=== PATIENT | female | born 1950 | race Caucasian/White ===

== ENCOUNTER → 2017-06-12 14:53 | Outpatient (CLI) | payer MEDICARE, MEDICAID, SELFPAY ==
--- NOTE | 2017-06-12 15:02 | XR_ITS ---
EXAM: XR lumbar spine min 4V HISTORY: ITS.REASON: Low back pain s/p fall a few months ago ORDERING PHYSICIAN: MOSES John PATIENT AGE: 66 years COMPARISON: 07/25/2016 FINDINGS: No acute fracture or dislocation. There is mild degenerative disc disease at the thoracolumbar junction. There are 6 lumbar segments. No lytic or blastic change. An IVC filter is present at the L3-L4 level. Dense vascular calcification involves the aorta with mild dilatation of the distal abdominal aorta as before at 3 cm. IMPRESSION: 1. No acute finding. 2. Mild degenerative changes. 3. Abdominal aortic aneurysm which does not appear significantly changed
== END ==
PROVIDERS: PCP Physician Assistant; Visit Provider Physician Assistant
DX: M54.5 Low back pain (principal)
CPT/HCPCS: 72110

== ENCOUNTER → 2017-12-12 12:23 | Outpatient (CLI) | payer MEDICARE, MEDICAID, SELFPAY ==
--- NOTE | 2017-12-12 12:27 | XR_ITS ---
XR lumbar spine 2-3V Ordering Physician: Frederick Hernandez Patient Age: 67 years: Female HISTORY: ITS.REASON: back pain Back pain fall 2 months ago TECHNIQUE: 3 views AP and lateral view and lateral L5/S1 spot view lumbar spine COMPARISON : 06/12/2017 lumbar spine series. FINDINGS No significant change. No fracture. No subluxation. The vertebral body are intact with no significant change. There are 6 lumbar type vertebra with transitional vertebra lumbosacral junction, likely lumbarized S1. This unchanged. . Disc spaces are actually fairly well maintained with only There is only borderline disc space narrowing the posterior aspect of L3/4, L2/3 L1/2. Narrowing at L6/sacrum reflects the transitional character of this the vertebral discs. . IVC filter is in place stable anterior to the L3/4 level. Extensive, diffuse atherosclerotic calcification abdominal aorta with with again mild aneurysmal dilatation distal aorta just above the bifurcation-this area measuring up to 3 cm diameter on plain film, this measurement likely includes 20-25% magnification A likely benign hemangioma inferior aspect L1. Stable. A would note that there is a small 3 mm x 1.5 mm calcification project over the mid right kidney again noted and likely reflects a small renal calculus. Numerous phleboliths at the pelvic basin. Calcifications along the lower left psoas margin are likely phleboliths and appear unchanged since prior study as well. IMPRESSION no acute findings in the spine. No compression fractures or significant appearing lesions No significant change. May 2017 lumbar series Only Minor degenerative changes lumbar spine Small 3 mm x 1.5 mm probable calculus mid right kidney again noted. The mild aneurysmal dilatation lower most abdominal aorta appears stable
--- NOTE | 2017-12-12 12:27 | XR_ITS ---
XR sacrum coccyx min 2V Ordering Physician: Frederick Hernandez Patient Age: 67 years: Female HISTORY: ITS.REASON: lower back Low back pain fall 2 months ago. Still having pain. TECHNIQUE: AP lateral and angled AP view of coccyx, and sacrum. COMPARISON :May 2017 and June 2016 lumbar series FINDINGS No fracture evident and sacrum or coccyx Sacrum, SI joints appear stable, satisfactory. Stable since 06/12/2017 . The majority of coccyx was included on May study & appear stable as well. . What is seen at the osseous pelvis otherwise appears intact IMPRESSION: The sacrum and coccyx intact. No fracture. Stable Satisfactory anatomy since May AP pelvis unremarkable
== END ==
PROVIDERS: PCP Nurse Practitioner Family; Visit Provider Nurse Practitioner Family
DX: M54.5 Low back pain (principal)
CPT/HCPCS: 72100; 72220

== ENCOUNTER → 2018-01-07 10:19 | Outpatient (CLI) | payer MEDICARE, MEDICAID, SELFPAY ==
--- NOTE | 2018-01-07 10:30 | CT_ITS ---
CT angio abdomen pelvis CLINICAL INDICATION: Follow-up abdominal aortic aneurysm ITS.REASON: mild dilitation of abd aorta ORDERING PHYSICIAN: Frederick Hernandez PATIENT AGE: 67 years COMPARISON: 03/06/2009 TECHNIQUE: Axial images obtained with sagittal and coronal reformats. All CT scans at the facility use one or more dose reduction, viz: automated exposure control, ma/kV adjustment per patient size (including targeted exams where dose is matched to indication, i.e. head), or iterative reconstruction technique. PROCEDURE: Oral Contrast: None IV Contrast: 100 mL of Isovue-370. FINDINGS: Extensive calcification involves the abdominal aorta. There is mild fusiform dilatation of the infrarenal aspect of the abdominal aorta measuring 2.5 cm transverse and 2.4 cm AP. This begins 5.7 cm below the level the left renal artery which is the lowest renal artery. No evidence of acute rib. No hemorrhage or dissection. No evidence of renal artery stenosis. Plaque is present at the origin of the SMA and celiac without significant stenosis. MARIA ESTHER is patent. No significant stenosis of the common or external iliac artery. There is an inferior vena cava filter is present. The superior aspect is below the level veins. Nonvascular findings: Prior cholecystectomy. The common hepatic and common bile duct are prominent with: Bile duct measuring up to 17 mm in diameter. This had a similar appearance on 03/06/2009. Diverticulum is suspected at the region of the distal CBD. Spleen, adrenal glands, are unremarkable. No hydronephrosis. No renal or ureteral calculi. There is a small right renal cyst at 2.3 cm. Urinary bladder slightly distended. There is diverticulosis of the descending and sigmoid colon. Prior hysterectomy. IMPRESSION: 1. 2.5 cm infrarenal abdominal aortic aneurysm. No evidence of rupture or retroperitoneal hemorrhage. 2. No acute abdominal or pelvic findings.
[2018-01-07 10:43] LABS: Anion Gap 14.1 mEq/L (5-15); Blood Urea Nitrogen 13 mg/dL (7-18); Calcium 8.5 mg/dL (8.5-10.1); Carbon Dioxide 26 mmol/L (21.0-32.0); Chloride 103 mmol/L (98-107); Creatinine,Serum 0.85 mg/dL (0.55-1.02); Estimated Glomerular Filt Rate 66 ml/min (>60); GFR (African American) 80 ML/MIN (>60); Glucose 97 mg/dL (74-106); Potassium 4.1 mmoL/L (3.5-5.1); Sodium 139 mmol/L (136-145)
== END ==
PROVIDERS: Visit Provider Nurse Practitioner Family
DX: Z01.812 Encounter for preprocedural laboratory examination (principal); I71.4 Abdominal aortic aneurysm, without rupture
CPT/HCPCS: 36415; 74174; 80048; Q9967

== ENCOUNTER 2019-06-10 12:19 | Emergency (ER) | payer MEDICARE, MEDICAID, SELFPAY ==
[2019-06-10 12:15] VITALS: BP 204/91; PULSE 78; RESP 20; TEMP 36.9; O2SAT 96; BMI 30.9
--- NOTE | 2019-06-10 12:19 | HMH.EDGENADL ---
ED Disposition Clinical Impression: Essential hypertension Cervical strain Qualifiers: Encounter type: initial encounter Qualified Code(s): S16.1XXA - Strain of muscle, fascia and tendon at neck level, initial encounter Lumbar strain Qualifiers: Encounter type: initial encounter Qualified Code(s): S39.012A - Strain of muscle, fascia and tendon of lower back, initial encounter Contusion of left leg Qualifiers: Encounter type: initial encounter Qualified Code(s): S80.12XA - Contusion of left lower leg, initial encounter Abdominal contusion Qualifiers: Encounter type: initial encounter Qualified Code(s): S30.1XXA - Contusion of abdominal wall, initial encounter Fall down steps Qualifiers: Encounter type: initial encounter Qualified Code(s): W10.8XXA - Fall (on) (from) other stairs and steps, initial encounter Disposition: Home, Self-Care Condition on Discharge: Good Instructions: How to Prevent Falls, DI for High Blood Pressure Additional Instructions: Tylenol for pain. Follow-up with your primary care provider for your blood pressure. Additional instructions for TRAUMA: See your physician as soon as possible for further evaluation. Return to the emergency department immediately if severe headache, altered mental status or confusion, severe chest pain, shortness of breath, abdominal pain, vomiting, severe neck pain, numbness or weakness of arms or legs. Referrals: Provider,Referral, MD [Primary Care Provider] - - Critical Care Critical Care Time: No Attestation: On , the high probability of a clinically significant, sudden or life threatening deterioration of the following system(s) required my full and direct attention, intervention and personal management. The time I documented below is in addition to time spent performing reported procedures but includes the following listed in this critical care notation. Medical Decision Making - Christian Inquiry Pt receiving controlled substance: No Vital Signs: 06/10/19 12:15 06/10/19 14:14 06/10/19 15:14 Temperature 98.4 F Temperature Source Oral Pulse Rate [Right Radial] 78 73 74 Respiratory Rate 20 20 20 Blood Pressure [Right Arm] 204/91 H 194/90 H 221/100 H Blood Pressure Mean [Right Arm] 128 124 140 Blood Pressure Source [Right Arm] Automatic Cuff Automatic Cuff Blood Pressure Position [Right Arm] Supine Supine 02 Sat by Pulse Oximetry 96 94 L 96 Oxygen Delivery Method Room Air Room Air 04/14/20 16:29 Temperature Temperature Source Pulse Rate [Right Radial] 68 Respiratory Rate 20 Blood Pressure [Right Arm] 217/83 H Blood Pressure Mean [Right Arm] 127 Blood Pressure Source [Right Arm] Automatic Cuff Blood Pressure Position [Right Arm] Sitting 02 Sat by Pulse Oximetry 94 L Oxygen Delivery Method Room Air - Lab Data Lab Results 06/10/19 12:50: WBC 8.0, RBC 4.91, Hgb 14.6, Hct 44.8, MCV 91.3, MCH 29.7, MCHC 32.5, RDW 14.4, Plt Count 170, MPV 8.4, Neut % (Auto) 53.5, Lymph % (Auto) 35.0, [place] % (Auto) 7.4, Eos % (Auto) 2.8, Baso % (Auto) 1.2, Neut # (Auto) 4.3, Lymph # (Auto) 2.8, [place] # (Auto) 0.6, Eos # (Auto) 0.2, Baso # (Auto) 0.1 06/10/19 12:50: PT 35.7 H, INR 3.65 H 06/10/19 12:50: Sodium 139, Potassium 4.5, Chloride 104, Carbon Dioxide 25, Anion Gap 14.5, BUN 11, Creatinine 0.70, Estimated Creat Clear 67, Estimated GFR 83, Est GFR ( Amer) 100, Glucose 112 H, Calcium 9.3, Total Bilirubin 0.5, AST 52 H, ALT 41, Alkaline Phosphatase 63, Total Protein 8.2, Albumin 4.1, Globulin 4.1 H, Albumin/Globulin Ratio 1.0 L Result diagrams: 06/10/19 12:50 06/10/19 12:50 Orders (Tests/Meds): ED MEDICATIONS Discontinued Medications Generic Name Dose Route Start Last Admin Trade Name Freq PRN Reason Stop Dose Admin Acetaminophen 650 mg 06/10/19 15:21 06/10/19 15:58 Acetaminophen 325mg Tab PO 06/10/19 15:22 650 mg ONCE ONE Administration Ioversol 75 ml 06/10/19 13:31 06/10/19 13:33 Rad-Optiray 350 100ml
--- NOTE | 2019-06-10 12:23 | CT_ITS ---
PROCEDURE: CT HEAD/BRAIN WO CON CLINICAL INDICATION: FALL Posttraumatic pain, fall with head injury and pain, head injury, blunt trauma with injury and pain COMPARISON: No exams were available for comparison TECHNIQUE: Axial images obtained. All CT scans at the facility use one or more dose reduction, viz: automated exposure control, ma/kV adjustment per patient size (including targeted exams where dose is matched to indication, i.e. head), or iterative reconstruction technique. FINDINGS: No midline shift, mass effect, intracranial hemorrhage, hydrocephalus, or extra-axial fluid collection is evident. There is generalized atrophy with hypoattenuation of the periventricular white matter consistent with microangiopathic changes. There is dense calcification in the suprasellar region and along the interhemispheric fissure. This is of unknown etiology and may even be vascular with dilated anterior cerebral artery. The lateral ventricles have a somewhat nodular configuration on both sides which is of questionable etiology. The calvarium has an unremarkable appearance. No mastoid effusion. There is an air-fluid level in the left maxillary sinus. IMPRESSION: 1. No acute intracranial findings. 2. 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 Dense calcification in the suprasellar region extending into the posterior and inferior falx area which may be vascular and could be due to enlarged anterior cerebral artery. Nonemergent CT angiogram may confirm Dictated by: Karan Draper MD 06/10/2019 14:17 Electronically signed by Karan Draper MD in [place] 06/10/2019 14:17
--- NOTE | 2019-06-10 12:23 | CT_ITS ---
PROCEDURE: CT LUMBAR SPINE WO CON CLINICAL HISTORY: FALL Posttraumatic pain, fall with injury and pain COMPARISON: No exams were available for comparison TECHNIQUE: Axial images obtained with sagittal and coronal reformats. All CT scans at the facility use one or more dose reduction, viz: automated exposure control, ma/kV adjustment per patient size (including targeted exams where dose is matched to indication, i.e. head), or iterative reconstruction technique. FINDINGS: Generalized osteopenia. No fracture or dislocation. There is a small area of sclerosis involving the T12 vertebral body inferiorly on the right and may be due to Schmorl's node. Bulging disc is present at L2-L3 and L3-L4. Facet arthritic changes are noted. There is bulging disc at L4-5. See above for detail. Incidental note is made of colonic diverticulosis. There is an IVC filter present. The proximal tip is below the level of the renal veins. There is mild dilatation of the infrarenal abdominal aorta measuring up to 2.3. There is a 5 mm hypodensity of the right hepatic lobe posteriorly. Nonobstructing 4 mm stone is present in the right kidney. A cyst in the upper pole of the right kidney at 1.8 cm. There is a small duodenal diverticulum. IMPRESSION: 1. No acute fracture. 2. Degenerative changes with bulging discs 3. Other nonacute findings as described above including diverticulosis, 2.3 cm abdominal aortic aneurysm, right nephrolithiasis Dictated by: Karan Draper MD 06/10/2019 14:55 Electronically signed by Karan Draper MD in [place] 06/10/2019 14:55
--- NOTE | 2019-06-10 12:23 | XR_ITS ---
PROCEDURE: XR ANKLE LT 2V CLINICAL INDICATION: FALL Posttraumatic pain COMPARISON: XR TIBIA FIBULA LT 2V from 06/10/2019 FINDINGS: No obvious fracture or dislocation. Vascular calcifications are noted. IMPRESSION: No acute findings. Dictated by: Karan Draper MD 06/10/2019 15:25 Electronically signed by Karan Draper MD in [place] 06/10/2019 15:25
--- NOTE | 2019-06-10 12:23 | CT_ITS ---
PROCEDURE: CT CERVICAL SPINE WO CON CLINICAL INDICATION: FALL Posttraumatic pain, fall with injury and pain COMPARISON: No exams were available for comparison TECHNIQUE: Axial images obtained with sagittal and coronal reformats. All CT scans at the facility use one or more dose reduction, viz: automated exposure control, ma/kV adjustment per patient size (including targeted exams where dose is matched to indication, i.e. head), or iterative reconstruction technique. Axial spiral CT scanning performed of the cervical spine beginning at the base of the skull and continuing to the upper T-spine. 3-D multiplanar reconstruction with 3-D manipulation of volumetric data set in image rendering was completed by the radiologist and/or technologist with the supervision of the radiologist on independent workstation. FINDINGS: There is normal alignment. No acute fracture or dislocation is evident. The C2-C3: Unremarkable. C3-C4: There is a suggestion of a medium-sized central disc herniation. Outpatient MRI may confirm C4-C5: Degenerate disc disease with endplate hypertrophic change. C5-C6: Degenerate disc disease with endplate hypertrophic change with canal stenosis and right lateral recess and foraminal narrowing. C6-C7: Degenerate disc disease with right paracentral disc osteophyte complex with right lateral recess and foraminal narrowing. C7-T1: Degenerative disc disease Lung apices are clear. There is diffuse vascular calcification. IMPRESSION: 1. No acute fracture. 2. Suspected central disc herniation C3-C4 3. Cervical spondylosis as detailed above Dictated by: Karan Draper MD 06/10/2019 14:22 Electronically signed by Karan Draper MD in [place] 06/10/2019 14:22
--- NOTE | 2019-06-10 12:31 | CT_ITS ---
PROCEDURE: CT ABDOMEN PELVIS W CON CLINICAL INDICATION: fall down steps Posttraumatic pain COMPARISON: No exams were available for comparison TECHNIQUE: IV Contrast: 75ML OPTIRAY 350 Oral Contrast 20ml Gastroview Axial images obtained with sagittal and coronal reformats. All CT scans at the facility use one or more dose reduction, viz: automated exposure control, ma/kV adjustment per patient size (including targeted exams where dose is matched to indication, i.e. head), or iterative reconstruction technique. FINDINGS: LOWER THORAX: No acute finding ABDOMEN & PELVIS: There are scattered small hypodense lesions of the liver nonspecific 5 mm or less 1 in the right hepatic lobe, 2 in the left hepatic lobe, 2 in the hepatic dome. There has been a prior cholecystectomy. The spleen, adrenal glands, have an unremarkable appearance. There has been a prior cholecystectomy with enlarged common bile duct at 16 mm. There is a small duodenal diverticulum at the ampulla. There is a 2 cm right renal cyst and a 4 mm stone in the lower pole of the right kidney. There is a 2.6 cm infrarenal abdominal aortic aneurysm. An IVC filter is present with the tip proximal to the renal veins. Sigmoid diverticulosis noted. No evidence of diverticulitis or appendicitis. No intestinal obstruction or free air. There are post hysterectomy changes. No acute bony findings. IMPRESSION: 1. No acute finding. 2. Infrarenal abdominal aortic aneurysm. 3. Right nephrolithiasis. 4. Colonic diverticulosis. 5. Nonspecific hypodensities of the liver Dictated by: Karan Draper MD 06/10/2019 14:59 Electronically signed by Karan Draper MD in [place] 06/10/2019 14:59
--- NOTE | 2019-06-10 12:32 | XR_ITS ---
PROCEDURE: XR CHEST AP CLINICAL HISTORY: fall down steps Posttraumatic pain, fall with injury and pain, trauma protocol COMPARISON: No exams were available for comparison FINDINGS: Cardiomegaly without failure. Fibrotic changes or atelectatic changes are present in the left midlung. There is an old left 4th rib fracture. No acute bony abnormalities. IMPRESSION: Cardiomegaly with chronic changes, no acute finding Dictated by: Karan Draper MD 06/10/2019 15:20 Electronically signed by Karan Draper MD in [place] 06/10/2019 15:20
--- NOTE | 2019-06-10 12:32 | XR_ITS ---
PROCEDURE: XR PELVIS 1-2V CLINICAL INDICATION: fall down steps Posttraumatic pain COMPARISON: CT ABDOMEN PELVIS W CON from 06/10/2019 TECHNIQUE: XR Pelvis AP View FINDINGS: No fracture or dislocation is evident. Mild osteoarthritic change of the hips and SI joints No lytic or blastic change. IMPRESSION: No acute findings. Dictated by: Karan Draper MD 06/10/2019 15:24 Electronically signed by Karan Draper MD in [place] 06/10/2019 15:24
--- NOTE | 2019-06-10 12:37 | CT_ITS ---
PROCEDURE: CT THORACIC SPINE WO CON CLINICAL HISTORY: fall down steps, Posttraumatic pain COMPARISON: No exams were available for comparison TECHNIQUE: Axial images obtained with sagittal and coronal reformats. All CT scans at the facility use one or more dose reduction, viz: automated exposure control, ma/kV adjustment per patient size (including targeted exams where dose is matched to indication, i.e. head), or iterative reconstruction technique. FINDINGS: There is normal alignment. Multilevel degenerative disc disease is present with endplate hypertrophic changes. No obvious fracture. There are scattered pulmonary fibrotic changes. IMPRESSION: No acute finding, degenerative changes Dictated by: Karan Draper MD 06/10/2019 14:42 Electronically signed by Karan Draper MD in [place] 06/10/2019 14:42
--- NOTE | 2019-06-10 12:59 | PC.NURSE ---
PT USED BEDPAN, RESULTING IN A LARGE BM AND APPROX 200ML UOP.
[2019-06-10 13:01] LABS: Basophils # 0.1 K/mm3 (0-0.2); Basophils % 1.2 % (0.1-2.0); Eosinophils # 0.2 K/mm3 (0.0-0.4); Eosinophils % 2.8 % (0.1-12.0); Hematocrit 44.8 % (37.0-47.0); Hemoglobin 14.6 g/dL (12.2-16.2); Lymphocytes # 2.8 K/mm3 (0.7-4.5); Mean Corpuscular HGB Conc 32.5 g/dL (31.8-35.4); Mean Corpuscular Hemoglobin 29.7 pg (27.0-31.2); Mean Corpuscular Volume 91.3 fl (81-99); Mean Platelet Volume 8.4 fl (7.4-10.4); Monocytes # 0.6 K/mm3 (0.1-1.0); Monocytes % 7.4 % (1.7-9.3); Neutrophils # 4.3 K/mm3 (1.8-7.8); Neutrophils % 53.5 % (37.0-80.0); Platelet Count 170 K/mm3 (142-424); Red Blood Count 4.91 M/mm3 (4.20-5.40); Red Cell Distribution Width 14.4 % (11.5-17.5)
[2019-06-10 13:03] LABS: Chloride 104 mmol/L (98-107); Potassium 4.5 mmoL/L (3.5-5.1); Sodium 139 mmol/L (136-145)
[2019-06-10 13:06] LABS: Alanine Aminotransferase 41 U/L (12-78); Albumin Level 4.1 g/dl (3.5-5.0); Alkaline Phosphatase 63 U/L (38-126); Anion Gap 14.5 mEq/L (5-15); Aspartate Amino Transferase 52 U/L (14-36); Bilirubin,Total 0.5 mg/dl (0.2-1.3); Blood Urea Nitrogen 11 mg/dl (7-17); Calcium 9.3 mg/dl (8.4-10.2); Carbon Dioxide 25 mmol/L (22.0-30.0); Creatinine Clearance Estimated 67 mL/min (50-200); Estimated Glomerular Filt Rate 83 ml/min (>60); GFR (African American) 100 ML/MIN (>60); Globulin 4.1 g/dL (1.3-3.2); Glucose 112 mg/dl (74-100); INR 3.65 (0.9-1.1); Prothrombin Time 35.7 seconds (9.4-11.8); Total Protein,Serum 8.2 g/dl (6.3-8.2)
[2019-06-10 14:14] VITALS: BP 194/90; PULSE 73; RESP 20; O2SAT 94
[2019-06-10 15:14] VITALS: BP 221/100; PULSE 74; RESP 20; O2SAT 96
[2019-06-10 16:29] VITALS: BP 217/83; PULSE 68; RESP 20; O2SAT 94
[2019-06-10 17:25] VITALS: BP 160/81
[2019-06-10 18:35] VITALS: BP 187/82; PULSE 79; RESP 18; TEMP 37.1; O2SAT 98
== END 2019-06-10 18:35 | disposition home or self-care (01) ==
PROVIDERS: Emergency Provider Emergency Medicine
DX: S16.1XXA Strain of muscle, fascia and tendon at neck level, initial encounter (principal); S39.012A Strain of muscle, fascia and tendon of lower back, initial encounter; S80.12XA Contusion of left lower leg, initial encounter; S30.1XXA Contusion of abdominal wall, initial encounter; W10.8XXA Fall (on) (from) other stairs and steps, initial encounter; I48.20 Chronic atrial fibrillation, unspecified; F41.8 Other specified anxiety disorders; I10 Essential (primary) hypertension; E78.5 Hyperlipidemia, unspecified; Z79.899 Other long term (current) drug therapy; Z79.01 Long term (current) use of anticoagulants; Z88.0 Allergy status to penicillin; Z88.2 Allergy status to sulfonamides
CPT/HCPCS: 70450; 71045; 72125; 72128; 72131; 72170; 73590; 73600; 74177; 80053; 85025; 85610; 99284; Q9967

== ENCOUNTER 2019-07-23 03:07 | Emergency (ER) | payer MEDICARE, MEDICAID, SELFPAY ==
[2019-07-23] VITALS (9 sets, daily range): BP systolic 164–216; BP diastolic 75–100; PULSE 70–80; RESP 16–18; TEMP 36.6–36.7; O2SAT 96–100; BMI 31.7
--- NOTE | 2019-07-23 03:29 | XR_ITS ---
PROCEDURE: XR CHEST PORTABLE CLINICAL HISTORY: dizziness, hypertension COMPARISON: No exams were available for comparison FINDINGS: The cardiomediastinal silhouette and pulmonary vascularity are within normal limits. The lungs are clear without infiltrates, suspicious nodules, or pleural effusions. No acute bony abnormalities. IMPRESSION: No acute findings. Dictated by: Karan Draper MD 07/23/2019 08:15 Electronically signed by Karan Draper MD in [place] 07/23/2019 08:15
--- NOTE | 2019-07-23 03:32 | CT_ITS ---
PROCEDURE: CT HEAD/BRAIN WO CON CLINICAL INDICATION: dizziness,hypertension Dizziness, hypertension COMPARISON: CT HEAD/BRAIN WO CON from 06/10/2019 TECHNIQUE: Axial images obtained. All CT scans at the facility use one or more dose reduction, viz: automated exposure control, ma/kV adjustment per patient size (including targeted exams where dose is matched to indication, i.e. head), or iterative reconstruction technique. FINDINGS: No midline shift, mass effect, intracranial hemorrhage, hydrocephalus, or extra-axial fluid collection is evident. . There has been overall no significant change in the dense calcification in the region of the anterior cerebral artery along the interhemispheric fissure. Also no significant change in the nodularity the sub ependymal area in the periventricular region on both sides. The calvarium has an unremarkable appearance. No mastoid effusion. No sinus air-fluid level. IMPRESSION: 1. No acute intracranial finding with no significant change. 2. Nodularity along the lateral aspect of the lateral ventricles on both sides suggesting sub ependymal heterotopia 3. No change dense calcification of the region of the anterior cerebral artery in the interhemispheric region Dictated by: Karan Draper MD 07/23/2019 08:33 Electronically signed by Karan Draper MD in [place] 07/23/2019 08:33
--- NOTE | 2019-07-23 03:34 | HMH.EDDIZZ ---
ED Disposition Clinical Impression: Hypertensive emergency without congestive heart failure, Dizziness, Prolonged INR Disposition: Home, Self-Care Condition on Discharge: Good Instructions: Dizziness, Nonvertigo Additional Instructions: call pcp this am and use meds as directed Prescriptions: lisinopriL [Zestril 5mg Tablet] 5 mg PO DAILY #30 tab Transmission Status: Pending to [id number] Referrals: Louisa Khan PA [Primary Care Provider] - - Critical Care Critical Care Time: No Attestation: On 07/23/19, the high probability of a clinically significant, sudden or life threatening deterioration of the following system(s) required my full and direct attention, intervention and personal management. The time I documented below is in addition to time spent performing reported procedures but includes the following listed in this critical care notation. Medical Decision Making - Medical Records Medical records reviewed: Yes: I reviewed the patient's medical records. - Christian Inquiry Pt receiving controlled substance: No Vital Signs: 07/23/19 03:17 07/23/19 03:20 07/23/19 03:38 Temperature 97.8 F 98.0 F Temperature Source Oral Oral Pulse Rate [Right Brachial] 70 70 72 Respiratory Rate 16 16 16 Blood Pressure [Right Arm] 164/90 H 190/92 H 216/94 H Blood Pressure Mean [Right Arm] 114 124 134 Blood Pressure Source [Right Arm] Automatic Cuff Automatic Cuff Blood Pressure Position [Right Arm] Sitting Supine Sitting 02 Sat by Pulse Oximetry 100 97 98 Oxygen Delivery Method Room Air Room Air Room Air 07/23/19 04:17 07/23/19 04:30 07/23/19 06:35 Temperature Temperature Source Pulse Rate [Right Brachial] 71 70 70 Respiratory Rate 18 18 18 Blood Pressure [Right Arm] 186/85 H 185/92 H 169/75 H Blood Pressure Mean [Right Arm] 118 123 106 Blood Pressure Source [Right Arm] Blood Pressure Position [Right Arm] Sitting 02 Sat by Pulse Oximetry 97 98 96 Oxygen Delivery Method Room Air Room Air Room Air - Lab Data Lab results reviewed: Yes: I reviewed the patient's lab results. Lab Results 07/23/19 03:15: WBC 7.4, RBC 4.47, Hgb 13.8, Hct 40.5, MCV 90.6, MCH 30.9, MCHC 34.1, RDW 14.8, Plt Count 142, MPV 8.5, Neut % (Auto) 42.6, Lymph % (Auto) 45.4, [place] % (Auto) 7.2, Eos % (Auto) 3.6, Baso % (Auto) 1.2, Neut # (Auto) 3.2, Lymph # (Auto) 3.4, [place] # (Auto) 0.5, Eos # (Auto) 0.3, Baso # (Auto) 0.1 07/23/19 03:15: PT 41.1 H, INR 4.32 H 07/23/19 03:15: Sodium 136, Potassium 4.1, Chloride 108 H, Carbon Dioxide 24, Anion Gap 8.1, BUN 14, Creatinine 0.80, Estimated Creat Clear 68, Estimated GFR 71, Est GFR ( Amer) 86, Glucose 118 H, Calcium 9.0, Troponin I < 0.01 07/23/19 05:29: Urine Color Yellow, Urine Appearance Clear, Urine pH 6.0, Ur Specific [place] 1.015, Urine Protein Negative, Urine Glucose (UA) Negative, Urine Ketones Negative, Urine Blood Negative, Urine Nitrate Negative, Urine Bilirubin Negative, Urine Urobilinogen 0.2, Ur Leukocyte Esterase Negative Result diagrams: 07/23/19 03:15 07/23/19 03:15 Orders (Tests/Meds): ED MEDICATIONS Generic Name Dose Route Start Last Admin Trade Name Freq PRN Reason Stop Dose Admin Sodium Chloride 500 mls @ 999 mls/hr 07/23/19 04:45 07/23/19 04:35 Sod Chlor 0.9% 1000ml Bag IV 07/23/19 05:15 150 mls/hr .Q31M DIGNA Administration Discontinued Medications Generic Name Dose Route Start Last Admin Trade Name Freq PRN Reason Stop Dose Admin Lisinopril 5 mg 07/23/19 04:33 07/23/19 04:34 Zestril 5mg Tablet PO 07/23/19 04:34 5 mg ONCE ONE Administration ORDERS Category Date Time Status CT head/brain wo con Stat Cat Scan 07/23/19 03:32 Taken XR chest portable Stat Exams 07/23/19 03:29 Taken Troponin I Q3H Lab 07/23/19 06:45 Ordered Troponin I Q3H Lab 07/23/19 09:45 Ordered UA [Urinalysis and Microscopic] Stat Lab 07/23/19 05:29 Results - ECG Data Tracing #1 Normal Sinus Rhythm: Yes
[2019-07-23 03:40] LABS: Basophils # 0.1 K/mm3 (0-0.2); Basophils % 1.2 % (0.1-2.0); Eosinophils # 0.3 K/mm3 (0.0-0.4); Eosinophils % 3.6 % (0.1-12.0); Hematocrit 40.5 % (37.0-47.0); Hemoglobin 13.8 g/dL (12.2-16.2); Lymphocytes # 3.4 K/mm3 (0.7-4.5); Lymphocytes % 45.4 % (10-50); Mean Corpuscular HGB Conc 34.1 g/dL (31.8-35.4); Mean Corpuscular Hemoglobin 30.9 pg (27.0-31.2); Mean Corpuscular Volume 90.6 fl (81-99); Mean Platelet Volume 8.5 fl (7.4-10.4); Monocytes # 0.5 K/mm3 (0.1-1.0); Monocytes % 7.2 % (1.7-9.3); Neutrophils # 3.2 K/mm3 (1.8-7.8); Neutrophils % 42.6 % (37.0-80.0); Platelet Count 142 K/mm3 (142-424); Red Blood Count 4.47 M/mm3 (4.20-5.40); Red Cell Distribution Width 14.8 % (11.5-17.5); White Blood Count 7.4 K/mm3 (4.8-10.8)
--- NOTE | 2019-07-23 03:40 | PC.NURSE ---
rad at bedside; taking to ct
[2019-07-23 03:41] LABS: Chloride 108 mmol/L (98-107); Sodium 136 mmol/L (136-145)
[2019-07-23 03:42] LABS: Potassium 4.1 mmoL/L (3.5-5.1)
[2019-07-23 03:44] LABS: Blood Urea Nitrogen 14 mg/dl (7-17); Creatinine Clearance Estimated 68 mL/min (50-200); Estimated Glomerular Filt Rate 71 ml/min (>60); GFR (African American) 86 ML/MIN (>60)
[2019-07-23 03:45] LABS: Anion Gap 8.1 mEq/L (5-15); Carbon Dioxide 24 mmol/L (22.0-30.0); Glucose 118 mg/dl (74-100); Prothrombin Time 41.1 seconds (9.4-11.8)
[2019-07-23 03:46] LABS: INR 4.32 (0.9-1.1)
[2019-07-23 03:58] LABS: Troponin I < 0.01 ng/ml (0.00-0.034)
--- NOTE | 2019-07-23 05:45 | PC.NURSE ---
pt up to bathroom. expresses that she has no ride for home. will advise dayshift to contact care management for assist.
[2019-07-23 06:06] LABS: Microscopic, Urine URINE MICROSCOPIC (MICROSCOPIC)
[2019-07-23 06:16] LABS: Appearance,Urine CLEAR (Clear); Bilirubin,Urine Negative (Negative); Blood, Urine Negative (Negative); Color,Urine YELLOW (Yellow); Glucose,Urine (UA) Negative (Negative); Ketones,Urine Negative (Negative); Leukocyte Esterase,Urine Negative (Negative); Nitrate,Urine Negative (Negative); Protein,Urine Negative (Negative); Specific Gravity, Urine 1.015 (1.005-1.030); Urobilinogen,Urine 0.2 EU/dl (0.2)
[2019-07-23 06:42] LABS: RBC,Urine Occasional #/hpf (0-3); WBC,Urine Occasional #/hpf (0-3)
--- NOTE | 2019-07-23 07:35 | SW/DCPLANNER ---
RECEIVED A CALL FROM THE ED THAT THIS PATIENT NEEDS TRANSPORTATION TO HOME, I CALLED [facility] AND THEY WILL PROVIDE HER TRANSPORT HOME... PATIENT IS REQUIRED TO WEAR A MASK AND HAVE HER HOUSE KEYS IN HAND...I CALLED ED AND SHARED THIS IN ORDER FOR HER TO BE TRANSPORTED.
== END 2019-07-23 07:47 | disposition home or self-care (01) ==
PROVIDERS: Emergency Provider Emergency Medicine; PCP Physician Assistant
DX: I16.1 Hypertensive emergency (principal); R79.1 Abnormal coagulation profile; F41.8 Other specified anxiety disorders; E78.5 Hyperlipidemia, unspecified; I10 Essential (primary) hypertension; Z88.0 Allergy status to penicillin; Z88.2 Allergy status to sulfonamides; Z79.899 Other long term (current) drug therapy
CPT/HCPCS: 70450; 71045; 80048; 81001; 84484; 85025; 85610; 93005; 96365; 99284

== ENCOUNTER 2019-10-17 14:17 | Emergency (ER) | payer MEDICARE, MEDICAID, SELFPAY ==
[2019-10-17 14:20] VITALS: BP 169/68; PULSE 70; RESP 18; TEMP 36.7; O2SAT 94; BMI 29.0
--- NOTE | 2019-10-17 14:29 | ECG_ITS ---
APPROVED REPORT Exam: Resting ECG HR:73 bpm ECG Measurements Heart Rate 73 AXES UT 162 P 39 QRSd 84 QRS -19 QT 388 T 38 QTc 427 <Conclusion> Normal sinus rhythm Minimal voltage criteria for LVH, may be normal variant Septal infarct, age undetermined Abnormal ECG Electronically signed by : Marco A Mendenhall, 10/18/2019 05:53:18
--- NOTE | 2019-10-17 14:39 | HMH.EDGENADL ---
ED Disposition Clinical Impression: Elevated INR Hematuria Qualifiers: Hematuria type: gross Qualified Code(s): R31.0 - Gross hematuria Disposition: Home, Self-Care Condition on Discharge: Good Instructions: DI for Hematuria Additional Instructions: Do not take your Coumadin today. Resume taking Coumadin at her usual dose tomorrow. Macrobid as prescribed. Follow-up with Dr. Osuna in the office on Sunday. Prescriptions: Nitrofurantoin Monohyd/M-Cryst [Macrobid 100 mg Capsule] 100 mg PO BID #10 cap Transmission Status: Received by [id number] Referrals: Valdez Osuna MD [Primary Care Provider] - - Critical Care Critical Care Time: No Attestation: On 10/17/19, the high probability of a clinically significant, sudden or life threatening deterioration of the following system(s) required my full and direct attention, intervention and personal management. The time I documented below is in addition to time spent performing reported procedures but includes the following listed in this critical care notation. Medical Decision Making - Medical Records Medical records reviewed: Yes: I reviewed the patient's medical records. MR Comment: Office UA result reviewed as well. - Christian Inquiry Pt receiving controlled substance: No Vital Signs: 10/17/19 14:20 10/17/19 14:48 10/17/19 16:20 Temperature 98.1 F 98.1 F Temperature Source Oral Pulse Rate 85 Pulse Rate [Right] 70 66 Respiratory Rate 18 17 Blood Pressure 165/87 H Blood Pressure [Right Arm] 169/68 H 169/68 H Blood Pressure Mean [Right Arm] 101 101 Blood Pressure Source [Right Arm] Automatic Cuff Blood Pressure Position [Right Arm] Sitting 02 Sat by Pulse Oximetry 94 L 92 L Oxygen Delivery Method Room Air - Lab Data Lab results reviewed: Yes: I reviewed the patient's lab results. Lab Results 10/17/19 14:41: WBC 8.7, RBC 4.61, Hgb 14.2, Hct 42.1, MCV 91.3, MCH 30.9, MCHC 33.8, RDW 14.6, Plt Count 181, MPV 8.0, Neut % (Auto) 53.1, Lymph % (Auto) 36.6, [place] % (Auto) 6.8, Eos % (Auto) 2.8, Baso % (Auto) 0.8, Neut # (Auto) 4.6, Lymph # (Auto) 3.2, [place] # (Auto) 0.6, Eos # (Auto) 0.2, Baso # (Auto) 0.1 10/17/19 14:41: PT 45.2 H, INR 4.87 H, APTT 48.8 H 10/17/19 14:41: Sodium 138, Potassium 4.4, Chloride 103, Carbon Dioxide 26, Anion Gap 13.4, BUN 14, Creatinine 0.80, Estimated Creat Clear 67, Estimated GFR 71, Est GFR ( Amer) 86, Glucose 106 H, Calcium 9.7, Total Bilirubin 0.6, AST 61 H, ALT 36, Alkaline Phosphatase 74, Troponin I < 0.01, Total Protein 8.4 H, Albumin 4.2, Globulin 4.2 H, Albumin/Globulin Ratio 1.0 L Result diagrams: 10/17/19 14:41 10/17/19 14:41 Orders (Tests/Meds): ORDERS Category Date Time Status ECG Request by /Ciara Stat Y 10/17/19 14:44 Ordered - Radiology Data #1 Image(s): Chest Image Reviewed: Yes I have reviewed radiologist's interpretation PROCEDURE: XR CHEST 2V CLINICAL HISTORY: soa Shortness of air COMPARISON: CT AGABDPEL CT angio abdomen pelvis from 01/07/2018 CR XR CHEST AP from 06/10/2019 CR XR CHEST PORTABLE from 07/23/2019 FINDINGS: The cardiomediastinal silhouette and pulmonary vascularity are within normal limits. COPD. Mild right apical thickening. Fibrotic change left suprahilar region. No lobar consolidation or collapse. No acute bony abnormalities. IMPRESSION: COPD with chronic changes, no acute finding Dictated by: Karan Draper MD 10/17/2019 15:33 Karan Draper MD in [place] 10/17/2019 15:33 - ECG Data Tracing #1 EKG interpreted by Ortega Bustillos MD: Rhythm: sinus Rate: 73 [place]: Left Ectopy: none Conduction: normal ST Segment Changes: none T Wave Changes: none Q Waves: none No evidence of acute ischemia or injury - Physician Consults Physician Consulted: Neus Time: 15:47 Reason -: Pt condition Comment/Response: Hold Coumadin for 1 day then restart at previous dose. Rx Macrobid. Follow-up in their office on
--- NOTE | 2019-10-17 14:44 | XR_ITS ---
PROCEDURE: XR CHEST 2V CLINICAL HISTORY: soa Shortness of air COMPARISON: CT AGABDPEL CT angio abdomen pelvis from 01/07/2018 CR XR CHEST AP from 06/10/2019 CR XR CHEST PORTABLE from 07/23/2019 FINDINGS: The cardiomediastinal silhouette and pulmonary vascularity are within normal limits. COPD. Mild right apical thickening. Fibrotic change left suprahilar region. No lobar consolidation or collapse. No acute bony abnormalities. IMPRESSION: COPD with chronic changes, no acute finding Dictated by: Karan Draper MD 10/17/2019 15:33 Karan Draper MD in [place] 10/17/2019 15:33
[2019-10-17 14:48] VITALS: BP 169/68; PULSE 66; O2SAT 92
[2019-10-17 14:53] LABS: Basophils # 0.1 K/mm3 (0-0.2); Basophils % 0.8 % (0.1-2.0); Eosinophils # 0.2 K/mm3 (0.0-0.4); Eosinophils % 2.8 % (0.1-12.0); Hematocrit 42.1 % (37.0-47.0); Hemoglobin 14.2 g/dL (12.2-16.2); Lymphocytes # 3.2 K/mm3 (0.7-4.5); Lymphocytes % 36.6 % (10-50); Mean Corpuscular HGB Conc 33.8 g/dL (31.8-35.4); Mean Corpuscular Hemoglobin 30.9 pg (27.0-31.2); Mean Corpuscular Volume 91.3 fl (81-99); Monocytes # 0.6 K/mm3 (0.1-1.0); Monocytes % 6.8 % (1.7-9.3); Neutrophils # 4.6 K/mm3 (1.8-7.8); Neutrophils % 53.1 % (37.0-80.0); Platelet Count 181 K/mm3 (142-424); Red Blood Count 4.61 M/mm3 (4.20-5.40); Red Cell Distribution Width 14.6 % (11.5-17.5); White Blood Count 8.7 K/mm3 (4.8-10.8)
[2019-10-17 14:58] LABS: Alanine Aminotransferase 36 U/L (12-78); Albumin Level 4.2 g/dl (3.5-5.0); Alkaline Phosphatase 74 U/L (38-126); Anion Gap 13.4 mEq/L (5-15); Aspartate Amino Transferase 61 U/L (14-36); Bilirubin,Total 0.6 mg/dl (0.2-1.3); Blood Urea Nitrogen 14 mg/dl (7-17); Calcium 9.7 mg/dl (8.4-10.2); Carbon Dioxide 26 mmol/L (22.0-30.0); Chloride 103 mmol/L (98-107); Creatinine Clearance Estimated 67 mL/min (50-200); Estimated Glomerular Filt Rate 71 ml/min (>60); GFR (African American) 86 ML/MIN (>60); Globulin 4.2 g/dL (1.3-3.2); Glucose 106 mg/dl (74-100); Potassium 4.4 mmoL/L (3.5-5.1); Sodium 138 mmol/L (136-145); Total Protein,Serum 8.4 g/dl (6.3-8.2)
[2019-10-17 15:02] LABS: Prothrombin Time 45.2 seconds (9.4-11.8)
[2019-10-17 15:03] LABS: Activated Partial Thrombo Time 48.8 seconds (23.6-34.0); INR 4.87 (0.9-1.1)
--- NOTE | 2019-10-17 15:09 | PC.NURSE ---
pt taken to xray
[2019-10-17 15:10] LABS: Troponin I < 0.01 ng/ml (0.00-0.034)
[2019-10-17 16:20] VITALS: BP 165/87; PULSE 85; RESP 17; TEMP 36.7; O2SAT 100
== END 2019-10-17 16:22 | disposition home or self-care (01) ==
PROVIDERS: Emergency Provider Emergency Medicine; PCP Family Medicine
DX: R31.0 Gross hematuria (principal); D68.9 Coagulation defect, unspecified; I48.20 Chronic atrial fibrillation, unspecified; F41.8 Other specified anxiety disorders; I10 Essential (primary) hypertension; E78.5 Hyperlipidemia, unspecified; Z79.899 Other long term (current) drug therapy; Z88.0 Allergy status to penicillin; Z88.2 Allergy status to sulfonamides
CPT/HCPCS: 71046; 80053; 84484; 85025; 85610; 85730; 87086; 87088; 87186; 93005; 99283

== ENCOUNTER → 2019-10-17 17:43 | Outpatient (CLI) | payer MEDICARE, MEDICAID, SELFPAY | PROVIDERS: Visit Provider Family Medicine | DX: M54.9 Dorsalgia, unspecified (principal); N39.0 Urinary tract infection, site not specified | CPT/HCPCS: 87086; 87088; 87186 ==

== ENCOUNTER 2020-04-26 11:17 | Observation (INO) | payer MEDICARE, MEDICAID, SELFPAY ==
[2020-04-26] VITALS (7 sets, daily range): BP systolic 144–168; BP diastolic 61–77; PULSE 71–90; RESP 16–19; TEMP 36.4–36.9; O2SAT 96–99; BMI 29.6; BMI 30.2
--- NOTE | 2020-04-26 11:24 | HMH.EDGENADL ---
ED Disposition Clinical Impression: Lower GI bleed Disposition: Admitted as Observation Condition on Discharge: Good Referrals: Rodolfo Woo MD [Primary Care Provider] - Time of Disposition: 15:14 - Critical Care Critical Care Time: No Attestation: On , the high probability of a clinically significant, sudden or life threatening deterioration of the following system(s) required my full and direct attention, intervention and personal management. The time I documented below is in addition to time spent performing reported procedures but includes the following listed in this critical care notation. Medical Decision Making - Medical Records Medical records reviewed: Yes: I reviewed the patient's medical records. - Christian Inquiry Pt receiving controlled substance: No Vital Signs: 04/26/20 11:18 04/26/20 13:30 04/26/20 15:09 Temperature 97.6 F 98.4 F Temperature Source Oral Oral Pulse Rate [Right Radial] 87 74 90 Respiratory Rate 18 19 Blood Pressure [Right Arm] 155/71 H 151/67 H 148/77 H Blood Pressure Mean [Right Arm] 99 95 100 Blood Pressure Source [Right Arm] Automatic Cuff Automatic Cuff Automatic Cuff Blood Pressure Position [Right Arm] Sitting Sitting 02 Sat by Pulse Oximetry 96 96 99 Oxygen Delivery Method Room Air Room Air - Lab Data Lab results reviewed: Yes: I reviewed the patient's lab results. Lab Results 04/26/20 11:30: WBC 9.0, RBC 4.04 L, Hgb 11.1 L, Hct 35.5 L, MCV 87.9, MCH 27.6, MCHC 31.4 L, RDW 14.7, Plt Count 284, MPV 8.8, Neut % (Auto) 56.0, Lymph % (Auto) 33.5, [place] % (Auto) 6.9, Eos % (Auto) 2.7, Baso % (Auto) 0.9, Neut # (Auto) 5.1, Lymph # (Auto) 3.0, [place] # (Auto) 0.6, Eos # (Auto) 0.2, Baso # (Auto) 0.1 04/26/20 11:30: PT 31.9 H, INR 2.93 H 04/26/20 : Stool Occult Blood Positive A Result diagrams: 04/26/20 11:30 Medical Decision Narrative: 69yo F with past medical history of recurrent DVT presents to the emergency department secondary to bright red blood per rectum. Hemoccult positive. H&H are mildly decreased from last time the patient had blood work done. Patient denies any signs or symptoms of significant anemia at this time and therefore does not require blood transfusion. She would benefit from admission. Case discussed with Dr. Woo. We will hold warfarin. General Adult HPI - General Stated complaint: blood in stool Time Seen by Provider: 04/26/20 11:24 Mode of Arrival: Ambulatory Source of Information: Patient Limitations: No Limitations - History of Present Illness HPI narrative: 69yo F with past medical history of DVT presents the emergency department with concern for bright red blood per rectum. Patient reports has been going on for some time but she has delayed seeking care hoping it would stop. Patient reports taking her Coumadin as directed and having been on it for several years. She denies lightheadedness, shortness of breath, abdominal pain. Patient reports having colonoscopy in the past and states they may have removed a polyp. - Related Data Previous Rx's Medication Instructions Recorded lisinopril 10 mg tablet 10 mg PO DAILY #90 tab 08/14/19 promethazine 12.5 mg tablet 12.5 mg PO TID PRN #20 tab 08/14/19 acetaminophen 300 mg-codeine 30 mg 1 tab PO BID PRN #60 tab 08/29/19 tablet albuterol sulfate 90 mcg/actuation 1 inh INHALATION QID PRN #18 g 10/28/19 aerosol inhaler prednisone 20 mg tablet 20 mg PO BID 5 Days #10 tab 01/13/20 cyclobenzaprine 10 mg tablet 10 mg PO TID PRN #30 tab 02/10/20 warfarin 5 mg tablet See Rx Instructions .ROUTE 03/04/20 .COMPLEX #32 tab fluoxetine 20 mg capsule See Rx Instructions .ROUTE 03/09/20 .COMPLEX #90 cap metoprolol tartrate 50 mg tablet See Rx Instructions .ROUTE 04/26/20 .COMPLEX #180 tab Allergies Allergy/AdvReac Type Severity Reaction Status Date / Time Penicillins [PENICILLINS] Allergy Unknown Verified 01/13/20 13:07 Sulfa (Sulfonamide Allergy Unknown Verified 01/13/20
[2020-04-26 11:41] LABS: Basophils # 0.1 K/mm3 (0-0.2); Basophils % 0.9 % (0.1-2.0); Eosinophils # 0.2 K/mm3 (0.0-0.4); Eosinophils % 2.7 % (0.1-12.0); Hematocrit 35.5 % (37.0-47.0); Hemoglobin 11.1 g/dL (12.2-16.2); Lymphocytes % 33.5 % (10-50); Mean Corpuscular HGB Conc 31.4 g/dL (31.8-35.4); Mean Corpuscular Hemoglobin 27.6 pg (27.0-31.2); Mean Corpuscular Volume 87.9 fl (81-99); Mean Platelet Volume 8.8 fl (7.4-10.4); Monocytes # 0.6 K/mm3 (0.1-1.0); Monocytes % 6.9 % (1.7-9.3); Neutrophils # 5.1 K/mm3 (1.8-7.8); Platelet Count 284 K/mm3 (142-424); Red Blood Count 4.04 M/mm3 (4.20-5.40); Red Cell Distribution Width 14.7 % (11.5-17.5)
[2020-04-26 12:03] LABS: INR 2.93 (0.9-1.1); Prothrombin Time 31.9 seconds (9.4-11.8)
[2020-04-26 14:38] LABS: Occult Blood,Stool Positive (Negative)
[2020-04-26 15:25] LABS: Adenovirus,PCR Not Detected (NotDetected); Bordetella Pertussis Not Detected (NotDetected); Chlamydophila Pneumoniae, PCR Not Detected (NotDetected); Coronavirus 19, PCR Not Detected (NotDetected); Coronavirus 229E Not Detected (NotDetected); Coronavirus NL63 Not Detected (NotDetected); Coronavirus OC43 Not Detected (NotDetected); Coronovirus HKU1,PCR Not Detected (NotDetected); Human Metapneumovirus Not Detected (NotDetected); Influenza A, PCR Not Detected (NotDetected); Influenza AH1, 2009 Not Detected (NotDetected); Influenza AH1, PCR Not Detected (NotDetected); Influenza AH3,PCR Not Detected (NotDetected); Influenza B, PCR Not Detected (NotDetected); Mycoplasma Pneumoniae, PCR Not Detected (NotDetected); Parainfluenza 1, PCR Not Detected (NotDetected); Parainfluenza 2, PCR Not Detected (NotDetected); Parainfluenza 3, PCR Not Detected (NotDetected); Parainfluenza 4, PCR Not Detected (NotDetected); Respiratory Syncytial Virus Not Detected (NotDetected); Rhinovirus/Enterovirus Not Detected (NotDetected)
[2020-04-26 16:16] LABS: Chloride 107 mmol/L (98-107)
[2020-04-26 16:17] LABS: Potassium 4.3 mmoL/L (3.5-5.1); Sodium 141 mmol/L (136-145)
[2020-04-26 16:19] LABS: Blood Urea Nitrogen 11 mg/dl (7-17); Creatinine Clearance Estimated 66 mL/min (50-200); Estimated Glomerular Filt Rate 62 ml/min (>60); GFR (African American) 75 ML/MIN (>60)
[2020-04-26 16:20] LABS: Anion Gap 13.3 mEq/L (5-15); Calcium 9.7 mg/dl (8.4-10.2); Carbon Dioxide 25 mmol/L (22.0-30.0); Glucose 121 mg/dl (74-100)
--- NOTE | 2020-04-26 17:37 | PC.NURSE ---
notified second floor pt is ready for admission, spoke with marshall kilgore states she will come down for report.
--- NOTE | 2020-04-26 19:04 | PC.NURSE ---
pt arrived on unit with myself at approx 1750
--- NOTE | 2020-04-26 19:58 | PC.NURSE ---
During admission patient was asked about home medications. The only meds she can think of the name are metoprolol and warfarin. Pt was asked to have her son bring in her medications for completion of list as well as pt being medicare obs. medicare obs was explained to pt at this time
[2020-04-26 21:06] LABS: Basophils % 0.5 % (0.1-2.0); Eosinophils # 0.2 K/mm3 (0.0-0.4); Eosinophils % 2.9 % (0.1-12.0); Hematocrit 32.2 % (37.0-47.0); Lymphocytes # 3.1 K/mm3 (0.7-4.5); Lymphocytes % 40.1 % (10-50); Mean Corpuscular HGB Conc 30.7 g/dL (31.8-35.4); Mean Corpuscular Hemoglobin 27.5 pg (27.0-31.2); Mean Corpuscular Volume 89.7 fl (81-99); Mean Platelet Volume 8.4 fl (7.4-10.4); Monocytes # 0.6 K/mm3 (0.1-1.0); Monocytes % 7.6 % (1.7-9.3); Neutrophils # 3.7 K/mm3 (1.8-7.8); Neutrophils % 48.9 % (37.0-80.0); Platelet Count 206 K/mm3 (142-424); Red Cell Distribution Width 14.9 % (11.5-17.5); White Blood Count 7.6 K/mm3 (4.8-10.8)
--- NOTE | 2020-04-26 21:16 | HMH.HP ---
*Admission Date: 04/26/20 *Chief complaint: lower gi bleeding *History of present illness: this patient presented to the ed with crampy abd pain and rectal bleeding on coumadin for dvt -yo F with past medical history of DVT presents the emergency department with concern for bright red blood per rectum. Patient reports has been going on for some time but she has delayed seeking care hoping it would stop. Patient reports taking her Coumadin as directed and having been on it for several years. She denies lightheadedness, shortness of breath, abdominal pain. Patient reports having colonoscopy in the past and states they may have removed a polyp. pt admitted for eval and treatment [facility] History I have reviewed the patient's past medical history: Yes Medical History: Reports:: Anxiety, Atrial Fibrillation, Depression, Hyperlipidemia, Hypertension Denies:: Diabetes Mellitus Type 1, Diabetes Mellitus Type 2 *Have you ever received a pneumonia vaccine?: No *Have you received a flu vaccine this season?: Yes Other Medical History: Reports: Other Other Surgeries: Yes: Cardiac Surgery, , Other Amputation: No Fractures: No - *Social History Last grade of school completed: 11th or 12th Smoking Status: Never smoker Alcohol Intake: former Substance Use Type: denies use *Occupational Status:: retired Housing: apartment Household Members: none *Travel in the last 8 weeks: None - Psychiatric History Pschychiatric History:: Reports:: Anxiety, Depression Family Hx:: Heart Attack, Cancer Review of Systems - Review of Systems Review of systems:: pertinent systems reviewed and negative unless documented below - Constitutional Denies fever(s) - Eyes Denies change in vision - ENT Denies sore throat - *Cardiovascular Denies chest pain at rest - *Respiratory Denies cough - *Gastrointestinal Reports abdominal pain, Reports bright, red blood in stools - *Genitourinary Denies blood in urine - *Musculoskeletal Denies joint pain - Integumentary/Breasts Denies rash - *Neurologic Denies headache(s), Denies seizure-like activity - Psychiatric Denies anxiety Meds Home Medications Medication Instructions Recorded Confirmed Type lisinopril 10 mg tablet 10 mg PO DAILY #90 tab 08/14/19 01/13/20 Rx promethazine 12.5 mg tablet 12.5 mg PO TID PRN #20 tab 08/14/19 01/13/20 Rx acetaminophen 300 mg-codeine 30 mg 1 tab PO BID PRN #60 tab 08/29/19 01/13/20 Rx tablet albuterol sulfate 90 mcg/actuation 1 inh INHALATION QID PRN #18 g 10/28/19 01/13/20 Rx aerosol inhaler prednisone 20 mg tablet 20 mg PO BID 5 Days #10 tab 01/13/20 01/13/20 Rx cyclobenzaprine 10 mg tablet 10 mg PO TID PRN #30 tab 02/10/20 Rx fluoxetine 20 mg capsule See Rx Instructions .ROUTE 03/09/20 Rx .COMPLEX #90 cap Metoprolol Tartrate 50 mg PO BID 04/26/20 04/26/20 History Warfarin Sodium 5 mg PO DAILY 04/26/20 04/26/20 History Warfarin Sodium 7.5 mg PO WEEKLY 04/26/20 04/26/20 History Allergies Allergy/AdvReac Type Severity Reaction Status Date / Time Penicillins [PENICILLINS] Allergy Unknown Verified 01/13/20 13:07 Sulfa (Sulfonamide Allergy Unknown Verified 01/13/20 13:07 Antibiotics) [SULFA (SULFONAMIDE ANTIBIOTICS)] MULTIPLE FOODS Allergy Unknown BLOATING,GI Uncoded 01/13/20 13:07 DISTRESS-NO RESP INVOLVMENT Exam Vital signs and Labs for Last 24 Hours: Temp Pulse Resp BP Pulse Ox 98.5 F 74 16 149/62 H 97 04/26/20 20:00 04/26/20 20:00 04/26/20 20:00 04/26/20 20:00 04/26/20 20:00 Laboratory Results - last 24 hr 04/26/20 11:30: WBC 9.0, RBC 4.04 L, Hgb 11.1 L, Hct 35.5 L, MCV 87.9, MCH 27.6, MCHC 31.4 L, RDW 14.7, Plt Count 284, MPV 8.8, Neut % (Auto) 56.0, Lymph % (Auto) 33.5, [place] % (Auto) 6.9, Eos % (Auto) 2.7, Baso % (Auto) 0.9, Neut # (Auto) 5.1, Lymph # (Auto) 3.0, [place] # (Auto) 0.6, Eos # (Auto) 0.2, Baso # (Auto) 0.1 04/26/20 11:30: PT 31.9 H, INR 2.93 H 04/26/20 11
[2020-04-27] VITALS: BP 136/65; PULSE 75; RESP 16; TEMP 37.1; O2SAT 96
[2020-04-27 04:00] VITALS: BP 145/65; PULSE 85; RESP 16; TEMP 36.6; O2SAT 96
--- NOTE | 2020-04-27 05:11 | PC.NURSE ---
PT HAS SLEPT OFF AND ON THROUGHTOUT THE NIGHT,THIS MORNING PT HAD A BOWEL MOVEMENT AND IT WAS ALL BRIGHT RED BLOOD,NO CLOTS.NAUSEATED THIS MORNING AND WAS GIVEN ZOFRAN IV.PT REPORTS SHE COULD NOT TAKE THE PILL ZOFRAN AND I TOLD HER THAT ANYTHING YOU TAKE PILL FORM WITH NAUSEA MAY MAKE YOU SICK ANYWAY PT V/U.NO OTHER CHANGES IN ASSESSMENT ,WILL CONTINUE TO MONITOR
[2020-04-27 07:07] LABS: Basophils # 0.1 K/mm3 (0-0.2); Eosinophils # 0.3 K/mm3 (0.0-0.4); Eosinophils % 3.6 % (0.1-12.0); Hematocrit 31.8 % (37.0-47.0); Hemoglobin 10.1 g/dL (12.2-16.2); Lymphocytes # 3.1 K/mm3 (0.7-4.5); Lymphocytes % 44.1 % (10-50); Mean Corpuscular HGB Conc 31.6 g/dL (31.8-35.4); Mean Corpuscular Hemoglobin 28.1 pg (27.0-31.2); Mean Corpuscular Volume 88.9 fl (81-99); Mean Platelet Volume 7.8 fl (7.4-10.4); Monocytes # 0.5 K/mm3 (0.1-1.0); Monocytes % 7.1 % (1.7-9.3); Neutrophils # 3.1 K/mm3 (1.8-7.8); Neutrophils % 44.3 % (37.0-80.0); Platelet Count 216 K/mm3 (142-424); Red Blood Count 3.58 M/mm3 (4.20-5.40); Red Cell Distribution Width 15.1 % (11.5-17.5)
[2020-04-27 07:16] LABS: Anion Gap 9.8 mEq/L (5-15); Blood Urea Nitrogen 12 mg/dl (7-17); Calcium 9.5 mg/dl (8.4-10.2); Carbon Dioxide 26 mmol/L (22.0-30.0); Chloride 108 mmol/L (98-107); Creatinine Clearance Estimated 65 mL/min (50-200); Estimated Glomerular Filt Rate 71 ml/min (>60); GFR (African American) 86 ML/MIN (>60); Glucose 123 mg/dl (74-100); Potassium 4.8 mmoL/L (3.5-5.1); Sodium 139 mmol/L (136-145)
[2020-04-27 07:21] LABS: INR 2.51 (0.9-1.1); Prothrombin Time 27.7 seconds (9.4-11.8)
--- NOTE | 2020-04-27 07:36 | P.CONPHA_ITS ---
[facility] VTE Monitoring - Patient Demographics Admission date: 04/26/20 Report Date: 04/27/20 Time: 07:36 Allergies/Adverse Reactions: Patient Allergies Penicillins [PENICILLINS] Allergy (Unknown, Verified 01/13/20 13:07) Sulfa (Sulfonamide Antibiotics) [SULFA (SULFONAMIDE ANTIBIOTICS)] Allergy (Unknown, Verified 01/13/20 13:07) MULTIPLE FOODS Allergy (Unknown, Uncoded 01/13/20 13:07) BLOATING,GI DISTRESS-NO RESP INVOLVMENT Height: 1.63 m Weight: 80.002 kg Patient Problems: Current Active Problems Lower GI bleed (Acute) Obesity (BMI 30.0-34.9) (Acute) Anemia (Acute) Prolonged INR (Acute) - VTE Risk Labs: VTE Related Lab Results Hgb 10.1 g/dL (12.2-16.2) L 04/27/20 05:55 Hct 31.8 % (37.0-47.0) L 04/27/20 05:55 Plt Count 216 K/mm3 (142-424) 04/27/20 05:55 PT 27.7 seconds (9.4-11.8) H 04/27/20 05:55 INR 2.51 (0.9-1.1) H 04/27/20 05:55 BUN 12 mg/dl (7-17) 04/27/20 05:55 Creatinine 0.80 mg/dl (0.52-1.04) 04/27/20 05:55 Estimated Creat Clear 65 mL/min (50-200) 04/27/20 05:55 Was VTE Risk Assessment Performed: Yes VTE Score: 3 VTE Risk Level: Low Risk Clinical Trial Participant: No - Prophylaxis VTE Prophylaxis Ordered?: Yes Types of VTE Prophylaxis: IPCS Knee High Location of Applied Device: Bilateral Lower Extremeties
[2020-04-27 08:00] VITALS: BP 182/74; PULSE 84; RESP 17; TEMP 37.3; O2SAT 95
--- NOTE | 2020-04-27 08:38 | HMH.ACPN2 ---
Internal Medicine - PN: Subj *Date: 04/27/20 *Time: 09:16 Interval history: 69-year-old female patient lying in bed resting quietly with eyes closed, awakens to verbal stimuli. She repeats she had a good evening, vital signs are stable she is afebrile, oxygen saturations 96% on room air. H/H this a.m. 10.1/31.8. Awaiting surgery to see Exam Vital signs and Labs for Last 24 Hours: Temp Pulse Resp BP Pulse Ox 99.1 F 84 17 182/74 H 95 04/27/20 08:00 04/27/20 08:00 04/27/20 08:00 04/27/20 08:00 04/27/20 08:00 Laboratory Results - last 24 hr 04/26/20 11:30: WBC 9.0, RBC 4.04 L, Hgb 11.1 L, Hct 35.5 L, MCV 87.9, MCH 27.6, MCHC 31.4 L, RDW 14.7, Plt Count 284, MPV 8.8, Neut % (Auto) 56.0, Lymph % (Auto) 33.5, [place] % (Auto) 6.9, Eos % (Auto) 2.7, Baso % (Auto) 0.9, Neut # (Auto) 5.1, Lymph # (Auto) 3.0, [place] # (Auto) 0.6, Eos # (Auto) 0.2, Baso # (Auto) 0.1 04/26/20 11:30: PT 31.9 H, INR 2.93 H 04/26/20 11:30: Sodium 141, Potassium 4.3, Chloride 107, Carbon Dioxide 25, Anion Gap 13.3, BUN 11, Creatinine 0.90, Estimated Creat Clear 66, Estimated GFR 62, Est GFR ( Amer) 75, Glucose 121 H, Calcium 9.7 04/26/20 15:15: Chlamy pneumoniae PCR Not detected, Adenovirus (PCR) Not detected, B. pertussis DNA (PCR) Not detected, Coronavirus OC43 (PCR) Not detected, Coronavirus HKU1 (PCR) Not detected, Coronavirus 229E (PCR) Not detected, SARS-CoV-2 (PCR) Not detected, Coronavirus NL63 (PCR) Not detected, Human Metapneumovir PCR Not detected, Influenza A (H1) PCR Not detected, Influ A (H1N1/09) PCR Not detected, Influenza A (H3) PCR Not detected, Influenza Type A (PCR) Not detected, Influenza Type B (PCR) Not detected, M. pneumoniae (PCR) Not detected, Parainfluenza 1 (PCR) Not detected, Parainfluenza 2 (PCR) Not detected, Parainfluenza 3 (PCR) Not detected, Parainfluenza 4 (PCR) Not detected, RSV (PCR) Not detected, Entero/Rhino (PCR) Not detected 04/26/20 20:55: WBC 7.6, RBC 3.60 L, Hgb 10.0 L, Hct 32.2 L, MCV 89.7, MCH 27.5, MCHC 30.7 L, RDW 14.9, Plt Count 206 D, MPV 8.4, Neut % (Auto) 48.9, Lymph % (Auto) 40.1, [place] % (Auto) 7.6, Eos % (Auto) 2.9, Baso % (Auto) 0.5, Neut # (Auto) 3.7, Lymph # (Auto) 3.1, [place] # (Auto) 0.6, Eos # (Auto) 0.2, Baso # (Auto) 0.0 04/26/20 : Stool Occult Blood Positive A 04/27/20 05:55: Sodium 139, Potassium 4.8, Chloride 108 H, Carbon Dioxide 26, Anion Gap 9.8, BUN 12, Creatinine 0.80, Estimated Creat Clear 65, Estimated GFR 71, Est GFR ( Amer) 86, Glucose 123 H, Calcium 9.5 04/27/20 05:55: WBC 7.0, RBC 3.58 L, Hgb 10.1 L, Hct 31.8 L, MCV 88.9, MCH 28.1, MCHC 31.6 L, RDW 15.1, Plt Count 216, MPV 7.8, Neut % (Auto) 44.3, Lymph % (Auto) 44.1, [place] % (Auto) 7.1, Eos % (Auto) 3.6, Baso % (Auto) 1.0, Neut # (Auto) 3.1, Lymph # (Auto) 3.1, [place] # (Auto) 0.5, Eos # (Auto) 0.3, Baso # (Auto) 0.1 04/27/20 05:55: PT 27.7 H, INR 2.51 H I & O for Last 24 hours: Intake & Output 04/24/20 04/25/20 04/26/20 04/27/20 23:59 23:59 23:59 23:59 Intake Total 200 / 200 240 / 240 Balance 200 / 200 240 / 240 Weight 176 lb 6 oz - Constitutional no acute distress - *Routine HEENT Exam Head: Present: normocephalic Eye: Present: EOMI ENT: Present: mucous membranes moist - *Routine Neck Exam Present: trachea midline. Absent: tracheal deviation - *Routine Respiratory Exam Present: CTA bilaterally. Absent: accessory muscle use - *Routine Cardiovascular Exam Present: RRR, murmur - *Routine Abdominal Exam Present: soft, normoactive bowel sounds. Absent: tenderness, firm, obese - *Routine Extremities Exam Present: full ROM, pulses intact. Absent: cyanosis, edema, calf tenderness - *Routine Skin Exam Present: intact, dry. Absent: cyanosis, erythema - *Routine Neurological Exam Present: alert, oriented X3. Absent: altered mental status - Routine Psychiatric Exam Present: normal affect, normal thought process. Absent: auditory hallucinations, visual hallucinations Assessment and Plan (1) O
[2020-04-27 09:39] LABS: Basophils # 0.1 K/mm3 (0-0.2); Basophils % 0.7 % (0.1-2.0); Eosinophils # 0.3 K/mm3 (0.0-0.4); Eosinophils % 2.7 % (0.1-12.0); Hematocrit 34.4 % (37.0-47.0); Hemoglobin 10.8 g/dL (12.2-16.2); Lymphocytes % 42.6 % (10-50); Mean Corpuscular HGB Conc 31.3 g/dL (31.8-35.4); Mean Corpuscular Hemoglobin 27.9 pg (27.0-31.2); Mean Platelet Volume 8.7 fl (7.4-10.4); Monocytes # 0.6 K/mm3 (0.1-1.0); Monocytes % 6.5 % (1.7-9.3); Neutrophils # 4.5 K/mm3 (1.8-7.8); Neutrophils % 47.6 % (37.0-80.0); Platelet Count 271 K/mm3 (142-424); Red Blood Count 3.86 M/mm3 (4.20-5.40); Red Cell Distribution Width 14.9 % (11.5-17.5); White Blood Count 9.4 K/mm3 (4.8-10.8)
--- NOTE | 2020-04-27 10:30 | HMH.PHAINT ---
VERIFIED HOME MEDICATION LIST WITH PRIMARY CARE OFFICE AND [facility]
[2020-04-27 12:00] VITALS: BP 150/76; PULSE 80; RESP 19; TEMP 37.2; O2SAT 94
--- NOTE | 2020-04-27 12:30 | CA_ITS ---
APPROVED REPORT Bilateral Lower Extremity Venous Study for DVT. 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 [employer] Indications Lower Extremity Pain: Bilateral HX of DVT,gi bleed Risk Factors Prior Phlebitis/DVT Past History DVT : Medications Coumadin Vein Imaging CFV (R): compressive, spontaneous, phasic, augmentation FEM (R): compressive, spontaneous, phasic, augmentation POP (R): compressive, spontaneous, phasic, augmentation PTV (R): Compressible GSV (R): Compressible Peroneals (R):Compressible GAS (R): Compressible CFV (L): compressive, spontaneous, phasic, augmentation FEM (L): Compressible POP (L): Compressible PTV (L): Compressible GSV (L): Compressible Peroneals (L):Compressible GAS (L): Compressible Findings Study suggests no evidence of DVT of the bilateral lower extremities. Study suggests no evidence of SVT of the bilateral lower extremites. Conclusion Study suggests no evidence of DVT of the bilateral lower extremities. Study suggests no evidence of SVT of the bilateral lower extremites. Electronically signed by : Karan Draper MD 04/27/2020 18:17:29
--- NOTE | 2020-04-27 15:16 | HMH.GSCON ---
*Admission Date: 04/26/20 *Reason for consult:: Rectal bleeding *History of present illness: Patient is a 69-year-old female with history of atrial fibrillation and recurrent DVTs and pulmonary embolus on warfarin anticoagulation therapy and has had previous IVC filter. It is unclear if she has a clotting disorder. She has had problems in the past, for many years, of intermittent rectal bleeding and is actually had hemorrhoid surgery by Dr. Ferreira. She has had several colonoscopies many years ago. I had seen her for rectal bleeding in 2009 and performed a colonoscopy which revealed hemorrhoids and diverticulosis. She required banding of her hemorrhoids due to the bleeding at that time. She presented to the emergency department yesterday morning with what sounds like a relatively longstanding history of intermittent rectal bleeding which had been more significant over about 1 week. She was admitted yesterday morning for inpatient management. Her hemoglobin has remained stable since admission. INR was 2.93 on admission and is 2.51 today. Surgical consultation was ordered this afternoon. Interestingly the patient describes some abdominal soreness and discomfort. Review of Systems - Review of Systems Review of systems:: pertinent systems reviewed and negative unless documented below - *Neurologic Denies headache(s), Denies seizure-like activity [facility] History I have reviewed the patient's past medical history: Yes Medical History: Reports:: Anxiety, Atrial Fibrillation, Depression, Hyperlipidemia, Hypertension Denies:: Diabetes Mellitus Type 1, Diabetes Mellitus Type 2 *Have you ever received a pneumonia vaccine?: No *Have you received a flu vaccine this season?: Yes Other Medical History: Reports: Other Other Surgeries: Yes: Cardiac Surgery, , Other Amputation: No Fractures: No - *Social History Last grade of school completed: 11th or 12th Smoking Status: Never smoker Alcohol Intake: former Substance Use Type: denies use *Occupational Status:: retired Housing: apartment Household Members: none *Travel in the last 8 weeks: None - Psychiatric History Pschychiatric History:: Reports:: Anxiety, Depression Family Hx:: Heart Attack, Cancer Meds Home Medications Medication Instructions Recorded Confirmed Type albuterol sulfate 90 mcg/actuation 1 inh INHALATION QID PRN #18 g 10/28/19 04/27/20 Rx aerosol inhaler Metoprolol Tartrate 50 mg PO BID 04/26/20 04/26/20 History Warfarin Sodium 5 mg PO SUMOTUTHFRSA 04/26/20 04/27/20 History Warfarin Sodium 7.5 mg PO WEEKLY 04/26/20 04/26/20 History Fluoxetine HCl [Prozac] 20 mg PO DAILY 04/27/20 04/27/20 History lisinopriL [Prinivil 10mg Tablet] 10 mg PO DAILY 04/27/20 04/27/20 History Allergies Allergy/AdvReac Type Severity Reaction Status Date / Time Penicillins [PENICILLINS] Allergy Unknown Verified 01/13/20 13:07 Sulfa (Sulfonamide Allergy Unknown Verified 01/13/20 13:07 Antibiotics) [SULFA (SULFONAMIDE ANTIBIOTICS)] MULTIPLE FOODS Allergy Unknown BLOATING,GI Uncoded 01/13/20 13:07 DISTRESS-NO RESP INVOLVMENT Exam Vital signs and Labs for Last 24 Hours: Temp Pulse Resp BP Pulse Ox 98.9 F 80 19 150/76 H 94 L 04/27/20 12:00 04/27/20 12:00 04/27/20 12:00 04/27/20 12:00 04/27/20 12:00 Laboratory Results - last 24 hr 04/26/20 11:30: Sodium 141, Potassium 4.3, Chloride 107, Carbon Dioxide 25, Anion Gap 13.3, BUN 11, Creatinine 0.90, Estimated Creat Clear 66, Estimated GFR 62, Est GFR ( Amer) 75, Glucose 121 H, Calcium 9.7 04/26/20 15:15: Chlamy pneumoniae PCR Not detected, Adenovirus (PCR) Not detected, B. pertussis DNA (PCR) Not detected, Coronavirus OC43 (PCR) Not detected, Coronavirus HKU1 (PCR) Not detected, Coronavirus 229E (PCR) Not detected, SARS-CoV-2 (PCR) Not detected, Coronavirus NL63 (PCR) Not detected, Human Metapneumovir PCR Not detected, Influenza A (H1) PCR Not detected, Influ A (H1N1/09) P
[2020-04-27 16:00] VITALS: BP 157/76; PULSE 76; RESP 18; TEMP 37.1; O2SAT 95
[2020-04-27 20:00] VITALS: BP 130/59; PULSE 79; RESP 20; TEMP 36.7; O2SAT 93
[2020-04-27 21:16] LABS: Basophils # 0.1 K/mm3 (0-0.2); Eosinophils # 0.2 K/mm3 (0.0-0.4); Eosinophils % 2.8 % (0.1-12.0); Hematocrit 33.1 % (37.0-47.0); Hemoglobin 10.2 g/dL (12.2-16.2); Lymphocytes # 3.1 K/mm3 (0.7-4.5); Lymphocytes % 43.5 % (10-50); Mean Corpuscular HGB Conc 30.9 g/dL (31.8-35.4); Mean Corpuscular Volume 90.6 fl (81-99); Mean Platelet Volume 8.1 fl (7.4-10.4); Monocytes # 0.7 K/mm3 (0.1-1.0); Monocytes % 9.8 % (1.7-9.3); Neutrophils # 3.1 K/mm3 (1.8-7.8); Platelet Count 207 K/mm3 (142-424); Red Blood Count 3.65 M/mm3 (4.20-5.40); Red Cell Distribution Width 14.9 % (11.5-17.5); White Blood Count 7.2 K/mm3 (4.8-10.8)
[2020-04-28] VITALS (7 sets, daily range): BP systolic 118–156; BP diastolic 53–82; PULSE 67–80; RESP 16–20; TEMP 36.8–37.4; O2SAT 93–100
[2020-04-28 06:45] LABS: Basophils # 0.1 K/mm3 (0-0.2); Basophils % 1.1 % (0.1-2.0); Eosinophils # 0.3 K/mm3 (0.0-0.4); Eosinophils % 4.1 % (0.1-12.0); Hematocrit 32.3 % (37.0-47.0); Hemoglobin 9.9 g/dL (12.2-16.2); Lymphocytes # 2.8 K/mm3 (0.7-4.5); Lymphocytes % 40.2 % (10-50); Mean Corpuscular HGB Conc 30.6 g/dL (31.8-35.4); Mean Corpuscular Hemoglobin 27.7 pg (27.0-31.2); Mean Corpuscular Volume 90.7 fl (81-99); Mean Platelet Volume 7.8 fl (7.4-10.4); Monocytes # 0.6 K/mm3 (0.1-1.0); Monocytes % 8.2 % (1.7-9.3); Neutrophils # 3.2 K/mm3 (1.8-7.8); Neutrophils % 46.3 % (37.0-80.0); Platelet Count 222 K/mm3 (142-424); Red Blood Count 3.57 M/mm3 (4.20-5.40)
[2020-04-28 07:03] LABS: Anion Gap 4.9 mEq/L (5-15); Blood Urea Nitrogen 13 mg/dl (7-17); Calcium 9.1 mg/dl (8.4-10.2); Carbon Dioxide 29 mmol/L (22.0-30.0); Chloride 108 mmol/L (98-107); Creatinine Clearance Estimated 65 mL/min (50-200); Estimated Glomerular Filt Rate 62 ml/min (>60); GFR (African American) 75 ML/MIN (>60); Glucose 118 mg/dl (74-100); Potassium 4.9 mmoL/L (3.5-5.1); Sodium 137 mmol/L (136-145)
--- NOTE | 2020-04-28 09:16 | HMH.ACPN2 ---
Internal Medicine - PN: Subj *Date: 04/28/20 *Time: 22:10 Interval history: 69-year-old female patient resting in bed quietly. She reports nausea and states she is just not feeling very well. She does report large loose bloody bowel movement this morning. Will notify general surgery and inform them of continuing hematochezia Exam Vital signs and Labs for Last 24 Hours: Temp Pulse Resp BP Pulse Ox 98.3 F 74 16 118/53 L 100 04/28/20 08:00 04/28/20 08:00 04/28/20 08:00 04/28/20 08:00 04/28/20 08:00 Laboratory Results - last 24 hr 04/27/20 09:22: WBC 9.4 D, RBC 3.86 L, Hgb 10.8 L, Hct 34.4 L, MCV 89.0, MCH 27.9, MCHC 31.3 L, RDW 14.9, Plt Count 271 D, MPV 8.7, Neut % (Auto) 47.6, Lymph % (Auto) 42.6, [place] % (Auto) 6.5, Eos % (Auto) 2.7, Baso % (Auto) 0.7, Neut # (Auto) 4.5, Lymph # (Auto) 4.0, [place] # (Auto) 0.6, Eos # (Auto) 0.3, Baso # (Auto) 0.1 04/27/20 21:08: WBC 7.2, RBC 3.65 L, Hgb 10.2 L, Hct 33.1 L, MCV 90.6, MCH 28.0, MCHC 30.9 L, RDW 14.9, Plt Count 207, MPV 8.1, Neut % (Auto) 43.0, Lymph % (Auto) 43.5, [place] % (Auto) 9.8 H, Eos % (Auto) 2.8, Baso % (Auto) 1.0, Neut # (Auto) 3.1, Lymph # (Auto) 3.1, [place] # (Auto) 0.7, Eos # (Auto) 0.2, Baso # (Auto) 0.1 04/28/20 06:01: WBC 7.0, RBC 3.57 L, Hgb 9.9 L, Hct 32.3 L, MCV 90.7, MCH 27.7, MCHC 30.6 L, RDW 15.0, Plt Count 222, MPV 7.8, Neut % (Auto) 46.3, Lymph % (Auto) 40.2, [place] % (Auto) 8.2, Eos % (Auto) 4.1, Baso % (Auto) 1.1, Neut # (Auto) 3.2, Lymph # (Auto) 2.8, [place] # (Auto) 0.6, Eos # (Auto) 0.3, Baso # (Auto) 0.1 04/28/20 06:01: Sodium 137, Potassium 4.9, Chloride 108 H, Carbon Dioxide 29, Anion Gap 4.9 L, BUN 13, Creatinine 0.90, Estimated Creat Clear 65, Estimated GFR 62, Est GFR ( Amer) 75, Glucose 118 H, Calcium 9.1 I & O for Last 24 hours: Intake & Output 04/25/20 04/26/20 04/27/20 04/28/20 23:59 23:59 23:59 23:59 Intake Total 200 / 200 600 / 600 360 / 360 Balance 200 / 200 600 / 600 360 / 360 Weight 176 lb 6 oz - Constitutional no acute distress - *Routine HEENT Exam Head: Present: normocephalic Eye: Present: EOMI ENT: Present: mucous membranes moist - *Routine Neck Exam Present: supple - *Routine Respiratory Exam Present: CTA bilaterally. Absent: accessory muscle use - *Routine Cardiovascular Exam Present: RRR - *Routine Abdominal Exam Present: soft, tenderness - *Routine Extremities Exam Present: full ROM, pulses intact. Absent: cyanosis, edema, calf tenderness - *Routine Skin Exam Present: intact, dry. Absent: cyanosis, erythema - *Routine Neurological Exam Present: alert, oriented X3. Absent: motor deficit, altered mental status - Routine Psychiatric Exam Present: normal affect, normal thought process, good judgment. Absent: homicidal ideation, auditory hallucinations Assessment and Plan (1) Obesity (BMI 30.0-34.9) Status: Acute Category: Medical Code(s): E66.9 - Obesity, unspecified (2) Lower GI bleed Status: Acute Category: Medical Code(s): K92.2 - Gastrointestinal hemorrhage, unspecified (3) Prolonged INR Status: Acute Category: Medical Code(s): R79.1 - Abnormal coagulation profile (4) Anemia Status: Acute Qualifiers: Anemia type: unspecified type Qualified Code(s): D64.9 - Anemia, unspecified Category: Medical Code(s): D64.9 - Anemia, unspecified - Assessment and plan all Dx Assessment and Plan for all problems:: Rounded with Dr. Woo, all orders per Dr. Woo: 1. We will contact general surgery and inform of continued hematochezia
--- NOTE | 2020-04-28 11:08 | DIET.NUTRFU ---
Called RN to ask about patients listed allergy to multiple foods. RN went to speak with pt who reported that she had allergy testing years ago but is no longer worried about it. Pt reported that she does not have any foods that bother her or cause reactions and she eats whatever she selects. Will honor patient's food requests.
--- NOTE | 2020-04-28 14:07 | HMH.GSPN ---
Subjective Narrative: Patient states that she has continued to have bloody bowel movements. Progress Note: A&P (1) Obesity (BMI 30.0-34.9) Status: Acute (2) Lower GI bleed Status: Acute Assessment and plan: May need colonoscopy (3) Prolonged INR Status: Acute (4) Anemia Status: Acute Exam Vital signs and Labs for Last 24 Hours: Temp Pulse Resp BP Pulse Ox 99.3 F 75 16 132/53 L 93 L 04/28/20 11:16 04/28/20 11:16 04/28/20 11:16 04/28/20 11:16 04/28/20 11:16 Laboratory Results - last 24 hr 04/27/20 21:08: WBC 7.2, RBC 3.65 L, Hgb 10.2 L, Hct 33.1 L, MCV 90.6, MCH 28.0, MCHC 30.9 L, RDW 14.9, Plt Count 207, MPV 8.1, Neut % (Auto) 43.0, Lymph % (Auto) 43.5, [place] % (Auto) 9.8 H, Eos % (Auto) 2.8, Baso % (Auto) 1.0, Neut # (Auto) 3.1, Lymph # (Auto) 3.1, [place] # (Auto) 0.7, Eos # (Auto) 0.2, Baso # (Auto) 0.1 04/28/20 06:01: WBC 7.0, RBC 3.57 L, Hgb 9.9 L, Hct 32.3 L, MCV 90.7, MCH 27.7, MCHC 30.6 L, RDW 15.0, Plt Count 222, MPV 7.8, Neut % (Auto) 46.3, Lymph % (Auto) 40.2, [place] % (Auto) 8.2, Eos % (Auto) 4.1, Baso % (Auto) 1.1, Neut # (Auto) 3.2, Lymph # (Auto) 2.8, [place] # (Auto) 0.6, Eos # (Auto) 0.3, Baso # (Auto) 0.1 04/28/20 06:01: Sodium 137, Potassium 4.9, Chloride 108 H, Carbon Dioxide 29, Anion Gap 4.9 L, BUN 13, Creatinine 0.90, Estimated Creat Clear 65, Estimated GFR 62, Est GFR ( Amer) 75, Glucose 118 H, Calcium 9.1 I & O for Last 24 hours: Intake & Output 04/26/20 04/27/20 04/28/20 04/29/20 11:59 11:59 11:59 11:59 Intake Total 440 / 440 720 / 720 240 / 240 Balance 440 / 440 720 / 720 240 / 240 Weight 178 lb 176 lb 6 oz Narrative: Resting comfortably in no acute distress.
[2020-04-28 14:08] LABS: INR 1.49 (0.9-1.1); Prothrombin Time 17.1 seconds (9.4-11.8)
--- NOTE | 2020-04-28 19:30 | PC.NURSE ---
Pt alert and oriented x 4. RR even and unlabored. Pt remains on RA. CB in reach. S1,S2, lungs cta, bs active. Pt has had several approx 4 times this shift and states they have been bloody mostly with the exception of one brown soft stool. Spoke with Dr. Grey and he plans for Dr. lA to do colonoscopy Sunday. Bowel prep and clear liquids to be started tomorrow.VSS
--- NOTE | 2020-04-29 03:45 | PC.NURSE ---
Restful night; VS WNL; shows no s/s of acute distress at this time; call light within reach and bed at lowest level for safety. Will continue to monitor.
[2020-04-29 03:51] VITALS: BP 151/75; PULSE 77; RESP 16; TEMP 36.8; O2SAT 92
[2020-04-29 05:43] VITALS: BMI 30.1
--- NOTE | 2020-04-29 06:43 | HMH.GSPN ---
Subjective Patient reports: no new complaints (She states that she has much less blood down there ) Progress Note: A&P (1) Obesity (BMI 30.0-34.9) Status: Acute (2) Lower GI bleed Status: Acute Assessment and plan: Clear liquid diet Bowel prep ordered NPO p MN for colonoscopy tomorrow (Dr. Al) with possible banding (3) Prolonged INR Status: Acute (4) Anemia Status: Acute Exam Vital signs and Labs for Last 24 Hours: Temp Pulse Resp BP Pulse Ox 98.2 F 77 16 151/75 H 92 L 04/29/20 03:51 04/29/20 03:51 04/29/20 03:51 04/29/20 03:51 04/29/20 03:51 Laboratory Results - last 24 hr 04/28/20 06:01: WBC 7.0, RBC 3.57 L, Hgb 9.9 L, Hct 32.3 L, MCV 90.7, MCH 27.7, MCHC 30.6 L, RDW 15.0, Plt Count 222, MPV 7.8, Neut % (Auto) 46.3, Lymph % (Auto) 40.2, [place] % (Auto) 8.2, Eos % (Auto) 4.1, Baso % (Auto) 1.1, Neut # (Auto) 3.2, Lymph # (Auto) 2.8, [place] # (Auto) 0.6, Eos # (Auto) 0.3, Baso # (Auto) 0.1 04/28/20 06:01: Sodium 137, Potassium 4.9, Chloride 108 H, Carbon Dioxide 29, Anion Gap 4.9 L, BUN 13, Creatinine 0.90, Estimated Creat Clear 65, Estimated GFR 62, Est GFR ( Amer) 75, Glucose 118 H, Calcium 9.1 04/28/20 13:35: PT 17.1 H, INR 1.49 H I & O for Last 24 hours: Intake & Output 04/26/20 04/27/20 04/28/20 04/29/20 11:59 11:59 11:59 11:59 Intake Total 440 / 440 720 / 720 1135 / 1135 Balance 440 / 440 720 / 720 1135 / 1135 Weight 178 lb 176 lb 6 oz 176 lb 7 oz - Constitutional no acute distress - *Routine Respiratory Exam Absent: respiratory distress - *Routine Cardiovascular Exam Present: RRR
[2020-04-29 06:56] LABS: Basophils # 0.1 K/mm3 (0-0.2); Basophils % 0.8 % (0.1-2.0); Eosinophils # 0.3 K/mm3 (0.0-0.4); Eosinophils % 4.8 % (0.1-12.0); Hematocrit 30.7 % (37.0-47.0); Hemoglobin 9.4 g/dL (12.2-16.2); Lymphocytes # 2.6 K/mm3 (0.7-4.5); Lymphocytes % 36.8 % (10-50); Mean Corpuscular HGB Conc 30.8 g/dL (31.8-35.4); Mean Corpuscular Hemoglobin 28.1 pg (27.0-31.2); Mean Corpuscular Volume 91.2 fl (81-99); Mean Platelet Volume 8.7 fl (7.4-10.4); Monocytes # 0.5 K/mm3 (0.1-1.0); Monocytes % 7.5 % (1.7-9.3); Neutrophils # 3.6 K/mm3 (1.8-7.8); Neutrophils % 50.2 % (37.0-80.0); Platelet Count 213 K/mm3 (142-424); Red Blood Count 3.36 M/mm3 (4.20-5.40); White Blood Count 7.1 K/mm3 (4.8-10.8)
[2020-04-29 07:10] LABS: Anion Gap 10.9 mEq/L (5-15); Blood Urea Nitrogen 9 mg/dl (7-17); Calcium 8.7 mg/dl (8.4-10.2); Carbon Dioxide 22 mmol/L (22.0-30.0); Chloride 111 mmol/L (98-107); Creatinine Clearance Estimated 65 mL/min (50-200); Estimated Glomerular Filt Rate 71 ml/min (>60); GFR (African American) 86 ML/MIN (>60); Glucose 115 mg/dl (74-100); Potassium 4.9 mmoL/L (3.5-5.1); Sodium 139 mmol/L (136-145)
[2020-04-29 08:00] VITALS: BP 119/43; PULSE 68; RESP 18; TEMP 36.7; O2SAT 96
[2020-04-29 09:22] LABS: INR 1.15 (0.9-1.1); Prothrombin Time 13.4 seconds (9.4-11.8)
--- NOTE | 2020-04-29 09:31 | P.PN_ITS ---
Internal Medicine - PN: Subj *Date: 04/29/20 *Time: 09:31 Interval history: pt states she is doing well today. states bleeding seems to have slowed down Exam Vital signs and Labs for Last 24 Hours: Temp Pulse Resp BP Pulse Ox 98.1 F 68 18 119/43 L 96 04/29/20 08:00 04/29/20 08:00 04/29/20 08:00 04/29/20 08:00 04/29/20 08:00 Laboratory Results - last 24 hr 04/28/20 13:35: PT 17.1 H, INR 1.49 H 04/29/20 06:22: WBC 7.1, RBC 3.36 L, Hgb 9.4 L, Hct 30.7 L, MCV 91.2, MCH 28.1, MCHC 30.8 L, RDW 15.0, Plt Count 213, MPV 8.7, Neut % (Auto) 50.2, Lymph % (Auto) 36.8, [place] % (Auto) 7.5, Eos % (Auto) 4.8, Baso % (Auto) 0.8, Neut # (Auto) 3.6, Lymph # (Auto) 2.6, [place] # (Auto) 0.5, Eos # (Auto) 0.3, Baso # (Auto) 0.1 04/29/20 06:22: Sodium 139, Potassium 4.9, Chloride 111 H, Carbon Dioxide 22 D, Anion Gap 10.9, BUN 9 D, Creatinine 0.80, Estimated Creat Clear 65, Estimated GFR 71, Est GFR ( Amer) 86, Glucose 115 H, Calcium 8.7 04/29/20 08:44: PT 13.4 H, INR 1.15 H I & O for Last 24 hours: Intake & Output 04/26/20 04/27/20 04/28/20 04/29/20 11:59 11:59 11:59 11:59 Intake Total 440 / 440 720 / 720 1135 / 1135 Balance 440 / 440 720 / 720 1135 / 1135 Weight 178 lb 176 lb 6 oz 176 lb 7 oz - Constitutional no acute distress, obese - *Routine HEENT Exam Head: Present: normocephalic Eye: Present: PERRL ENT: Present: mucous membranes moist - *Routine Neck Exam Present: supple. Absent: lymphadenopathy - *Routine Respiratory Exam Present: CTA bilaterally - *Routine Cardiovascular Exam Present: RRR - *Routine Abdominal Exam Present: soft, normoactive bowel sounds, tenderness - *Routine Extremities Exam Present: normal capillary refill. Absent: cyanosis, clubbing, edema - *Routine Skin Exam Present: warm. Absent: rash - *Routine Neurological Exam Present: alert, oriented X3 - Routine Psychiatric Exam Present: normal affect Assessment and Plan (1) Obesity (BMI 30.0-34.9) Status: Acute Category: Medical Code(s): E66.9 - Obesity, unspecified (2) Lower GI bleed Status: Acute Category: Medical Code(s): K92.2 - Gastrointestinal hemorrhage, unspecified (3) Prolonged INR Status: Acute Category: Medical Code(s): R79.1 - Abnormal coagulation profile (4) Anemia Status: Acute Qualifiers: Anemia type: unspecified type Qualified Code(s): D64.9 - Anemia, unspecified Category: Medical Code(s): D64.9 - Anemia, unspecified - Assessment and plan all Dx Assessment and Plan for all problems:: rounded with dr ramirez all order per dr ramirez plan for colonoscopy in am by dr noel
[2020-04-29 15:30] VITALS: BP 159/68; PULSE 67; RESP 18; TEMP 36.9; O2SAT 91
--- NOTE | 2020-04-29 17:46 | PC.NURSE ---
PATIENT IS A&O X4, LUNGS ARE CLEAR AND PULSES ARE EQUAL. PATIENT AMBULATES TO RESTROOM WITH STAND BY ASSIST. PATIENT HAS STARTED 1ST STEP OF MOVIPREP. COPIOUS AMOUNT OF LIQUID BLOODY STOOL. NO NEW CONCERNS AT THIS TIME.
[2020-04-29 20:00] VITALS: BP 155/59; PULSE 74; RESP 16; TEMP 36.9; O2SAT 97
[2020-04-30] VITALS (16 sets, daily range): BP systolic 80–177; BP diastolic 33–70; PULSE 68–90; RESP 16–18; TEMP 36.6–37.2; O2SAT 93–99; BMI 30.4
--- NOTE | 2020-04-30 04:27 | PC.NURSE ---
3 rings placed in black bag per patient request. leeann ring with gold band, silver ring with hearts, and sliver ring with turquoise stone. watch and medical alert bracelet placed in black bag. alert and oriented. clear watery stool with small particles of stool. second dose of moviprep started. new iv placed and infusing per order. pt has reported nausea and prn med given. vss. call light in reach. bed alarm on. will continue to monitor pt condition.
--- NOTE | 2020-04-30 05:24 | PC.NURSE ---
bm at this time is brown and watery with large, thick, stringy clots.
--- NOTE | 2020-04-30 06:11 | PC.NURSE ---
pt drank second prep and was down to her last glass when she began vomiting prep. pt refused to drink last cup. cup is at bedside and pt was encouraged to try and finish bowel prep.
--- NOTE | 2020-04-30 07:07 | HMH.GSPN ---
Subjective Patient reports: no new complaints Progress Note: A&P (1) Obesity (BMI 30.0-34.9) Status: Acute (2) Lower GI bleed Status: Acute Assessment and plan: Colonoscopy (Dr. Al) scheduled for later today (3) Prolonged INR Status: Acute (4) Anemia Status: Acute Exam Vital signs and Labs for Last 24 Hours: Temp Pulse Resp BP Pulse Ox 98.9 F 69 16 155/67 H 96 04/30/20 04:00 04/30/20 04:00 04/30/20 04:00 04/30/20 04:00 04/30/20 04:00 Laboratory Results - last 24 hr 04/29/20 06:22: Sodium 139, Potassium 4.9, Chloride 111 H, Carbon Dioxide 22 D, Anion Gap 10.9, BUN 9 D, Creatinine 0.80, Estimated Creat Clear 65, Estimated GFR 71, Est GFR ( Amer) 86, Glucose 115 H, Calcium 8.7 04/29/20 08:44: PT 13.4 H, INR 1.15 H I & O for Last 24 hours: Intake & Output 04/27/20 04/28/20 04/29/20 04/30/20 11:59 11:59 11:59 11:59 Intake Total 440 / 440 720 / 720 1135 / 1135 555 / 555 Balance 440 / 440 720 / 720 1135 / 1135 555 / 555 Weight 176 lb 6 oz 176 lb 7 oz 178 lb - Constitutional no acute distress - *Routine Respiratory Exam Absent: respiratory distress - *Routine Cardiovascular Exam Present: RRR
[2020-04-30 07:25] LABS: Basophils # 0.1 K/mm3 (0-0.2); Eosinophils # 0.2 K/mm3 (0.0-0.4); Eosinophils % 2.9 % (0.1-12.0); Hematocrit 28.9 % (37.0-47.0); Hemoglobin 8.7 g/dL (12.2-16.2); Lymphocytes % 28.2 % (10-50); Mean Corpuscular HGB Conc 30.2 g/dL (31.8-35.4); Mean Corpuscular Hemoglobin 27.4 pg (27.0-31.2); Mean Corpuscular Volume 90.7 fl (81-99); Mean Platelet Volume 8.4 fl (7.4-10.4); Monocytes # 0.5 K/mm3 (0.1-1.0); Monocytes % 7.7 % (1.7-9.3); Neutrophils # 4.2 K/mm3 (1.8-7.8); Neutrophils % 60.1 % (37.0-80.0); Platelet Count 210 K/mm3 (142-424); Red Blood Count 3.18 M/mm3 (4.20-5.40); Red Cell Distribution Width 15.1 % (11.5-17.5); White Blood Count 6.9 K/mm3 (4.8-10.8)
--- NOTE | 2020-04-30 07:28 | HMH.ANESCL ---
[facility] Anesthesia Checklist - Structural Data Admitted From: Inpatient Planned Operative Procedure/s: colonoscopy Consent for Planned Operative Procedure(s) Verified: Yes Verified Documents: Surgical Consent, History and Physical - Chart Verification Results Verified: CBC, BMP - Cardiovascular Assessment Heart Sounds: S1 & S2 Pulse Strength: Baseline Pulse Rhythm: Regular - Airway Assessment C-Spine Mobility Assessed: Yes TMJ Mobility Assessed: Yes Dentition: Good Dentition - Neurological Assessment Level of Consciousness: Awake - Anesthesia Plan Anesthesia Risk discussed: Yes ASA Class: II Anesthesia Type: MAC [facility] History Medical History: Reports:: Anxiety, Atrial Fibrillation, Depression, Hyperlipidemia, Hypertension Denies:: Diabetes Mellitus Type 1, Diabetes Mellitus Type 2 *Have you ever received a pneumonia vaccine?: No *Have you received a flu vaccine this season?: Yes Other Medical History: Reports: Other Anesthesia experience/problems:: none Other Surgeries: Yes: Cardiac Surgery, , Other Amputation: No Fractures: No - *Social History Last grade of school completed: 11th or 12th Smoking Status: Never smoker Alcohol Intake: former Substance Use Type: denies use *Occupational Status:: retired Housing: apartment Household Members: none *Travel in the last 8 weeks: None - Psychiatric History Pschychiatric History:: Reports:: Anxiety, Depression Family Hx:: Heart Attack, Cancer
[2020-04-30 07:32] LABS: Anion Gap 14.1 mEq/L (5-15); Blood Urea Nitrogen 8 mg/dl (7-17); Calcium 8.7 mg/dl (8.4-10.2); Carbon Dioxide 19 mmol/L (22.0-30.0); Chloride 112 mmol/L (98-107); Creatinine Clearance Estimated 66 mL/min (50-200); Estimated Glomerular Filt Rate 62 ml/min (>60); GFR (African American) 75 ML/MIN (>60); Glucose 119 mg/dl (74-100); Potassium 4.1 mmoL/L (3.5-5.1); Sodium 141 mmol/L (136-145)
[2020-04-30 07:41] LABS: INR 1.03 (0.9-1.1); Prothrombin Time 12.1 seconds (9.4-11.8)
--- NOTE | 2020-04-30 07:42 | P.PCN_ITS ---
[facility] Procedure Note Procedure Note:: Colonoscopy Procedure Report: Colonoscopy with cold snare polypectomy and hemorrhoid band ligation Endoscopist: Leon Al II, MD Referring physician: Rodolfo Woo MD Date of Procedure: April 30, 2020 Equipment: Olympus 180 variable stiffness pediatric colonoscope Sedation: MAC sedation Indication: Mrs. Schulz is a 69-year-old female who was admitted to [facility] with bright red rectal bleeding and clots. She also had associated crampy abdominal discomfort and some diarrhea. She had last took her Coumadin last Sunday or Sunday and the bleeding began early Sunday. The patient reports no recent weight loss or family history of colon cancer. She did have a colonoscopy in 2009 (Dr. Rafael Escoto) and had diverticulosis and internal hemorrhoids which were banded. The patient did have a CT scan of the abdomen in May 2019 and had evidence of diverticulosis and an infrarenal abdominal aortic aneurysm. The patient's hemoglobin and hematocrit on admission were 10 and 32 respectively. These have declined over the last 4 days with hydration and her hemoglobin and hematocrit today were 8.7 and 28.9 respectively. Her bleeding has stopped. Procedure: Prior to the procedure, a history and physical exam was performed, and patient's medications and allergies were reviewed. The risks, benefits and alternatives of the sedation and procedure were discussed with the patient. All questions were answered and informed consent was obtained. The patient was brought to the procedure room. Patient identification and proposed procedure were verified by the physician and the nurse. The patient was placed in a left lateral decubitus position and the scope was passed under direct vision. Throughout the procedure, the patient's blood pressure, pulse, and oxygen saturations were monitored continuously. The colonoscopy was accomplished without difficulty. The patient tolerated the procedure well. Findings: On digital rectal examination there was normal rectal tone. There were no external hemorrhoids. The colonoscope was introduced through the anal canal to the rectum and advanced to the cecum. The ileocecal valve and appendiceal orifice were identified. The scope was advanced a short distance into the ileum which appeared grossly normal. The scope was then withdrawn into the colon. There were 3 colon polyps (ascending x2 (4 and 5 mm) and rectosigmoid x1 (7 mm)) which were removed via cold snare polypectomy. The remaining cecum, ascending and transverse colon and mucosa were grossly normal. There were scattered extensive diverticuli throughout the descending and sigmoid colon (LEFT colon). The rectum itself was normal. Upon retroflexion within the rectum there were grade 2 internal hemorrhoids. The hemorrhoids were banded using 3 bands on 3 columns of hemorrhoids with excellent ligation effect. The preparation was excellent throughout with [place] Preparation Score of 9. The cecal time was 14 minutes. Impression: 1. Colonic polyps x3 2. Extensive left-sided diverticulosis 3. Grade 2 internal hemorrhoids status post band ligation x3 Plan: I do feel that her recent bleeding is more likely to be a diverticular hemorrhage than hemorrhoidal bleeding. However, based upon the fact that it would be impossible to tell now, I do feel that banding these hemorrhoids would be appropriate especially since they are prolapsing internal hemorrhoids as well. I would encourage bulk fiber supplementation. We will discuss dietary measures. I will follow up the polyp histology and if the polyps are adenomatous, I would recommend repeat surveillance colonoscopy again in 5 year
--- NOTE | 2020-04-30 14:16 | HMH.ACPN2 ---
Internal Medicine - PN: Subj *Date: 04/30/20 *Time: 13:00 Interval history: colonscopy this am Exam Vital signs and Labs for Last 24 Hours: Temp Pulse Resp BP Pulse Ox 98.3 F 70 16 115/42 L 96 04/30/20 11:55 04/30/20 11:55 04/30/20 11:55 04/30/20 11:55 04/30/20 11:55 Laboratory Results - last 24 hr 04/30/20 06:55: PT 12.1 H, INR 1.03 04/30/20 06:55: WBC 6.9, RBC 3.18 L, Hgb 8.7 L, Hct 28.9 L, MCV 90.7, MCH 27.4, MCHC 30.2 L, RDW 15.1, Plt Count 210, MPV 8.4, Neut % (Auto) 60.1, Lymph % (Auto) 28.2, [place] % (Auto) 7.7, Eos % (Auto) 2.9, Baso % (Auto) 1.0, Neut # (Auto) 4.2, Lymph # (Auto) 2.0, [place] # (Auto) 0.5, Eos # (Auto) 0.2, Baso # (Auto) 0.1 04/30/20 06:55: Sodium 141, Potassium 4.1, Chloride 112 H, Carbon Dioxide 19 L, Anion Gap 14.1, BUN 8, Creatinine 0.90, Estimated Creat Clear 66, Estimated GFR 62, Est GFR ( Amer) 75, Glucose 119 H, Calcium 8.7 I & O for Last 24 hours: Intake & Output 04/28/20 04/29/20 04/30/20 05/01/20 11:59 11:59 11:59 11:59 Intake Total 720 / 720 1135 / 1135 555 / 555 Balance 720 / 720 1135 / 1135 555 / 555 Weight 176 lb 7 oz 178 lb 9.191 oz - Constitutional no acute distress - *Routine HEENT Exam Head: Present: normocephalic Eye: Present: PERRL ENT: Present: mucous membranes moist - *Routine Neck Exam Present: supple. Absent: lymphadenopathy - *Routine Respiratory Exam Present: CTA bilaterally - *Routine Cardiovascular Exam Present: RRR - *Routine Abdominal Exam Present: soft, normoactive bowel sounds. Absent: tenderness - *Routine Extremities Exam Absent: cyanosis, clubbing, edema - *Routine Skin Exam Present: warm. Absent: rash - *Routine Neurological Exam Present: alert, oriented X3 - Routine Psychiatric Exam Present: normal affect Assessment and Plan (1) Obesity (BMI 30.0-34.9) Status: Acute Category: Medical Code(s): E66.9 - Obesity, unspecified (2) Lower GI bleed Status: Acute Category: Medical Code(s): K92.2 - Gastrointestinal hemorrhage, unspecified (3) Prolonged INR Status: Acute Category: Medical Code(s): R79.1 - Abnormal coagulation profile (4) Anemia Status: Acute Qualifiers: Anemia type: unspecified type Qualified Code(s): D64.9 - Anemia, unspecified Category: Medical Code(s): D64.9 - Anemia, unspecified - Assessment and plan all Dx Assessment and Plan for all problems:: rounded with [facility] all orders per [facility] in am
--- NOTE | 2020-04-30 15:34 | PC.NURSE ---
PATIENT HAS HAD 2 BLOODY BOWEL MOVEMENTS SINCE HER COLONOSCOPY. PATIENT AMBULATING IN ROOM, TOLERATES WELL. PATIENT HAS TOLERATED NEW DIET. PATIENT IS A&O X4, LUNGS ARE CLEAR, PULSES EQUAL.
[2020-05-01] VITALS (27 sets, daily range): BP systolic 135–178; BP diastolic 52–87; PULSE 65–85; RESP 14–18; TEMP 36.4–37.4; O2SAT 93–99; BMI 29.9
--- NOTE | 2020-05-01 04:00 | PC.NURSE ---
Pt A&O x4 and has slept well through the night. No c/o of pain or discomfort. Lungs CTA, on RA. bowel sounds x4, abd soft and nontender. IV patent, NS @ 50. VSS, call light in reach, no concerns at this time.
[2020-05-01 06:58] LABS: Basophils # 0.1 K/mm3 (0-0.2); Basophils % 0.7 % (0.1-2.0); Eosinophils # 0.4 K/mm3 (0.0-0.4); Eosinophils % 4.6 % (0.1-12.0); Hemoglobin 8.3 g/dL (12.2-16.2); Lymphocytes # 2.9 K/mm3 (0.7-4.5); Lymphocytes % 37.4 % (10-50); Mean Corpuscular HGB Conc 30.6 g/dL (31.8-35.4); Mean Corpuscular Hemoglobin 27.5 pg (27.0-31.2); Mean Corpuscular Volume 89.7 fl (81-99); Mean Platelet Volume 8.4 fl (7.4-10.4); Monocytes # 0.5 K/mm3 (0.1-1.0); Monocytes % 6.6 % (1.7-9.3); Neutrophils # 3.9 K/mm3 (1.8-7.8); Neutrophils % 50.6 % (37.0-80.0); Platelet Count 194 K/mm3 (142-424); Red Blood Count 3.01 M/mm3 (4.20-5.40); Red Cell Distribution Width 15.3 % (11.5-17.5); White Blood Count 7.6 K/mm3 (4.8-10.8)
[2020-05-01 07:05] LABS: Anion Gap 9.6 mEq/L (5-15); Blood Urea Nitrogen 9 mg/dl (7-17); Calcium 8.4 mg/dl (8.4-10.2); Carbon Dioxide 22 mmol/L (22.0-30.0); Chloride 112 mmol/L (98-107); Creatinine Clearance Estimated 65 mL/min (50-200); Estimated Glomerular Filt Rate 71 ml/min (>60); GFR (African American) 86 ML/MIN (>60); Glucose 118 mg/dl (74-100); Potassium 4.6 mmoL/L (3.5-5.1); Sodium 139 mmol/L (136-145)
--- NOTE | 2020-05-01 09:11 | HMH.ACPN2 ---
Internal Medicine - PN: Subj *Date: 05/01/20 *Time: 09:11 Interval history: feeling weak but min rectal bleeding reported - has dropped h/h - some crampy abd pain Exam Vital signs and Labs for Last 24 Hours: Temp Pulse Resp BP Pulse Ox 98.7 F 81 18 178/73 H 95 05/01/20 08:00 05/01/20 08:00 05/01/20 08:00 05/01/20 08:00 05/01/20 08:00 Laboratory Results - last 24 hr 05/01/20 06:43: WBC 7.6, RBC 3.01 L, Hgb 8.3 L, Hct 27.0 L, MCV 89.7, MCH 27.5, MCHC 30.6 L, RDW 15.3, Plt Count 194, MPV 8.4, Neut % (Auto) 50.6, Lymph % (Auto) 37.4, [place] % (Auto) 6.6, Eos % (Auto) 4.6, Baso % (Auto) 0.7, Neut # (Auto) 3.9, Lymph # (Auto) 2.9, [place] # (Auto) 0.5, Eos # (Auto) 0.4, Baso # (Auto) 0.1 05/01/20 06:43: Sodium 139, Potassium 4.6, Chloride 112 H, Carbon Dioxide 22, Anion Gap 9.6, BUN 9, Creatinine 0.80, Estimated Creat Clear 65, Estimated GFR 71, Est GFR ( Amer) 86, Glucose 118 H, Calcium 8.4 I & O for Last 24 hours: Intake & Output 04/28/20 04/29/20 04/30/20 05/01/20 11:59 11:59 11:59 11:59 Intake Total 720 / 720 1135 / 1135 555 / 555 960 / 960 Balance 720 / 720 1135 / 1135 555 / 555 960 / 960 Weight 176 lb 7 oz 178 lb 9.191 oz 175 lb 5 oz - Constitutional no acute distress - *Routine HEENT Exam Head: Present: normocephalic Eye: Present: EOMI, PERRL, other (pale conj) ENT: Present: mucous membranes dry - *Routine Neck Exam Present: supple - *Routine Respiratory Exam Present: CTA bilaterally. Absent: respiratory distress - *Routine Cardiovascular Exam Present: RRR - *Routine Abdominal Exam Present: soft - *Routine Extremities Exam Absent: calf tenderness - *Routine Skin Exam Present: intact - *Routine Neurological Exam Present: alert, CN II-XII intact - Routine Psychiatric Exam Present: normal affect Assessment and Plan (1) Obesity (BMI 30.0-34.9) Status: Acute Category: Medical Code(s): E66.9 - Obesity, unspecified (2) Lower GI bleed Status: Acute Category: Medical Code(s): K92.2 - Gastrointestinal hemorrhage, unspecified (3) Prolonged INR Status: Acute Category: Medical Code(s): R79.1 - Abnormal coagulation profile (4) Anemia Status: Acute Qualifiers: Anemia type: unspecified type Qualified Code(s): D64.9 - Anemia, unspecified Category: Medical Code(s): D64.9 - Anemia, unspecified (5) Acute blood loss anemia (ABLA) Status: Acute Category: Medical Code(s): D62 - Acute posthemorrhagic anemia (6) Diverticulosis Status: Acute Category: Medical Code(s): K57.90 - Diverticulosis of intestine, part unspecified, without perforation or abscess without bleeding (7) Internal hemorrhoids Status: Acute Category: Medical Code(s): K64.8 - Other hemorrhoids
--- NOTE | 2020-05-01 16:04 | PC.NURSE ---
Pt has been pleasant and cooperative this shift. A&O X4. No complaints of pain. Pt is on room air with sats. >90%. Lungs CTA. No edema noted. Skin is C/D/I. Pt ambulates independently to/from bathroom and throughout the room. Pt also sat up in the recliner for several hours this AM. Pt is occasionally incontinent of bladder and a brief is in place per pt request. Pt has had 1 large, red, loose stool thus far this shift. 20 G peripheral IV in the LT forearm is patent and currently infusing PRBC's at a rate of 150 ML/HR. VSS. Call light within reach. Will continue to monitor.
[2020-05-01 18:24] LABS: Hematocrit 31.4 % (37.0-47.0)
--- NOTE | 2020-05-01 18:48 | HMH.PTEV ---
Physical Therapy Evaluation Rehab PT IP Evaluation Start: 05/01/20 09:18 Freq: ONCE Status: Active Protocol: Document 05/01/20 18:34 GREGORIO (Rec: 05/01/20 18:47 GREGORIO [id number]) Subjective/History History History Patient was admitted to [facility] [place] 04/26/20 secondary to of blood in stool. Treatment has consisted of blood transfusions and a procedure to remove mulitiple polyps. She was also diagnosed with diverticulosis multiple hemmrhoids. She lives at home alone on the bottom level of a housing development. Patient reports no previous requirement of assistive devices. No step to negotiate at home. Patient reports that she has had multiple falls at home and would like to receive home health services. Patient independent with all bed mobility, transfers and ambulation today . Subjective Subjective I feel better after getting the blood, but I do still have a lot of pain. Rehab PT IP Eval Objective Appearance Patient Behavior Appropriate Patient Orientation Person,Place,Birthday Difficulty following instructions none Speech Pattern Clear,Appropriate Ambulation Patient Able to Ambulate Yes Ambulation Observation IP General Gait Pattern Observation No Deviations/Normal Ambulation Distance (feet) 100 Ambulation Ability Independent Balance Ability to Arise Able, w/o using arms Sitting Balance Steady, safe Standing Balance Narrow stance w/o support Dynamic Sitting Balance Ability Normal Dynamic Standing Balance Ability Normal Transfers Bed Transfer Ability Independent Chair Transfer Ability Independent Sit to Stand Bed Transfer Ability Independent Sit to Stand Chair Transfer Ability Independent Pain Rectum Pain Intensity 7 ROM All Extremities PT ROM Status WFL MMT All Extremities PT MMT WFL Rehab PT IP prob,goals,plan Problems Date of Evaluation: 05/01/20 PT IP Problems Self care,Safety Rehab Potential Rehab Potential Goo
--- NOTE | 2020-05-02 03:46 | PC.NURSE ---
Pt A&O x4 and has slept well through the night. No complaints of pain. Lungs CTA, on room air. Bowel sounds x4, abd soft and nontender. Pt has had one BM overnight. IV patent, NS @ 50. Pt able to ambulate independently to bathroom and tolerates well. VSS, jayson light in reach, no concerns at this time.
[2020-05-02 03:49] VITALS: BP 148/61; PULSE 71; RESP 18; TEMP 37; O2SAT 95
[2020-05-02 05:00] VITALS: BMI 30.2
[2020-05-02 06:42] LABS: Basophils % 0.5 % (0.1-2.0); Eosinophils # 0.3 K/mm3 (0.0-0.4); Eosinophils % 4.5 % (0.1-12.0); Hematocrit 32.6 % (37.0-47.0); Hemoglobin 10.2 g/dL (12.2-16.2); Lymphocytes # 2.6 K/mm3 (0.7-4.5); Lymphocytes % 37.9 % (10-50); Mean Corpuscular HGB Conc 31.2 g/dL (31.8-35.4); Mean Corpuscular Hemoglobin 28.1 pg (27.0-31.2); Mean Platelet Volume 8.6 fl (7.4-10.4); Monocytes # 0.4 K/mm3 (0.1-1.0); Monocytes % 5.7 % (1.7-9.3); Neutrophils # 3.5 K/mm3 (1.8-7.8); Neutrophils % 51.3 % (37.0-80.0); Platelet Count 159 K/mm3 (142-424); Red Blood Count 3.62 M/mm3 (4.20-5.40); Red Cell Distribution Width 15.1 % (11.5-17.5); White Blood Count 6.8 K/mm3 (4.8-10.8)
[2020-05-02 06:47] LABS: Chloride 111 mmol/L (98-107); Potassium 3.9 mmoL/L (3.5-5.1); Sodium 138 mmol/L (136-145)
[2020-05-02 06:50] LABS: Anion Gap 7.9 mEq/L (5-15); Blood Urea Nitrogen 10 mg/dl (7-17); Calcium 8.6 mg/dl (8.4-10.2); Carbon Dioxide 23 mmol/L (22.0-30.0); Creatinine Clearance Estimated 65 mL/min (50-200); Estimated Glomerular Filt Rate 82 ml/min (>60); GFR (African American) 100 ML/MIN (>60); Glucose 109 mg/dl (74-100)
[2020-05-02 07:20] VITALS: BP 160/80; PULSE 79; RESP 18; TEMP 37; O2SAT 96
--- NOTE | 2020-05-02 09:19 | HMH.DCSUM ---
General - General Admission date:: 04/26/20 Discharge date: 05/02/20 HPI HPI: this patient presented to the ed with crampy abd pain and rectal bleeding on coumadin for dvt -yo F with past medical history of DVT presents the emergency department with concern for bright red blood per rectum. Patient reports has been going on for some time but she has delayed seeking care hoping it would stop. Patient reports taking her Coumadin as directed and having been on it for several years. She denies lightheadedness, shortness of breath, abdominal pain. Patient reports having colonoscopy in the past and states they may have removed a polyp. pt admitted for eval and treatment Hospital Course Hospital Course: pt slowly improved with dec bleeding - she required colonoscopy per dr noel-dication: Mrs. Schulz is a 69-year-old female who was admitted to [facility] with bright red rectal bleeding and clots. She also had associated crampy abdominal discomfort and some diarrhea. She had last took her Coumadin last Sunday or Sunday and the bleeding began early Sunday. The patient reports no recent weight loss or family history of colon cancer. She did have a colonoscopy in 2009 (Dr. Rafael Escoto) and had diverticulosis and internal hemorrhoids which were banded. The patient did have a CT scan of the abdomen in May 2019 and had evidence of diverticulosis and an infrarenal abdominal aortic aneurysm. The patient's hemoglobin and hematocrit on admission were 10 and 32 respectively. These have declined over the last 4 days with hydration and her hemoglobin and hematocrit today were 8.7 and 28.9 respectively. Her bleeding has stopped. Procedure: Prior to the procedure, a history and physical exam was performed, and patient's medications and allergies were reviewed. The risks, benefits and alternatives of the sedation and procedure were discussed with the patient. All questions were answered and informed consent was obtained. The patient was brought to the procedure room. Patient identification and proposed procedure were verified by the physician and the nurse. The patient was placed in a left lateral decubitus position and the scope was passed under direct vision. Throughout the procedure, the patient's blood pressure, pulse, and oxygen saturations were monitored continuously. The colonoscopy was accomplished without difficulty. The patient tolerated the procedure well. Findings: On digital rectal examination there was normal rectal tone. There were no external hemorrhoids. The colonoscope was introduced through the anal canal to the rectum and advanced to the cecum. The ileocecal valve and appendiceal orifice were identified. The scope was advanced a short distance into the ileum which appeared grossly normal. The scope was then withdrawn into the colon. There were 3 colon polyps (ascending x2 (4 and 5 mm) and rectosigmoid x1 (7 mm)) which were removed via cold snare polypectomy. The remaining cecum, ascending and transverse colon and mucosa were grossly normal. There were scattered extensive diverticuli throughout the descending and sigmoid colon (LEFT colon). The rectum itself was normal. Upon retroflexion within the rectum there were grade 2 internal hemorrhoids. The hemorrhoids were banded using 3 bands on 3 columns of hemorrhoids with excellent ligation effect. The preparation was excellent throughout with [place] Preparation Score of 9. The cecal time was 14 minutes. Impression: 1. Colonic polyps x3 2. Extensive left-sided diverticulosis 3. Grade 2 internal hemorrhoids status post band ligation x3 Plan: I do feel that her recent bleeding is more likely to be a diverticular hemorrhage than hemorrhoidal bleeding. However, based upon the fact that it would be impossible to tell now, I do feel that banding these hemorrhoids would be appropriate especially since they are prolapsing internal hemorrhoids as well. I would enc
== END 2020-05-02 11:20 | disposition home or self-care (01) ==
LOC: ER 15:15 → 2ND 15:46
PROVIDERS: Internal Medicine Gastroenterology; Nurse Practitioner Family; Admitting Provider Emergency Medicine; Emergency Provider Family Medicine; PCP Emergency Medicine; Visit Provider Emergency Medicine
PROC: 0DJD8ZZ Inspection of Lower Intestinal Tract, Via Natural or Artificial Opening Endoscopic (ICD-10-PCS; CPT 45378; principal; 2020-04-30 07:30)
DX: K57.30 Diverticulosis of large intestine without perforation or abscess without bleeding (principal); K64.1 Second degree hemorrhoids; K92.2 Gastrointestinal hemorrhage, unspecified; R79.1 Abnormal coagulation profile; Z88.0 Allergy status to penicillin; Z91.018 Allergy to other foods; Z88.2 Allergy status to sulfonamides; Z79.899 Other long term (current) drug therapy; Z79.51 Long term (current) use of inhaled steroids; Z79.01 Long term (current) use of anticoagulants; Z91.81 History of falling; D62 Acute posthemorrhagic anemia; Z86.718 Personal history of other venous thrombosis and embolism; D12.2 Benign neoplasm of ascending colon; D12.7 Benign neoplasm of rectosigmoid junction
CPT/HCPCS: 36430; 45380; 45398; 36415; 80048; 82272; 85014; 85018; 85025; 85610; 86850; 87581; 87633; 87798; 88305; 88342; 88360; 93970; 97162; 99284; G0328; G0378; J2405; P9016

== ENCOUNTER → 2020-05-13 16:36 | Outpatient (CLI) | payer MEDICARE, MEDICAID, SELFPAY ==
[2020-05-13 16:47] LABS: Basophils # 0.1 K/mm3 (0-0.2); Basophils % 0.8 % (0.1-2.0); Eosinophils # 0.3 K/mm3 (0.0-0.4); Eosinophils % 3.2 % (0.1-12.0); Hematocrit 35.6 % (37.0-47.0); Hemoglobin 10.9 g/dL (12.2-16.2); Lymphocytes # 3.7 K/mm3 (0.7-4.5); Lymphocytes % 34.7 % (10-50); Mean Corpuscular HGB Conc 30.7 g/dL (31.8-35.4); Mean Corpuscular Hemoglobin 27.2 pg (27.0-31.2); Mean Corpuscular Volume 88.6 fl (81-99); Mean Platelet Volume 8.3 fl (7.4-10.4); Monocytes # 0.8 K/mm3 (0.1-1.0); Neutrophils # 5.8 K/mm3 (1.8-7.8); Neutrophils % 54.2 % (37.0-80.0); Platelet Count 267 K/mm3 (142-424); Red Blood Count 4.02 M/mm3 (4.20-5.40); Red Cell Distribution Width 15.1 % (11.5-17.5); White Blood Count 10.7 K/mm3 (4.8-10.8)
[2020-05-13 17:11] LABS: Alanine Aminotransferase 43 U/L (12-78); Albumin/Globulin Ratio 1.1 (1.1-1.8); Alkaline Phosphatase 65 U/L (38-126); Aspartate Amino Transferase 69 U/L (14-36); Bilirubin,Total 0.4 mg/dl (0.2-1.3); Blood Urea Nitrogen 16 mg/dl (7-17); Calcium 10.2 mg/dl (8.4-10.2); Carbon Dioxide 24 mmol/L (22.0-30.0); Chloride 104 mmol/L (98-107); Estimated Glomerular Filt Rate 71 ml/min (>60); GFR (African American) 86 ML/MIN (>60); Globulin 3.8 g/dL (1.3-3.2); Glucose 110 mg/dl (74-100); Sodium 137 mmol/L (136-145); Total Protein,Serum 7.8 g/dl (6.3-8.2)
== END ==
PROVIDERS: Visit Provider Physician Assistant
DX: D64.9 Anemia, unspecified (principal); R42 Dizziness and giddiness; R53.83 Other fatigue
CPT/HCPCS: 80053; 85025

== ENCOUNTER → 2020-07-30 12:43 | Outpatient (CLI) | payer MEDICARE, MEDICAID, SELFPAY | PROVIDERS: Visit Provider Internal Medicine Gastroenterology | DX: Z01.812 Encounter for preprocedural laboratory examination (principal); Z20.822 Contact with and (suspected) exposure to COVID-19; Z12.11 Encounter for screening for malignant neoplasm of colon | CPT/HCPCS: U0003 ==

== ENCOUNTER 2020-08-02 09:27 | Day surgery (SDC) | payer MEDICARE, MEDICAID, SELFPAY ==
[2020-07-29 10:34] VITALS: BMI 27.8
[2020-08-02] VITALS (7 sets, daily range): BP systolic 99–180; BP diastolic 47–78; PULSE 62–72; RESP 18; TEMP 36.5–36.9; O2SAT 93–98
--- NOTE | 2020-08-02 10:32 | HMH.PROC ---
[facility] Procedure Note Procedure Note:: Flexible Sigmoidoscopy Procedure Report: Sigmoidoscopy Endoscopist: Leon Al II, MD Referring physician: Rodolfo Woo MD Date of Procedure: August 02, 2020 Equipment: Olympus 180 variable stiffness pediatric colonoscope Sedation: MAC sedation Indication: Mrs. Schulz is a 70-year-old female who had an inpatient colonoscopy on April 30, 2020. At that time, she had hematochezia with passage of bright red blood and some maroon blood and clots. She did have a drop in her hemoglobin and hematocrit. She was found to have extensive left-sided diverticulosis, internal hemorrhoids that were banded and 3 colon polyps. 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 It appeared to be completely excised on gross expection but also by histology. Sigmoidoscopy is performed to confirm no underlying submucosal extension especially since this is often submucosal in origin and may require EMR (endoscopic mucosal resection). Procedure: Prior to the procedure, a history and physical exam was performed, and patient's medications and allergies were reviewed. The risks, benefits and alternatives of the sedation and procedure were discussed with the patient. All questions were answered and informed consent was obtained. The patient was brought to the procedure room. Patient identification and proposed procedure were verified by the physician and the nurse. The patient was placed in a left lateral decubitus position and the scope was passed under direct vision. Throughout the procedure, the patient's blood pressure, pulse, and oxygen saturations were monitored continuously. The colonoscopy was accomplished without difficulty. The patient tolerated the procedure well. Findings: On digital rectal examination there were small external tags. There was normal rectal tone. The scope was then inserted through the anal canal to the rectum and advanced to 45 cm. There were extensive diverticuli throughout the distal descending and sigmoid colon. The rectosigmoid was inspected carefully and there was fibrosis at the prior polypectomy site but there was no residual polyp or any residual NET. Upon retroflexion, there was excellent fibrosis from prior hemorrhoid ligation. Impression: 1. No residual rectosigmoid NET (neuroendocrine tumor) with some fibrosis at removal site 2. Left-sided diverticulosis Plan: I would recommend repeat screening/surveillance colonoscopy again in 5 years (April 2025) from prior colonoscopy. I would continue fiber supplementation on a maintenance basis.
--- NOTE | 2020-08-02 10:35 | HMH.ANESCL ---
[facility] Anesthesia Checklist - Patient Identification Patient Identification: Arm Band - Structural Data Admitted From: Home Planned Operative Procedure/s: Flex. Sigmoidoscopy Consent for Planned Operative Procedure(s) Verified: Yes - NPO Status Verified Time NPO: 00:00 - Airway Assessment C-Spine Mobility Assessed: Yes TMJ Mobility Assessed: Yes Dentition: Good Dentition - Neurological Assessment Level of Consciousness: Awake Hx Seizures: No Numbness or tingling in extremities: No - Anesthesia Plan Anesthesia Risk discussed: Yes Anesthesia Plan: Verified ASA Class: III Anesthesia Type: MAC [facility] History I have reviewed the patient's past medical history: Yes Medical History: Reports:: Anxiety, Atrial Fibrillation, Chronic Obstructive Pulmonary Disease (COPD), Depression, Hyperlipidemia, Hypertension Denies:: Cancer, Diabetes Mellitus Type 1, Diabetes Mellitus Type 2, Internal Pacemaker, MRSA, Seizures *Have you ever received a pneumonia vaccine?: No *Have you received a flu vaccine this season?: Yes Other Medical History: Reports: Other Anesthesia experience/problems:: None Other Surgeries: Yes: Cardiac Surgery, , Other. No: Pacemaker Amputation: No Fractures: No - *Social History Last grade of school completed: High school graduate Smoking Status: Never smoker Alcohol Intake: never Substance Use Type: denies use *Occupational Status:: disabled Housing: house Household Members: none *Travel in the last 8 weeks: None - Psychiatric History Pschychiatric History:: Reports:: Anxiety, Depression Family Hx:: Cancer, Coronary Artery Disease
== END 2020-08-02 11:55 | disposition home or self-care (01) ==
LOC: OUTP 09:32
PROVIDERS: PCP Emergency Medicine; Visit Provider Internal Medicine Gastroenterology
PROC: 0DJD8ZZ Inspection of Lower Intestinal Tract, Via Natural or Artificial Opening Endoscopic (ICD-10-PCS; CPT 45330; principal; 2020-08-02 10:30)
DX: Z09 Encounter for follow-up examination after completed treatment for conditions other than malignant neoplasm (principal); K57.30 Diverticulosis of large intestine without perforation or abscess without bleeding; Z86.010 Personal history of colon polyps; F41.9 Anxiety disorder, unspecified; I48.91 Unspecified atrial fibrillation; J44.9 Chronic obstructive pulmonary disease, unspecified; F32.9 Major depressive disorder, single episode, unspecified; E78.5 Hyperlipidemia, unspecified; I10 Essential (primary) hypertension; Z80.9 Family history of malignant neoplasm, unspecified; Z88.0 Allergy status to penicillin; Z88.2 Allergy status to sulfonamides
CPT/HCPCS: 45330

== ENCOUNTER 2020-10-13 12:11 | Emergency (ER) | payer MEDICARE, MEDICAID, SELFPAY ==
[2020-10-13 13:50] VITALS: BP 194/81; PULSE 64; RESP 20; TEMP 36.5; O2SAT 98; BMI 29.0
--- NOTE | 2020-10-13 14:11 | HMH.EDUTC ---
[facility] [place] Clinical Impression: Right foot pain, History of DVT (deep vein thrombosis), Thrombophlebitis Disposition: Home, Self-Care Condition on Discharge: Good Instructions: DI for Superficial Thrombophlebitis Additional Instructions: Apply warm wet compresses to the affected sites three or four times per day for 15 minutes as tolerated. Follow up with your regular doctor. GO TO THE ER FOR ANY WORSENING SYMPTOMS OR CONCERNS Referrals: Rodolfo Woo MD [Primary Care Provider] - Time of Disposition: 15:22 Medical Decision Making - Medical Records Medical records reviewed: No: I reviewed the patient's medical records. - Christian Inquiry Pt receiving controlled substance: No Vital Signs: 10/13/20 13:50 10/13/20 15:31 Temperature 97.7 F 97.7 F Temperature Source Oral Pulse Rate 64 Pulse Rate [Left] 64 Respiratory Rate 20 20 Blood Pressure 194/81 H Blood Pressure [Right Arm] 194/81 H Blood Pressure Mean [Right Arm] 118 02 Sat by Pulse Oximetry 98 Oxygen Delivery Method Room Air Room Air - US Data US Images: Lower Extremity ED US Reviewed: Yes: I have reviewed the patient's US results, I have viewed radiologist's interpretation Preliminary Findings: Normal/NAD [facility] [place] HPI - General Stated complaint: swollen R foot no accident Time Seen by Provider: 10/13/20 14:11 Mode of Arrival: Ambulatory Source of Information: Patient Limitations: No Limitations Description of Symptoms (Recalled from Triage Doc. by RN): pt states her the vein in the top of her R foot is swollen and painful x3 days. HEENT Symptoms (Recalled from RN notes): No Resp Symptoms (Recalled from RN notes): No Skin Symptoms (Recalled from RN notes): No MS Symptoms (Recalled from RN notes): Yes (L foot pain) Functional Status (Recalled from RN notes): na - History of Present Illness Provider Complaint: She c/o right leg and foot pain for the past 3 days. She does have a history of blood clots in her legs. Her blood thinner was stopped about 3 months ago. She denies any chest pain and shortness of breath. - Related Data Home Medications Medication Instructions Recorded Confirmed Fluoxetine HCl [Prozac] 20 mg PO DAILY 07/29/20 07/29/20 Pantoprazole Sodium [Protonix 40mg 40 mg PO HS 07/29/20 07/29/20 tablet] Metoprolol Tartrate See Rx Instructions .ROUTE .COMPLEX 08/02/20 Previous Rx's Medication Instructions Recorded albuterol sulfate 90 mcg/actuation 1 inh INHALATION QID PRN #18 g 10/28/19 aerosol inhaler promethazine-DM 6.25 mg-15 mg/5 mL 5 ml PO Q6H PRN #180 ml 05/13/20 oral syrup lisinopril 10 mg tablet See Rx Instructions .ROUTE 08/26/20 .COMPLEX #90 tablet Allergies Allergy/AdvReac Type Severity Reaction Status Date / Time Penicillins [PENICILLINS] Allergy Unknown Verified 10/13/20 14:04 Sulfa (Sulfonamide Allergy Unknown Verified 10/13/20 14:04 Antibiotics) [SULFA (SULFONAMIDE ANTIBIOTICS)] MULTIPLE FOODS Allergy Unknown BLOATING,GI Uncoded 05/13/20 14:54 DISTRESS-NO RESP INVOLVMENT - Worker's Comp Is this a Worker's Comp case?: No [facility] History - Hepatitis A Screen Drug use history?: No High risk sexual behaviors?: No History of sexually transmitted infection?: No Currently employed?: No Childcare worker?: No Do you have indoor plumbing?: Yes Do you have electricity?: Yes Attestation statement:: This patient has been screened for Hepatitis A risk factors. I have reviewed the patient's past medical history: Yes Medical History: Reports:: Anxiety, Atrial Fibrillation, Chronic Obstructive Pulmonary Disease (COPD), Depression, Hyperlipidemia, Hypertension Denies:: Cancer, Diabetes Mellitus Type 1, Diabetes Mellitus Type 2, Internal Pacemaker, MRSA, Seizures Other Medical History: Reports: Other Comment: Irregular heart rate Other Surgeries: Yes: Cardiac Surgery, , Other. No: Pacemaker Amputation: No Fractures: No C
--- NOTE | 2020-10-13 14:21 | CA_ITS ---
APPROVED REPORT Right Lower Extremity Venous Study for DVT. Economic Adviser: JADYN Indications Lower Extremity Pain: Right Lower Extremity Edema: Right leg pain, hx of dvt's, recently stopped blood thinner. Patient denies trauma. States top of her right foot began hurting 3 days ago after wearing a new pair of shoes that rubbed the top of foot. Patient states she has a felicita filter placed due to history of DVT's. Vein Imaging CFV (R): compressive, spontaneous, phasic, augmentation FEM (R): compressive, spontaneous, phasic, augmentation POP (R): compressive, spontaneous, phasic, augmentation PTV (R): Compressible GSV (R): compressive, spontaneous, phasic, augmentation Peroneals (R):Compressible Findings No evidence of DVT in the veins scanned of the right lower extremity. Superficial thrombophlebitis is visualized in the superficial veins of the dorsal aspect of right foot. Conclusion No evidence of DVT in the veins scanned of the right lower extremity. Superficial thrombophlebitis is visualized in the superficial veins of the dorsal aspect of right foot. Critical Notification Critical Value: No Physician Notified Date: 10/13/2020 Time: 15:04 Physician Name: Derek Maher Electronically signed by : Karan Draper MD 10/13/2020 17:44:57
--- NOTE | 2020-10-13 14:27 | XR_ITS ---
PROCEDURE: XR FOOT RT MIN 3V CLINICAL INDICATION: pain COMPARISON: No exams were available for comparison FINDINGS: No fracture or dislocation. No lytic or blastic change. There is normal mineralization. The joint spaces are well-preserved. No significant degenerative/arthritic changes. No erosive changes evident. Other findings:None. IMPRESSION: No acute findings. Dictated by: Karan Draper MD 10/13/2020 15:17 Karan Draper MD in [place] 10/13/2020 15:17
[2020-10-13 15:31] VITALS: BP 194/81; PULSE 64; RESP 20; TEMP 36.5; O2SAT 98
== END 2020-10-13 15:31 | disposition home or self-care (01) ==
PROVIDERS: Emergency Provider Nurse Practitioner Family; PCP Emergency Medicine
DX: I82.811 Embolism and thrombosis of superficial veins of right lower extremity (principal); I48.0 Paroxysmal atrial fibrillation; F41.8 Other specified anxiety disorders; I10 Essential (primary) hypertension; E78.5 Hyperlipidemia, unspecified; Z86.718 Personal history of other venous thrombosis and embolism
CPT/HCPCS: G0463; 73630; 93971; 99202

== ENCOUNTER 2021-06-23 16:14 | Inpatient (IN) | payer MEDICAID, MEDICARE, SELFPAY ==
[2021-06-23] VITALS (9 sets, daily range): BP systolic 120–243; BP diastolic 59–107; PULSE 69–86; RESP 17–40; TEMP 36.8–38.3; O2SAT 91–98; BMI 30.2; BMI 29.9
--- NOTE | 2021-06-23 16:18 | XR_ITS ---
PROCEDURE INFORMATION: Exam: XR Chest Exam date and time: 06/23/2021 4:23 PM Age: 70 years old Clinical indication: Pain; Right-sided; Additional info: C/O right sided posterior lung pain TECHNIQUE: Imaging protocol: XR of the chest. Views: 2 views. COMPARISON: CR XR CHEST 2V 10/17/2019 3:05 PM FINDINGS: Lungs: Bilateral hyperinflation is present. Atelectatic changes noted within both lung bases. No focal pneumonia or pneumothorax. Pleural spaces: There are no pleural effusions present. Apical pleural thickening noted bilaterally. Heart/Mediastinum: Unremarkable. No cardiomegaly. Vasculature: The vasculature demonstrates diffuse moderate atherosclerotic calcification. Bones/joints: The thoracic spine demonstrates mild degenerative changes at multiple levels. IMPRESSION: 1. Bilateral hyperinflation is present. 2. Atelectatic changes noted within both lung bases. 3. No focal pneumonia or pneumothorax.
--- NOTE | 2021-06-23 16:50 | HMH.EDUTC ---
[facility] [place] Clinical Impression: Pleuritic chest pain Fever Qualifiers: Fever type: unspecified Qualified Code(s): R50.9 - Fever, unspecified Pulmonary embolism Qualifiers: Pulmonary embolism type: unspecified Chronicity: acute Acute cor pulmonale presence: without acute cor pulmonale Qualified Code(s): I26.99 - Other pulmonary embolism without acute cor pulmonale Disposition: Admitted As Inpatient Condition on Discharge: Fair Medical Decision Making - Medical Records Medical records reviewed: No: I reviewed the patient's medical records. - Christian Inquiry Pt receiving controlled substance: No Vital Signs: 06/23/21 16:44 06/23/21 17:59 06/23/21 18:12 Temperature 98.3 F 100.2 F H Temperature Source Oral Oral Pulse Rate Pulse Rate [Left] 71 69 69 Respiratory Rate 17 26 H 30 H Blood Pressure Blood Pressure [Right Arm] 154/74 H 243/96 H 216/84 H Blood Pressure Mean [Right Arm] 100 145 128 Blood Pressure Source Blood Pressure Source [Right Arm] Blood Pressure Position Blood Pressure Position [Right Arm] Sitting Sitting 02 Sat by Pulse Oximetry 95 93 L 93 L Oxygen Delivery Method Room Air Room Air Oxygen Flow Rate (LPM) 06/23/21 18:53 06/23/21 19:09 06/23/21 21:06 Temperature 101.0 F H 98.7 F Temperature Source Oral Pulse Rate 72 86 Pulse Rate [Left] 74 Respiratory Rate 40 H 17 Blood Pressure 197/79 H 128/107 H Blood Pressure [Right Arm] 147/62 H Blood Pressure Mean [Right Arm] 90 Blood Pressure Source Blood Pressure Source [Right Arm] Automatic Cuff Blood Pressure Position Sitting Blood Pressure Position [Right Arm] Supine 02 Sat by Pulse Oximetry 98 92 L 91 L Oxygen Delivery Method Room Air Nasal Cannula Oxygen Flow Rate (LPM) 06/23/21 21:25 Temperature 100.0 F H Temperature Source Oral Pulse Rate 75 Pulse Rate [Left] Respiratory Rate 20 Blood Pressure 120/59 L Blood Pressure [Right Arm] Blood Pressure Mean [Right Arm] Blood Pressure Source Automatic Cuff Blood Pressure Source [Right Arm] Blood Pressure Position Sitting Blood Pressure Position [Right Arm] 02 Sat by Pulse Oximetry Oxygen Delivery Method Nasal Cannula Oxygen Flow Rate (LPM) 2 - Lab Data Lab Results 06/23/21 16:46: Group A Strep Rapid Negative 06/23/21 16:46: Influenza Type A Ag Negative, Influenza Type B Ag Negative 06/23/21 18:15: WBC 10.1, RBC 4.55, Hgb 13.2, Hct 42.2, MCV 92.9, MCH 29.1, MCHC 31.3 L, RDW 14.8, Plt Count 135 L, MPV 8.9, Neut % (Auto) 58.3, Lymph % (Auto) 29.5, [place] % (Auto) 7.4, Eos % (Auto) 2.4, Baso % (Auto) 2.4 H, Neut # (Auto) 5.9, Lymph # (Auto) 3.0, [place] # (Auto) 0.8, Eos # (Auto) 0.2, Baso # (Auto) 0.2 06/23/21 18:15: D-Dimer > 8.10 H 06/23/21 18:15: Sodium 139, Potassium 3.8, Chloride 106, Carbon Dioxide 24, Anion Gap 12.8, BUN 12, Creatinine 0.80, Estimated Creat Clear 64, Estimated GFR 71, Est GFR ( Amer) 85, Glucose 113 H, Calcium 9.1, Total Bilirubin 0.8, AST 28, ALT 21, Alkaline Phosphatase 57, Total Protein 7.7, Albumin 4.1, Globulin 3.6 H, Albumin/Globulin Ratio 1.1 06/23/21 18:15: NT-Pro-B Natriuret Pep 212 H 06/23/21 18:15: Troponin I < 0.01 06/23/21 19:35: Lactate 1.5 06/23/21 19:51: Urine Color Yellow, Urine Appearance Clear, Urine pH 6.0, Ur Specific [place] 1.015, Urine Protein Negative, Urine Glucose (UA) Negative, Urine Ketones Negative, Urine Blood Negative, Urine Nitrate Negative, Urine Bilirubin Negative, Urine Urobilinogen 0.2, Ur Leukocyte Esterase 1+ A, Urine RBC None, Urine WBC 3-5, Ur Squamous Epith Cells 3-5, Urine Bacteria Trace 06/23/21 19:55: SARS-CoV-2 (PCR) Not detected, Influenza A Untype (PCR) Not detected, Influenza Type B (PCR) Not detected Result diagrams: 06/27/21 08:40 06/27/21 08:40 Orders (Tests/Meds): ED MEDICATIONS Discontinued Medications Generic Name Dose Route Start Last Admin Trade Name Freq PRN Reason Stop Dose Admin Acetaminophen 1,000 mg 06/23/21 19:22 06/23/21 19:24 A
[2021-06-23 16:55] LABS: UTC Influenza A Antigen Negative (Negative)
[2021-06-23 16:56] LABS: UTC Influenza B Antigen Negative (Negative)
[2021-06-23 17:09] LABS: Strep Scrn Group A (Rapid) Negative (Negative)
--- NOTE | 2021-06-23 17:14 | ECG_ITS ---
APPROVED REPORT Exam: Resting ECG HR:66 bpm ECG Measurements Heart Rate 66 AXES MN 168 P -20 QRSd 86 QRS -7 QT 407 T 37 QTc 421 Conclusion SINUS RHYTHM POSSIBLE RIGHT VENTRICULAR CONDUCTION DELAY [RSR (QR) IN V1/V2] MINIMAL VOLTAGE CRITERIA FOR LVH, CONSIDER NORMAL VARIANT [MEETS CRITERIA IN ONE OF: R(aVL), S(V1), R(V5), R(V5/V6)+S(V1)] BORDERLINE ECG UNCONFIRMED REPORT Electronically signed by : Marco A Mendenhall MD 06/24/2021 08:09:19
--- NOTE | 2021-06-23 17:46 | PC.NURSE ---
Patient was brought over from [facility] to ED room 5 by wheelchair with RN, Brandon. STARLA Kruse at
--- NOTE | 2021-06-23 17:54 | PC.NURSE ---
ED MD at
--- NOTE | 2021-06-23 17:59 | CT_ITS ---
PROCEDURE INFORMATION: Exam: CTA Chest With Contrast Exam date and time: 06/23/2021 6:56 PM Age: 70 years old Clinical indication: Pain; Right-sided; Additional info: RT sided pleuritic cp, h/o pe TECHNIQUE: Imaging protocol: Computed tomographic angiography of the chest with contrast. 3D rendering (Not supervised by radiologist): MIP and/or 3D reconstructed images were created by the technologist. Radiation optimization: All CT scans at this facility use at least one of these dose optimization techniques: automated exposure control; mA and/or kV adjustment per patient size (includes targeted exams where dose is matched to clinical indication); or iterative reconstruction. Contrast material: ISOVUE 370; Contrast volume: 70 ml; Contrast route: INTRAVENOUS (IV); COMPARISON: CR XR CHEST 2V 06/23/2021 4:23 PM FINDINGS: Pulmonary arteries: Filling defects are present within the pulmonary arteries to the right upper lobe, right middle lobe, right lower lobe, left lower lobe, left upper lobe consistent with pulmonary emboli. Aorta: No evidence of aortic dissection. Lungs: Bilateral hyperinflation is present. Atelectatic changes noted within both lung bases. Pleural spaces: There is no evidence of pneumothorax. Apical pleural thickening noted bilaterally. Heart: No evidence of heart strain. Lymph nodes: Unremarkable. No enlarged lymph nodes. Gallbladder and bile ducts: There has been a cholecystectomy. Kidneys and ureters: Cystic changes of the right kidney are partially imaged. Bones/joints: The thoracic spine demonstrates mild degenerative changes at multiple levels. Soft tissues: Unremarkable. IMPRESSION: 1. Bilateral pulmonary emboli. 2. No evidence of heart strain. 3. No evidence of aortic dissection. 4. Bilateral hyperinflation is present. 5. Atelectatic changes noted within both lung bases. COMMENTS: Consistent with the [employer]'s Incidental Findings Committee white paper (J Am Marci Radiol 2018): Any incidental renal lesion less than 1 cm or classified as too small to characterize, or any incidental cystic renal lesion characterized as simple-appearing, is likely benign. No follow-up imaging is recommended for these lesions per consensus recommendations based on imaging criteria.
--- NOTE | 2021-06-23 18:01 | HMH.EDCP ---
ED Disposition Condition on Discharge: Good - Critical Care Critical Care Time: No <Anil Dixon - Last Filed: 06/23/21 20:08> <Rodolfo Woo - Last Filed: 06/23/21 20:56> Clinical Impression: Pleuritic chest pain Fever Qualifiers: Fever type: unspecified Qualified Code(s): R50.9 - Fever, unspecified Pulmonary embolism Qualifiers: Pulmonary embolism type: unspecified Chronicity: acute Acute cor pulmonale presence: without acute cor pulmonale Qualified Code(s): I26.99 - Other pulmonary embolism without acute cor pulmonale Disposition: Admitted As Inpatient Referrals: Rodolfo Woo MD [Primary Care Provider] - Attestation: On 06/23/21, the high probability of a clinically significant, sudden or life threatening deterioration of the following system(s) required my full and direct attention, intervention and personal management. The time I documented below is in addition to time spent performing reported procedures but includes the following listed in this critical care notation. Medical Decision Making - Medical Records Medical records reviewed: Yes: I reviewed the patient's medical records. - Christian Inquiry Pt receiving controlled substance: No - Lab Data Result diagrams: 06/23/21 18:15 06/23/21 18:15 <Anil Dixon - Last Filed: 06/23/21 20:08> - Lab Data Lab results reviewed: Yes: I reviewed the patient's lab results. Result diagrams: 06/23/21 18:15 06/23/21 18:15 - Radiology Data #1 Image(s): Chest Image Reviewed: Yes I have reviewed radiologist's interpretation Preliminary Findings: Normal/NAD - CT Data CT Scan: Chest Time Received: 20:[address] Reviewed: Yes: I have viewed the radiologist's interpretation Preliminary Findings: Abnormal - ECG Data Tracing #1 Normal Sinus Rhythm: Yes Ischemic changes: non-specific ST-T wave changes <Rodolfo Woo - Last Filed: 06/23/21 20:56> Vital Signs: 06/23/21 16:44 06/23/21 17:59 06/23/21 18:12 Temperature 98.3 F 100.2 F H Temperature Source Oral Oral Pulse Rate Pulse Rate [Left] 71 69 69 Respiratory Rate 17 26 H 30 H Blood Pressure Blood Pressure [Right Arm] 154/74 H 243/96 H 216/84 H Blood Pressure Mean [Right Arm] 100 145 128 Blood Pressure Position Blood Pressure Position [Right Arm] Sitting Sitting 02 Sat by Pulse Oximetry 95 93 L 93 L Oxygen Delivery Method Room Air Room Air 06/23/21 18:53 06/23/21 19:09 Temperature 101.0 F H Temperature Source Pulse Rate 72 86 Pulse Rate [Left] Respiratory Rate 40 H Blood Pressure 197/79 H 128/107 H Blood Pressure [Right Arm] Blood Pressure Mean [Right Arm] Blood Pressure Position Sitting Blood Pressure Position [Right Arm] 02 Sat by Pulse Oximetry 98 92 L Oxygen Delivery Method Room Air - Lab Data Lab Results 06/23/21 16:46: Group A Strep Rapid Negative 06/23/21 16:46: Influenza Type A Ag Negative, Influenza Type B Ag Negative 06/23/21 18:15: WBC 10.1, RBC 4.55, Hgb 13.2, Hct 42.2, MCV 92.9, MCH 29.1, MCHC 31.3 L, RDW 14.8, Plt Count 135 L, MPV 8.9, Neut % (Auto) 58.3, Lymph % (Auto) 29.5, [place] % (Auto) 7.4, Eos % (Auto) 2.4, Baso % (Auto) 2.4 H, Neut # (Auto) 5.9, Lymph # (Auto) 3.0, [place] # (Auto) 0.8, Eos # (Auto) 0.2, Baso # (Auto) 0.2 06/23/21 18:15: D-Dimer > 8.10 H 06/23/21 18:15: Sodium 139, Potassium 3.8, Chloride 106, Carbon Dioxide 24, Anion Gap 12.8, BUN 12, Creatinine 0.80, Estimated Creat Clear 64, Estimated GFR 71, Est GFR ( Amer) 85, Glucose 113 H, Calcium 9.1, Total Bilirubin 0.8, AST 28, ALT 21, Alkaline Phosphatase 57, Total Protein 7.7, Albumin 4.1, Globulin 3.6 H, Albumin/Globulin Ratio 1.1 06/23/21 18:15: NT-Pro-B Natriuret Pep 212 H 06/23/21 19:35: Lactate 1.5 06/23/21 19:51: Urine Color Yellow, Urine Appearance Clear, Urine pH 6.0, Ur Specific [place] 1.015, Urine Protein Negative, Urine Glucose (UA) Negative, Urine Ketones Negative, Urine Blood Negative, Urine Nitrate Negative, Urine Bilirubi
--- NOTE | 2021-06-23 18:11 | PC.NURSE ---
STARLA booth at
[2021-06-23 18:29] LABS: Basophils # 0.2 K/mm3 (0-0.2); Basophils % 2.4 % (0.1-2.0); Eosinophils # 0.2 K/mm3 (0.0-0.4); Eosinophils % 2.4 % (0.1-12.0); Hematocrit 42.2 % (37.0-47.0); Hemoglobin 13.2 g/dL (12.2-16.2); Lymphocytes % 29.5 % (10-50); Mean Corpuscular HGB Conc 31.3 g/dL (31.8-35.4); Mean Corpuscular Hemoglobin 29.1 pg (27.0-31.2); Mean Corpuscular Volume 92.9 fl (81-99); Mean Platelet Volume 8.9 fl (7.4-10.4); Monocytes # 0.8 K/mm3 (0.1-1.0); Monocytes % 7.4 % (1.7-9.3); Neutrophils # 5.9 K/mm3 (1.8-7.8); Neutrophils % 58.3 % (37.0-80.0); Platelet Count 135 K/mm3 (142-424); Red Blood Count 4.55 M/mm3 (4.20-5.40); Red Cell Distribution Width 14.8 % (11.5-17.5); White Blood Count 10.1 K/mm3 (4.8-10.8)
[2021-06-23 18:39] LABS: Alanine Aminotransferase 21 U/L (12-78); Albumin Level 4.1 g/dl (3.5-5.0); Albumin/Globulin Ratio 1.1 (1.1-1.8); Alkaline Phosphatase 57 U/L (38-126); Anion Gap 12.8 mEq/L (5-15); Aspartate Amino Transferase 28 U/L (14-36); Bilirubin,Total 0.8 mg/dl (0.2-1.3); Blood Urea Nitrogen 12 mg/dl (7-17); Calcium 9.1 mg/dl (8.4-10.2); Carbon Dioxide 24 mmol/L (22.0-30.0); Chloride 106 mmol/L (98-107); Creatinine Clearance Estimated 64 mL/min (50-200); Estimated Glomerular Filt Rate 71 ml/min (>60); GFR (African American) 85 ML/MIN (>60); Globulin 3.6 g/dL (1.3-3.2); Glucose 113 mg/dl (74-100); Potassium 3.8 mmoL/L (3.5-5.1); Sodium 139 mmol/L (136-145); Total Protein,Serum 7.7 g/dl (6.3-8.2)
[2021-06-23 18:43] LABS: D-Dimer > 8.10 ug/mL (0.0-0.5)
--- NOTE | 2021-06-23 18:55 | PC.NURSE ---
PT GOING TO CT
[2021-06-23 19:52] LABS: Lactic Acid 1.5 mmol/L (0.7-2.1)
[2021-06-23 19:55] LABS: Microscopic, Urine URINE MICROSCOPIC (MICROSCOPIC)
[2021-06-23 19:59] LABS: Appearance,Urine CLEAR (Clear); Bilirubin,Urine Negative (Negative); Blood, Urine Negative (Negative); Color,Urine YELLOW (Yellow); Glucose,Urine (UA) Negative (Negative); Ketones,Urine Negative (Negative); Leukocyte Esterase,Urine 1+ (Negative); Nitrate,Urine Negative (Negative); Protein,Urine Negative (Negative); Specific Gravity, Urine 1.015 (1.005-1.030); Urobilinogen,Urine 0.2 EU/dl (0.2)
[2021-06-23 20:20] LABS: Bacteria,Urine Trace /lpf
[2021-06-23 20:26] LABS: Coronavirus 19, PCR Not Detected (NotDetected); Influenza A, PCR Not Detected (NotDetected); Influenza B, PCR Not Detected (NotDetected)
[2021-06-23 20:26] LABS: NT Pro Brain Natriuretic Pep. 212 pg/mL (0-125)
--- NOTE | 2021-06-23 20:43 | PC.NURSE ---
Dr. Oscar paged for Dr. Woo
--- NOTE | 2021-06-23 20:51 | PC.NURSE ---
House contacted for room placement
--- NOTE | 2021-06-23 20:55 | PC.NURSE ---
phone call to lab requesting that blood from initial blood draw be used to run troponin
[2021-06-23 21:17] LABS: Troponin I < 0.01 ng/ml (0.00-0.034)
--- NOTE | 2021-06-23 21:30 | PC.NURSE ---
PT ARRIVED TO FLOOR VIA STRETCHER FROM ED W/STAFF @ [phone]
[2021-06-23 22:36] LABS: INR 1.19 (0.9-1.1); Prothrombin Time 13.3 seconds (10.1-12.5)
[2021-06-24] VITALS (7 sets, daily range): BP systolic 113–196; BP diastolic 49–76; PULSE 64–83; RESP 16–20; TEMP 36.7–37.2; O2SAT 92–98; BMI 29.9; BMI 28.1
[2021-06-24 00:29] LABS: Troponin I < 0.01 ng/ml (0.00-0.034)
[2021-06-24 03:58] LABS: Troponin I < 0.01 ng/ml (0.00-0.034)
[2021-06-24 05:21] LABS: Chloride 107 mmol/L (98-107); Potassium 3.8 mmoL/L (3.5-5.1); Sodium 138 mmol/L (136-145)
[2021-06-24 05:24] LABS: Anion Gap 10.8 mEq/L (5-15); Blood Urea Nitrogen 13 mg/dl (7-17); Calcium 8.2 mg/dl (8.4-10.2); Carbon Dioxide 24 mmol/L (22.0-30.0); Creatinine Clearance Estimated 64 mL/min (50-200); Estimated Glomerular Filt Rate 62 ml/min (>60); GFR (African American) 74 ML/MIN (>60); Glucose 108 mg/dl (74-100); Magnesium 1.6 mg/dl (1.6-2.3)
[2021-06-24 05:28] LABS: Basophils # 0.1 K/mm3 (0-0.2); Basophils % 0.7 % (0.1-2.0); Eosinophils # 0.2 K/mm3 (0.0-0.4); Eosinophils % 2.2 % (0.1-12.0); Hematocrit 34.3 % (37.0-47.0); Lymphocytes # 3.9 K/mm3 (0.7-4.5); Lymphocytes % 39.3 % (10-50); Mean Corpuscular HGB Conc 33.2 g/dL (31.8-35.4); Mean Corpuscular Hemoglobin 30.6 pg (27.0-31.2); Mean Corpuscular Volume 92.1 fl (81-99); Mean Platelet Volume 9.4 fl (7.4-10.4); Monocytes # 0.8 K/mm3 (0.1-1.0); Neutrophils # 4.9 K/mm3 (1.8-7.8); Neutrophils % 49.8 % (37.0-80.0); Platelet Count 128 K/mm3 (142-424); Red Blood Count 3.72 M/mm3 (4.20-5.40); Red Cell Distribution Width 14.9 % (11.5-17.5); White Blood Count 9.9 K/mm3 (4.8-10.8)
--- NOTE | 2021-06-24 05:41 | PC.NURSE ---
pt rested most of the night, no complaints of pain, lung sounds clear and diminished, vss, 02 at 2l pnc, pt complains of hemorroids and noted small blood tinge on toilet paper after wiping, no acute distress
[2021-06-24 05:52] LABS: Hemoglobin 11.5 g/dL (12.2-16.2)
--- NOTE | 2021-06-24 06:24 | PC.NURSE ---
pt spit up large blood clot in tissue this am, and complains of bulging hemorrhoids, pt requesting hemorrhoid cream, will convey message to dayshift nurse.
--- NOTE | 2021-06-24 07:30 | XR_ITS ---
FINAL REPORT CLINICAL HISTORY: sob COMPARISON: June 23, 2021 FINDINGS: The heart size is normal. The mediastinum is normal. The lungs are underinflated. There is linear density in the perihilar regions probably due to scarring or atelectasis, increased from prior. There are no pleural effusions. There is no pneumothorax. There is no osseous abnormality. IMPRESSION: No acute cardiopulmonary process Reviewed, Interpreted and Dictated by Landen Chun MD Transcribed by Aguila Duran Authenticated by Landen Chun MD on 06/24/2021 08:26:20 AM [facility]
--- NOTE | 2021-06-24 07:34 | HMH.PHAVTE ---
[facility] Pharmacy VTE Monitoring - Patient Demographics Admission date: 06/24/21 Report Date: 06/24/21 Time: 07:34 Allergies/Adverse Reactions: Patient Allergies Penicillins [PENICILLINS] Allergy (Unknown, Verified 04/14/21 13:38) Sulfa (Sulfonamide Antibiotics) [SULFA (SULFONAMIDE ANTIBIOTICS)] Allergy (Unknown, Verified 04/14/21 13:38) Height: 1.63 m Weight: 79.742 kg Patient Problems: Current Active Problems Pleuritic chest pain (Acute) Fever (Acute) Pulmonary embolism (Acute) - VTE Risk Labs: VTE Related Lab Results Hgb 11.5 g/dL (12.2-16.2) L D 06/24/21 04:30 Hct 34.3 % (37.0-47.0) L 06/24/21 04:30 Plt Count 128 K/mm3 (142-424) L 06/24/21 04:30 PT 13.3 seconds (10.1-12.5) H 06/23/21 21:52 INR 1.19 (0.9-1.1) H 06/23/21 21:52 BUN 13 mg/dl (7-17) 06/24/21 04:30 Creatinine 0.90 mg/dl (0.52-1.04) 06/24/21 04:30 Estimated Creat Clear 64 mL/min (50-200) 06/24/21 04:30 Was VTE Risk Assessment Performed: Yes VTE Score: 6 VTE Risk Level: Moderate Risk Clinical Trial Participant: No - Prophylaxis VTE Prophylaxis Ordered?: Yes Types of VTE Prophylaxis: TEDS Knee High, Pharmacological Location of Applied Device: Bilateral Lower Extremeties Pharmacologic Type: Other (XARELTO)
--- NOTE | 2021-06-24 07:43 | HMH.PHAINT ---
HOME MEDICATION LIST VERIFIED USING LIST FROM OUTPATIENT PHARMACY
--- NOTE | 2021-06-24 08:00 | CA_ITS ---
FINAL REPORT TECHNIQUE: Bilateral lower extremity venous duplex was performed with augmentation and compression. CLINICAL HISTORY: pt with pul emboli bilaterally, history of DVT and PE's. Denies trauma. Patient is not currently on blood thinners. FINDINGS: Proper flow is seen throughout the deep venous systems bilaterally. [place] flow is seen in the right popliteal vein. There is no evidence of deep venous thrombosis. There is some visible thrombus within the proximal aspect of the left greater saphenous. IMPRESSION: No evidence of deep venous thrombosis of the bilateral lower extremities. Superficial venous thrombosis seen in the proximal aspect of the left greater saphenous vein. Reviewed, Interpreted and Dictated by Landen Chun MD Transcribed by Irma Pike Authenticated by Landen Chun MD on 06/24/2021 09:18:40 AM [facility]
--- NOTE | 2021-06-24 08:00 | CA_ITS ---
APPROVED REPORT EXAM: Comprehensive 2D, Doppler, and color-flow Echocardiogram Circus Rider: Ana Rosales, RT(R) Ht: 5 ft 4 in Wt: 176lbs BSA: 1.85 BP: 216/84 mmHg Indications: COPD, HTN, SOB, hyperlipidemia, AFIB, rt sided chest pain radiates to back, bilateral PE's. 2D Dimensions LVOT 1.96 cm (M/F) 1.5-2.5 LA Volume 31.90 mL LA Volume Index 17.24 mL/m2 (M/F) 16-34 M-Mode Dimensions RVDd 3.12 cm (0.9-2.6) LA Diam 2.69 cm (1.9-4.0) LVDd 3.96 cm (3.5-5.7) Ao Diam 3.19 cm (2.0-3.7) LVDs 3.01 cm (3.5-5.7) IVSd 0.98 cm (0.6-1.1) PWd 0.77 cm (0.6-1.1) EF (Teich) 48.30% FS 24.00% EDV (Teich) 68.30 mL TAPSE 1.53 (<1.7) ESV (Teich) 35.30 mL LV Diastology E Decel Time 183.00 (160-240 msec) E/A Ratio 1.1 MED E' 8.50 (< 7 cm/sec) E'/MED E' Ratio 11.38 (>14) Aortic Valve LVOT Max 98.00 (70-110 cm/s) LVOT VTI 21.84 cm AoV Peak Niraj. 174.00 (50-130 cm/s) AO Peak GR. 12.00 mmHg AO Mean GR. 5.90 (<5 mmHg) AO VTI 37.70 (18-25 cm) NICOLE (VTI) 1.75 (2.5-4.5 cm2) Mitral Valve MV E Max Niraj. 97.00 (40-130 cm/s) MV A Velocity 85.00 (40-130 cm/s) E/A Ratio 1.13 MV Decel. Time 183.00 (160-240 ms) MV PHT 54.00 ms Left Ventricle Left atrium is mildly enlarged, left ventricle is normal size, mild concentric left ventricular hypertrophy, estimated ejection fraction 55% with no regional wall motion abnormality, grade 1 diastolic dysfunction seen without tissue Doppler evidence of raise left atrial pressure. Right Ventricle Right atrium and right ventricle are mildly enlarged with normal contractility. Aortic Valve Aortic valve is minimally thickened and calcified without aortic stenosis, there is mild aortic insufficiency. Mitral Valve Mitral valve grossly normal, there is trace mitral regurgitation. Tricuspid Valve Tricuspid valve grossly normal, there is trace tricuspid regurgitation, tricuspid regurgitation jet velocity is inadequate for calculation of the right ventricular systolic pressure. Pulmonic Valve Pulmonic valve is poorly visualized. Great Vessels Aortic root is normal size. Inferior vena cava is normal size with normal inspiratory collapse. Pericardium No significant pericardial effusion noted. Conclusion 1. Mild biatrial enlargement, normal left ventricular size, mild concentric left ventricular hypertrophy, estimated ejection fraction 55% with no regional wall motion abnormality, grade 1 diastolic dysfunction seen without tissue Doppler evidence of raise left atrial pressure. 2. Mildly enlarged right ventricle with normal contractility. 3. Mild aortic, trace mitral and tricuspid regurgitation. 4. No significant pericardial effusion noted. 5. Inferior vena cava normal size with normal inspiratory collapse. Electronically signed by : Riley Robles MD 06/24/2021 12:56:12
--- NOTE | 2021-06-24 14:32 | HMH.HP ---
*Admission Date: 06/24/21 *Chief complaint: sob *History of present illness: this patient presented to the ed with sob -c/o pain in her right lung that radiates to her back. she states that she has a hx of PE and PNA.pt had positive d -dimer and was found to have bilat pul emboli- pt has hx of dvt/pe in past with last episode about 5 yrs ago and had felicita filter placed and had gi bleed in 05/16 and had neg doppler of lower ext and was taken off coumadin and had neg lower ext doppler again in 10/16 and was ok till present - no def triggering event for this event but pt was admitted as had pleuritic pain and hypoxia [facility] History I have reviewed the patient's past medical history: Yes Medical History: Reports:: Anxiety, Atrial Fibrillation, Chronic Obstructive Pulmonary Disease (COPD), Depression, Hyperlipidemia, Hypertension Denies:: Cancer, Diabetes Mellitus Type 1, Diabetes Mellitus Type 2, Internal Pacemaker, MRSA, Seizures *Have you ever received a pneumonia vaccine?: No *Have you received a flu vaccine this season?: Yes Other Medical History: Reports: Other Other Surgeries: Yes: Cardiac Surgery, , Other. No: Pacemaker Amputation: No Fractures: Yes (left foot) - *Social History Last grade of school completed: High school graduate Smoking Status: Never smoker Alcohol Intake: never Substance Use Type: denies use *Occupational Status:: disabled Housing: house Household Members: none *Travel in the last 8 weeks: None - Psychiatric History Pschychiatric History:: Reports:: Anxiety, Depression Family Hx:: Cancer, Coronary Artery Disease Review of Systems - Review of Systems Review of systems:: pertinent systems reviewed and negative unless documented below - Constitutional Denies fever(s) - Eyes Denies change in vision - ENT Denies nosebleed, Denies sore throat - *Cardiovascular Reports chest pain at rest, Reports shortness of breath - *Respiratory Denies cough - *Gastrointestinal Denies abdominal pain - *Genitourinary Denies blood in urine - *Musculoskeletal Denies joint pain - Integumentary/Breasts Denies rash - *Neurologic Denies seizure-like activity, Denies localized weakness, Denies headache(s), Denies seizure-like activity - Psychiatric Denies sensing things others do not sense Meds Home Medications Medication Instructions Recorded Confirmed Type albuterol sulfate 90 mcg/actuation 1 inh INHALATION QID PRN #18 g 04/14/21 06/23/21 Rx aerosol inhaler buspirone 5 mg tablet 5 mg PO BID #60 tab 04/14/21 06/23/21 Rx fluoxetine 20 mg capsule 20 mg PO DAILY #90 cap 04/14/21 06/23/21 Rx gabapentin 300 mg capsule 300 mg PO Q8H #90 cap 04/14/21 06/23/21 Rx tramadol 50 mg tablet 50 mg PO BID #60 tab 04/14/21 06/23/21 Rx Metoprolol Tartrate [Lopressor 50 mg PO BID 06/24/21 06/24/21 History 50mg tablet] lisinopriL [Lisinopril] 10 mg PO DAILY 06/24/21 06/24/21 History Allergies Allergy/AdvReac Type Severity Reaction Status Date / Time Penicillins [PENICILLINS] Allergy Unknown Verified 04/14/21 13:38 Sulfa (Sulfonamide Allergy Unknown Verified 04/14/21 13:38 Antibiotics) [SULFA (SULFONAMIDE ANTIBIOTICS)] Exam Vital signs and Labs for Last 24 Hours: Temp Pulse Resp BP Pulse Ox 98.3 F 75 18 188/74 H 98 06/24/21 12:00 06/24/21 12:00 06/24/21 12:00 06/24/21 12:00 06/24/21 12:00 Laboratory Results - last 24 hr 06/23/21 16:46: Group A Strep Rapid Negative 06/23/21 16:46: Influenza Type A Ag Negative, Influenza Type B Ag Negative 06/23/21 18:15: WBC 10.1, RBC 4.55, Hgb 13.2, Hct 42.2, MCV 92.9, MCH 29.1, MCHC 31.3 L, RDW 14.8, Plt Count 135 L, MPV 8.9, Neut % (Auto) 58.3, Lymph % (Auto) 29.5, [place] % (Auto) 7.4, Eos % (Auto) 2.4, Baso % (Auto) 2.4 H, Neut # (Auto) 5.9, Lymph # (Auto) 3.0, [place] # (Auto) 0.8, Eos # (Auto) 0.2, Baso # (Auto) 0.2 06/23/21 18:15: D-Dimer > 8.10 H 06/23/21 18:15: Sodium 139, Potassium 3.8, Chloride 106, Carbon
[2021-06-25] VITALS (7 sets, daily range): BP systolic 143–182; BP diastolic 53–83; PULSE 60–80; RESP 16–20; TEMP 36.7–37; O2SAT 91–97; BMI 28.7
--- NOTE | 2021-06-25 00:19 | PC.NURSE ---
rt note: Pt found on room air with sat of 78%. Put pt back on 2 lpm and sat came back up to 92%
[2021-06-25 07:59] LABS: Basophils # 0.1 K/mm3 (0-0.2); Basophils % 1.6 % (0.1-2.0); Eosinophils # 0.3 K/mm3 (0.0-0.4); Eosinophils % 4.3 % (0.1-12.0); Hematocrit 37.7 % (37.0-47.0); Hemoglobin 12.3 g/dL (12.2-16.2); Lymphocytes # 2.3 K/mm3 (0.7-4.5); Lymphocytes % 32.4 % (10-50); Mean Corpuscular HGB Conc 32.5 g/dL (31.8-35.4); Mean Corpuscular Hemoglobin 30.4 pg (27.0-31.2); Mean Corpuscular Volume 93.4 fl (81-99); Mean Platelet Volume 9.6 fl (7.4-10.4); Monocytes # 0.4 K/mm3 (0.1-1.0); Monocytes % 6.2 % (1.7-9.3); Neutrophils # 3.9 K/mm3 (1.8-7.8); Neutrophils % 55.5 % (37.0-80.0); Platelet Count 145 K/mm3 (142-424); Red Blood Count 4.04 M/mm3 (4.20-5.40); Red Cell Distribution Width 14.6 % (11.5-17.5); White Blood Count 7.1 K/mm3 (4.8-10.8)
[2021-06-25 08:22] LABS: Homocyst(e)ine 9.5 umol/L (0.0-19.2)
[2021-06-25 08:22] LABS: Chloride 104 mmol/L (98-107)
[2021-06-25 08:23] LABS: Potassium 4.2 mmoL/L (3.5-5.1); Sodium 138 mmol/L (136-145)
[2021-06-25 08:25] LABS: Blood Urea Nitrogen 10 mg/dl (7-17); Creatinine Clearance Estimated 61 mL/min (50-200); Estimated Glomerular Filt Rate 71 ml/min (>60); GFR (African American) 85 ML/MIN (>60)
[2021-06-25 08:26] LABS: Anion Gap 9.2 mEq/L (5-15); Calcium 9.1 mg/dl (8.4-10.2); Carbon Dioxide 29 mmol/L (22.0-30.0); Glucose 153 mg/dl (74-100)
--- NOTE | 2021-06-25 11:39 | P.PN_ITS ---
Internal Medicine - PN: Subj *Date: 06/25/21 *Time: 11:39 Interval history: pt doing better but still on o2 - will try to wean Exam Vital signs and Labs for Last 24 Hours: Temp Pulse Resp BP Pulse Ox 98.6 F 73 19 177/69 H 96 06/25/21 08:00 06/25/21 08:00 06/25/21 08:00 06/25/21 08:00 06/25/21 08:00 Laboratory Results - last 24 hr 06/23/21 21:52: Homocysteine 9.5 06/25/21 07:54: WBC 7.1 D, RBC 4.04 L, Hgb 12.3, Hct 37.7, MCV 93.4, MCH 30.4, MCHC 32.5, RDW 14.6, Plt Count 145, MPV 9.6, Neut % (Auto) 55.5, Lymph % (Auto) 32.4, [place] % (Auto) 6.2, Eos % (Auto) 4.3, Baso % (Auto) 1.6, Neut # (Auto) 3.9, Lymph # (Auto) 2.3, [place] # (Auto) 0.4, Eos # (Auto) 0.3, Baso # (Auto) 0.1 06/25/21 07:54: Sodium 138, Potassium 4.2, Chloride 104, Carbon Dioxide 29, Anion Gap 9.2, BUN 10, Creatinine 0.80, Estimated Creat Clear 61, Estimated GFR 71, Est GFR ( Amer) 85, Glucose 153 H, Calcium 9.1 I & O for Last 24 hours: Intake & Output 06/22/21 06/23/21 06/24/21 06/25/21 11:59 11:59 11:59 11:59 Intake Total 971 / 971 840 / 840 Output Total 400 / 400 1500 / 1500 Balance 571 / 571 -660 / -660 Weight 175 lb 12.8 oz 168 lb 4 oz Microbiology Reports for the Last 24 Hours: Microbiology 06/23/21 19:51 Urine,Clean Catch Urine Culture - Preliminary - Constitutional no acute distress - *Routine HEENT Exam Head: Present: normocephalic Eye: Present: EOMI, PERRL ENT: Present: mucous membranes dry - *Routine Neck Exam Present: supple - *Routine Respiratory Exam Present: decreased breath sounds - *Routine Cardiovascular Exam Present: RRR - *Routine Abdominal Exam Present: soft - *Routine Extremities Exam Absent: calf tenderness - *Routine Skin Exam Present: intact - *Routine Neurological Exam Present: alert, CN II-XII intact - Routine Psychiatric Exam Present: normal affect Assessment and Plan (1) Overweight (BMI 25.0-29.9) Status: Acute Category: Medical Code(s): E66.3 - Overweight (2) Pulmonary embolism Status: Acute Qualifiers: Pulmonary embolism type: unspecified Chronicity: acute Acute cor pulmonale presence: without acute cor pulmonale Qualified Code(s): I26.99 - Other pulmonary embolism without acute cor pulmonale Category: Medical Code(s): I26.99 - Other pulmonary embolism without acute cor pulmonale (3) Hyperlipemia Status: Chronic Qualifiers: Hyperlipidemia type: unspecified Qualified Code(s): E78.5 - Hyperlipidemia, unspecified Category: Medical Code(s): E78.5 - Hyperlipidemia, unspecified (4) Hypertension Status: Chronic Qualifiers: Hypertension type: essential hypertension Qualified Code(s): I10 - Essential (primary) hypertension Category: Medical Code(s): I10 - Essential (primary) hypertension
[2021-06-26] VITALS (9 sets, daily range): BP systolic 148–195; BP diastolic 51–85; PULSE 60–100; RESP 16–20; TEMP 36.8–37; O2SAT 90–96; BMI 30.6
--- NOTE | 2021-06-26 04:44 | PC.NURSE ---
No acute episodes or changes during my shift. Pt has been on RA, with O2 sat 91% while awake, pt on 2 L NC when sleeping. IV infusing per order. BP at 0400 elevated - Paged Dr. Woo, per MD retake BP in 1 hour from now. No other needs or complaints voiced. Call light in reach.
--- NOTE | 2021-06-26 07:39 | PC.NURSE ---
late entry - Pt has been on RA, with O2 sat 91% while awake, pt on 2 L NC when sleeping. IV infusing per order. NSR on tele. BP at 0400 elevated - Paged Dr. Woo, per MD retake BP in 1 hour from now. No other needs or complaints voiced. Call light in reach.
--- NOTE | 2021-06-26 10:29 | HMH.ACPN2 ---
Internal Medicine - PN: Subj *Date: 06/27/21 *Time: 12:47 Interval history: doing better but still limited by sob - willcheck cxr and wean off o2 Exam Vital signs and Labs for Last 24 Hours: Temp Pulse Resp BP Pulse Ox 98.4 F 73 18 194/85 H 93 L 06/26/21 08:00 06/26/21 08:00 06/26/21 08:00 06/26/21 08:00 06/26/21 08:00 Laboratory Results - last 24 hr 06/23/21 19:51: Urine Color Yellow, Urine Appearance Clear, Urine pH 6.0, Ur Specific [place] 1.015, Urine Protein Negative, Urine Glucose (UA) Negative, Urine Ketones Negative, Urine Blood Negative, Urine Nitrate Negative, Urine Bilirubin Negative, Urine Urobilinogen 0.2, Ur Leukocyte Esterase 1+ A, Urine RBC None, Urine WBC 3-5, Ur Squamous Epith Cells 3-5, Urine Bacteria Trace I & O for Last 24 hours: Intake & Output 06/23/21 06/24/21 06/25/21 06/26/21 11:59 11:59 11:59 11:59 Intake Total 971 / 971 840 / 840 3385 / 3385 Output Total 400 / 400 1500 / 1900 1999 / 1999 Balance 571 / 571 -660 / -1060 1385 / 1385 Weight 175 lb 12.8 oz 168 lb 4 oz 179 lb 4.8 oz Microbiology Reports for the Last 24 Hours: Microbiology 06/23/21 16:46 Throat Group A Streptococcus Screen (FRANKI) - Final Negative for Group A Streptococcus. 06/23/21 19:51 Urine,Clean Catch Urine Culture - Preliminary Gram Negative Rods 06/23/21 19:35 Blood Blood Culture - Preliminary NO GROWTH AFTER 48 HOURS 06/23/21 19:35 Blood Blood Culture - Preliminary NO GROWTH AFTER 48 HOURS - Constitutional no acute distress - *Routine HEENT Exam Head: Present: normocephalic Eye: Present: EOMI, PERRL ENT: Present: mucous membranes dry - *Routine Neck Exam Absent: JVD - *Routine Respiratory Exam Present: decreased breath sounds - *Routine Cardiovascular Exam Present: RRR - *Routine Abdominal Exam Present: soft - *Routine Extremities Exam Absent: calf tenderness - *Routine Skin Exam Present: intact - *Routine Neurological Exam Present: alert, oriented X3, CN II-XII intact - Routine Psychiatric Exam Present: cooperative Assessment and Plan (1) Overweight (BMI 25.0-29.9) Status: Acute Category: Medical Code(s): E66.3 - Overweight (2) Pulmonary embolism Status: Acute Qualifiers: Pulmonary embolism type: unspecified Chronicity: acute Acute cor pulmonale presence: without acute cor pulmonale Qualified Code(s): I26.99 - Other pulmonary embolism without acute cor pulmonale Category: Medical Code(s): I26.99 - Other pulmonary embolism without acute cor pulmonale (3) Hyperlipemia Status: Chronic Qualifiers: Hyperlipidemia type: unspecified Qualified Code(s): E78.5 - Hyperlipidemia, unspecified Category: Medical Code(s): E78.5 - Hyperlipidemia, unspecified (4) Hypertension Status: Chronic Qualifiers: Hypertension type: essential hypertension Category: Medical Code(s): I10 - Essential (primary) hypertension
--- NOTE | 2021-06-26 10:33 | XR_ITS ---
PROCEDURE INFORMATION: Exam: XR Chest Exam date and time: 06/26/2021 12:51 PM Age: 70 years old Clinical indication: Shortness of breath; Additional info: SOB TECHNIQUE: Imaging protocol: XR of the chest. Views: 2 views. COMPARISON: CR XR CHEST PORTABLE 06/24/2021 7:34 AM FINDINGS: Lungs: Atelectasis versus infiltrate within the left lung base. Pleural spaces: Unremarkable. No pleural effusion. No pneumothorax. Heart/Mediastinum: Unremarkable. No cardiomegaly. Vasculature: Calcification of thoracic aorta. Bones/joints: Degenerative spondylosis and increased kyphosis of thoracic spine. Diffuse bone demineralization. Osteophytosis and eburnation of the acromioclavicular articulating surfaces. IMPRESSION: Atelectasis versus infiltrate in the left lung base. Follow-up is recommended.
[2021-06-26 17:10] LABS: Anti-Thrombin III Antigen 72 % (72-124); Antithrombin Activity 114 % (75-135); Factor VIII Activity 178 % (56-140); Protein C Functional 110 % (73-180); Protein S, Free 100 % (61-136); Protein S, Total 91 % (60-150); Protein S-Functional 123 % (63-140)
--- NOTE | 2021-06-26 18:41 | PC.NURSE ---
pt has been up and ambulating through out the shift independently today. Denies SOA with exertion. c/o generaized weakness but her gait is steady. She has eaten well today. wants to go home tomorrow
[2021-06-27] VITALS: BP 183/57; PULSE 70; PULSE 77; RESP 19; TEMP 36.9; O2SAT 90
[2021-06-27 00:30] VITALS: BP 172/60
[2021-06-27 04:00] VITALS: BP 159/66; PULSE 70; PULSE 71; RESP 19; TEMP 36.9; O2SAT 92
--- NOTE | 2021-06-27 04:46 | PC.NURSE ---
Pt has rested well this shift. NSR on telemetry. Pt has been on RA during my shift, maintaining O2 sat >/= 90%. Pt called out around 0300 c/o of nausea - states she has a lot of sinus drainage and it is making her sick to her stomach. Medicated per MAR for nausea. No other needs or complaints voiced at this time. Call light in reach.
[2021-06-27 05:00] VITALS: BMI 31.2
[2021-06-27 08:00] VITALS: BP 203/78; PULSE 72; PULSE 80; RESP 18; TEMP 36.9; O2SAT 93
[2021-06-27 09:21] LABS: Blood Urea Nitrogen 9 mg/dl (7-17); Calcium 8.9 mg/dl (8.4-10.2); Carbon Dioxide 30 mmol/L (22.0-30.0); Chloride 102 mmol/L (98-107); Creatinine Clearance Estimated 67 mL/min (50-200); Estimated Glomerular Filt Rate 82 ml/min (>60); GFR (African American) 100 ML/MIN (>60); Glucose 141 mg/dl (74-100); Sodium 137 mmol/L (136-145)
[2021-06-27 09:25] LABS: Basophils # 0.1 K/mm3 (0-0.2); Basophils % 1.5 % (0.1-2.0); Eosinophils # 0.3 K/mm3 (0.0-0.4); Eosinophils % 3.8 % (0.1-12.0); Hematocrit 37.4 % (37.0-47.0); Hemoglobin 12.4 g/dL (12.2-16.2); Lymphocytes # 1.9 K/mm3 (0.7-4.5); Lymphocytes % 27.1 % (10-50); Mean Corpuscular HGB Conc 33.2 g/dL (31.8-35.4); Mean Corpuscular Hemoglobin 30.7 pg (27.0-31.2); Mean Corpuscular Volume 92.4 fl (81-99); Mean Platelet Volume 8.7 fl (7.4-10.4); Monocytes # 0.4 K/mm3 (0.1-1.0); Monocytes % 5.5 % (1.7-9.3); Neutrophils # 4.3 K/mm3 (1.8-7.8); Neutrophils % 62.2 % (37.0-80.0); Platelet Count 161 K/mm3 (142-424); Red Blood Count 4.04 M/mm3 (4.20-5.40); Red Cell Distribution Width 14.5 % (11.5-17.5); White Blood Count 6.9 K/mm3 (4.8-10.8)
--- NOTE | 2021-06-27 09:34 | HMH.DCSUM ---
General - General Admission date:: 06/23/21 <Rodolfo Woo - 06/27/21 16:36> 06/23/21 <Frederick Hernandez - 06/27/21 09:35> Discharge date: 06/27/21 <Frederick Hernandez - 06/27/21 09:35> HPI HPI: this patient presented to the ed with sob -c/o pain in her right lung that radiates to her back. she states that she has a hx of PE and PNA.pt had positive d -dimer and was found to have bilat pul emboli- pt has hx of dvt/pe in past with last episode about 5 yrs ago and had felicita filter placed and had gi bleed in 05/16 and had neg doppler of lower ext and was taken off coumadin and had neg lower ext doppler again in 10/16 and was ok till present - no def triggering event for this event but pt was admitted as had pleuritic pain and hypoxia <Frederick Hernandez - 06/27/21 09:35> Hospital Course Hospital Course: Abnormal Lab Results 06/23/21 21:52: Factor VIII Activity 178 H 06/27/21 08:40: RBC 4.04 L 06/27/21 08:40: Glucose 141 H Microbiology 06/23/21 19:51 Urine,Clean Catch Urine Culture - Final Escherichia coli 06/23/21 16:46 Throat Group A Streptococcus Screen (FRANKI) - Final Negative for Group A Streptococcus. 06/23/21 19:35 Blood Blood Culture - Preliminary NO GROWTH AFTER 48 HOURS 06/23/21 19:35 Blood Blood Culture - Preliminary NO GROWTH AFTER 48 HOURS Discharge Plan (1) Overweight (BMI 25.0-29.9)-continue a low fat/carb/choles diet (2) Pulmonary embolism- r/t cta showing-Bilateral pulmonary emboli. xerolto as out pt, waiting for coag labs, with hx of dvt and family hx of clotting issues.pt will need to take xerolto from now on, will refer to Dr Sousa for consult (3) Hypertension (4) uti r/t E COLI- stable continue all meds. (4) UTI r/t E COLI- Keflex 500mg bid x 7 days pt was offered rehab and home health and she declined. <Frederick Hernandez - 06/27/21 15:22> Objective Vital signs: Temp Pulse Resp BP Pulse Ox 98.0 F 74 16 196/68 H 92 L 06/27/21 12:00 06/27/21 12:00 06/27/21 12:00 06/27/21 12:00 06/27/21 12:00 <Rodolfo Woo - 06/27/21 16:36> Temp Pulse Resp BP Pulse Ox 98.5 F 71 19 159/66 H 92 L 06/27/21 04:00 06/27/21 04:00 06/27/21 04:00 06/27/21 04:00 06/27/21 04:00 <Frederick Hernandez - 06/27/21 09:35> no acute distress <MaryFrederick - 06/27/21 09:45> - *Routine HEENT Exam Head: Present: normocephalic <MaryFrederick - 06/27/21 09:45> Eye: Present: PERRL <MaryVicentelorenamira - 06/27/21 09:45> ENT: Present: mucous membranes moist <MaryFrederick - 06/27/21 09:45> - *Routine Neck Exam Present: supple <MaryFrederick - 06/27/21 09:45> - *Routine Respiratory Exam Present: CTA bilaterally <MaryFrederick 06/27/21 09:45> - *Routine Cardiovascular Exam Present: RRR <MaryVicentelorenamira 06/27/21 09:45> - *Routine Abdominal Exam Present: soft, normoactive bowel sounds. Absent: tenderness <MaryFrederick - 06/27/21 09:45> - *Routine Extremities Exam Absent: cyanosis, clubbing, edema <MaryFrederick - 06/27/21 09:45> - *Routine Skin Exam Present: warm. Absent: rash <MaryFrederick 06/27/21 09:45> - *Routine Neurological Exam Present: alert, oriented X3 <[email or web address] 06/27/21 09:45> Results Labs on day of discharge: Labs from last 24 hours 06/27/21 06/27/21 06/23/21 08:40 08:40 21:52 WBC 6.9 RBC 4.04 L Hgb 12.4 Hct 37.4 MCV 92.4 MCH 30.7 MCHC 33.2 RDW 14.5 Plt Count 161 MPV 8.7 Neut % (Auto) 62.2 Lymph % (Auto) 27.1 [place] % (Auto) 5.5 Eos % (Auto) 3.8 Baso % (Auto) 1.5 Neut # (Auto) 4.3 Lymph # (Auto) 1.9 [place] # (Auto) 0.4 Eos # (Auto) 0.3 Baso # (Auto) 0.1 Functional Protein C 110 Free Protein S Antigen 100 Functional Protein S 123 Total Protein S 91 Antithrombin III Ag 72 Antithro
--- NOTE | 2021-06-27 09:54 | HMH.OTEV ---
OT Inpatient Evaluation Rehab OT IP Evaluation Start: 06/27/21 08:06 Freq: ONCE Status: Complete Protocol: Document 06/27/21 09:48 GOMEZ (Rec: 06/27/21 09:54 [facility] [id number]) Rehab OT IP Assessment Subjective History Pt oriented x 4 on arrival. Pt agreeable to engage in therapy evaluation. Pt admitted via ED due to bilateral PE's. Prior to being in the hosptial patient lived at home alone. Pt claims she was independent with ADLs and IADLs. She did have family come in and complete most cleaning. However, she was able to cook small meals for herself. Pt did use a rolling walker during ambulation. The following information is copied from history and physical report: this patient presented to the ed with sob -c/o pain in her right lung that radiates to her back. she states that she has a hx of PE and PNA.pt had positive d -dimer and was found to have bilat pul emboli - pt has hx of dvt/pe in past with last episode about 5 yrs ago and had felicita filter placed and had gi bleed in 05/16 and had neg doppler of lower ext and was taken off coumadin and had neg lower ext doppler again in 10/16 and was ok till present - no def triggering event for this event but pt was admitted as had pleuritic pain and hypoxia Subjective I can do whatever I need to do. Objective Patient Orientation Person,Place,Birthday,Year Upper Extremity Gross ROM WFL Bed Mobility bed mobility-scooting,bed mobility - supine/sit,bed mobility - rolling Assist Level Supervision/Stand by Transfer Training Sit/Stand Transfer Assist Level Supervision/Stand by Chair Transf
--- NOTE | 2021-06-27 11:35 | HMH.PTEV ---
Physical Therapy Evaluation Rehab PT IP Evaluation Start: 06/27/21 08:06 Freq: ONCE Status: Active Protocol: Document 06/27/21 11:32 LUOIE (Rec: 06/27/21 11:35 LOUIE [id number]) Subjective/History History History this patient presented to the ed with sob -c/o pain in her right lung that radiates to her back. she states that she has a hx of PE and PNA.pt had positive d -dimer and was found to have bilat pul emboli - pt has hx of dvt/pe in past with last episode about 5 yrs ago and had felicita filter placed and had gi bleed in 05/16 and had neg doppler of lower ext and was taken off coumadin and had neg lower ext doppler again in 10/16 and was ok till present - no def triggering event for this event but pt was admitted as had pleuritic pain and hypoxia Copied from H&P Subjective Subjective Pt has no complaints - wishes to return home Rehab PT IP Eval Objective Appearance Patient Behavior Appropriate,Cooperative Patient Orientation Place,Name,Birthday,Year Difficulty following instructions none Speech Pattern Clear,Appropriate Ambulation Patient Able to Ambulate Yes Ambulation Observation IP General Gait Pattern Observation No Deviations/Normal Ambulation Distance (feet) 50 Ambulation Assistive Device Rolling Walker Ambulation Ability Independent Balance Ability to Arise Able, uses arms to help Sitting Balance Steady, safe Standing Balance Steady, wide stance Dynamic Sitting Balance Ability Good Dynamic Standing Balance Ability Fair Transfers Bed Transfer Ability Independent Chair Transfer Ability Independent Sit to Stand Bed Transfer Ability Supervision/Stand by Sit to Stand Chair Transfer Ability Supervision/Stand by Rehab PT IP prob,goals,plan Problems Date of Evaluation: 06/27/21 Rehab Potential Rehab Potential Innapropriate for Skilled Therapy Discharge Plan PT Discharge Plan Pt safe toreturn home once medically stable G -code Required Yes Eval Complexity Eval Charge Codes 25983 - Low Complexity G Code
--- NOTE | 2021-06-27 11:58 | SW/DCPLANNER ---
Addendum entered by Angelica Burk 06/27/21 12:19: Randal has confirmed that she can start services for this patient. Patient's son (Sherman) has requested that [facility] contact him to set up initial appointment at [phone]. Original Note: I spoke with this patient regarding discharge plans. PT/OT has recommended home health services at time of discharge. Patient is agreeable to home health services and is agreeable to [facility] home health. Patient information/order will be faxed to Randal with [email or web address]. Patient will discharge home later today.
[2021-06-27 12:00] VITALS: BP 196/68; PULSE 74; PULSE 80; RESP 16; TEMP 36.7; O2SAT 92
[2021-06-27 16:00] VITALS: BP 171/65; PULSE 60; PULSE 73; RESP 18; TEMP 37.2; O2SAT 93
--- NOTE | 2021-06-28 13:55 | CARE MANAGER ---
Called and spoke with patient r/t post discharge status. Patient states that she is still weak, but is feeling better. She confirmed that she received her Xarelto from meds to bed, but did not receive her antibiotic. Cephalexin was sent to [facility] and patient was unaware. I confirmed that medication was ready for pickup, and notified patient that medication is ready and copay is $1. No other known at this time.
[2021-06-29 03:37] LABS: Protein C Antigen 92 % (60-150)
== END 2021-06-27 17:54 | disposition home or self-care (01) | DRG 176 ==
LOC: UTC 16:18 → ER 17:41 → 2ND 21:07
PROVIDERS: Nurse Practitioner Family; Admitting Provider Emergency Medicine; Emergency Provider Emergency Medicine; PCP Emergency Medicine; Visit Provider Emergency Medicine
DX: I26.99 Other pulmonary embolism without acute cor pulmonale (principal); N39.0 Urinary tract infection, site not specified; Z20.822 Contact with and (suspected) exposure to COVID-19; I10 Essential (primary) hypertension; Z79.899 Other long term (current) drug therapy; Z86.711 Personal history of pulmonary embolism; I48.91 Unspecified atrial fibrillation; J44.9 Chronic obstructive pulmonary disease, unspecified; F32.A Depression, unspecified; E78.5 Hyperlipidemia, unspecified; B96.20 Unspecified Escherichia coli [E. coli] as the cause of diseases classified elsewhere
CPT/HCPCS: 36415; 71045; 71046; 71275; 80048; 80053; 81001; 81241; 83090; 83605; 83735; 83880; 84484; 85025; 85240; 85300; 85301; 85302; 85305; 85306; 85378; 85610; 86148; 87040; 87086; 87088; 87186; 87430; 87804; 93005; 93306; 93970; 94760; 94761; 96375; 97161; 97166; 99285; C9803; J0456; J0696; J2405; Q9967; U0003; U0005

== ENCOUNTER 2021-12-18 11:44 | Emergency (ER) | payer MEDICARE, MEDICAID, SELFPAY ==
[2021-12-18 11:45] VITALS: BP 188/78; PULSE 73; RESP 18; TEMP 36.8; O2SAT 94; BMI 29.9
--- NOTE | 2021-12-18 11:47 | HMH.EDGENADL ---
Discharge Plan Disposition Patient Disposition: Home, Self-Care Condition: Good Prescriptions Prescriptions: New ondansetron 4 mg tablet,disintegrating 4 mg PO Q8H PRN (Reason: nausea and vomiting) 5 Days Qty: 20 0RF No Action albuterol sulfate [ProAir HFA] 90 mcg/actuation HFA aerosol inhaler 1 inh INHALATION QID PRN (Reason: shortness of breath or wheezing) Qty: 18 10RF buspirone 5 mg tablet 5 mg PO BID Qty: 60 2RF fluorouracil 5 % cream TP Xarelto 20 mg tablet 20 mg PO DAILY Qty: 30 10RF gabapentin 300 mg capsule 300 mg PO Q8H Qty: 90 5RF ipratropium-albuterol 0.5 mg-3 mg(2.5 mg base)/3 mL solution for nebulization 3 ml IH TID PRN (Reason: shortness of breath or wheezing) Qty: 180 4RF fluoxetine 20 mg capsule 20 mg PO DAILY Qty: 90 3RF metoprolol tartrate 50 mg tablet See Rx Instructions .ROUTE .COMPLEX Qty: 180 0RF Dose Instruction: Take 1 tablet by mouth twice daily Rx Instructions: Take 1 tablet by mouth twice daily lisinopril 10 mg tablet See Rx Instructions .ROUTE .COMPLEX Qty: 90 3RF Dose Instruction: TAKE 1 TABLET BY MOUTH ONCE DAILY FOR HIGH BLOOD PRESSURE Rx Instructions: TAKE 1 TABLET BY MOUTH ONCE DAILY FOR HIGH BLOOD PRESSURE Referrals Follow up/Referrals: Valdez Osuna MD [Primary Care Provider] - See instructions Activity Restrictions/Add. Instructions Additional Instructions/Restrictions: Please follow-up with your primary care physician within the next 2 to 3 days. Please use the Zofran as prescribed. Please drink plenty of water. Please eat a soft liquid diet including soups, puddings, ice cream escalate as tolerated. Clinical Impressions Clinical Impression: Gastroenteritis and colitis, viral Instructions Patient Instructions: DI for Viral Gastroenteritis -- Adult Print Language Print Language: [place] Discharge ED Provider: Thelma Kimble Adult HPI General Chief complaint: Nausea/Vomiting/Diarrhea Stated complaint: upper respiratory symptoms Time Seen by Provider: 12/18/21 11:47 Mode of Arrival: Ambulatory Source of Information: Patient Limitations: No Limitations History of Present Illness HPI narrative: Mrs. Schulz is a 71-year-old female with past medical history for blood loss anemia, PE, uncontrolled hypertension, presenting to the emergency department for N/V/D for 1 week. Associated symptoms include diffuse body aches. Patient denies any fevers, cough, congestion, urinary symptoms or other infectious-like symptoms. Patient describes non-bloody non-bilious emesis and non-bloody watery diarrhea. Symptoms exacerbated with food intake. No alleviating factors. No known sick contacts. MD complaint: n/v/d Onset (ago): week(s) Related Data Home Medications Medication Instructions Recorded Confirmed fluorouracil 5 % topical cream applic topical 08/04/21 09/02/21 Previous Rx's Medication Instructions Recorded albuterol sulfate 90 mcg/actuation 1 inh inhalation QID PRN shortness 04/14/21 aerosol inhaler (ProAir HFA) of breath or wheezing #18 grams buspirone 5 mg tablet 5 mg PO BID #60 tabs 04/14/21 gabapentin 300 mg capsule 300 mg PO Q8H #90 caps 09/02/21 rivaroxaban 20 mg tablet (Xarelto) 20 mg PO DAILY #30 tabs 09/02/21 ipratropium 0.5 mg-albuterol 3 mg 3 ml inhalation TID PRN shortness 10/13/21 (2.5 mg base)/3 mL nebulization of breath or wheezing #180 mL soln fluoxetine 20 mg capsule 20 mg PO DAILY #90 caps 10/24/21 lisinopril 10 mg tablet See Rx Instructions .Route 11/01/21 .COMPLEX #90 tabs metoprolol tartrate 50 mg tablet See Rx Instructions .Route 11/01/21 .COMPLEX #180 tabs ondansetron 4 mg disintegrating 4 mg PO Q8H PRN nausea and 12/18/21 tablet vomiting 5 days #20 tabs Allergies Allergy/AdvReac Type Severity Reaction Status Date / Time Penicillins [PENICILLINS] Allergy Unknown Verified 09/02/21 13:13 Sulfa (Sulfonamide Allergy Unknown Verified
[2021-12-18 11:59] LABS: Coronavirus 19, PCR Not Detected (NotDetected); Influenza A, PCR Not Detected (NotDetected); Influenza B, PCR Not Detected (NotDetected)
[2021-12-18 12:00] VITALS: BP 196/79; PULSE 78; O2SAT 91
[2021-12-18 12:04] LABS: Basophils # 0.1 K/mm3 (0-0.2); Basophils % 0.9 % (0.1-2.0); Eosinophils # 0.2 K/mm3 (0.0-0.4); Eosinophils % 2.6 % (0.1-12.0); Hematocrit 44.1 % (37.0-47.0); Lymphocytes # 2.4 K/mm3 (0.7-4.5); Lymphocytes % 32.2 % (10-50); Mean Corpuscular HGB Conc 31.7 g/dL (31.8-35.4); Mean Corpuscular Hemoglobin 29.3 pg (27.0-31.2); Mean Corpuscular Volume 92.5 fl (81-99); Mean Platelet Volume 8.4 fl (7.4-10.4); Monocytes # 0.5 K/mm3 (0.1-1.0); Monocytes % 6.9 % (1.7-9.3); Neutrophils # 4.2 K/mm3 (1.8-7.8); Neutrophils % 57.3 % (37.0-80.0); Platelet Count 202 K/mm3 (142-424); Red Blood Count 4.77 M/mm3 (4.20-5.40); Red Cell Distribution Width 14.6 % (11.5-17.5); White Blood Count 7.4 K/mm3 (4.8-10.8)
[2021-12-18 12:08] LABS: Chloride 103 mmol/L (98-107); Sodium 140 mmol/L (136-145)
[2021-12-18 12:09] LABS: Potassium 3.9 mmoL/L (3.5-5.1)
[2021-12-18 12:11] LABS: Alanine Aminotransferase 29 U/L (12-78); Albumin Level 4.2 g/dl (3.5-5.0); Albumin/Globulin Ratio 1.1 (1.1-1.8); Alkaline Phosphatase 84 U/L (38-126); Anion Gap 15.9 mEq/L (5-15); Aspartate Amino Transferase 51 U/L (14-36); Bilirubin,Total 0.8 mg/dl (0.2-1.3); Blood Urea Nitrogen 11 mg/dl (7-17); Carbon Dioxide 25 mmol/L (22.0-30.0); Creatinine Clearance Estimated 65 mL/min (50-200); Estimated Glomerular Filt Rate 70 ml/min (>60); GFR (African American) 85 ML/MIN (>60); Globulin 3.8 g/dL (1.3-3.2)
[2021-12-18 12:12] LABS: Calcium 8.9 mg/dl (8.4-10.2); Glucose 130 mg/dl (74-100)
--- NOTE | 2021-12-18 12:22 | PC.NURSE ---
Pt is resting at this time. No new needs.
[2021-12-18 12:31] VITALS: BP 205/78; PULSE 73; O2SAT 91
[2021-12-18 12:32] LABS: Lipase 99 U/L (23-300)
--- NOTE | 2021-12-18 12:52 | PC.NURSE ---
Pt up to restroom with assistance from Pamela Morton. Pt instructed to try to give samples and ring the call borges for assistance back to room.
--- NOTE | 2021-12-18 12:58 | PC.NURSE ---
Pt returned to room with assistance from Judy.
[2021-12-18 13:01] VITALS: BP 198/72; PULSE 74; O2SAT 92
[2021-12-18 13:01] LABS: Microscopic, Urine URINE MICROSCOPIC (MICROSCOPIC)
[2021-12-18 13:02] LABS: Appearance,Urine CLEAR (Clear); Bilirubin,Urine Negative (Negative); Blood, Urine Negative (Negative); Color,Urine YELLOW (Yellow); Glucose,Urine (UA) Negative (Negative); Ketones,Urine Negative (Negative); Leukocyte Esterase,Urine Negative (Negative); Nitrate,Urine Negative (Negative); Protein,Urine Negative (Negative); Urobilinogen,Urine 0.2 EU/dl (0.2)
[2021-12-18 13:31] VITALS: BP 187/72; PULSE 75; O2SAT 94
[2021-12-18 13:31] LABS: Squamous Epithelial Cell,Urine Occasional #/hpf (0-5); WBC,Urine Occasional #/hpf (0-3)
[2021-12-18 14:20] VITALS: BP 187/72; PULSE 75; RESP 16; TEMP 36.8; O2SAT 94
== END 2021-12-18 14:22 | disposition home or self-care (01) ==
PROVIDERS: Emergency Provider Student in an Organized Health Care Education/Training Program; PCP Family Medicine
DX: A08.4 Viral intestinal infection, unspecified
CPT/HCPCS: 80053; 81001; 83690; 85025; 96374; 99284; C9803; J2405; U0003; U0005

== ENCOUNTER 2022-05-16 07:55 | Emergency (ER) | payer MEDICARE, MEDICAID, SELFPAY ==
[2022-05-16 07:57] VITALS: BP 200/83; PULSE 69; RESP 18; TEMP 36.4; O2SAT 96; BMI 29.2
[2022-05-16 08:09] VITALS: BP 209/80; PULSE 66; O2SAT 95
--- NOTE | 2022-05-16 08:09 | ECG_ITS ---
APPROVED REPORT Exam: Resting ECG HR:65 bpm ECG Measurements Heart Rate 65 AXES MA 159 P 30 QRSd 90 QRS -19 QT 407 T 44 QTc 419 Conclusion SINUS RHYTHM RIGHT VENTRICULAR CONDUCTION DELAY [RSR (QR) IN V1/V2] MODERATE VOLTAGE CRITERIA FOR LVH, CONSIDER NORMAL VARIANT [MEETS CRITERIA IN ONE OF: R(aVL), S(V1), R(V5), R(V5/V6)+S(V1)] BORDERLINE ECG UNCONFIRMED REPORT Electronically signed by : Marco A Mendenhall MD 05/19/2022 16:49:39
--- NOTE | 2022-05-16 08:13 | XR_ITS ---
FINAL REPORT CLINICAL HISTORY: SHORTNESS OF BREATH COMPARISON: June 2021 FINDINGS: The heart size is normal. The mediastinum is within normal limits. There are mild chronic changes in the lung bases. There is no acute cardiopulmonary process. There is no pleural effusion. There is no pneumothorax. The bony thorax is intact. IMPRESSION: No acute cardiopulmonary process. Reviewed, Interpreted and Dictated by Landen Chun MD Transcribed by Aguila Duran Authenticated and [facility]
--- NOTE | 2022-05-16 08:19 | PC.NURSE ---
portable chest XR at [facility]
[2022-05-16 08:22] LABS: Coronavirus 19, PCR Not Detected (NotDetected); Influenza A, PCR Not Detected (NotDetected); Influenza B, PCR Not Detected (NotDetected)
[2022-05-16 08:23] LABS: Basophils # 0.1 K/mm3 (0-0.2); Basophils % 1.4 % (0.1-2.0); Eosinophils # 0.2 K/mm3 (0.0-0.4); Eosinophils % 3.2 % (0.1-12.0); Hematocrit 46.3 % (37.0-47.0); Hemoglobin 14.6 g/dL (12.2-16.2); Lymphocytes # 2.1 K/mm3 (0.7-4.5); Lymphocytes % 32.4 % (10-50); Mean Corpuscular HGB Conc 31.5 g/dL (31.8-35.4); Mean Corpuscular Hemoglobin 29.4 pg (27.0-31.2); Mean Corpuscular Volume 93.1 fl (81-99); Mean Platelet Volume 8.3 fl (7.4-10.4); Monocytes # 0.4 K/mm3 (0.1-1.0); Monocytes % 5.6 % (1.7-9.3); Neutrophils # 3.8 K/mm3 (1.8-7.8); Neutrophils % 57.5 % (37.0-80.0); Platelet Count 171 K/mm3 (142-424); Red Blood Count 4.98 M/mm3 (4.20-5.40); Red Cell Distribution Width 14.6 % (11.5-17.5); White Blood Count 6.5 K/mm3 (4.8-10.8)
--- NOTE | 2022-05-16 08:24 | HMH.EDGENADL ---
Discharge Plan Disposition Patient Disposition: Home, Self-Care Prescriptions Prescriptions: No Action dicyclomine 20 mg tablet 20 mg PO TID PRN (Reason: abdominal pain) Qty: 30 2RF cetirizine [Zyrtec] 10 mg tablet 10 mg PO DAILY PRN (Reason: allergy symptoms) Qty: 30 2RF albuterol sulfate [ProAir HFA] 90 mcg/actuation HFA aerosol inhaler 1 inh INHALATION QID PRN (Reason: shortness of breath or wheezing) Qty: 18 10RF ipratropium-albuterol 0.5 mg-3 mg(2.5 mg base)/3 mL solution for nebulization 3 ml IH TID PRN (Reason: shortness of breath or wheezing) Qty: 180 4RF ondansetron 4 mg tablet,disintegrating 4 mg PO Q8H PRN (Reason: nausea and vomiting) 5 Days Qty: 20 0RF buspirone 5 mg tablet 5 mg PO BID lisinopril 10 mg tablet See Rx Instructions .ROUTE .COMPLEX Rx Instructions: TAKE 1 TABLET BY MOUTH ONCE DAILY FOR HIGH BLOOD PRESSURE metoprolol tartrate 50 mg tablet See Rx Instructions .ROUTE .COMPLEX Rx Instructions: Take 1 tablet by mouth twice daily gabapentin 300 mg capsule See Rx Instructions .ROUTE .COMPLEX Rx Instructions: TAKE 1 CAPSULE BY MOUTH EVERY 8 HOURS fluoxetine 20 mg capsule 20 mg PO DAILY fluticasone propionate [Flonase Allergy Relief] 50 mcg/actuation spray,suspension 1 spray intranasal DAILY Rx Instructions: administer into each nostril Xarelto 20 mg tablet See Rx Instructions .ROUTE .COMPLEX Rx Instructions: TAKE ONE TABLET BY MOUTH EVERY DAY Referrals Follow up/Referrals: Provider,Referral, MD [Referring] - See instructions Activity Restrictions/Add. Instructions Additional Instructions/Restrictions: Your emergency work-up for her chest wall pain and cough were unremarkable did not yield any emergent diagnoses as discussed. Please take anti-inflammatory medications and Tylenol as needed for the pain you continue to have and follow-up with primary care physician. Clinical Impressions Clinical Impression: Chest wall pain, URI (upper respiratory infection) Discharge ED Provider: July Amaro General Adult HPI General Chief complaint: Shortness of Breath/Dyspnea Stated complaint: lower back pain Time Seen by Provider: 05/16/22 08:24 Mode of Arrival: EMS Source of Information: Patient Limitations: No Limitations Description of Symptoms (Recalled from ER Triage Doc. by RN): PT WITH C/O LEFT LUNG PAIN AND SHORTNESS OF BREATH FOR A WHILE WELL RECTAL BLEEDING FROM A HEMORRHOID FOR A LONG TIME History of Present Illness HPI narrative: Patient is a 71-year-old female presenting with 1 month of left lateral chest wall discomfort associated with cough and shortness of breath. States she has a history of atrial fibrillation and pulmonary embolism and is on Eliquis. States that she has had similar symptoms in the past on the right when she had a pulmonary embolism. Also concerned she may have pneumonia. Patient denies any objective fever however she has had a tactile fever and felt warm at home. She denies any lateral swelling or hemoptysis. Additionally she claims that she has had intermittent and chronic lower GI bleed that has since resolved the last 24 hours but this is now been a new symptoms that she has been on Xarelto. She denies any melena at any point. Has not had any bleeding in the last 24 hours and has no abdominal discomfort. Is here primarily today for her chest pain shortness of breath. Denies any wheezing but does states she has a history of COPD but has no history of smoking. No urinary symptoms or other abdominal complaints. Related Data Home Medications Medication Instructions Recorded Confirmed buspirone 5 mg tablet 5 mg PO BID Depression 05/16/22 05/16/22 fluoxetine 20 mg capsule 20 mg PO DAILY Depression 05/16/22 05/16/22 fluticasone propionate 50 1 spray intranasal DAILY Allergy 05/16/22 05/16/22 mcg/actuation nasal symptoms spray,suspension (Flonase Allergy
[2022-05-16 08:29] LABS: Chloride 104 mmol/L (98-107); Potassium 3.7 mmoL/L (3.5-5.1); Sodium 140 mmol/L (136-145)
[2022-05-16 08:30] VITALS: BP 202/101; PULSE 75; O2SAT 95
--- NOTE | 2022-05-16 08:30 | PC.NURSE ---
PAULINA KRISNHAN at for patient eval
[2022-05-16 08:32] LABS: Alanine Aminotransferase 28 U/L (12-78); Albumin Level 4.5 g/dl (3.5-5.0); Albumin/Globulin Ratio 1.1 (1.1-1.8); Alkaline Phosphatase 61 U/L (38-126); Anion Gap 13.7 mEq/L (5-15); Aspartate Amino Transferase 34 U/L (14-36); Bilirubin,Total 0.7 mg/dl (0.2-1.3); Blood Urea Nitrogen 13 mg/dl (7-17); Carbon Dioxide 26 mmol/L (22.0-30.0); Creatinine Clearance Estimated 61 mL/min (50-200); Estimated Glomerular Filt Rate 82 ml/min (>60); GFR (African American) 99 ML/MIN (>60); Globulin 4.1 g/dL (1.3-3.2); Total Protein,Serum 8.6 g/dl (6.3-8.2)
[2022-05-16 08:33] LABS: Calcium 8.8 mg/dl (8.4-10.2); Glucose 111 mg/dl (74-100)
--- NOTE | 2022-05-16 08:35 | PC.NURSE ---
notified lab of new orders added on
[2022-05-16 09:01] VITALS: BP 188/79; PULSE 67; O2SAT 95
[2022-05-16 09:03] LABS: Troponin I < 0.01 ng/ml (0.00-0.034)
--- NOTE | 2022-05-16 09:26 | CT_ITS ---
FINAL REPORT TECHNIQUE: Thin section axial CT images were obtained from the lung apices to the upper abdomen. IV contrast was administered. MIP 3-D reformats were obtained. This study was performed with techniques to keep radiation doses as low as reasonably achievable (ALARA). Individualized dose reduction techniques using automated exposure control or adjustment of mA and/or kV according to the patient's size were employed. CLINICAL HISTORY: chest pain, elevated dimer FINDINGS: The mediastinal vasculature is adequately opacified. The heart size is normal. There is no adenopathy. There is no filling defect to suggest PE. There is no aortic dissection. There is no pericardial effusion. There is scarring in the lung bases. There is no suspicious infiltrate or nodule. No pleural effusion. Limited images of the upper abdomen demonstrate postoperative change cholecystectomy. There is a benign-appearing cyst in the right kidney measuring up to 2.6 cm. IMPRESSION: No pulmonary embolism or aortic dissection. Reviewed, Interpreted and Dictated by Landen Chun MD Transcribed by Aguila Duran Authenticated and [facility]
--- NOTE | 2022-05-16 09:48 | PC.NURSE ---
PT TO CT
--- NOTE | 2022-05-16 10:40 | PC.NURSE ---
ROUNDED ON PT, NO NEEDS AT THIS TIME. CALL LIGHT WITHIN REACH
--- NOTE | 2022-05-16 10:54 | PC.NURSE ---
pt given a lunch tray and is sitting up on the side of bed eating at this time. call light within reach
--- NOTE | 2022-05-16 10:57 | PC.NURSE ---
contacted rad to check on status of CTA result, states are faxing down a preliminary report
--- NOTE | 2022-05-16 11:15 | PC.NURSE ---
pt has finished eating and is laying back down resting at this time. call light within reach. Respirations are 14.
--- NOTE | 2022-05-16 11:19 | PC.NURSE ---
preliminary report given to PAULINA KRISHNAN at this lucia
--- NOTE | 2022-05-16 11:40 | PC.NURSE ---
PT ASSISTED TO BR
--- NOTE | 2022-05-16 11:42 | PC.NURSE ---
DR MITTAL AT BEDSIDE TO UPDATE PT AT THIS TIME
--- NOTE | 2022-05-16 11:45 | PC.NURSE ---
CARE MANAGEMENT NOTIFIED TO ASSIST WITH [facility] FOR PT
[2022-05-16 11:55] VITALS: BP 190/86; PULSE 79; RESP 17; TEMP 36.7; O2SAT 95
[2022-05-16 12:56] LABS: Troponin I < 0.01 ng/ml (0.00-0.034)
== END 2022-05-16 12:36 | disposition home or self-care (01) ==
PROVIDERS: Emergency Provider Student in an Organized Health Care Education/Training Program; PCP Emergency Medicine
DX: R07.89 Other chest pain (principal); J06.9 Acute upper respiratory infection, unspecified; M54.50 Low back pain, unspecified
CPT/HCPCS: 71045; 71275; 80053; 84484; 85025; 85378; 93005; 96361; 96374; 96375; 99285; C9803; J2405; Q9967; U0003; U0005

== ENCOUNTER 2022-11-04 14:49 | Emergency (ER) | payer MEDICARE, MEDICAID, SELFPAY ==
[2022-11-04 14:49] VITALS: BP 148/70; PULSE 87; RESP 22; TEMP 36.8; O2SAT 93; BMI 27.4
--- NOTE | 2022-11-04 14:49 | ECG_ITS ---
APPROVED REPORT Exam: Resting ECG HR:84 bpm ECG Measurements Heart Rate 84 AXES NC 173 P 62 QRSd 92 QRS -33 QT 374 T 73 QTc 415 Conclusion SINUS RHYTHM LEFT AXIS DEVIATION [QRS AXIS < -30] POSSIBLE RIGHT VENTRICULAR CONDUCTION DELAY [RSR (QR) IN V1/V2] ABNORMAL ECG UNCONFIRMED REPORT Electronically signed by : Marco A Mendenhall MD 11/04/2022 21:07:44
[2022-11-04 15:00] VITALS: BP 169/76; PULSE 82; RESP 18; O2SAT 92
--- NOTE | 2022-11-04 15:25 | HMH.EDGENADL ---
Discharge Plan Disposition Patient Disposition: Home, Self-Care Condition: Fair Prescriptions Prescriptions: No Action cetirizine [Zyrtec] 10 mg tablet 10 mg PO DAILY PRN (Reason: allergy symptoms) Qty: 30 2RF albuterol sulfate [ProAir HFA] 90 mcg/actuation HFA aerosol inhaler 1 inh INHALATION QID PRN (Reason: shortness of breath or wheezing) Qty: 18 10RF dicyclomine 20 mg tablet See Rx Instructions .ROUTE .COMPLEX Dose Instruction: TAKE 1 TABLET BY MOUTH THREE TIMES DAILY NEEDED FOR ABDOMINAL PAIN Rx Instructions: TAKE 1 TABLET BY MOUTH THREE TIMES DAILY NEEDED FOR ABDOMINAL PAIN ipratropium-albuterol 0.5 mg-3 mg(2.5 mg base)/3 mL solution for nebulization 3 ml IH TID PRN (Reason: shortness of breath or wheezing) Qty: 180 4RF fluoxetine 20 mg capsule See Rx Instructions .ROUTE .COMPLEX Qty: 90 0RF Dose Instruction: Take 1 capsule by mouth once daily Rx Instructions: Take 1 capsule by mouth once daily lisinopril 10 mg tablet See Rx Instructions .ROUTE .COMPLEX Qty: 90 0RF Dose Instruction: TAKE 1 TABLET BY MOUTH ONCE DAILY FOR HIGH BLOOD PRESSURE Rx Instructions: TAKE 1 TABLET BY MOUTH ONCE DAILY FOR HIGH BLOOD PRESSURE metoprolol tartrate 50 mg tablet See Rx Instructions .ROUTE .COMPLEX Qty: 180 0RF Dose Instruction: Take 1 tablet by mouth twice daily Rx Instructions: Take 1 tablet by mouth twice daily ondansetron 4 mg tablet,disintegrating 4 mg PO Q8H PRN (Reason: nausea and vomiting) 5 Days Qty: 20 0RF buspirone 5 mg tablet 5 mg PO BID fluticasone propionate [Flonase Allergy Relief] 50 mcg/actuation spray,suspension 1 spray intranasal DAILY Rx Instructions: administer into each nostril Xarelto 20 mg tablet See Rx Instructions .ROUTE .COMPLEX Rx Instructions: TAKE ONE TABLET BY MOUTH EVERY DAY Referrals Follow up/Referrals: Provider,Referral, MD [Referring] - See instructions Activity Restrictions/Add. Instructions Additional Instructions/Restrictions: There is no emergent medical condition today to explain the right lateral chest wall pain that you are having. Likely that you have musculoskeletal chest wall pain secondary to the cough that she had recently. There is no evidence of pneumonia and no indication for any antibiotic therapy. Please follow-up with your primary care doctor to discuss your symptoms further and return with any worsening symptoms Clinical Impressions Clinical Impression: Atypical chest pain, Bronchitis Instructions Patient Instructions: DI for Acute Pain -- Adult Discharge ED Provider: Campos Rae General Adult HPI General Chief complaint: PAIN Stated complaint: chest pain Time Seen by Provider: 11/04/22 14:59 History of Present Illness HPI narrative: Patient is a 72-year-old female with a history of a pulmonary thromboembolism in the past she is on Xarelto has been on this for 1 year presenting today with right lateral chest wall pain and a cough that she feels is similar to her PE in the past. She denies any fevers or chills any lower extremity swelling or any asymmetric lower extremity swelling no hemoptysis she has been compliant with her medications no exertional chest pain diaphoresis etc. No history of COPD no wheezing no history of heart failure. States the pain is significant it is located in her right axillary region and it started yesterday around 4 AM has been somewhat intermittent but has not gone away completely. She denies any urinary symptoms specifically any hematuria or abdominal symptoms. Related Data Home Medications Medication Instructions Recorded Confirmed buspirone 5 mg tablet 5 mg PO BID Depression 05/16/22 10/06/22 fluticasone propionate 50 1 spray intranasal DAILY Allergy 05/16/22 10/06/22 mcg/actuation nasal symptoms spray,suspension (Flonase Allergy Relief) rivaroxaban 20 mg tablet (Xarelto) See Rx I
[2022-11-04 15:30] VITALS: BP 176/77; PULSE 74; RESP 22; O2SAT 91
--- NOTE | 2022-11-04 15:32 | PC.NURSE ---
Dr. Amaro at BS
--- NOTE | 2022-11-04 15:33 | PC.NURSE ---
Dr. Amaro at BS for pt eval
--- NOTE | 2022-11-04 15:37 | CT_ITS ---
PROCEDURE INFORMATION: Exam: CTA Chest Without And With Contrast Exam date and time: 11/04/2022 4:04 PM Age: 72 years old Clinical indication: Chest wall pain; Additional info: Right lateral cp; H/o pte TECHNIQUE: Imaging protocol: Computed tomographic angiography of the chest without and with contrast. Exam focused on the arteries. 3D rendering (Not supervised by radiologist): MIP and/or 3D reconstructed images were created by the technologist. Radiation optimization: All CT scans at this facility use at least one of these dose optimization techniques: automated exposure control; mA and/or kV adjustment per patient size (includes targeted exams where dose is matched to clinical indication); or iterative reconstruction. Contrast material: ISVOUE; Contrast volume: 70 ml; Contrast route: INTRAVENOUS (IV); REPORTING DATA: Count of CT and Cardiac NM exams in prior 12 months: This patient has received [address] and 0 known cardiac nuclear medicine studies in the 12 months prior to the current study. COMPARISON: CT ANGIO CHEST PE PROTOCOL 05/16/2022 9:52 AM FINDINGS: Pulmonary arteries: No evidence of pulmonary embolus to the segmental level. Aorta: No aneurysm of the aorta. No dissection of the aorta. Lungs: Mild panlobular emphysematous changes. Mild opacities in the lower lobes may represent atelectasis or pneumonia. Pleural spaces: Unremarkable. No pneumothorax. No pleural effusion. Heart: Unremarkable. No cardiomegaly. No pericardial effusion. Lymph nodes: Unremarkable. No enlarged lymph nodes. Liver: Subcentimeter low attenuation area in the liver is too small for characterization. Gallbladder and bile ducts: The common duct is prominent. It measures 23 millimeters. This may be due to post cholecystectomy state and elderly status. However, if biliary obstruction is suspected clinically, recommend further evaluation Pancreas: Mild dilatation of the pancreatic duct Kidneys and ureters: 2.9 cm simple cyst right kidney. . No follow-up imaging recommended . Bones/joints: Unremarkable. No acute fracture. Soft tissues: Unremarkable. IMPRESSION: 1. No evidence of pulmonary embolus to the segmental level. 2. No aneurysm of the aorta. 3. No dissection of the aorta. COMMENTS: 1. Consistent with the [employer]'s Incidental Findings Committee white paper (J Am Marci Radiol 2018): Any incidental renal lesion less than 1 cm or classified as too small to characterize, or any incidental cystic renal lesion characterized as simple-appearing, is likely benign. No follow-up imaging is recommended for these lesions per consensus recommendations based on imaging criteria. 2. In the absence of a history or active diagnosis of lung cancer, it is recommended that this patient with emphysema be evaluated for enrollment in a low dose CT lung cancer screening program.
[2022-11-04 15:46] LABS: Basophils # 0.1 K/mm3 (0-0.2); Basophils % 0.7 % (0.1-2.0); Eosinophils # 0.2 K/mm3 (0.0-0.4); Eosinophils % 2.3 % (0.1-12.0); Hematocrit 45.7 % (37.0-47.0); Hemoglobin 14.5 g/dL (12.2-16.2); Lymphocytes # 3.5 K/mm3 (0.7-4.5); Lymphocytes % 43.4 % (10-50); Mean Corpuscular HGB Conc 31.8 g/dL (31.8-35.4); Mean Corpuscular Hemoglobin 29.4 pg (27.0-31.2); Mean Corpuscular Volume 92.5 fl (81-99); Mean Platelet Volume 8.8 fl (7.4-10.4); Monocytes # 0.6 K/mm3 (0.1-1.0); Monocytes % 7.2 % (1.7-9.3); Neutrophils # 3.7 K/mm3 (1.8-7.8); Neutrophils % 46.4 % (37.0-80.0); Platelet Count 160 K/mm3 (142-424); Red Blood Count 4.94 M/mm3 (4.20-5.40); Red Cell Distribution Width 14.2 % (11.5-17.5)
[2022-11-04 15:49] LABS: Coronavirus 19, PCR Not Detected (NotDetected); Influenza A, PCR Not Detected (NotDetected); Influenza B, PCR Not Detected (NotDetected)
[2022-11-04 15:50] LABS: Alanine Aminotransferase 32 U/L (12-78); Albumin Level 4.2 g/dl (3.5-5.0); Alkaline Phosphatase 57 U/L (38-126); Anion Gap 15.9 mEq/L (5-15); Aspartate Amino Transferase 41 U/L (14-36); Bilirubin,Total 0.7 mg/dl (0.2-1.3); Blood Urea Nitrogen 13 mg/dl (7-17); Calcium 9.7 mg/dl (8.4-10.2); Carbon Dioxide 25 mmol/L (22.0-30.0); Chloride 104 mmol/L (98-107); Creatinine Clearance Estimated 57 mL/min (50-200); Estimated Glomerular Filt Rate 61 ml/min (>60); GFR (African American) 74 ML/MIN (>60); Globulin 4.4 g/dL (1.3-3.2); Glucose 119 mg/dl (74-100); Potassium 4.9 mmoL/L (3.5-5.1); Sodium 140 mmol/L (136-145); Total Protein,Serum 8.6 g/dl (6.3-8.2)
--- NOTE | 2022-11-04 15:59 | PC.NURSE ---
pt transported to radiology via wheelchair.
[2022-11-04 16:03] LABS: Troponin I < 0.01 ng/ml (0.00-0.034)
--- NOTE | 2022-11-04 16:11 | PC.NURSE ---
Pt returned from RAD
--- NOTE | 2022-11-04 16:23 | PC.NURSE ---
Pt sat on bedside and attempted to provide urine sample. Pt was unable to urinate at this time.
[2022-11-04 16:27] VITALS: BP 153/82; PULSE 73; RESP 19; O2SAT 92
--- NOTE | 2022-11-04 16:30 | PC.NURSE ---
Pt requested us to call son and update him. Spoke with Sherman and advised we would call back later with any other updates.
[2022-11-04 17:00] VITALS: BP 158/71; PULSE 69; O2SAT 92
--- NOTE | 2022-11-04 17:31 | PC.NURSE ---
Dr. Amaro at for update on POC/results
--- NOTE | 2022-11-04 17:47 | PC.NURSE ---
Patient to bedside commode.
--- NOTE | 2022-11-04 17:53 | PC.NURSE ---
Spoke with pt son, Sherman, he advised that he would be unable to come picker tender pt. Also advised he would try to contact someone in [place].
--- NOTE | 2022-11-04 17:59 | PC.NURSE ---
pt son Sherman called back reports to let pt know that carina will be coming to get pt, she is in [place] at this time so will be approx an hour before she will be here
--- NOTE | 2022-11-04 18:29 | PC.NURSE ---
Son called and reports that Amy is now coming to pick her up.
[2022-11-04 18:38] VITALS: BP 150/70; PULSE 68; RESP 20; TEMP 36.7; O2SAT 93
== END 2022-11-04 18:53 | disposition home or self-care (01) ==
PROVIDERS: Student in an Organized Health Care Education/Training Program; Emergency Provider Emergency Medicine; PCP Emergency Medicine
DX: R07.89 Other chest pain (principal); J40 Bronchitis, not specified as acute or chronic; F41.9 Anxiety disorder, unspecified; F32.A Depression, unspecified; E78.5 Hyperlipidemia, unspecified; I10 Essential (primary) hypertension
CPT/HCPCS: 71275; 80053; 84484; 85025; 87636; 93005; 96374; 96375; 99285; J2405; Q9967

== ENCOUNTER 2022-11-09 13:45 | Emergency (ER) | payer MEDICARE, MEDICAID, SELFPAY ==
[2022-11-09 14:00] VITALS: BP 151/95; PULSE 68; RESP 18; TEMP 36.6; O2SAT 94; BMI 27.4
--- NOTE | 2022-11-09 14:25 | EXP.UTC ---
Discharge Plan Disposition Patient Disposition: Home, Self-Care Condition: Good Prescriptions Prescriptions: No Action cetirizine [Zyrtec] 10 mg tablet 10 mg PO DAILY PRN (Reason: allergy symptoms) Qty: 30 2RF albuterol sulfate [ProAir HFA] 90 mcg/actuation HFA aerosol inhaler 1 inh INHALATION QID PRN (Reason: shortness of breath or wheezing) Qty: 18 10RF dicyclomine 20 mg tablet See Rx Instructions .ROUTE .COMPLEX Dose Instruction: TAKE 1 TABLET BY MOUTH THREE TIMES DAILY NEEDED FOR ABDOMINAL PAIN Rx Instructions: TAKE 1 TABLET BY MOUTH THREE TIMES DAILY NEEDED FOR ABDOMINAL PAIN ipratropium-albuterol 0.5 mg-3 mg(2.5 mg base)/3 mL solution for nebulization 3 ml IH TID PRN (Reason: shortness of breath or wheezing) Qty: 180 4RF fluoxetine 20 mg capsule See Rx Instructions .ROUTE .COMPLEX Qty: 90 0RF Dose Instruction: Take 1 capsule by mouth once daily Rx Instructions: Take 1 capsule by mouth once daily lisinopril 10 mg tablet See Rx Instructions .ROUTE .COMPLEX Qty: 90 0RF Dose Instruction: TAKE 1 TABLET BY MOUTH ONCE DAILY FOR HIGH BLOOD PRESSURE Rx Instructions: TAKE 1 TABLET BY MOUTH ONCE DAILY FOR HIGH BLOOD PRESSURE metoprolol tartrate 50 mg tablet See Rx Instructions .ROUTE .COMPLEX Qty: 180 0RF Dose Instruction: Take 1 tablet by mouth twice daily Rx Instructions: Take 1 tablet by mouth twice daily ondansetron 4 mg tablet,disintegrating 4 mg PO Q8H PRN (Reason: nausea and vomiting) 5 Days Qty: 20 0RF buspirone 5 mg tablet 5 mg PO BID fluticasone propionate [Flonase Allergy Relief] 50 mcg/actuation spray,suspension 1 spray intranasal DAILY Rx Instructions: administer into each nostril Xarelto 20 mg tablet See Rx Instructions .ROUTE .COMPLEX Rx Instructions: TAKE ONE TABLET BY MOUTH EVERY DAY Referrals Follow up/Referrals: Rodolfo Woo MD [Primary Care Provider] - See instructions Activity Restrictions/Add. Instructions Additional Instructions/Restrictions: Follow up with your regular doctor if you contiue to have issues with this. If you have decreased vision, eye pain or any other concerning symptoms please go to the ER. GO TO THE ER FOR ANY WORSENING SYMPTOMS Clinical Impressions Clinical Impression: Conjunctival hemorrhage, left eye Instructions Patient Instructions: DI for Subconjunctival Hemorrhage Discharge ED Provider: Derek Maher [facility] HPI General Stated complaint: left eye is red Mode of Arrival: Ambulatory Source of Information: Patient Limitations: No Limitations Time Seen by Provider: 11/09/22 14:25 Description of Symptoms (Recalled from Triage Doc. by RN): Pt stated that she had skin cancer removed on 11/07/2022, woke up on 11/08/2022 with red/blood in left eye. Stated called surgeon and was told nothing to do with procedure, and stated that no change to any vision. HEENT Symptoms (Recalled from RN notes): Yes Resp Symptoms (Recalled from RN notes): No Skin Symptoms (Recalled from RN notes): No MS Symptoms (Recalled from RN notes): No Functional Status (Recalled from RN notes): n/a History of Present Illness Provider Complaint: She states that she first noticed her left eye having a red area on the sclera yesterday. She denies any injury. She denies any eye pain or vision changes. Related Data Home Medications Medication Instructions Recorded Confirmed buspirone 5 mg tablet 5 mg PO BID Depression 05/16/22 10/06/22 fluticasone propionate 50 1 spray intranasal DAILY Allergy 05/16/22 10/06/22 mcg/actuation nasal symptoms spray,suspension (Flonase Allergy Relief) rivaroxaban 20 mg tablet (Xarelto) See Rx Instructions .Route 05/16/22 10/06/22 .COMPLEX Blood thinner dicyclomine 20 mg tablet See Rx Instructions .Route .COMPLEX 10/06/22 Previous Rx's Medication Instructions Recorded albuterol sulfate 90 mcg/actu
[2022-11-09 14:50] VITALS: BP 151/95; PULSE 68; RESP 18; TEMP 36.6; O2SAT 94
== END 2022-11-09 14:50 | disposition home or self-care (01) ==
PROVIDERS: Emergency Provider Nurse Practitioner Family; PCP Emergency Medicine
DX: H11.32 Conjunctival hemorrhage, left eye (principal); I10 Essential (primary) hypertension; E78.5 Hyperlipidemia, unspecified; F41.9 Anxiety disorder, unspecified; F32.A Depression, unspecified; M19.90 Unspecified osteoarthritis, unspecified site; I49.9 Cardiac arrhythmia, unspecified; E66.9 Obesity, unspecified; Z68.30 Body mass index [BMI] 30.0-30.9, adult
CPT/HCPCS: 99212; 99213; G0463

== ENCOUNTER → 2022-12-20 06:26 | Outpatient (CLI) | payer MEDICARE, MEDICAID, SELFPAY ==
[2022-12-20 18:22] LABS: Basophils # 0.1 K/mm3 (0-0.2); Basophils % 0.8 % (0.1-2.0); Eosinophils # 0.3 K/mm3 (0.0-0.4); Eosinophils % 3.1 % (0.1-12.0); Hematocrit 39.8 % (37.0-47.0); Hemoglobin 13.4 g/dL (12.2-16.2); Lymphocytes # 2.6 K/mm3 (0.7-4.5); Lymphocytes % 29.4 % (10-50); Mean Corpuscular HGB Conc 33.8 g/dL (31.8-35.4); Mean Corpuscular Hemoglobin 32.1 pg (27.0-31.2); Mean Corpuscular Volume 94.9 fl (81-99); Mean Platelet Volume 9.8 fl (7.4-10.4); Monocytes # 0.6 K/mm3 (0.1-1.0); Neutrophils # 5.2 K/mm3 (1.8-7.8); Neutrophils % 59.7 % (37.0-80.0); Platelet Count 188 K/mm3 (142-424); Red Blood Count 4.19 M/mm3 (4.20-5.40); Red Cell Distribution Width 14.4 % (11.5-17.5); White Blood Count 8.8 K/mm3 (4.8-10.8)
[2022-12-20 19:21] LABS: Alanine Aminotransferase 28 U/L (12-78); Albumin Level 4.1 g/dl (3.5-5.0); Albumin/Globulin Ratio 1.2 (1.1-1.8); Alkaline Phosphatase 57 U/L (38-126); Anion Gap 15.4 mEq/L (5-15); Aspartate Amino Transferase 38 U/L (14-36); Bilirubin,Total 0.7 mg/dl (0.2-1.3); Blood Urea Nitrogen 15 mg/dl (7-17); Carbon Dioxide 21 mmol/L (22.0-30.0); Chloride 105 mmol/L (98-107); Estimated Glomerular Filt Rate 54 ml/min (>60); GFR (African American) 66 ML/MIN (>60); Globulin 3.4 g/dL (1.3-3.2); Glucose 108 mg/dl (74-100); Potassium 4.4 mmoL/L (3.5-5.1); Sodium 137 mmol/L (136-145); Total Protein,Serum 7.5 g/dl (6.3-8.2)
== END ==
PROVIDERS: PCP Nurse Practitioner Family; Visit Provider Nurse Practitioner Family
DX: E78.5 Hyperlipidemia, unspecified (principal); R53.83 Other fatigue
CPT/HCPCS: 80053; 85025

== ENCOUNTER 2023-09-12 09:29 | Outpatient (CLI) | payer MEDICARE, MEDICAID, SELFPAY ==
[2023-09-12 18:38] LABS: Basophils # 0.1 K/mm3 (0-0.2); Eosinophils # 0.3 K/mm3 (0.0-0.4); Eosinophils % 3.3 % (0.1-12.0); Hematocrit 43.8 % (37.0-47.0); Hemoglobin 14.6 g/dL (12.2-16.2); Lymphocytes # 3.3 K/mm3 (0.7-4.5); Lymphocytes % 41.1 % (10-50); Mean Corpuscular HGB Conc 33.2 g/dL (31.8-35.4); Mean Corpuscular Hemoglobin 31.6 pg (27.0-31.2); Mean Platelet Volume 9.2 fl (7.4-10.4); Monocytes # 0.6 K/mm3 (0.1-1.0); Monocytes % 6.9 % (1.7-9.3); Neutrophils # 3.8 K/mm3 (1.8-7.8); Neutrophils % 47.7 % (37.0-80.0); Platelet Count 168 K/mm3 (142-424); Red Blood Count 4.61 M/mm3 (4.20-5.40); Red Cell Distribution Width 14.6 % (11.5-17.5)
[2023-09-12 19:33] LABS: Alanine Aminotransferase 25 U/L (12-78); Albumin Level 4.1 g/dl (3.5-5.0); Albumin/Globulin Ratio 1.2 (1.1-1.8); Alkaline Phosphatase 60 U/L (38-126); Anion Gap 10.6 mEq/L (5-15); Aspartate Amino Transferase 33 U/L (14-36); Bilirubin,Total 0.6 mg/dl (0.2-1.3); Blood Urea Nitrogen 11 mg/dl (7-17); Calcium 9.5 mg/dl (8.4-10.2); Carbon Dioxide 26 mmol/L (22.0-30.0); Chloride 106 mmol/L (98-107); Chol/HDL Ratio 6.8 (1-3.5); Cholesterol 232 mg/dl (140-200); Estimated Glomerular Filt Rate 82 ml/min (>60); GFR (African American) 99 ML/MIN (>60); Globulin 3.4 g/dL (1.3-3.2); Glucose 92 mg/dl (74-100); HDL Cholesterol 34 mg/dl (40-60); Potassium 3.6 mmoL/L (3.5-5.1); Sodium 139 mmol/L (136-145); Total Protein,Serum 7.5 g/dl (6.3-8.2)
[2023-09-12 19:44] LABS: 25-OH Vitamin D, Total 25.2 ng/mL (30-100)
[2023-09-12 19:51] LABS: Direct LDL Cholesterol 67.42 mg/dL (100-129)
[2023-09-12 20:05] LABS: Thyroid Stimulating Hormone 1.86 uIU/mL (0.465-4.68)
== END 2023-09-12 23:59 | disposition home or self-care (01) ==
LOC: LAB.DROPOF 09-14 09:33
PROVIDERS: PCP Nurse Practitioner Family; Visit Provider Nurse Practitioner Family
DX: E55.9 Vitamin D deficiency, unspecified (principal); I10 Essential (primary) hypertension; R19.7 Diarrhea, unspecified
CPT/HCPCS: 80053; 80061; 82306; 84443; 85025

== ENCOUNTER 2023-09-14 11:28 | Outpatient (CLI) | payer MEDICARE, MEDICAID, SELFPAY ==
[2023-09-14 11:34] LABS: Adenovirus F 40/41, stool Not Detected (NotDetected); Astrovirus Not Detected (NotDetected); Campylobacter Not Detected (NotDetected); Clostridium Difficile A/B, PCR Not Detected (NotDetected); Cryptosporidium Not Detected (NotDetected); Cyclospora Cayetanesis Not Detected (NotDetected); Entamoeba histolytica Not Detected (NotDetected); Enteroaggregative E coli Not Detected (NotDetected); Enteropathogenic E coli Not Detected (NotDetected); Enterotoxigenic E coli Not Detected (NotDetected); Giardia lamblia Not Detected (NotDetected); Norovirus Not Detected (NotDetected); Plesimonas Shigalloides, PCR Not Detected (NotDetected); Rotavirus A Not Detected (NotDetected); Salmonella, PCR Not Detected (NotDetected); Sapovirus Not Detected (NotDetected); Shiga-like toxin E coli Not Detected (NotDetected); Shigella Enterovasive E coli Not Detected (NotDetected); Vibrio Cholerae Not Detected (NotDetected); Vibrio, PCR Not Detected (NotDetected); Yersinia Entercolitica, PCR Not Detected (NotDetected)
== END 2023-09-14 23:59 | disposition home or self-care (01) ==
LOC: LAB 11:30
PROVIDERS: PCP Nurse Practitioner Family; Visit Provider Nurse Practitioner Family
DX: R19.7 Diarrhea, unspecified (principal)
CPT/HCPCS: 87506

== ENCOUNTER 2023-11-08 14:09 | Emergency (ER) | payer MEDICARE, MEDICAID, SELFPAY ==
--- NOTE | 2023-11-08 14:32 | XR_ITS ---
FINAL REPORT CLINICAL HISTORY: pain from fall FINDINGS: Left femur Two views were obtained. There is no acute fracture or dislocation. Mild degenerative changes are present. Note is made of mild vascular calcification. IMPRESSION: No acute process. Reviewed, Interpreted and Dictated by Rafael Booker III, MD Transcribed by Aixa Reyes Authenticated and [facility]
--- NOTE | 2023-11-08 14:32 | XR_ITS ---
FINAL REPORT CLINICAL HISTORY: pain from fall FINDINGS: Left knee Three views were obtained. There is no acute fracture or dislocation. Mild degenerative changes are present. There is meniscal and vascular calcification. IMPRESSION: No acute process. Reviewed, Interpreted and Dictated by Rafael Booker III, MD Transcribed by Aixa Reyes Authenticated and [facility]
--- NOTE | 2023-11-08 14:32 | XR_ITS ---
FINAL REPORT CLINICAL HISTORY: pain from fall FINDINGS: Left hip Three views were obtained. There is no acute fracture or dislocation. Mild degenerative changes are present. There is vascular calcification. IMPRESSION: No acute process. If symptoms persist or are severe, CT may be helpful. Reviewed, Interpreted and Dictated by Rafael Booker III, MD Transcribed by Aixa Reyes Authenticated and [facility]
[2023-11-08 14:34] VITALS: BP 207/87; PULSE 75; RESP 16; TEMP 36.8; O2SAT 96; BMI 26.6
--- NOTE | 2023-11-08 14:36 | ED_ITS ---
Discharge Plan Disposition Patient Disposition: Home, Self-Care Condition: Good Prescriptions Prescriptions: No Action promethazine-codeine 6.25-10 mg/5 mL syrup 5 ml PO Q4-6H PRN (Reason: cough) Qty: 118 1RF Xarelto 20 mg tablet See Rx Instructions .ROUTE .COMPLEX Qty: 90 2RF Rx Instructions: TAKE ONE TABLET BY MOUTH EVERY DAY dicyclomine 20 mg tablet See Rx Instructions .ROUTE .COMPLEX Qty: 90 3RF Dose Instruction: TAKE 1 TABLET BY MOUTH THREE TIMES DAILY NEEDED FOR ABDOMINAL PAIN Rx Instructions: TAKE 1 TABLET BY MOUTH THREE TIMES DAILY NEEDED FOR ABDOMINAL PAIN albuterol sulfate 90 mcg/actuation HFA aerosol inhaler 1 inh INHALATION QID PRN (Reason: shortness of breath or wheezing) Qty: 18 10RF buspirone 5 mg tablet 5 mg PO BID Qty: 60 2RF fluticasone propionate [Flonase Allergy Relief] 50 mcg/actuation spray,suspension 1 spray intranasal DAILY Qty: 16 1RF Rx Instructions: administer into each nostril Preparation H Maximum Strength 0.25-1 % cream 1 applic DE QID PRN (Reason: hemorrhoids) Qty: 51 2RF Preparation H(pe,cb) 0.25-88.44 % suppository 1 supp DE QID Qty: 12 2RF ipratropium-albuterol 0.5 mg-3 mg(2.5 mg base)/3 mL solution for nebulization 3 ml IH TID PRN (Reason: shortness of breath or wheezing) Qty: 180 4RF fluoxetine 20 mg capsule See Rx Instructions .ROUTE .COMPLEX Qty: 90 0RF Dose Instruction: Take 1 capsule by mouth once daily Rx Instructions: Take 1 capsule by mouth once daily lisinopril 10 mg tablet See Rx Instructions .ROUTE .COMPLEX Qty: 90 0RF Dose Instruction: TAKE 1 TABLET BY MOUTH ONCE DAILY FOR HIGH BLOOD PRESSURE Rx Instructions: TAKE 1 TABLET BY MOUTH ONCE DAILY FOR HIGH BLOOD PRESSURE metoprolol tartrate 50 mg tablet See Rx Instructions .ROUTE .COMPLEX Qty: 180 0RF Dose Instruction: Take 1 tablet by mouth twice daily Rx Instructions: Take 1 tablet by mouth twice daily ondansetron 4 mg tablet,disintegrating 4 mg PO Q8H PRN (Reason: nausea and vomiting) 5 Days Qty: 20 0RF Referrals Follow up/Referrals: Louisa Khan PA [Primary Care Provider] - See instructions Grzegorz Rosenberg DO [Staff Physician] - See instructions Activity Restrictions/Add. Instructions Additional Instructions/Restrictions: Rest the extremity, Wear the marcus wrap for compression, Elevate the extremity as tolerated while you are resting. Use the knee immobilizer with your walker. It should keep your knee from being unstable and causing you to fall. Take tylenol or ibuprofen for pain. Follow up with Dr. Rosenberg (orthopedics). I put in a referral but you need to call his office and schedule an appointment. His office phone number will be on this paperwork. Follow up with your regular doctor. GO TO THE ER FOR ANY WORSENING SYMPTOMS Clinical Impressions Clinical Impression: Left knee sprain, Instability of left knee joint, Left leg pain Instructions Patient Instructions: How to Use a Knee Immobilizer Print Language Print Language: Urdu Discharge ED Provider: Little Maher [facility] General Stated complaint: ao 09/16/23 Left knee pain Mode of Arrival: Wheelchair Source of Information: Patient Limitations: No Limitations Time Seen by Provider: 11/08/23 14:36 Description of Symptoms (Recalled from Triage Doc. by RN): Reports injuring her left knee on September 15 and since then the pain has just continued to get worse. HEENT Symptoms (Recalled from RN notes): No Resp Symptoms (Recalled from RN notes): No Skin Symptoms (Recalled from RN notes): No MS Symptoms (Recalled from RN notes): Yes Functional Status (Recalled from RN notes): wnl History of Present Illness Provider Complaint: She states that on September 15 she fell getting into her truck after a visit here at this hospital. Her left leg went in between the running board and the body of the truck and it got stuck. Hospital staff helped her free her leg and she thought she was ok so she went on home. But, since then she has had left worsening left knee pain, swelling, and instability. Her knee has been unstable and it has caused her to fall several times since then by going out. Related Data Previous Rx's ?Medication ?Instructions ?Recorded ipratropium 0.5 mg-albuterol 3 mg 3 ml inhalation TID PRN shortness 10/13/21 (2.5 mg base)/3 mL nebulization of breath or wheezing #180 mL soln ondansetron 4 mg disintegrating 4 mg PO Q8H PRN nausea and 12/18/21 tablet vomiting 5 days #20 tabs promethazine 6.25 mg-codeine 10 5 ml PO Q4-6H PRN cough #118 mL 12/20/22 mg/5 mL syrup albuterol sulfate 90 mcg/actuation 1 inh inhalation QID PRN shortness 09/12/23 aerosol inhaler of breath or wheezing #18 grams buspirone 5 mg tablet 5 mg PO BID Depression #60 tabs 09/12/23 dicyclomine 20 mg tablet See Rx Instructions .Route 09/12/23 .COMPLEX #90 tabs fluticasone propionate 50 1 spray intranasal DAILY Allergy 09/12/23 mcg/actuation nasal symptoms #16 grams spray,suspension (Flonase Allergy Relief) phenylephrine 0.25 %-cocoa butter 1 supp DE QID #12 ea 09/12/23 88.44 % rectal suppository (Preparation H(phenyleph,cocoa buttr)) phenylephrine 0.25 %-pramoxine 1 1 applic DE QID PRN hemorrhoids 09/12/23 %-glycerin-wh.petrolatum rectal #51 grams cream (Preparation H Maximum Strength) rivaroxaban 20 mg tablet (Xarelto) See Rx Instructions .Route 09/12/23 .COMPLEX Blood thinner #90 tabs fluoxetine 20 mg capsule See Rx Instructions .Route 10/17/23 .COMPLEX #90 caps lisinopril 10 mg tablet See Rx Instructions .Route 10/30/23 .COMPLEX #90 tabs metoprolol tartrate 50 mg tablet See Rx Instructions .Route 10/30/23 .COMPLEX #180 tabs Allergies Allergy/AdvReac Type Severity Reaction Status Date / Time Penicillins [PENICILLINS] Allergy Unknown Verified 09/12/23 15:04 Sulfa (Sulfonamide Allergy Unknown Verified 09/12/23 15:04 Antibiotics) [SULFA (SULFONAMIDE ANTIBIOTICS)] Worker's Comp Is this a Worker's Comp case?: No [facility] Disclaimer: The information contained in this section may have been updated after the patient was seen, as this information can be updated by other users. Medical History Obesity (BMI 30.0-34.9) Osteoarthritis Leg pain Back Pain Hypertension Anxiety Depression Irregular heart beat Hyperlipemia Surgical History H/O section Family History Other No significant family history Social History Smoking Status: Never smoker second hand exposure: No alcohol intake: never substance use type: denies use current occupational status: disabled Travel in the last 8 weeks: None household members: none housing: house current occupational exposures/hazards: No caffeine: Yes ROS Obtained: Yes All systems reviewed & no additional complaints except as documented Constitutional Constitutional: Denies chills and Denies fever(s) Eyes Eyes: Denies eye discharge ENT Ears, Nose, Mouth, and Throat: Denies dizziness, Denies otalgia, Denies neck pain and Denies sore throat Cardiovascular Cardiovascular: Denies chest pain Respiratory Respiratory: Denies shortness of breath, Denies chest congestion, Denies cough, Denies stridor and Denies wheezing Gastrointestinal Gastrointestingal: Denies nausea or vomiting Musculoskeletal Musculoskeletal: Reports as per HPI, Denies back pain, Denies neck pain, Denies numbness and Denies tingling Integumentary/Breasts Skin/Breast: Denies redness, Denies rash and Denies wounds Neurologic Neurologic: Denies dizziness, Denies numbness, Denies paresthesias and Denies tingling Allergic/Immunologic Allergic/Immunologic: Denies wheezing Physical Exam General General appearance: alert and in no apparent distress Head Head exam: atraumatic, normocephalic and normal inspection Eye Eye exam: Present normal appearance, PERRL and EOMI ENT ENT exam: Present normal exam, normal oropharynx, mucous membranes moist, TM's normal bilaterally and normal external ear exam Neck Neck exam: Present normal inspection, full ROM and trachea midline; Absent meningismus or lymphadenopathy Chest Chest inspection: Present normal inspection and symmetric chest wall rise; Absent tenderness Respiratory Respiratory exam: Present normal lung sounds bilaterally; Absent respiratory distress Cardiovascular Cardiovascular exam: Present regular rate and normal rhythm; Absent JVD Abdominal Exam Abdominal exam: Present soft and normal bowel sounds; Absent distention, tenderness or guarding Extremities Exam Extremities exam: Present normal capillary refill; Absent calf tenderness Expanded Lower Extremity Exam Left: Hip/Pelvis exam: Present normal inspection and full ROM; Absent tenderness, pain on hip/pelvis palpation or hip pain on leg movement Upper leg exam: Present normal inspection and full ROM; Absent tenderness, swelling, abrasion, laceration, ecchymosis, deformity, crepitus, dislocation or erythema Knee exam: Present tenderness, swelling, effusion and knee extension intact; Absent full ROM, abrasion, laceration, ecchymosis, deformity, crepitus, dislocation, erythema, anterior drawer sign, posterior draw sign, pain with valgus, laxity with valgus, pain with varus or laxity with varus Lower leg exam: Present full ROM, ecchymosis and Achilles tendon intact; Absent tenderness, swelling, abrasion, laceration, deformity, crepitus, dislocation, erythema, palpable cord or Homans' sign Ankle exam: Present normal inspection and full ROM; Absent tenderness, swelling, abrasion, laceration, ecchymosis, deformity, crepitus, dislocation, erythema, tenderness over talofibular lig or anterior draw sign Foot/toe exam: Present normal inspection and full ROM; Absent tenderness, swelling, abrasion, laceration, ecchymosis, deformity, crepitus, dislocation, erythema, amputation, puncture wound, foreign body, calcaneal tenderness, tenderness at base of 5th metatarsal, nail avulsion or subungual hematoma Neurovascular/Tendon exam: Present normal capillary refill, normal 2-point discrimination and normal fine/light touch; Absent pulse deficit, motor deficit, sensory deficit, tendon deficit, extremity cold to touch or pallor Gait: observed and limited by pain Back Exam Back exam: Present normal inspection; Absent tenderness Neurological Exam Neurological exam: Present alert and oriented X3 Psychiatric Psychiatric exam: Present normal affect and normal mood Skin Skin exam: Present warm, dry, intact and normal color Lymphatic Lymphatic Findings: no adenopathy Medical Decision Making Medical Records Medical records reviewed: No I reviewed the patient's medical records. Christian Inquiry Pt receiving controlled substance: No Vital Signs: 11/08/23 14:34 Temperature 98.2 F Temperature Source Oral Pulse Rate [Radial] 75 Respiratory Rate 16 Blood Pressure [Right Arm] 207/87 H Blood Pressure Mean [Right Arm] 127 Blood Pressure Source [Right Arm] Automatic Cuff Blood Pressure Position [Right Arm] Sitting 02 Sat by Pulse Oximetry 96 Oxygen Delivery Method Room Air Orders (Tests/Meds): ORDERS Category Date Time Status Hip XR left minimum 2 views [XR hip LT 2-3V w/pelvis] Exams 11/08/23 14:32 Ordered Stat XR femur LT 2V Stat Exams 11/08/23 14:32 Ordered XR knee LT 3V Stat Exams 11/08/23 14:32 Ordered
[2023-11-08] MEDS: KETOROLAC 60MG/2ML VIAL 30 MG IM (16:16)
[2023-11-08 16:40] VITALS: BP 164/78; PULSE 77; RESP 16; TEMP 36.8; O2SAT 99
== END 2023-11-08 16:41 | disposition home or self-care (01) ==
PROVIDERS: Emergency Provider Physician Assistant Surgical; PCP Physician Assistant
DX: S83.92XA Sprain of unspecified site of left knee, initial encounter (principal); M25.362 Other instability, left knee; M79.605 Pain in left leg; V48.4XXA Person boarding or alighting a car injured in noncollision transport accident, initial encounter
CPT/HCPCS: 73502; 73552; 73562; 96372; 99212; 99214; G0463; J1885

== ENCOUNTER 2023-12-04 16:08 | Outpatient (CLI) | payer MEDICARE, MEDICAID, SELFPAY | END 2023-12-04 23:59 | disposition home or self-care (01) | LOC: RAD 16:10 | PROVIDERS: PCP Nurse Practitioner Family; Visit Provider Physician Assistant | DX: M25.562 Pain in left knee (principal) ==

== ENCOUNTER 2024-01-31 12:05 | Emergency (ER) | payer MEDICARE, MEDICAID, SELFPAY ==
[2024-01-31] VITALS (9 sets, daily range): BP systolic 189–252; BP diastolic 79–109; PULSE 57–77; RESP 20; TEMP 36.8; O2SAT 93–98; BMI 30.9
--- NOTE | 2024-01-31 12:18 | ED_ITS ---
<Statement entered by Carey Thompson DO - 01/31/24 14:57> I was consulted by the VIVIENNE, and we discussed the complexity of the problems being addressed. I approved the treatment and management plan for this patient's care in the emergency department, thus performing a substantive portion of the medical decision making. Patient arrives severely hypertensive but asymptomatic from this with only complaint of bright red blood per rectum. No evidence of endorgan dysfunction. On medical record review, it looks like dating back as far October, patient had systolics in the 200s. She does not keep track of her blood pressure at home. She was treated here with good improvement in her blood pressure and continued to feel fine with no symptoms. We will plan to increase her home blood pressure medications and have her follow-up closely with primary care for reassessment of this. Strict return precautions were given Carey Thompson DO Discharge Plan Disposition Patient Disposition: Home, Self-Care Condition: Good Prescriptions Prescriptions: New lidocaine 5 % cream 1 applic topical QID PRN (Reason: Hemorrhoid pain) Qty: 15 0RF lisinopril 20 mg tablet 20 mg PO DAILY Qty: 30 0RF No Action promethazine-codeine 6.25-10 mg/5 mL syrup 5 ml PO Q4-6H PRN (Reason: cough) Qty: 118 1RF Preparation H Maximum Strength 0.25-1 % cream 1 applic MN QID PRN (Reason: hemorrhoids) Qty: 51 2RF Preparation H(pe,cb) 0.25-88.44 % suppository 1 supp MN QID Qty: 12 2RF ipratropium-albuterol 0.5 mg-3 mg(2.5 mg base)/3 mL solution for nebulization 3 ml IH TID PRN (Reason: shortness of breath or wheezing) Qty: 180 4RF fluoxetine 20 mg capsule See Rx Instructions .ROUTE .COMPLEX Qty: 90 0RF Dose Instruction: Take 1 capsule by mouth once daily Rx Instructions: Take 1 capsule by mouth once daily metoprolol tartrate 50 mg tablet See Rx Instructions .ROUTE .COMPLEX Qty: 180 0RF Dose Instruction: Take 1 tablet by mouth twice daily Rx Instructions: Take 1 tablet by mouth twice daily lisinopril 10 mg tablet See Rx Instructions .ROUTE .COMPLEX Qty: 90 0RF Dose Instruction: TAKE 1 TABLET BY MOUTH ONCE DAILY FOR HIGH BLOOD PRESSURE Rx Instructions: TAKE 1 TABLET BY MOUTH ONCE DAILY FOR HIGH BLOOD PRESSURE albuterol sulfate 90 mcg/actuation HFA aerosol inhaler 1 inh INHALATION QID PRN (Reason: shortness of breath or wheezing) Qty: 18 10RF buspirone 5 mg tablet 5 mg PO BID Qty: 60 2RF dicyclomine 20 mg tablet See Rx Instructions .ROUTE .COMPLEX Qty: 90 3RF Dose Instruction: TAKE 1 TABLET BY MOUTH THREE TIMES DAILY NEEDED FOR ABDOMINAL PAIN Rx Instructions: TAKE 1 TABLET BY MOUTH THREE TIMES DAILY NEEDED FOR ABDOMINAL PAIN fluticasone propionate [Flonase Allergy Relief] 50 mcg/actuation spray,suspension 1 spray intranasal DAILY Qty: 16 1RF Rx Instructions: administer into each nostril Xarelto 20 mg tablet See Rx Instructions .ROUTE .COMPLEX Qty: 90 2RF Rx Instructions: TAKE ONE TABLET BY MOUTH EVERY DAY ondansetron 4 mg tablet,disintegrating 4 mg PO Q8H PRN (Reason: nausea and vomiting) 5 Days Qty: 20 0RF Referrals Follow up/Referrals: Jones Santos APRN [Primary Care Provider] - See instructions Leon Al II, MD [Staff Physician] - See instructions (Hemorrhoids) Danis Dean MD [Staff Physician] - See instructions (Uncontrolled hypertension) Activity Restrictions/Add. Instructions Additional Instructions/Restrictions: As we discussed I am referring you both to cardiology and gastroenterology. Please call tomorrow make an appointment. I have sent a topical medication in for your hemorrhoids. I have also increased your lisinopril to 20 mg a day. You may double your current 10 mg pills until your new prescription takes effect. You may use a thin application every 6 hours only on the external areas not internal. For any worsening signs or symptoms follow-up with your PCP or return to the ER as needed Clinical Impressions Clinical Impression: Hypertension, uncontrolled, Hemorrhoids Print Language Print Language: Mauritanian Discharge ED Provider: Carey Thompson General Adult HPI General Chief complaint: Dizziness Stated complaint: lost blood with urine Time Seen by Provider: 01/31/24 12:18 History of Present Illness HPI narrative: Patient presents for evaluation of bright red blood per rectum. Patient also reports that she has been having dizziness. Patient has a known history of hemorrhoids and reports that when she got up from the toilet from urinating she noticed bright red blood in the toilet bowl. She also reports that she has been having significant rectal pain but is kind of elusive on the timeframe. Review of her chart shows that she has actually been having bleeding hemorrhoids going back several months but to date has not followed up with gastroenterology that she was referred to. Patient also reports that she has been having some dizziness that predates the bleeding today. At the time of arrival patient significantly hypertensive but currently denies chest pain or dyspnea does not check her blood pressure at home routinely and notes that she does not know if her blood pressures been running high lately or not. Otherwise she has no fever chills hemoptysis melena nausea vomiting diarrhea. Related Data Previous Rx's ?Medication ?Instructions ?Recorded ipratropium 0.5 mg-albuterol 3 mg 3 ml inhalation TID PRN shortness 10/13/21 (2.5 mg base)/3 mL nebulization of breath or wheezing #180 mL soln ondansetron 4 mg disintegrating 4 mg PO Q8H PRN nausea and 12/18/21 tablet vomiting 5 days #20 tabs promethazine 6.25 mg-codeine 10 5 ml PO Q4-6H PRN cough #118 mL 12/20/22 mg/5 mL syrup phenylephrine 0.25 %-cocoa butter 1 supp MN QID #12 ea 09/12/23 88.44 % rectal suppository (Preparation H(phenyleph,cocoa buttr)) phenylephrine 0.25 %-pramoxine 1 1 applic MN QID PRN hemorrhoids 09/12/23 %-glycerin-wh.petrolatum rectal #51 grams cream (Preparation H Maximum Strength) fluoxetine 20 mg capsule See Rx Instructions .Route 01/17/24 .COMPLEX #90 caps lisinopril 10 mg tablet See Rx Instructions .Route 01/17/24 .COMPLEX #90 tabs metoprolol tartrate 50 mg tablet See Rx Instructions .Route 01/17/24 .COMPLEX #180 tabs albuterol sulfate 90 mcg/actuation 1 inh inhalation QID PRN shortness 01/28/24 aerosol inhaler of breath or wheezing #18 grams buspirone 5 mg tablet 5 mg PO BID Depression #60 tabs 01/28/24 dicyclomine 20 mg tablet See Rx Instructions .Route 01/28/24 .COMPLEX #90 tabs fluticasone propionate 50 1 spray intranasal DAILY Allergy 01/28/24 mcg/actuation nasal symptoms #16 grams spray,suspension (Flonase Allergy Relief) rivaroxaban 20 mg tablet (Xarelto) See Rx Instructions .Route 01/28/24 .COMPLEX Blood thinner #90 tabs lidocaine 5 % topical cream 1 applic topical QID PRN 01/31/24 Hemorrhoid pain #15 grams lisinopril 20 mg tablet 20 mg PO DAILY #30 tabs 01/31/24 Allergies Allergy/AdvReac Type Severity Reaction Status Date / Time Penicillins (PENICILLINS) Allergy Unknown Verified 11/20/23 09:44 Sulfa (Sulfonamide Allergy Unknown Verified 11/20/23 09:44 Antibiotics) (SULFA (SULFONAMIDE ANTIBIOTICS)) [facility] Disclaimer: The information contained in this section may have been updated after the patient was seen, as this information can be updated by other users. Medical History Obesity (BMI 30.0-34.9) Osteoarthritis Leg pain Back Pain Hypertension Anxiety Depression Irregular heart beat Hyperlipemia Surgical History H/O section Family History Other No significant family history Social History Smoking Status: Never smoker second hand exposure: No alcohol intake: never substance use type: denies use current occupational status: disabled Travel in the last 8 weeks: None household members: none housing: house current occupational exposures/hazards: No caffeine: Yes Other Medical History Have you received the Flu Vaccine for this season: No Have you received the Pneumonia Vaccine: No ROS Obtained: Yes Systems reviewed as appropriate & no additional complaints except as documented Physical Exam General General appearance: alert and in no apparent distress Respiratory Respiratory exam: Present normal lung sounds bilaterally Cardiovascular Cardiovascular exam: Present regular rate Neurological Exam Neurological exam: Present alert and oriented X3 Medical Decision Making Medical Records Medical records reviewed: Yes I reviewed the patient's medical records. Screening: Per USPSTF and CDC recommendations, given the prevalence of disease in our region, it is our hospital?s policy to screen for HIV and viral Hepatitis for all patients aged 18 and over and those with ongoing risk factors. Christian Inquiry Pt receiving controlled substance: No Vital Signs: 01/31/24 12:07 01/31/24 12:34 01/31/24 13:00 Temperature 98.2 F Temperature Source Oral Pulse Rate 70 70 Pulse Rate [Right Radial] 77 Respiratory Rate 20 Blood Pressure 234/96 H 214/92 H Blood Pressure [Right Arm] 213/109 H Blood Pressure Mean 142 132 Blood Pressure Mean [Right Arm] 143 02 Sat by Pulse Oximetry 93 L 96 95 Oxygen Delivery Method Room Air 01/31/24 13:12 01/31/24 13:30 01/31/24 14:01 Temperature Temperature Source Pulse Rate 70 57 L 68 Pulse Rate [Right Radial] Respiratory Rate Blood Pressure 230/95 H 250/98 H 252/99 H Blood Pressure [Right Arm] Blood Pressure Mean 140 131 137 Blood Pressure Mean [Right Arm] 02 Sat by Pulse Oximetry 95 94 L 93 L Oxygen Delivery Method 01/31/24 14:10 Temperature Temperature Source Pulse Rate 67 Pulse Rate [Right Radial] Respiratory Rate Blood Pressure 222/95 H Blood Pressure [Right Arm] Blood Pressure Mean 139 Blood Pressure Mean [Right Arm] 02 Sat by Pulse Oximetry 93 L Oxygen Delivery Method Lab Data Lab results reviewed: Yes I reviewed the patient's lab results. Lab Results 01/31/24 12:55: WBC 8.5, RBC 4.53, Hgb 14.0, Hct 42.2, MCV 93.2, MCH 30.9, MCHC 33.1, RDW 14.4, Plt Count 138 L, MPV 8.4, Neut % (Auto) 60.4, Lymph % (Auto) 29.9, [place] % (Auto) 6.6, Eos % (Auto) 2.3, Baso % (Auto) 0.8, Neut # (Auto) 5.1, Lymph # (Auto) 2.5, [place] # (Auto) 0.6, Eos # (Auto) 0.2, Baso # (Auto) 0.1, Sodium 139, Potassium 3.7, Chloride 107, Carbon Dioxide 25, Anion Gap 10.7, BUN 14, Creatinine 0.70, Estimated Creat Clear 63, Estimated GFR 82, Est GFR ( Amer) 99, Glucose 104 H, Calcium 9.1, Total Bilirubin 0.7, AST 38 H, ALT 26, Alkaline Phosphatase 56, Troponin I < 0.01, Total Protein 7.4, Albumin 3.9, Globulin 3.5 H, Albumin/Globulin Ratio 1.1, TSH 2.02, Free T4 Index 2.5 L, Thyroxine (T4) 7.8, T3 Uptake 32 01/31/24 12:55 01/31/24 12:55 Orders (Tests/Meds): ED MEDICATIONS Generic Name Dose Route Start Last Admin Trade Name Freq PRN Reason Stop Dose Admin Wityara Otero 1 each 01/31/24 12:41 01/31/24 13:08 Witch Shabbir 40 Pads/Box TP 03/01/24 12:40 1 each NEEDED PRN Administration Hemorrhoids Discontinued Medications Generic Name Dose Route Start Last Admin Trade Name Freq PRN Reason Stop Dose Admin Acetaminophen 1,000 mg 01/31/24 12:42 01/31/24 12:46 Acetaminophen 500mg Tab PO 01/31/24 12:43 1,000 mg ONCE ONE Administration Hydralazine HCl 10 mg 01/31/24 14:08 01/31/24 14:14 Hydralazine 20mg/Ml Vial IV 01/31/24 14:09 10 mg ONCE ONE Administration Oxycodone HCl 5 mg 01/31/24 12:42 01/31/24 12:46 Oxycodone 5mg Immediate Release Tablet PO 01/31/24 12:43 5 mg ONCE ONE Administration ORDERS Category Date Time Status CBC w/Auto Diff [Complete Blood Count Auto Diff] Stat Lab 01/31/24 12:55 Completed CMP [Comprehensive Metabolic Panel] Stat Lab 01/31/24 12:55 Completed Thyroid Panel Stat Lab 01/31/24 12:55 Completed Trop I [Troponin I] Stat Lab 01/31/24 12:55 Completed Troponin I Q3H Lab 01/31/24 15:45 Ordered Troponin I Q3H Lab 01/31/24 18:45 Ordered Medical Decision Narrative: In summary patient is a 73-year-old female who presents to the emergency department for evaluation of bright red blood per rectum and uncontrolled hypertension. Patient is significantly hypertensive with a blood pressure of 2 70/115 at the time of my exam that I personally confirmed with a manual blood pressure cuff but with a heart rate of 77 breathing 20 times a minute satting at 93% on room air upon arrival, and afebrile. Physical exam reveals several enlarged painful to touch external hemorrhoids primarily on the right side and digital rectal exam reveals nonpainful anterior and large internal hemorrhoid. There is no current bleeding noted. Patient has normal breath sounds normal heart sounds and no abdominal tenderness to palpation. Patient's Glascow coma score is 15 she awake alert and oriented to person place and circumstance graft cranial nerves are intact grossly to exam and no focal neurologic deficits.. Differential diagnosis includes acute blood loss anemia versus bleeding hemorrhoids versus uncontrolled hypertension etc. Initial workup will be conducted with hematologic labs. Initial interventions include witch shabbir pads. Initial workup reviewed by me shows that her hematologic labs are reassuringly stable and nonactionable. Upon repeat evaluation patient actually had significant reduction in her discomfort after which shabbir however she continued to remain significantly hypertensive over 200 systolic and 100 diastolic. Given this we gave the patient 10 mg of hydralazine which brought her blood pressure down to 179/86 and thus she is appropriate for discharge with change in her home regimen increasing her lisinopril to 20 mg a day for now, referred to cardiology for ongoing management of her blood pressure and referred to gastroenterology for further evaluation management of her hemorrhoids. Critical Care Critical Care Time Critical Care Time: No
[2024-01-31] MEDS: ACETAMINOPHEN 500MG TAB 1000 MG PO (12:46)
[2024-01-31] MEDS: OXYCODONE 5MG IMMEDIATE RELEASE TABLET 5 MG PO (12:46)
[2024-01-31] MEDS: WITCH HAZEL 40 PADS/BOX 1 EACH TP (13:08)
[2024-01-31 13:18] LABS: Basophils # 0.1 K/mm3 (0-0.2); Basophils % 0.8 % (0.1-2.0); Eosinophils # 0.2 K/mm3 (0.0-0.4); Eosinophils % 2.3 % (0.1-12.0); Hematocrit 42.2 % (37.0-47.0); Lymphocytes # 2.5 K/mm3 (0.7-4.5); Lymphocytes % 29.9 % (10-50); Mean Corpuscular HGB Conc 33.1 g/dL (31.8-35.4); Mean Corpuscular Hemoglobin 30.9 pg (27.0-31.2); Mean Corpuscular Volume 93.2 fl (81-99); Mean Platelet Volume 8.4 fl (7.4-10.4); Monocytes # 0.6 K/mm3 (0.1-1.0); Monocytes % 6.6 % (1.7-9.3); Neutrophils # 5.1 K/mm3 (1.8-7.8); Neutrophils % 60.4 % (37.0-80.0); Platelet Count 138 K/mm3 (142-424); Red Blood Count 4.53 M/mm3 (4.20-5.40); Red Cell Distribution Width 14.4 % (11.5-17.5); White Blood Count 8.5 K/mm3 (4.8-10.8)
[2024-01-31 13:22] LABS: Alanine Aminotransferase 26 U/L (12-78); Albumin Level 3.9 g/dl (3.5-5.0); Albumin/Globulin Ratio 1.1 (1.1-1.8); Alkaline Phosphatase 56 U/L (38-126); Aspartate Amino Transferase 38 U/L (14-36); Bilirubin,Total 0.7 mg/dl (0.2-1.3); Blood Urea Nitrogen 14 mg/dl (7-17); Calcium 9.1 mg/dl (8.4-10.2); Carbon Dioxide 25 mmol/L (22.0-30.0); Chloride 107 mmol/L (98-107); Creatinine Clearance Estimated 63 mL/min (50-200); Estimated Glomerular Filt Rate 82 ml/min (>60); GFR (African American) 99 ML/MIN (>60); Globulin 3.5 g/dL (1.3-3.2); Glucose 104 mg/dl (74-100); Sodium 139 mmol/L (136-145); Total Protein,Serum 7.4 g/dl (6.3-8.2)
[2024-01-31 13:37] LABS: Troponin I < 0.01 ng/ml (0.00-0.034)
[2024-01-31 13:40] LABS: Anion Gap 10.7 mEq/L (5-15); Free Thyroxine Index 2.5 ug/dL (5.93-13.13); Potassium 3.7 mmoL/L (3.5-5.1); T4 (Thyroxine) 7.8 ug/dl (5.53-11.0); Triiodothryronine (T3) Uptake 32 % (23.5-40.5)
[2024-01-31 13:54] LABS: Thyroid Stimulating Hormone 2.02 uIU/mL (0.465-4.68)
[2024-01-31] MEDS: HYDRALAZINE 20MG/ML VIAL 10 MG IV (14:14)
[2024-01-31 17:50] LABS: Occult Blood,Stool Negative (Negative)
== END 2024-01-31 14:42 | disposition home or self-care (01) ==
PROVIDERS: Physician Assistant; Emergency Provider Emergency Medicine; PCP Nurse Practitioner Family
DX: K64.9 Unspecified hemorrhoids (principal); I10 Essential (primary) hypertension; R42 Dizziness and giddiness; R31.9 Hematuria, unspecified; K62.5 Hemorrhage of anus and rectum
CPT/HCPCS: 80050; 80053; 82272; 84436; 84443; 84479; 84484; 85025; 96374; 99283; G0328; J0360

== ENCOUNTER 2024-02-06 13:53 | Outpatient (CLI) | payer MEDICARE, MEDICAID, SELFPAY ==
[2024-02-06 14:33] LABS: Basophils # 0.1 K/mm3 (0-0.2); Basophils % 0.9 % (0.1-2.0); Eosinophils # 0.2 K/mm3 (0.0-0.4); Eosinophils % 2.9 % (0.1-12.0); Hematocrit 43.4 % (37.0-47.0); Hemoglobin 14.2 g/dL (12.2-16.2); Lymphocytes % 35.5 % (10-50); Mean Corpuscular HGB Conc 32.6 g/dL (31.8-35.4); Mean Corpuscular Hemoglobin 30.2 pg (27.0-31.2); Mean Corpuscular Volume 92.7 fl (81-99); Mean Platelet Volume 8.3 fl (7.4-10.4); Monocytes # 0.7 K/mm3 (0.1-1.0); Neutrophils # 4.4 K/mm3 (1.8-7.8); Neutrophils % 52.7 % (37.0-80.0); Platelet Count 168 K/mm3 (142-424); Red Blood Count 4.68 M/mm3 (4.20-5.40); Red Cell Distribution Width 14.5 % (11.5-17.5); White Blood Count 8.4 K/mm3 (4.8-10.8)
[2024-02-06 14:57] LABS: Albumin Level 4.1 g/dl (3.5-5.0); Chloride 109 mmol/L (98-107)
[2024-02-06 14:58] LABS: Potassium 4.1 mmoL/L (3.5-5.1); Sodium 136 mmol/L (136-145)
[2024-02-06 15:00] LABS: Alanine Aminotransferase 26 U/L (12-78); Anion Gap 7.1 mEq/L (5-15); Aspartate Amino Transferase 40 U/L (14-36); Bilirubin,Unconjugated 0.5 mg/dL (0.0-1.1); Blood Urea Nitrogen 19 mg/dl (7-17); Carbon Dioxide 24 mmol/L (22.0-30.0); Estimated Glomerular Filt Rate 61 ml/min (>60); GFR (African American) 74 ML/MIN (>60); Total Protein,Serum 7.5 g/dl (6.3-8.2)
[2024-02-06 15:01] LABS: Alkaline Phosphatase 50 U/L (38-126); Bilirubin,Direct 0.3 mg/dl (0.0-0.4); Bilirubin,Indirect 0.5 mg/dL (0.0-0.9); Bilirubin,Total 0.8 mg/dl (0.2-1.3); Calcium 9.5 mg/dl (8.4-10.2); Chol/HDL Ratio 5.9 (1-3.5); Cholesterol 223 mg/dl (140-200); Glucose 106 mg/dl (74-100); HDL Cholesterol 38 mg/dl (40-60); Triglycerides 398 mg/dl (30-150); VLDL Cholesterol 80 mg/dL (0-40)
[2024-02-06 15:11] LABS: Direct LDL Cholesterol 90.83 mg/dL (100-129)
[2024-02-06 15:46] LABS: Free T4 (Free Thyroxine) 0.87 ng/dl (0.78-2.19)
== END 2024-02-06 23:59 | disposition home or self-care (01) ==
LOC: LAB 13:55
PROVIDERS: PCP Nurse Practitioner Family; Visit Provider Internal Medicine
DX: I10 Essential (primary) hypertension (principal); E78.5 Hyperlipidemia, unspecified
CPT/HCPCS: 36415; 80048; 80061; 80076; 84439; 84443; 85025

== ENCOUNTER 2024-02-19 12:02 | Observation (INO) | payer MEDICARE, MEDICAID, SELFPAY ==
[2024-02-19] VITALS (13 sets, daily range): BP systolic 142–254; BP diastolic 73–108; PULSE 58–66; RESP 16–18; TEMP 36.6–36.7; O2SAT 92–96; BMI 28.3; BMI 27.6
--- NOTE | 2024-02-19 12:10 | ECG_ITS ---
APPROVED REPORT Exam: Resting ECG HR:58 bpm ECG Measurements Heart Rate 58 AXES WI 206 P 78 QRSd 89 QRS -2 QT 410 T 68 QTc 407 Conclusion SINUS BRADYCARDIA POSSIBLE RIGHT VENTRICULAR CONDUCTION DELAY [RSR (QR) IN V1/V2] BORDERLINE ECG Electronically signed by : ELAN ESTRELLA, 02/19/2024 15:37:41
--- NOTE | 2024-02-19 12:35 | ED_ITS ---
Discharge Plan Disposition Patient Disposition: Admitted Condition: Fair Prescriptions Prescriptions: No Action promethazine-codeine 6.25-10 mg/5 mL syrup 5 ml PO Q4-6H PRN (Reason: cough) Qty: 118 1RF Preparation H Maximum Strength 0.25-1 % cream 1 applic [place] QID PRN (Reason: hemorrhoids) Qty: 51 2RF Preparation H(pe,cb) 0.25-88.44 % suppository 1 supp [place] QID Qty: 12 2RF lisinopril 20 mg tablet 20 mg PO DAILY Qty: 30 5RF ipratropium-albuterol 0.5 mg-3 mg(2.5 mg base)/3 mL solution for nebulization 3 ml IH TID PRN (Reason: shortness of breath or wheezing) Qty: 180 4RF fluoxetine 20 mg capsule See Rx Instructions .ROUTE .COMPLEX Qty: 90 0RF Dose Instruction: Take 1 capsule by mouth once daily Rx Instructions: Take 1 capsule by mouth once daily metoprolol tartrate 50 mg tablet See Rx Instructions .ROUTE .COMPLEX Qty: 180 0RF Dose Instruction: Take 1 tablet by mouth twice daily Rx Instructions: Take 1 tablet by mouth twice daily albuterol sulfate 90 mcg/actuation HFA aerosol inhaler 1 inh INHALATION QID PRN (Reason: shortness of breath or wheezing) Qty: 18 10RF buspirone 5 mg tablet 5 mg PO BID Qty: 60 2RF dicyclomine 20 mg tablet See Rx Instructions .ROUTE .COMPLEX Qty: 90 3RF Dose Instruction: TAKE 1 TABLET BY MOUTH THREE TIMES DAILY NEEDED FOR ABDOMINAL PAIN Rx Instructions: TAKE 1 TABLET BY MOUTH THREE TIMES DAILY NEEDED FOR ABDOMINAL PAIN fluticasone propionate [Flonase Allergy Relief] 50 mcg/actuation spray,suspension 1 spray intranasal DAILY Qty: 16 1RF Rx Instructions: administer into each nostril Xarelto 20 mg tablet See Rx Instructions .ROUTE .COMPLEX Qty: 90 2RF Rx Instructions: TAKE ONE TABLET BY MOUTH EVERY DAY lidocaine 5 % cream 1 applic topical QID PRN (Reason: Hemorrhoid pain) Qty: 15 0RF ondansetron 4 mg tablet,disintegrating 4 mg PO Q8H PRN (Reason: nausea and vomiting) 5 Days Qty: 20 0RF Referrals Follow up/Referrals: Jones Santos APRN [Primary Care Provider] - See instructions Clinical Impressions Clinical Impression: Severe uncontrolled hypertension Print Language Print Language: Nigerien Discharge ED Provider: Jona Schmitt General Adult HPI <MOSES Prado - Last Filed: 02/19/24 15:04> General Chief complaint: Headache Stated complaint: high b/p Time Seen by Provider: 02/19/24 12:07 History of Present Illness HPI narrative: Patient presents for evaluation of headache, dizziness, uncontrolled hypertension. I saw the patient on 01/31/2024 for similar complaints. I spoke with Dr. Oscar during that visit and we increased her home dose of blood pressure medication. Patient has since had an interval follow-up in the cardiology clinic where renal ultrasound and duplex were ordered but have not yet been completed. Patient states that she began feeling intermittently dizzy today along with a headache and took her blood pressure noted that it was over 200 and hence presented to the emerged part for evaluation. She denies chest pain shortness of breath fever chills hemoptysis hematochezia melena nausea vomiting diarrhea loss of motor or sensory. Related Data Previous Rx's ?Medication ?Instructions ?Recorded ipratropium 0.5 mg-albuterol 3 mg 3 ml inhalation TID PRN shortness 10/13/21 (2.5 mg base)/3 mL nebulization of breath or wheezing #180 mL soln ondansetron 4 mg disintegrating 4 mg PO Q8H PRN nausea and 12/18/21 tablet vomiting 5 days #20 tabs promethazine 6.25 mg-codeine 10 5 ml PO Q4-6H PRN cough #118 mL 12/20/22 mg/5 mL syrup phenylephrine 0.25 %-cocoa butter 1 supp [place] QID #12 ea 09/12/23 88.44 % rectal suppository (Preparation H(phenyleph,cocoa buttr)) phenylephrine 0.25 %-pramoxine 1 1 applic [place] QID PRN hemorrhoids 09/12/23 %-glycerin-wh.petrolatum rectal #51 grams cream (Preparation H Maximum Strength) fluoxetine 20 mg capsule See Rx Instructions .Route 01/17/24 .COMPLEX #90 caps metoprolol tartrate 50 mg tablet See Rx Instructions .Route 01/17/24 .COMPLEX #180 tabs albuterol sulfate 90 mcg/actuation 1 inh inhalation QID PRN shortness 01/28/24 aerosol inhaler of breath or wheezing #18 grams buspirone 5 mg tablet 5 mg PO BID Depression #60 tabs 01/28/24 dicyclomine 20 mg tablet See Rx Instructions .Route 01/28/24 .COMPLEX #90 tabs fluticasone propionate 50 1 spray intranasal DAILY Allergy 01/28/24 mcg/actuation nasal symptoms #16 grams spray,suspension (Flonase Allergy Relief) rivaroxaban 20 mg tablet (Xarelto) See Rx Instructions .Route 01/28/24 .COMPLEX Blood thinner #90 tabs lidocaine 5 % topical cream 1 applic topical QID PRN 01/31/24 Hemorrhoid pain #15 grams lisinopril 20 mg tablet 20 mg PO DAILY #30 tabs 02/06/24 Allergies Allergy/AdvReac Type Severity Reaction Status Date / Time Penicillins (PENICILLINS) Allergy Unknown Verified 02/06/24 14:24 Sulfa (Sulfonamide Allergy Unknown Verified 02/06/24 14:24 Antibiotics) (SULFA (SULFONAMIDE ANTIBIOTICS)) [facility] <MOSES Prado - Last Filed: 02/19/24 15:04> [facility] Disclaimer: The information contained in this section may have been updated after the patient was seen, as this information can be updated by other users. Medical History DVT (deep venous thrombosis) Obesity (BMI 30.0-34.9) Osteoarthritis Leg pain Back Pain Hypertension Anxiety Depression Irregular heart beat Hyperlipemia Surgical History H/O section Family History No significant family history Social History Smoking Status: Former smoker second hand exposure: No alcohol intake: never substance use type: denies use current occupational status: disabled Travel in the last 8 weeks: None household members: none housing: house current occupational exposures/hazards: No caffeine: Yes Have you lived/traveled outside [place] in past 30 days?: No Contact w/someone who lives/traveled outside US past 30 days?: No Exposure to someone with infectious disease in past 14 days?: No Do you have a fever (greater than 100.4 F or 38 C)?: No Have you tested positive for COVID-19: No Exposed to someone with COVID-19 in past 14 days?: No Do you have a sore throat?: No Do you have a cough?: No Do you have any weakness?: No Do you have any diarrhea?: No Are you experiencing any unusual bleeding?: No Do you have any muscle aches/pain?: No Do you have any abdominal pain?: No Are you experiencing loss of taste or smell?: No Other Medical History Have you received the Flu Vaccine for this season: No Have you received the Pneumonia Vaccine: No <MOSES Prado - Last Filed: 02/19/24 15:04> ROS Obtained: Yes Systems reviewed as appropriate & no additional complaints except as documented Physical Exam <MOSES Prado - Last Filed: 02/19/24 15:04> General General appearance: alert and in no apparent distress Head Head exam: atraumatic and normal inspection Eye Eye exam: Present normal appearance, PERRL and EOMI ENT ENT exam: Present normal exam, normal oropharynx and mucous membranes moist Neck Neck exam: Present normal inspection, full ROM and trachea midline; Absent lymphadenopathy Chest Chest inspection: Present normal inspection and symmetric chest wall rise Respiratory Respiratory exam: Present normal lung sounds bilaterally Cardiovascular Cardiovascular exam: Present regular rate Abdominal Exam Abdominal exam: Present soft and normal bowel sounds; Absent tenderness, guarding or rebound Extremities Exam Extremities exam: Present normal inspection and full ROM Neurological Exam Neurological exam: Present alert and oriented X3 Psychiatric Psychiatric exam: Present normal affect and normal mood Skin Skin exam: Present warm, dry and normal color Lymphatic Lymphatic Findings: no adenopathy Medical Decision Making <MOSES Prado - Last Filed: 02/19/24 15:04> Medical Records Medical records reviewed: Yes I reviewed the patient's medical records. Screening: Per USPSTF and CDC recommendations, given the prevalence of disease in our region, it is our hospital?s policy to screen for HIV and viral Hepatitis for all patients aged 18 and over and those with ongoing risk factors. Christian Inquiry Pt receiving controlled substance: No Vital Signs: 02/19/24 12:03 02/19/24 12:31 02/19/24 12:41 Temperature 97.9 F Temperature Source Oral Pulse Rate 61 58 L Pulse Rate [Left] 60 Respiratory Rate 16 Blood Pressure 221/86 H 185/79 H Blood Pressure [Right Arm] 200/89 H Blood Pressure Mean [Right Arm] 126 Blood Pressure Source Blood Pressure Source [Right Arm] Automatic Cuff Blood Pressure Position Blood Pressure Position [Right Arm] Sitting 02 Sat by Pulse Oximetry 95 93 L 96 Oxygen Delivery Method Room Air Room Air Room Air 02/19/24 13:00 02/19/24 13:39 02/19/24 13:50 Temperature Temperature Source Pulse Rate 62 64 58 L Pulse Rate [Left] Respiratory Rate Blood Pressure 201/76 H 254/93 H 229/88 H Blood Pressure [Right Arm] Blood Pressure Mean [Right Arm] Blood Pressure Source Blood Pressure Source [Right Arm] Blood Pressure Position Blood Pressure Position [Right Arm] 02 Sat by Pulse Oximetry 95 94 L 94 L Oxygen Delivery Method 02/19/24 14:02 02/19/24 14:05 02/19/24 14:31 Temperature Temperature Source Pulse Rate 66 59 L Pulse Rate [Left] Respiratory Rate Blood Pressure 238/93 H 220/88 H 218/78 H Blood Pressure [Right Arm] Blood Pressure Mean [Right Arm] Blood Pressure Source Manual Cuff/ Auscultation Blood Pressure Source [Right Arm] Blood Pressure Position Sitting Blood Pressure Position [Right Arm] 02 Sat by Pulse Oximetry 92 L 96 Oxygen Delivery Method Room Air Room Air 02/19/24 15:01 Temperature Temperature Source Pulse Rate 63 Pulse Rate [Left] Respiratory Rate Blood Pressure 216/87 H Blood Pressure [Right Arm] Blood Pressure Mean [Right Arm] Blood Pressure Source Blood Pressure Source [Right Arm] Blood Pressure Position Blood Pressure Position [Right Arm] 02 Sat by Pulse Oximetry 95 Oxygen Delivery Method Room Air Lab Data Lab results reviewed: Yes I reviewed the patient's lab results. Lab Results 02/19/24 12:30: WBC 7.9, RBC 4.70, Hgb 14.2, Hct 43.6, MCV 92.8, MCH 30.2, MCHC 32.6, RDW 13.8, Plt Count 162, MPV 10.1, Neut % (Auto) 52.2, Lymph % (Auto) 35.4, [place] % (Auto) 8.7, Eos % (Auto) 2.8, Baso % (Auto) 0.6, Neut # (Auto) 4.1, Lymph # (Auto) 2.8, [place] # (Auto) 0.7, Eos # (Auto) 0.2, Baso # (Auto) 0.1, PT 11.6, INR 1.04, Sodium 136, Potassium 4.8, Chloride 105, Carbon Dioxide 25, Anion Gap 10.8, BUN 14, Creatinine 0.80, Estimated Creat Clear 57, Estimated GFR 70, Est GFR ( Amer) 85, Glucose 106 H, Calcium 9.4, Magnesium 2.0, Total Bilirubin 0.9, AST 40 H, ALT 26, Alkaline Phosphatase 51, NT-Pro-B Natriuret Pep 158, Total Protein 7.9, Albumin 4.2, Globulin 3.7 H, Albumin/Globulin Ratio 1.1 02/19/24 12:30 02/19/24 12:30 Orders (Tests/Meds): ED MEDICATIONS Generic Name Dose Route Start Last Admin Trade Name Freq PRN Reason Stop Dose Admin Carvedilol 25 mg 02/19/24 21:00 Carvedilol 25mg Tablet PO 03/20/24 20:59 BID [facility] Nicardipine HCl 25 mg/ Sodium 250 mls @ 50 mls/hr 02/19/24 14:22 02/19/24 14:56 Chloride IV 03/20/24 14:21 Not Given .Q5H [facility] Protocol 5 MG/HR Irbesartan 150 mg 02/20/24 09:00 Irbesartan 150mg Tab PO 03/21/24 08:59 BID [facility] Discontinued Medications Generic Name Dose Route Start Last Admin Trade Name Freq PRN Reason Stop Dose Admin Acetaminophen 1,000 mg 02/19/24 12:38 02/19/24 12:43 Acetaminophen 1,000mg/100ml Vial IV 02/19/24 12:39 1,000 mg ONCE ONE Administration Iopamidol 80 ml 02/19/24 13:37 02/19/24 13:38 Iopamidol-370 (76%);100ml Bottle IV 02/19/24 13:38 80 ml ONCE ONE Administration Irbesartan 150 mg 02/19/24 21:00 Irbesartan 150mg Tab PO 03/20/24 20:59 BID [facility] Irbesartan 75 mg 02/19/24 14:53 Irbesartan 75mg Tablet PO 02/19/24 14:54 ONCE ONE Sodium Chloride 10 ml 12/24/24 13:37 02/19/24 13:38 Sodium Chloride 0.9% 10ml Syr (Rad Only) IV 02/19/24 13:38 10 ml ONCE ONE Administration Sodium Chloride 50 ml 02/19/24 13:37 02/19/24 13:37 0.9 % Sodium Chloride 50 Ml Vial IV 02/19/24 13:38 50 ml ONCE ONE Administration ORDERS Category Date Time Status CT angio head Stat Cat Scan 02/19/24 12:[address] angio neck Stat Cat Scan 02/19/24 12:[address] head/brain wo con Stat Cat Scan 02/19/24 12:38 Completed Consult to Physician [CONS] Routine Cons 02/19/24 14:50 Ordered BNP [NT Pro Brain Natriuretic Pep.] Stat Lab 02/19/24 12:30 Completed CBC w/Auto Diff [Complete Blood Count Auto Diff] Stat Lab 02/19/24 12:30 Completed CMP [Comprehensive Metabolic Panel] Stat Lab 02/19/24 12:30 Completed Complete Blood Count Auto Diff AMLAB Lab 02/20/24 06:00 Ordered Comprehensive Metabolic Panel AMLAB Lab 02/20/24 06:00 Ordered INR [Prothrombin Time INR] Stat Lab 02/19/24 12:30 Completed Magnesium AMLAB Lab 02/20/24 06:00 Ordered Magnesium Stat Lab 02/19/24 12:30 Completed HEART Score History (anamnesis): Slightly suspicious ECG: Normal Age: >65 years Risk factors: Atherosclerosis history Troponin: </= normal limit HEART Score: 4 Medical Decision Narrative: In summary patient is a 73-year-old female who presents to the emergency department for evaluation of uncontrolled hypertension, headache and dizziness.. Patient is on arrival with a blood pressure of 200/89 breathing 16 times a minute with a pulse of 60 satting at 95% on room air upon arrival, afebrile. Physical exam is essentially unremarkable and nonfocal but more specifically patient has normal neurologic exam with normal cranial nerve exam awake alert and oriented person place and circumstance pupils are equal round reactive to light, breath sounds are clear and equal bilaterally to the bases without adventitious sounds. There is no nuchal rigidity, there is no C-spine or dorsal spine tenderness.. Differential diagnosis includes uncontrolled hypertension versus press syndrome versus cardiovascular disease etc t. Initial workup will be conducted with hematologic labs CT scan of the head without contrast and CTA of the head neck with contrast. Initial interventions include Tylenol for now until workup is complete. Initial workup reviewed by me shows that her hematologic labs are nonactionable including a negative troponin and inform interpretation of her imaging shows mild to moderate atherosclerotic cardiovascular disease in the head and neck but no severe large vessel occlusion or stenosis.. Upon repeat evaluation patient remains hypertensive despite moderate interventions and still complains of headache.. Given this I had interactive discussion with hospital medicine regarding patient management and we discussed whether we should initiate Cardene given her cardiovascular disease and her head. Dr. Gamez does not want to initiate Cardene at this point and will admit the patient for slower blood pressure lowering over time. <Jona Schmitt MD - Last Filed: 02/19/24 15:09> Vital Signs: 02/19/24 12:03 02/19/24 12:31 02/19/24 12:41 Temperature 97.9 F Temperature Source Oral Pulse Rate 61 58 L Pulse Rate [Left] 60 Respiratory Rate 16 Blood Pressure 221/86 H 185/79 H Blood Pressure [Right Arm] 200/89 H Blood Pressure Mean [Right Arm] 126 Blood Pressure Source Blood Pressure Source [Right Arm] Automatic Cuff Blood Pressure Position Blood Pressure Position [Right Arm] Sitting 02 Sat by Pulse Oximetry 95 93 L 96 Oxygen Delivery Method Room Air Room Air Room Air 02/19/24 13:00 02/19/24 13:39 02/19/24 13:50 Temperature Temperature Source Pulse Rate 62 64 58 L Pulse Rate [Left] Respiratory Rate Blood Pressure 201/76 H 254/93 H 229/88 H Blood Pressure [Right Arm] Blood Pressure Mean [Right Arm] Blood Pressure Source Blood Pressure Source [Right Arm] Blood Pressure Position Blood Pressure Position [Right Arm] 02 Sat by Pulse Oximetry 95 94 L 94 L Oxygen Delivery Method 02/19/24 14:02 02/19/24 14:05 02/19/24 14:31 Temperature Temperature Source Pulse Rate 66 59 L Pulse Rate [Left] Respiratory Rate Blood Pressure 238/93 H 220/88 H 218/78 H Blood Pressure [Right Arm] Blood Pressure Mean [Right Arm] Blood Pressure Source Manual Cuff/ Auscultation Blood Pressure Source [Right Arm] Blood Pressure Position Sitting Blood Pressure Position [Right Arm] 02 Sat by Pulse Oximetry 92 L 96 Oxygen Delivery Method Room Air Room Air 02/19/24 15:01 Temperature Temperature Source Pulse Rate 63 Pulse Rate [Left] Respiratory Rate Blood Pressure 216/87 H Blood Pressure [Right Arm] Blood Pressure Mean [Right Arm] Blood Pressure Source Blood Pressure Source [Right Arm] Blood Pressure Position Blood Pressure Position [Right Arm] 02 Sat by Pulse Oximetry 95 Oxygen Delivery Method Room Air Lab Data Lab Results 02/19/24 12:30: WBC 7.9, RBC 4.70, Hgb 14.2, Hct 43.6, MCV 92.8, MCH 30.2, MCHC 32.6, RDW 13.8, Plt Count 162, MPV 10.1, Neut % (Auto) 52.2, Lymph % (Auto) 35.4, [place] % (Auto) 8.7, Eos % (Auto) 2.8, Baso % (Auto) 0.6, Neut # (Auto) 4.1, Lymph # (Auto) 2.8, [place] # (Auto) 0.7, Eos # (Auto) 0.2, Baso # (Auto) 0.1, PT 11.6, INR 1.04, Sodium 136, Potassium 4.8, Chloride 105, Carbon Dioxide 25, Anion Gap 10.8, BUN 14, Creatinine 0.80, Estimated Creat Clear 57, Estimated GFR 70, Est GFR ( Amer) 85, Glucose 106 H, Calcium 9.4, Magnesium 2.0, Total Bilirubin 0.9, AST 40 H, ALT 26, Alkaline Phosphatase 51, NT-Pro-B Natriuret Pep 158, Total Protein 7.9, Albumin 4.2, Globulin 3.7 H, Albumin/Globulin Ratio 1.1 Orders (Tests/Meds): ED MEDICATIONS Generic Name Dose Route Start Last Admin Trade Name Freq PRN Reason Stop Dose Admin Carvedilol 25 mg 02/19/24 21:00 Carvedilol 25mg Tablet PO 03/20/24 20:59 BID [facility] Nicardipine HCl 25 mg/ Sodium 250 mls @ 50 mls/hr 02/19/24 14:22 02/19/24 14:56 Chloride IV 03/20/24 14:21 Not Given .Q5H [facility] Protocol 5 MG/HR Irbesartan 150 mg 02/20/24 09:00 Irbesartan 150mg Tab PO 03/21/24 08:59 BID [facility] Discontinued Medications Generic Name Dose Route Start Last Admin Trade Name Freq PRN Reason Stop Dose Admin Acetaminophen 1,000 mg 02/19/24 12:38 02/19/24 12:43 Acetaminophen 1,000mg/100ml Vial IV 02/19/24 12:39 1,000 mg ONCE ONE Administration Iopamidol 80 ml 02/19/24 13:37 02/19/24 13:38 Iopamidol-370 (76%);100ml Bottle IV 02/19/24 13:38 80 ml ONCE ONE Administration Irbesartan 150 mg 02/19/24 21:00 Irbesartan 150mg Tab PO 03/20/24 20:59 BID [facility] Irbesartan 75 mg 02/19/24 14:53 Irbesartan 75mg Tablet PO 02/19/24 14:54 ONCE ONE Sodium Chloride 10 ml 02/19/24 13:37 02/19/24 13:38 Sodium Chloride 0.9% 10ml Syr (Rad Only) IV 02/19/24 13:38 10 ml ONCE ONE Administration Sodium Chloride 50 ml 02/19/24 13:37 02/19/24 13:37 0.9 % Sodium Chloride 50 Ml Vial IV 02/19/24 13:38 50 ml ONCE ONE Administration ORDERS Category Date Time Status CT angio head Stat Cat Scan 02/19/24 12:[address] angio neck Stat Cat Scan 02/19/24 12:[address] head/brain wo con Stat Cat Scan 02/19/24 12:38 Completed Consult to Physician [CONS] Routine Cons 02/19/24 14:50 Ordered BNP [NT Pro Brain Natriuretic Pep.] Stat Lab 02/19/24 12:30 Completed CBC w/Auto Diff [Complete Blood Count Auto Diff] Stat Lab 02/19/24 12:30 Completed CMP [Comprehensive Metabolic Panel] Stat Lab 02/19/24 12:30 Completed Complete Blood Count Auto Diff AMLAB Lab 02/20/24 06:00 Ordered Comprehensive Metabolic Panel AMLAB Lab 02/20/24 06:00 Ordered INR [Prothrombin Time INR] Stat Lab 02/19/24 12:30 Completed Magnesium AMLAB Lab 02/20/24 06:00 Ordered Magnesium Stat Lab 02/19/24 12:30 Completed ECG Data Tracing #1: Independently interpreted by me rate 58, rhythm is regular, axis is normal, no ST elevation in anatomical contiguous leads, QTc 407 HEART Score HEART Score: 4 Medical Decision Narrative: In summary patient is a 73-year-old female who presents to the emergency department for evaluation of uncontrolled hypertension, headache and dizziness.. Patient is on arrival with a blood pressure of 200/89 breathing 16 times a minute with a pulse of 60 satting at 95% on room air upon arrival, afebrile. Physical exam is essentially unremarkable and nonfocal but more specifically patient has normal neurologic exam with normal cranial nerve exam awake alert and oriented person place and circumstance pupils are equal round reactive to light, breath sounds are clear and equal bilaterally to the bases without adventitious sounds. There is no nuchal rigidity, there is no C-spine or dorsal spine tenderness.. Differential diagnosis includes uncontrolled hypertension versus press syndrome versus cardiovascular disease etc t. Initial workup will be conducted with hematologic labs CT scan of the head without contrast and CTA of the head neck with contrast. Initial interventions include Tylenol for now until workup is complete. Initial workup reviewed by me shows that her hematologic labs are nonactionable including a negative troponin and inform interpretation of her imaging shows mild to moderate atherosclerotic cardiovascular disease in the head and neck but no severe large vessel occlusion or stenosis.. Upon repeat evaluation patient remains hypertensive despite moderate interventions and still complains of headache.. Given this I had interactive discussion with hospital medicine regarding patient management and we discussed whether we should initiate Cardene given her cardiovascular disease and her head. Dr. Gamez does not want to initiate Cardene at this point and will admit the patient for slower blood pressure lowering over time. I was consulted by the VIVIENNE, and we discussed the complexity of the problems being addressed. I approved the treatment and management plan for this patient's care in the emergency department, thus performing a substantive portion of the medical decision making. Patient has severely uncontrolled systolic hypertension for which her outpatient regimen has been modified to no avail over the last couple of weeks. She will benefit from slowly lowering her blood pressure over the next 24 to 28 hours as to not precipitate an ischemic event. Jona Schmitt MD Critical Care <MOSES Prado - Last Filed: 02/19/24 15:04> Critical Care Time Critical Care Time: No
--- NOTE | 2024-02-19 12:38 | CT_ITS ---
PROCEDURE INFORMATION: Exam: CTA Head With Contrast, Arteriography Exam date and time: 02/19/2024 1:27 PM Age: 73 years old Clinical indication: Pain; Dizziness and giddiness; Headache; Additional info: Dizziness, headache, high blood pressure TECHNIQUE: Imaging protocol: Computed tomographic angiography of the head with contrast. Exam focused on the arteries. 3D rendering (Not supervised by radiologist): MIP and/or 3D reconstructed images were created by the technologist. Radiation optimization: All CT scans at this facility use at least one of these dose optimization techniques: automated exposure control; mA and/or kV adjustment per patient size (includes targeted exams where dose is matched to clinical indication); or iterative reconstruction. Contrast material: ISOVUE 370; Contrast volume: 80 ml; Contrast route: INTRAVENOUS (IV); COMPARISON: None FINDINGS: ANTERIOR CIRCULATION: Right internal carotid artery: Intracranial segment is patent with no significant stenosis. No aneurysm. Right middle cerebral artery: No occlusion or significant stenosis. No aneurysm. Right anterior cerebral artery: There is significant atherosclerotic calcification within the right anterior cerebral artery. This is causing moderate stenosis of the proximal right A2 segment. Left internal carotid artery: Intracranial segment is patent with no significant stenosis. No aneurysm. Left middle cerebral artery: No occlusion or significant stenosis. No aneurysm. Left anterior cerebral artery: There is significant atherosclerotic calcification within the left anterior cerebral artery. This is causing moderate/severe stenosis of the left A2 segment. POSTERIOR CIRCULATION: Right vertebral artery: Mild calcified plaque is present within the right V4 segment. There is no significant stenosis. Left vertebral artery: No occlusion or significant stenosis. No aneurysm. Basilar artery: No occlusion or significant stenosis. No aneurysm. Right posterior cerebral artery: Calcified plaque is noted at the right posterior cerebral artery origin. There is moderate stenosis of the right P1 segment. Left posterior cerebral artery: Vascular calcifications are noted within the left P2 segment. Mild stenosis is present. 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 Cerebral ventricles: No ventriculomegaly. Bones/joints: Unremarkable. No acute fracture. Soft tissues: Unremarkable. IMPRESSION: 1. No large vessel occlusion 2. Chronic findings as discussed above.
--- NOTE | 2024-02-19 12:38 | CT_ITS ---
PROCEDURE INFORMATION: Exam: CTA Neck With Contrast Exam date and time: 02/19/2024 1:27 PM Age: 73 years old Clinical indication: Pain; Dizziness and giddiness and headache; Additional info: Dizziness, headache, high blood pressure TECHNIQUE: Imaging protocol: Computed tomographic angiography of the neck with contrast. Exam focused on the cervical segments of the vasculature. 3D rendering (Not supervised by radiologist): MIP and/or 3D reconstructed images were created by the technologist. Radiation optimization: All CT scans at this facility use at least one of these dose optimization techniques: automated exposure control; mA and/or kV adjustment per patient size (includes targeted exams where dose is matched to clinical indication); or iterative reconstruction. Contrast material: ISOVUE 370; Contrast volume: 80 ml; Contrast route: INTRAVENOUS (IV); COMPARISON: CT ANGIO HEAD 02/19/2024 1:27 PM FINDINGS: Limitations: The study is mildly limited due to patient motion artifact. Right common carotid artery: Calcified plaque is noted within the mid and distal right common carotid artery. This is causing mild stenosis. Right internal carotid artery: Atherosclerotic calcifications are present within the proximal right internal carotid artery. This is causing approximately 55% stenosis of the proximal right ICA. There is tortuosity and kinking of the proximal/mid right ICA. The distal right cervical ICA is unremarkable. Right external carotid artery: There is mild atherosclerotic narrowing of the proximal right external carotid artery. Left common carotid artery: Calcified plaque is scattered throughout the left common carotid artery. There is minimal stenosis of the mid left common carotid artery. Left internal carotid artery: Atherosclerotic calcifications are present within the proximal left internal carotid artery. This is causing approximately 55% stenosis. Left external carotid artery: There is severe stenosis of the left external carotid artery origin. Right vertebral artery: No stenosis. No dissection or occlusion. Left vertebral artery: No stenosis. No dissection or occlusion. Right subclavian artery: There is moderate/severe stenosis of the right subclavian artery origin. Aorta: Atherosclerotic calcifications are noted within the aortic arch. Soft tissues: Normal. No significant soft tissue swelling. Bones/joints: Severe degenerative changes of the cervical spine are present. A large central disc protrusion is present at C3-C4, causing moderate canal stenosis. Moderate canal stenosis is also noted at C4-C5, C5-C6, and C6-C7 due to posterior disc osteophyte complexes. IMPRESSION: 1. Mildly limited exam due to motion artifact 2. Approximately 55% stenosis of the bilateral internal carotid arteries REFERENCES: NASCET CRITERIA. The degree of stenosis in the cervical segment of the internal carotid artery is based on NASCET criteria. Normal is no stenosis. Mild is less than 50% stenosis. Moderate is 50-69% stenosis. Severe is 70% to 99% stenosis. Total occlusion is no detectable patent lumen.
--- NOTE | 2024-02-19 12:38 | CT_ITS ---
PROCEDURE INFORMATION: Exam: CT Head Without Contrast Exam date and time: 02/19/2024 1:25 PM Age: 73 years old Clinical indication: Dizziness; Additional info: Dizziness, high blood pressure TECHNIQUE: Imaging protocol: Computed tomography of the head without contrast. Radiation optimization: All CT scans at this facility use at least one of these dose optimization techniques: automated exposure control; mA and/or kV adjustment per patient size (includes targeted exams where dose is matched to clinical indication); or iterative reconstruction. COMPARISON: CT HEAD/BRAIN WO CON 07/23/2019 3:47 AM FINDINGS: Brain: There is no acute intracranial hemorrhage, cerebral edema, or midline shift. Chronic microvascular ischemic changes are seen in the periventricular white matter. Age-related cerebral and cerebellar volume loss is present. Cerebral ventricles: Mild ex vacuo dilation of the lateral and third ventricles is noted. There is marked nodularity along the ependymal lining of the lateral ventricles, likely representing nodular tapia matter heterotopia. Paranasal sinuses: There is no acute sinusitis. A small mucous retention cyst is present in the left maxillary sinus. Mastoid air cells: The mastoid air cells are clear. Orbital cavities: The included orbital structures are unremarkable. Bones: Unremarkable. No acute fracture. Soft tissues: Unremarkable. Vasculature: Extensive vascular calcifications are noted. IMPRESSION: 1. No acute intracranial abnormality. 2. Chronic findings as discussed above.
[2024-02-19] MEDS: ACETAMINOPHEN 1,000MG/100ML VIAL 1000 MG IV (12:43)
[2024-02-19 12:51] LABS: Hematocrit 43.6 % (37.0-47.0); Hemoglobin 14.2 g/dL (12.2-16.2); Mean Corpuscular HGB Conc 32.6 g/dL (31.8-35.4); Mean Corpuscular Hemoglobin 30.2 pg (27.0-31.2); Mean Corpuscular Volume 92.8 fl (81-99); Platelet Count 162 K/mm3 (142-424); Red Cell Distribution Width 13.8 % (11.5-17.5); White Blood Count 7.9 K/mm3 (4.8-10.8)
[2024-02-19 12:52] LABS: Basophils # 0.1 K/mm3 (0-0.2); Basophils % 0.6 % (0.1-2.0); Eosinophils # 0.2 K/mm3 (0.0-0.4); Eosinophils % 2.8 % (0.1-12.0); Lymphocytes # 2.8 K/mm3 (0.7-4.5); Lymphocytes % 35.4 % (10-50); Mean Platelet Volume 10.1 fl (7.4-10.4); Monocytes # 0.7 K/mm3 (0.1-1.0); Monocytes % 8.7 % (1.7-9.3); Neutrophils # 4.1 K/mm3 (1.8-7.8); Neutrophils % 52.2 % (37.0-80.0)
[2024-02-19 12:56] LABS: INR 1.04 (0.9-1.1); Prothrombin Time 11.6 seconds (10.1-12.5)
[2024-02-19 13:09] LABS: Albumin Level 4.2 g/dl (3.5-5.0); Chloride 105 mmol/L (98-107); Potassium 4.8 mmoL/L (3.5-5.1); Sodium 136 mmol/L (136-145)
[2024-02-19 13:12] LABS: Alanine Aminotransferase 26 U/L (12-78); Albumin/Globulin Ratio 1.1 (1.1-1.8); Alkaline Phosphatase 51 U/L (38-126); Anion Gap 10.8 mEq/L (5-15); Aspartate Amino Transferase 40 U/L (14-36); Bilirubin,Total 0.9 mg/dl (0.2-1.3); Blood Urea Nitrogen 14 mg/dl (7-17); Calcium 9.4 mg/dl (8.4-10.2); Carbon Dioxide 25 mmol/L (22.0-30.0); Creatinine Clearance Estimated 57 mL/min (50-200); Estimated Glomerular Filt Rate 70 ml/min (>60); GFR (African American) 85 ML/MIN (>60); Globulin 3.7 g/dL (1.3-3.2); Glucose 106 mg/dl (74-100); Total Protein,Serum 7.9 g/dl (6.3-8.2)
[2024-02-19 13:21] LABS: NT Pro Brain Natriuretic Pep. 158 pg/mL (0-450)
--- NOTE | 2024-02-19 13:35 | PC.NURSE ---
PT RETURNED FROM CT
[2024-02-19] MEDS: 0.9 % SODIUM CHLORIDE 50 ML VIAL IV (13:37)
[2024-02-19] MEDS: SODIUM CHLORIDE 0.9% 10ML SYR (RAD ONLY) 10 ML IV (13:38)
[2024-02-19] MEDS: IOPAMIDOL-370 (76%);100ML BOTTLE 80 ML IV (13:38)
--- NOTE | 2024-02-19 14:57 | PC.NURSE ---
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
--- NOTE | 2024-02-19 14:59 | EXP.HP ---
History of Present Illness *Admission Date: 02/19/24 *Reason for visit:: dizziness *History of present illness: Ms. Schulz is a 73-year-old female with persistently uncontrolled hypertension. She presented to the ER with complaint of headache and dizziness. Found to have systolic blood pressure above 200. Was seen earlier this month with similar complaints. Cardiology was consulted at that time and medications were adjusted. She was discharged home with instructions to follow-up with cardiology clinic for renal ultrasound and duplex were ordered but have not been obtained as of yet. Her dizziness has progressed since last visit. Took her lisinopril and metoprolol this morning. Imaging of her head with angiography obtained in the ER. Has some chronic findings with various stenoses but nothing acute or critical. Complains a history of COPD and chronic DVTs for which she is on anticoagulation. Denies chest pain, shortness of breath, nausea or vomiting. Afebrile. Medicine consulted for admission and further treatment of hypertension. On arrival to the floor, headaches doing little bit better. She is stable on room air. [facility] Disclaimer: The information contained in this section may have been updated after the patient was seen, as this information can be updated by other users. Medical History DVT (deep venous thrombosis) Obesity (BMI 30.0-34.9) Osteoarthritis Leg pain Back Pain Hypertension Anxiety Depression Irregular heart beat Hyperlipemia Surgical History H/O heart surgery H/O section Family History Other No significant family history Social History Smoking Status: Former smoker second hand exposure: No alcohol intake: never substance use type: denies use current occupational status: disabled Travel in the last 8 weeks: None household members: none housing: house current occupational exposures/hazards: No caffeine: Yes Have you lived/traveled outside [place] in past 30 days?: No Contact w/someone who lives/traveled outside [place] past 30 days?: No Exposure to someone with infectious disease in past 14 days?: No Do you have a fever (greater than 100.4 F or 38 C)?: No Have you tested positive for COVID-19: No Exposed to someone with COVID-19 in past 14 days?: No Do you have a sore throat?: No Do you have a cough?: No Do you have any weakness?: No Are you experiencing any nausea/vomitting?: No Do you have any diarrhea?: No Are you experiencing any unusual bleeding?: No Do you have any muscle aches/pain?: No Do you have any abdominal pain?: No Are you experiencing loss of taste or smell?: No Other Medical History Have you received the Flu Vaccine for this season: No Have you received the Pneumonia Vaccine: No Review of Systems Review of Systems Review of systems (narrative): 14 point review of systems performed, pertinent positives and negatives as per HPI Meds Home Medications and Allergies Home Medications ?Medication ?Instructions ?Recorded ?Confirmed ?Type ipratropium 0.5 mg-albuterol 3 mg 3 ml inhalation TID PRN shortness 10/13/21 02/19/24 Rx (2.5 mg base)/3 mL nebulization of breath or wheezing #180 mL soln phenylephrine 0.25 %-cocoa butter 1 supp OK QID #12 ea 09/12/23 02/19/24 Rx 88.44 % rectal suppository (Preparation H(phenyleph,cocoa buttr)) phenylephrine 0.25 %-pramoxine 1 1 applic OK QID PRN hemorrhoids 09/12/23 02/19/24 Rx %-glycerin-wh.petrolatum rectal #51 grams cream (Preparation H Maximum Strength) fluoxetine 20 mg capsule See Rx Instructions .Route 01/17/24 02/19/24 Rx .COMPLEX #90 caps metoprolol tartrate 50 mg tablet See Rx Instructions .Route 01/17/24 02/19/24 Rx .COMPLEX #180 tabs albuterol sulfate 90 mcg/actuation 1 inh inhalation QID PRN shortness 01/28/24 02/19/24 Rx aerosol inhaler of breath or wheezing #18 grams buspirone 5 mg tablet 5 mg PO BID Depression #60 tabs 01/28/24 02/19/24 Rx dicyclomine 20 mg tablet See Rx Instructions .Route 01/28/24 02/19/24 Rx .COMPLEX #90 tabs fluticasone propionate 50 1 spray intranasal DAILY Allergy 01/28/24 02/19/24 Rx mcg/actuation nasal symptoms #16 grams spray,suspension (Flonase Allergy Relief) rivaroxaban 20 mg tablet (Xarelto) See Rx Instructions .Route 01/28/24 02/19/24 Rx .COMPLEX Blood thinner #90 tabs lidocaine 5 % topical cream 1 applic topical QID PRN 01/31/24 02/19/24 Rx Hemorrhoid pain #15 grams lisinopril 20 mg tablet 20 mg PO DAILY #30 tabs 02/06/24 02/19/24 Rx New Prescriptions to Start Prescriptions: Allergies Allergy/AdvReac Type Severity Reaction Status Date / Time Penicillins (PENICILLINS) Allergy Unknown Verified 02/06/24 14:24 Sulfa (Sulfonamide Allergy Unknown Verified 02/06/24 14:24 Antibiotics) (SULFA (SULFONAMIDE ANTIBIOTICS)) Exam Data for Last 24 hours Vital signs and Labs for Last 24 Hours: Temp Pulse Resp BP Pulse Ox O2 Del Method 97.9 F 66 16 220/88 H 92 L Room Air 02/19/24 12:03 02/19/24 14:02 02/19/24 12:03 02/19/24 14:05 02/19/24 14:02 02/19/24 14:02 Laboratory Results - last 24 hr 02/19/24 12:30: WBC 7.9, RBC 4.70, Hgb 14.2, Hct 43.6, MCV 92.8, MCH 30.2, MCHC 32.6, RDW 13.8, Plt Count 162, MPV 10.1, Neut % (Auto) 52.2, Lymph % (Auto) 35.4, [place] % (Auto) 8.7, Eos % (Auto) 2.8, Baso % (Auto) 0.6, Neut # (Auto) 4.1, Lymph # (Auto) 2.8, [place] # (Auto) 0.7, Eos # (Auto) 0.2, Baso # (Auto) 0.1, PT 11.6, INR 1.04, Sodium 136, Potassium 4.8, Chloride 105, Carbon Dioxide 25, Anion Gap 10.8, BUN 14, Creatinine 0.80, Estimated Creat Clear 57, Estimated GFR 70, Est GFR ( Amer) 85, Glucose 106 H, Calcium 9.4, Magnesium 2.0, Total Bilirubin 0.9, AST 40 H, ALT 26, Alkaline Phosphatase 51, NT-Pro-B Natriuret Pep 158, Total Protein 7.9, Albumin 4.2, Globulin 3.7 H, Albumin/Globulin Ratio 1.1 I & O for Last 24 hours: Intake & Output 02/16/24 02/17/24 02/18/24 02/19/24 23:59 23:59 23:59 23:59 Weight 74.843 kg Constitutional Constitutional: no acute distress, average body habitus, chronically ill appearing and cooperative *Routine HEENT Exam Head: Present normocephalic Eye: Present EOMI and PERRL ENT: Present mucous membranes moist *Routine Neck Exam Neck: Present supple; Absent lymphadenopathy *Routine Respiratory Exam Respiratory: Present CTA bilaterally; Absent respiratory distress, rhonchi, wheezes or crackles *Routine Cardiovascular Exam Cardiovascular: Present RRR *Routine Abdominal Exam Abdominal: Present soft and normoactive bowel sounds; Absent tenderness *Routine Rectal Exam Rectal:: deferred *Routine Genitalia Exam Genitalia:: deferred *Routine Extremities Exam Extremities: Absent cyanosis, clubbing or edema Comments: Legs tender to palpation *Routine Skin Exam Skin: Present warm; Absent rash *Routine Neurological Exam Neurological: Present alert, oriented X3 and moving all extremities; Absent altered mental status Assessment and Plan *Assessment and plan (1) Malignant hypertension: Status: Acute Category: Medical Code(s): I10 - Essential (primary) hypertension (2) PAF (paroxysmal atrial fibrillation): Status: Acute Category: Medical Code(s): I48.0 - Paroxysmal atrial fibrillation (3) History of pulmonary embolism: Status: Acute Category: Medical Code(s): Z86.711 - Personal history of pulmonary embolism (4) Anxiety: Status: Chronic Category: Medical Code(s): F41.9 - Anxiety disorder, unspecified (5) Depression: Status: Chronic Qualifiers: Depression Type: major depressive disorder Major depression recurrence: single episode Active/Remission status: currently active Major depression episode severity: mild Qualified Code(s): F32.0 - Major depressive disorder, single episode, mild Category: Medical Code(s): F32.A - Depression, unspecified Plan 73-year-old with worsening hypertension over the past few months. Presented with dizziness and headache. Workup in the ER concerning for malignant hypertension. Medicine consulted for admission. After discussion with ER physician, requesting admission for further treatment to monitor for improvement in dizziness, I agreed to admit for further management. Will transition to irbesartan and carvedilol. Goal blood pressure improvement of 20% in the next 18 hours. Will consider imaging of renal arteries if unable to improve blood pressure with adjustments in her regimen. Problems addressed as follows: Malignant hypertension - Blood pressure severely elevated with systolic above 200, symptomatic with dizziness and headache -Will transition to irbesartan. 75 mg p.o. once given now. Monitor for improvement in blood pressure. Transition to carvedilol 25 mg twice daily. Will increase irbesartan 150 mg in the morning. -Consider renal artery duplex if no improvement over the next 24 to 48 hours with aggressive medical management. -Cardiology consulted. - Labs unremarkable with white count of 7.9, hemoglobin 14.2. Kidney function normal with BUN 14, creatinine 0.8. Glucose normal at 106. Thyroid evaluated earlier this month with TSH of 1.8. -Repeat CBC, CMP, magnesium ordered for the morning. Anxiety/depression -Continue home BuSpar 5 mg twice daily, Prozac 20 mg daily COPD: Continue ipratropium nebs 3 times a day as needed. In no distress. On room air Chronic DVTs/PEs: Continue Xarelto 20 mg daily Full code Continue Xarelto 20 mg daily Cardiac diet
[2024-02-19] MEDS: IRBESARTAN 75MG TABLET 75 MG PO (15:15)
--- NOTE | 2024-02-19 15:29 | PC.NURSE ---
Report given to Zac CHA
--- NOTE | 2024-02-19 15:49 | PC.NURSE ---
pt arrived to floor via wheelchair from ER @[phone]
[2024-02-19] MEDS: RIVAROXABAN 10MG TABLET 20 MG PO (17:38)
--- NOTE | 2024-02-19 20:03 | EXP.EVENT.NO ---
Patient here for hypertensive urgency and originally presented with blood pressure 220/110. Patient's most recent blood pressure 142/73 after receiving irbesartan 75 mg today. Nursing asking whether they should give Coreg scheduled overnight. Worried about dropping patient's blood pressure too quickly. Will therefore hold Coreg overnight, and add hydralazine 10 mg IV every 4 as needed SBP over 170 and/or DBP over 100 to patient's chart. If patient's BPs run high without Coreg overnight, patient may need Coreg and Imdur Concetta in a.m. for better blood pressure control.
--- NOTE | 2024-02-19 20:03 | PC.NURSE ---
spoke with Dr Vasques regarding patients BP. BP has dropped from 210s systolic to 140s systolic. patient stated she feels a little dizzy. holding carvedilol tonight per MD.
[2024-02-19] MEDS: BUSPIRONE HCL 5 MG TABLET PO (20:24)
[2024-02-20] VITALS (7 sets, daily range): BP systolic 109–197; BP diastolic 52–86; PULSE 68–84; RESP 16–22; TEMP 36.6–37.4; O2SAT 90–96; BMI 28.3
[2024-02-20] MEDS: HYDRALAZINE 20MG/ML VIAL 10 MG IV (01:14)
--- NOTE | 2024-02-20 01:22 | EXP.EVENT.NO ---
Patient complaining of neck/abdominal pain which sounds chronic in nature. Will write for as needed tramadol. If pain persist, will consider imaging overnight. Patient also complaining of nausea but states she cannot take as needed ondansetron. Will therefore write for Compazine 10 mg IV every 6 as needed nausea/vomiting.
[2024-02-20] MEDS: PROCHLORPERAZINE 10MG/2ML VIAL 10 MG IV (01:39)
--- NOTE | 2024-02-20 01:42 | CT_ITS ---
PROCEDURE INFORMATION: Exam: CT Head Without Contrast Exam date and time: 02/20/2024 2:18 AM Age: 73 years old Clinical indication: Other: Nausea and vomiting; Additional info: N/v pain in abd TECHNIQUE: Imaging protocol: Computed tomography of the head without contrast. Radiation optimization: All CT scans at this facility use at least one of these dose optimization techniques: automated exposure control; mA and/or kV adjustment per patient size (includes targeted exams where dose is matched to clinical indication); or iterative reconstruction. COMPARISON: CT ANGIO HEAD 02/19/2024 1:27 PM FINDINGS: Brain: There is patchy hypoattenuation in the deep and subcortical white matter, likely representing chronic small vessel ischemic change. Cerebral ventricles: Unchanged subependymal nodularity along the bilateral lateral ventricles which may represent tapia matter heterotopia. Paranasal sinuses: Left maxillary sinus mucosal retention cyst. Mastoid air cells: Partial opacification of the right mastoid air cells. Bones: Unremarkable. No acute fracture. Soft tissues: Unremarkable. Vasculature: Unchanged extensive vascular calcifications. IMPRESSION: No acute intracranial abnormality.
--- NOTE | 2024-02-20 01:42 | CT_ITS ---
PROCEDURE INFORMATION: Exam: CT Abdomen And Pelvis Without Contrast Exam date and time: 02/20/2024 4:45 AM Age: 73 years old Clinical indication: Nausea and vomiting; Additional info: N/v pain in abd TECHNIQUE: Imaging protocol: Computed tomography of the abdomen and pelvis without contrast. Radiation optimization: All CT scans at this facility use at least one of these dose optimization techniques: automated exposure control; mA and/or kV adjustment per patient size (includes targeted exams where dose is matched to clinical indication); or iterative reconstruction. Other contrast: Oral, gastrografin, 30 ; COMPARISON: CT ABDOMEN PELVIS W CON 06/10/2019 1:31 PM FINDINGS: Coronary arteries: Mild coronary artery calcifications. Liver: Hypodense lesions in hepatic segments 7 and 8 likely representing simple cysts. Gallbladder and biliary ducts: Cholecystectomy. Pancreas: Unremarkable. Spleen: Unremarkable. Adrenal glands: Unremarkable. Kidneys and ureters: Right-sided simple cortical renal cyst. Residual contrast material within the bilateral collecting systems and bladder. Stomach and bowel: Colonic diverticulosis without diverticulitis. No mechanical obstruction. No mucosal thickening. Appendix: Appendix not definitely seen. No right lower quadrant inflammation identified. Intraperitoneal space: No free air or free fluid. Vasculature: Severe atherosclerotic changes of the aorta and its major branches. Infrarenal abdominal aortic aneurysm measuring up to 2.9 cm AP. IVC filter in place inferior to the renal veins. Lymph nodes: Unremarkable. Urinary bladder: Unremarkable. Reproductive: Hysterectomy. Bones/joints: Multilevel spondylosis. Soft tissues: Unremarkable. IMPRESSION: No acute abdominopelvic abnormality. COMMENTS: 1. For patients with an IVC filter, recommend assessment for a management plan for the patient's IVC filter. If there is no established management plan, recommend referral to an interventional clinician on a nonemergent basis for evaluation. 2. Consistent with the [employer]'s Incidental Findings Committee white paper (J Am Marci Radiol 2018): Any incidental renal lesion less than 1 cm or classified as too small to characterize, or any incidental cystic renal lesion characterized as simple-appearing, is likely benign. No follow-up imaging is recommended for these lesions per consensus recommendations based on imaging criteria.
[2024-02-20] MEDS: TRAMADOL 50MG TABLET 100 MG PO (01:49)
[2024-02-20 02:14] LABS: Adenovirus,PCR Not Detected (NotDetected); Bordetella Pertussis Not Detected (NotDetected); Chlamydophila Pneumoniae, PCR Not Detected (NotDetected); Coronavirus 19, PCR Not Detected (NotDetected); Coronavirus 229E Not Detected (NotDetected); Coronavirus NL63 Not Detected (NotDetected); Coronavirus OC43 Not Detected (NotDetected); Coronovirus HKU1,PCR Not Detected (NotDetected); Human Metapneumovirus Not Detected (NotDetected); Influenza A, PCR Not Detected (NotDetected); Influenza AH1, 2009 Not Detected (NotDetected); Influenza AH1, PCR Not Detected (NotDetected); Influenza AH3,PCR Not Detected (NotDetected); Influenza B, PCR Not Detected (NotDetected); Mycoplasma Pneumoniae, PCR Not Detected (NotDetected); Parainfluenza 1, PCR Not Detected (NotDetected); Parainfluenza 2, PCR Not Detected (NotDetected); Parainfluenza 3, PCR Not Detected (NotDetected); Parainfluenza 4, PCR Not Detected (NotDetected); Respiratory Syncytial Virus Not Detected (NotDetected); Rhinovirus/Enterovirus Not Detected (NotDetected)
--- NOTE | 2024-02-20 02:24 | HMH.ITSTN ---
Patient is going to drink oral contrast prior to scanning abdomen/pelvis. STARLA Clemente is going to call when patient has drank all of the contrast.
[2024-02-20] MEDS: DIATRIZOATE MEG 66% & DIATRIZOATE NA 10% 30ML UDC 30 ML PO (02:28)
[2024-02-20 02:56] LABS: Albumin Level 3.9 g/dl (3.5-5.0); Chloride 109 mmol/L (98-107); Sodium 136 mmol/L (136-145)
[2024-02-20 02:57] LABS: Potassium 3.4 mmoL/L (3.5-5.1)
[2024-02-20 02:59] LABS: Alanine Aminotransferase 27 U/L (12-78); Albumin/Globulin Ratio 1.1 (1.1-1.8); Alkaline Phosphatase 60 U/L (38-126); Anion Gap 9.4 mEq/L (5-15); Aspartate Amino Transferase 35 U/L (14-36); Bilirubin,Total 0.7 mg/dl (0.2-1.3); Blood Urea Nitrogen 15 mg/dl (7-17); Calcium 9.3 mg/dl (8.4-10.2); Carbon Dioxide 21 mmol/L (22.0-30.0); Creatinine Clearance Estimated 56 mL/min (50-200); Estimated Glomerular Filt Rate 70 ml/min (>60); GFR (African American) 85 ML/MIN (>60); Globulin 3.7 g/dL (1.3-3.2); Glucose 129 mg/dl (74-100); Lipase 211 U/L (23-300); Total Protein,Serum 7.6 g/dl (6.3-8.2)
--- NOTE | 2024-02-20 07:12 | CT_ITS ---
PROCEDURE INFORMATION: Exam: CT Abdomen And Pelvis With Contrast Exam date and time: 02/20/2024 7:39 AM Age: 73 years old Clinical indication: Other: Artery stenosis; Additional info: Eval for arterial stenosis TECHNIQUE: Imaging protocol: Computed tomography of the abdomen and pelvis with contrast. Radiation optimization: All CT scans at this facility use at least one of these dose optimization techniques: automated exposure control; mA and/or kV adjustment per patient size (includes targeted exams where dose is matched to clinical indication); or iterative reconstruction. Contrast material: ISOVUE; Contrast volume: 75 ml; Contrast route: IV; COMPARISON: 1. CT ABDOMEN PELVIS WO CON 02/20/2024 4:[address] ABDOMEN PELVIS W CON 06/10/2019 1:31 PM FINDINGS: Lungs: Mild chronic interstitial lung changes at the lung bases redemonstrated. Liver: There are few small hypodensities within the liver too small to adequately characterize but statistically likely representing small liver cysts. Gallbladder and biliary ducts: Gallbladder has been removed. There is moderate dilatation of the common bile duct unchanged. Pancreas: Unremarkable. Main pancreatic duct is not significantly dilated. Spleen: Normal. No splenomegaly. Adrenal glands: Normal. No mass. Kidneys and ureters: 3 cm cortical cyst midpole right kidney. Small nonobstructing right renal stone. Left kidney is unremarkable. Stomach and bowel: Scattered diverticuli distal large bowel. No evidence of acute diverticulitis. Appendix: No evidence of appendicitis. Intraperitoneal space: Unremarkable. No free air. No significant fluid collection. Vasculature: Diffuse atherosclerotic changes of the abdominal aorta with 3 cm infrarenal aortic aneurysm unchanged. There is a IVC filter in place in the lower portion of the IVC unchanged. Iliac vessels are diffusely calcified. No occlusion or severe stenosis. There are atherosclerotic changes involving the proximal segments of the celiac trunk and SMA with some narrowing present. There is also atherosclerotic changes at the origin of both renal arteries. Lymph nodes: Unremarkable. No enlarged lymph nodes. Urinary bladder: Unremarkable as visualized. Reproductive: Uterus has been removed. Bones/joints: Unremarkable. No acute fracture. Soft tissues: Unremarkable. IMPRESSION: 1. No acute findings within the abdomen or pelvis. 2. Abdominal aorta is heavily calcified with 3 cm infrarenal aortic aneurysm unchanged. 3. Atherosclerotic changes involving proximal segments of the mesenteric branches better assessed on CTA of the abdomen. 4. Additional nonemergent findings as above. COMMENTS: 1. For patients with an IVC filter, recommend assessment for a management plan for the patient's IVC filter. If there is no established management plan, recommend referral to an interventional clinician on a nonemergent basis for evaluation. 2. Consistent with the [employer]'s Incidental Findings Committee white paper (J Am Marci Radiol 2018): Any incidental renal lesion less than 1 cm or classified as too small to characterize, or any incidental cystic renal lesion characterized as simple-appearing, is likely benign. No follow-up imaging is recommended for these lesions per consensus recommendations based on imaging criteria.
[2024-02-20 07:19] LABS: Albumin Level 3.9 g/dl (3.5-5.0); Chloride 108 mmol/L (98-107); Potassium 3.7 mmoL/L (3.5-5.1); Sodium 136 mmol/L (136-145)
[2024-02-20 07:22] LABS: Alanine Aminotransferase 24 U/L (12-78); Albumin/Globulin Ratio 1.1 (1.1-1.8); Alkaline Phosphatase 56 U/L (38-126); Anion Gap 4.7 mEq/L (5-15); Aspartate Amino Transferase 33 U/L (14-36); Bilirubin,Total 0.6 mg/dl (0.2-1.3); Blood Urea Nitrogen 15 mg/dl (7-17); Carbon Dioxide 27 mmol/L (22.0-30.0); Creatinine Clearance Estimated 58 mL/min (50-200); Estimated Glomerular Filt Rate 61 ml/min (>60); GFR (African American) 74 ML/MIN (>60); Globulin 3.5 g/dL (1.3-3.2); Total Protein,Serum 7.4 g/dl (6.3-8.2)
[2024-02-20 07:23] LABS: Calcium 9.4 mg/dl (8.4-10.2); Glucose 115 mg/dl (74-100); Magnesium 2.1 mg/dl (1.6-2.3)
[2024-02-20] MEDS: IOPAMIDOL-370 (76%);100ML BOTTLE 75 ML IV (07:44)
[2024-02-20] MEDS: SODIUM CHLORIDE 0.9% 10ML SYR (RAD ONLY) 10 ML IV (07:45)
[2024-02-20 08:00] LABS: Basophils % 0.7 % (0.1-2.0); Eosinophils % 3.3 % (0.1-12.0); Hematocrit 42.1 % (37.0-47.0); Hemoglobin 13.7 g/dL (12.2-16.2); Lymphocytes % 33.5 % (10-50); Mean Corpuscular HGB Conc 32.5 g/dL (31.8-35.4); Mean Corpuscular Volume 92.3 fl (81-99); Mean Platelet Volume 10.2 fl (7.4-10.4); Neutrophils # 4.2 K/mm3 (1.8-7.8); Neutrophils % 51.1 % (37.0-80.0); Platelet Count 150 K/mm3 (142-424); Red Blood Count 4.56 M/mm3 (4.20-5.40); White Blood Count 8.3 K/mm3 (4.8-10.8)
[2024-02-20 08:01] LABS: Basophils # 0.1 K/mm3 (0-0.2); Eosinophils # 0.3 K/mm3 (0.0-0.4); Lymphocytes # 2.8 K/mm3 (0.7-4.5); Monocytes # 0.9 K/mm3 (0.1-1.0)
[2024-02-20] MEDS: FLUOXETINE 20MG CAPSULE 20 MG PO (08:22)
[2024-02-20] MEDS: CARVEDILOL 6.25MG TABLET 6.25 MG PO ×2 (08:22→20:15)
[2024-02-20] MEDS: IRBESARTAN 75MG TABLET 75 MG PO (08:22)
[2024-02-20] MEDS: BUSPIRONE HCL 5 MG TABLET PO ×2 (08:22→20:15)
--- NOTE | 2024-02-20 08:43 | HMH.PHAINT1 ---
Pharmacy Intervention Comments: Home medication list verified using list from outpatient pharmacy
--- NOTE | 2024-02-20 12:27 | P.PN_ITS ---
Subjective *Date: 02/20/24 *Time: 14:11 Interval history: Patient's blood pressure better today. States she still feels dizzy and fatigued. Stable on room air. No nausea or vomiting change. Focal deficits. No chest pain or shortness of breath. Medical Exam Vital signs and Labs for Last 24 Hours: Vital Signs Temp Pulse Pulse Resp BP BP Pulse Ox 02/20/24 11:00 02/20/24 09:00 02/20/24 08:00 02/20/24 08:00 99.4 F 80 22 139/68 94 L 02/20/24 07:00 02/20/24 05:00 02/20/24 04:00 98.4 F 84 16 109/52 L 96 02/20/24 03:00 02/20/24 01:11 75 197/86 H 02/20/24 01:00 02/20/24 00:00 98.3 F 68 16 181/84 H 95 02/19/24 23:00 02/19/24 21:00 02/19/24 20:00 02/19/24 19:27 98.0 F 58 L 18 142/73 H 92 L 02/19/24 18:29 02/19/24 17:00 02/19/24 16:11 98.1 F 61 16 213/81 H 95 02/19/24 15:39 97.9 F 60 16 206/108 H 02/19/24 15:01 63 216/87 H 95 02/19/24 14:31 59 L 218/78 H 96 02/19/24 14:05 220/88 H 02/19/24 14:02 66 238/93 H 92 L 02/19/24 13:50 58 L 229/88 H 94 L 02/19/24 13:39 64 254/93 H 94 L 02/19/24 13:00 62 201/76 H 95 02/19/24 12:41 58 L 185/79 H 96 02/19/24 12:31 61 221/86 H 93 L O2 Del Method 02/20/24 11:00 Room Air 02/20/24 09:00 Room Air 02/20/24 08:00 Room Air 02/20/24 08:00 Room Air 02/20/24 07:00 Room Air 02/20/24 05:00 Room Air 02/20/24 04:00 Room Air 02/20/24 03:00 Room Air 02/20/24 01:11 02/20/24 01:00 Room Air 02/20/24 00:00 Room Air 02/19/24 23:00 Room Air 02/19/24 21:00 Room Air 02/19/24 20:00 Room Air 02/19/24 19:27 Room Air 02/19/24 18:29 Room Air 02/19/24 17:00 Room Air 02/19/24 16:11 Room Air 02/19/24 15:39 02/19/24 15:01 Room Air 02/19/24 14:31 Room Air 02/19/24 14:05 02/19/24 14:02 Room Air 02/19/24 13:50 02/19/24 13:39 02/19/24 13:00 02/19/24 12:41 Room Air 02/19/24 12:31 Room Air Intake and Output 02/19/24 02/20/24 02/20/24 23:59 07:59 15:59 Intake Total 360 / 360 480 / 480 Output Total 0 / 0 Balance 360 / 360 480 / 480 Intake: Intake, Oral Amount 360 / 360 480 / 480 Output: Output, Urine Amount 0 / 0 Other: Number of Unmeasured Voids 1 Weight 73.527 kg 75.206 kg Patient Weight 02/20/24 23:59 Weight 75.206 kg Laboratory Results - last 24 hr 02/19/24 12:30: WBC 7.9, RBC 4.70, Hgb 14.2, Hct 43.6, MCV 92.8, MCH 30.2, MCHC 32.6, RDW 13.8, Plt Count 162, MPV 10.1, Neut % (Auto) 52.2, Lymph % (Auto) 35.4, [place] % (Auto) 8.7, Eos % (Auto) 2.8, Baso % (Auto) 0.6, Neut # (Auto) 4.1, Lymph # (Auto) 2.8, [place] # (Auto) 0.7, Eos # (Auto) 0.2, Baso # (Auto) 0.1, PT 11.6, INR 1.04, Sodium 136, Potassium 4.8, Chloride 105, Carbon Dioxide 25, Anion Gap 10.8, BUN 14, Creatinine 0.80, Estimated Creat Clear 57, Estimated GFR 70, Est GFR ( Amer) 85, Glucose 106 H, Calcium 9.4, Magnesium 2.0, Total Bilirubin 0.9, AST 40 H, ALT 26, Alkaline Phosphatase 51, NT-Pro-B Natriuret Pep 158, Total Protein 7.9, Albumin 4.2, Globulin 3.7 H, Albumin/Globulin Ratio 1.1 02/20/24 02:06: Chlamy pneumoniae PCR Not detected, Adenovirus (PCR) Not detected, B. pertussis DNA (PCR) Not detected, Coronavirus OC43 (PCR) Not detected, Coronavirus HKU1 (PCR) Not detected, Coronavirus 229E (PCR) Not detected, SARS-CoV-2 (PCR) Not detected, Coronavirus NL63 (PCR) Not detected, Human Metapneumovir PCR Not detected, Influenza A (H1) PCR Not detected, Influ A (H1N1/09) PCR Not detected, Influenza A (H3) PCR Not detected, Influenza Type A (PCR) Not detected, Influenza Type B (PCR) Not detected, M. pneumoniae (PCR) Not detected, Parainfluenza 1 (PCR) Not detected, Parainfluenza 2 (PCR) Not detected, Parainfluenza 3 (PCR) Not detected, Parainfluenza 4 (PCR) Not detected, RSV (PCR) Not detected, Entero/Rhino (PCR) Not detected 02/20/24 02:40: Sodium 136, Potassium 3.4 L D, Chloride 109 H, Carbon Dioxide 21 L, Anion Gap 9.4, BUN 15, Creatinine 0.80, Estimated Creat Clear 56, Estimated GFR 70, Est GFR ( Amer) 85, Glucose 129 H D, Calcium 9.3, Total Bilirubin 0.7, AST 35, ALT 27, Alkaline Phosphatase 60, Total Protein 7.6, Albumin 3.9, Globulin 3.7 H, Albumin/Globulin Ratio 1.1, Lipase 211 02/20/24 06:55: WBC 8.3, RBC 4.56, Hgb 13.7, Hct 42.1, MCV 92.3, MCH 30.0, MCHC 32.5, RDW 14.0, Plt Count 150, MPV 10.2, Neut % (Auto) 51.1, Lymph % (Auto) 33.5, [place] % (Auto) 11.0 H, Eos % (Auto) 3.3, Baso % (Auto) 0.7, Neut # (Auto) 4.2, Lymph # (Auto) 2.8, [place] # (Auto) 0.9, Eos # (Auto) 0.3, Baso # (Auto) 0.1, Sodium 136, Potassium 3.7, Chloride 108 H, Carbon Dioxide 27, Anion Gap 4.7 L, BUN 15, Creatinine 0.90, Estimated Creat Clear 58, Estimated GFR 61, Est GFR ( Amer) 74, Glucose 115 H, Calcium 9.4, Magnesium 2.1, Total Bilirubin 0.6, AST 33, ALT 24, Alkaline Phosphatase 56, Total Protein 7.4, Albumin 3.9, Globulin 3.5 H, Albumin/Globulin Ratio 1.1 I & O for Labs for Last 24 Hours: Intake & Output 02/17/24 02/18/24 02/19/24 02/20/24 23:59 23:59 23:59 23:59 Intake Total 360 / 360 480 / 480 Output Total 0 / 0 Balance 360 / 360 480 / 480 Weight 73.527 kg 75.206 kg Constitutional: Present no acute distress, average body habitus, chronically ill appearing and cooperative Head: Present atraumatic and normocephalic ENT: Present normal exam Respiratory: Present normal respiratory effort; Absent respiratory distress, rhonchi, stridor, wheezes or crackles Cardiac: Present Reg Rate and Rhythm GI: Present soft, tenderness (Minimal, nonfocal) and normal bowel sounds; Absent distention Extremities: Present normal inspection and full ROM Skin: Present intact; Absent erythema Neuro: Present Cranial Nerve 2-12 Intact, Grossly Intact, alert, awake, oriented x 3 and moves all extremities Assessment and Plan *Assessment and plan (1) Malignant hypertension: Status: Acute Category: Medical Code(s): I10 - Essential (primary) hypertension (2) PAF (paroxysmal atrial fibrillation): Status: Acute Category: Medical Code(s): I48.0 - Paroxysmal atrial fibrillation (3) History of pulmonary embolism: Status: Acute Category: Medical Code(s): Z86.711 - Personal history of pulmonary embolism (4) Anxiety: Status: Chronic Category: Medical Code(s): F41.9 - Anxiety disorder, unspecified (5) Depression: Status: Chronic Qualifiers: Active/Remission status: currently active Depression Type: major depressive disorder Major depression episode severity: mild Major depression recurrence: single episode Qualified Code(s): F32.0 - Major depressive disorder, single episode, mild Category: Medical Code(s): F32.A - Depression, unspecified Plan 73-year-old with worsening hypertension over the past few months. Presented with dizziness and headache. Workup in the ER concerning for malignant hypertension. Medicine consulted for admission. After discussion with ER physician, requesting admission for further treatment to monitor for improvement in dizziness, I agreed to admit for further management. Responding to tra nsition and blood pressure regimen. Continue irbesartan and carvedilol. Blood pressure controlled today my goal less than 140/80. Continue to monitor for the next 24 hours. Problems addressed as follows: Malignant hypertension - Blood pressure severely elevated with systolic above 200 on admission. Improving today. -Continue irbesartan 75 mg daily. Initiate carvedilol 6.25 mg twice daily this morning. Goal blood pressure less than 140/80. Showing good response. -Feels fatigued, will monitor for 24 more hours. PT and OT consulted to evaluate for possible home health PT at discharge. -Nursing to ambulate patient with walker (baseline functionality) -Normal white count 8. Kidney function normal with BUN 15, creatinine 0.9. Electrolytes normal with magnesium 2.1, potassium 3.7. -Repeat CBC, CMP, magnesium ordered for the morning. Anxiety/depression: Continue home BuSpar 5 mg twice daily, Prozac 20 mg daily COPD: Continue ipratropium nebs 3 times a day as needed. In no distress. On room air Chronic DVTs/PEs: Continue Xarelto 20 mg daily Full code Continue Xarelto 20 mg daily Cardiac diet
[2024-02-20] MEDS: RIVAROXABAN 10MG TABLET 20 MG PO (16:55)
--- NOTE | 2024-02-20 18:02 | PC.NURSE ---
pt resting supine in bed watching tv. pt has not complained of pain this shift. was up to the chair for several hours this shift and tolerated well. tolerating ra well with sats >90%. pt has been normotensive this shift and has not required any PRN bp medications. pt ambulated numerous times to the br with standby assistance. pt seems to be apprehensive about returning home due to living alone. pt walked with rolling walker one lap around the floor and tolerated well. no leg weakness or soa noted. pt iv has scant bleeding noted on the tegaderm, but iv flushes and draws. this rn tried to place a new IV on pt, but pt refused to be successfully poked. no complaints at this time. call light within reach.
[2024-02-21] VITALS: BP 144/70; PULSE 84; RESP 16; TEMP 36.7; O2SAT 95
[2024-02-21 04:00] VITALS: BP 151/63; PULSE 84; RESP 17; TEMP 37.1; O2SAT 93; BMI 28.5
--- NOTE | 2024-02-21 04:52 | PC.NURSE ---
Pt. is alert and orientated x 4. Pt. sat up in chair for a while. than back to bed. Pt. up to bathroom. gait steady. Pt. styates that she feels better. No c/'s pain. does c/o some congestion to nose. Pt. sleeping well this shift. VSS. Personal items and call borges in reach.
[2024-02-21 06:49] LABS: Chloride 109 mmol/L (98-107); Potassium 4.1 mmoL/L (3.5-5.1); Sodium 135 mmol/L (136-145)
[2024-02-21 06:52] LABS: Alanine Aminotransferase 24 U/L (12-78); Albumin/Globulin Ratio 1.2 (1.1-1.8); Alkaline Phosphatase 56 U/L (38-126); Anion Gap 9.1 mEq/L (5-15); Aspartate Amino Transferase 35 U/L (14-36); Bilirubin,Total 0.7 mg/dl (0.2-1.3); Blood Urea Nitrogen 15 mg/dl (7-17); Carbon Dioxide 21 mmol/L (22.0-30.0); Creatinine Clearance Estimated 58 mL/min (50-200); Estimated Glomerular Filt Rate 70 ml/min (>60); GFR (African American) 85 ML/MIN (>60); Globulin 3.3 g/dL (1.3-3.2); Total Protein,Serum 7.3 g/dl (6.3-8.2)
[2024-02-21 06:53] LABS: Calcium 9.3 mg/dl (8.4-10.2); Glucose 120 mg/dl (74-100); Magnesium 2.1 mg/dl (1.6-2.3)
[2024-02-21 07:21] LABS: Hematocrit 43.5 % (37.0-47.0); Mean Corpuscular HGB Conc 32.2 g/dL (31.8-35.4); Mean Corpuscular Hemoglobin 29.9 pg (27.0-31.2); Mean Corpuscular Volume 92.9 fl (81-99); Platelet Count 154 K/mm3 (142-424); Red Blood Count 4.68 M/mm3 (4.20-5.40); Red Cell Distribution Width 14.2 % (11.5-17.5); White Blood Count 7.6 K/mm3 (4.8-10.8)
[2024-02-21 07:22] LABS: Basophils # 0.1 K/mm3 (0-0.2); Basophils % 0.7 % (0.1-2.0); Eosinophils # 0.3 K/mm3 (0.0-0.4); Eosinophils % 3.3 % (0.1-12.0); Lymphocytes # 2.9 K/mm3 (0.7-4.5); Lymphocytes % 37.5 % (10-50); Mean Platelet Volume 10.1 fl (7.4-10.4); Monocytes # 0.7 K/mm3 (0.1-1.0); Monocytes % 9.6 % (1.7-9.3); Neutrophils # 3.7 K/mm3 (1.8-7.8); Neutrophils % 48.5 % (37.0-80.0)
[2024-02-21 08:00] VITALS: BP 139/56; PULSE 93; RESP 16; TEMP 36.6; O2SAT 95
--- NOTE | 2024-02-21 08:06 | P.DS_ITS ---
General Admission date:: 02/19/24 Discharge date: 02/21/24 HPI HPI HPI: Ms. Schulz is a 73-year-old female with persistently uncontrolled hypertension. She presented to the ER with complaint of headache and dizziness. Found to have systolic blood pressure above 200. Was seen earlier this month with similar complaints. Cardiology was consulted at that time and medications were adjusted. She was discharged home with instructions to follow-up with cardiology clinic for renal ultrasound and duplex were ordered but have not been obtained as of yet. Her dizziness has progressed since last visit. Took her lisinopril and metoprolol this morning. Imaging of her head with angiography obtained in the ER. Has some chronic findings with various stenoses but nothing acute or critical. Complains a history of COPD and chronic DVTs for which she is on anticoagulation. Denies chest pain, shortness of breath, nausea or vomiting. Afebrile. Medicine consulted for admission and further treatment of hypertension. On arrival to the floor, headaches doing little bit better. She is stable on room air. Hospital Course Hospital Course Hospital Course: 73-year-old with worsening hypertension over the past few months. Presented with dizziness and headache. Workup in the ER concerning for malignant hyper tension. Medicine consulted for admission. After discussion with ER physician, requesting admission for further treatment to monitor for improvement in dizziness, I agreed to admit for further management. Responded well to transition in blood pressure regimen. Blood pressure much older is a. 148/73 on morning of discharge. Plan to continue irbesartan and carvedilol. Discharged home with home health. Problems addressed as follows: Malignant hypertension - Blood pressure severely elevated with systolic above 200 on admission. Showed improvement with conservative management of her blood pressure using oral medications. Goal to drop her pressure or slowly to decrease risk for cerebral hypoperfusion. Has had good control with irbesartan and carvedilol. Continue 75 certain he and carvedilol 6.25 mg to [place]. Recommend follow-up with PCP in the coming weeks for further adjustments. Evaluated by therapy, ambulating with walker. Will discharge home with home health. Kidney function and electrolytes normal on day of discharge. Blood pressure much better controlled for over 24 hours prior to discharge home. Anxiety/depression: Continue home BuSpar 5 mg twice daily, Prozac 20 mg daily COPD: Continue ipratropium nebs 3 times a day as needed. In no distress. On room air Chronic DVTs/PEs: Continue Xarelto 20 mg daily Exam Data for Last 24 hours Vital signs and Labs for Last 24 Hours: Temp Pulse Resp BP Pulse Ox O2 Del Method 98.7 F 84 17 151/63 H 93 L Room Air 02/21/24 04:00 02/21/24 04:00 02/21/24 04:00 02/21/24 04:00 02/21/24 04:00 02/21/24 07:00 Laboratory Results - last 24 hr 02/21/24 05:59: WBC 7.6, RBC 4.68, Hgb 14.0, Hct 43.5, MCV 92.9, MCH 29.9, MCHC 32.2, RDW 14.2, Plt Count 154, MPV 10.1, Neut % (Auto) 48.5, Lymph % (Auto) 37.5, [place] % (Auto) 9.6 H, Eos % (Auto) 3.3, Baso % (Auto) 0.7, Neut # (Auto) 3.7, Lymph # (Auto) 2.9, [place] # (Auto) 0.7, Eos # (Auto) 0.3, Baso # (Auto) 0.1, Sodium 135 L, Potassium 4.1, Chloride 109 H, Carbon Dioxide 21 L, Anion Gap 9.1, BUN 15, Creatinine 0.80, Estimated Creat Clear 58, Estimated GFR 70, Est GFR ( Amer) 85, Glucose 120 H, Calcium 9.3, Magnesium 2.1, Total Bilirubin 0.7, AST 35, ALT 24, Alkaline Phosphatase 56, Total Protein 7.3, Albumin 4.0, Globulin 3.3 H, Albumin/Globulin Ratio 1.2 I & O for Last 24 hours: Intake & Output 02/18/24 02/19/24 02/20/24 02/21/24 23:59 23:59 23:59 23:59 Intake Total 360 / 360 960 / 960 Output Total 0 / 0 0 / 0 Balance 360 / 360 960 / 960 0 / 0 Weight 73.527 kg 75.206 kg 75.659 kg Constitutional Constitutional: no acute distress, average body habitus, chronically ill appearing and cooperative *Routine HEENT Exam Head: Present normocephalic Eye: Present EOMI and PERRL ENT: Present mucous membranes moist *Routine Neck Exam Neck: Present supple; Absent lymphadenopathy *Routine Respiratory Exam Respiratory: Present CTA bilaterally; Absent rhonchi, wheezes or crackles *Routine Cardiovascular Exam Cardiovascular: Present RRR *Routine Abdominal Exam Abdominal: Present soft and normoactive bowel sounds; Absent tenderness *Routine Rectal Exam Patient deferred: visual exam *Routine Exam Patient deferred: external exam *Routine Extremities Exam Extremities: Absent cyanosis, clubbing or edema *Routine Skin Exam Skin: Present warm; Absent rash *Routine Neurological Exam Neurological: Present alert, oriented X3 and moving all extremities; Absent altered mental status Results Data Completed and Pending Labs on day of discharge: Labs from last 24 hours 02/21/24 05:59 WBC 7.6 RBC 4.68 Hgb 14.0 Hct 43.5 MCV 92.9 MCH 29.9 MCHC 32.2 RDW 14.2 Plt Count 154 MPV 10.1 Neut % (Auto) 48.5 Lymph % (Auto) 37.5 [place] % (Auto) 9.6 H Eos % (Auto) 3.3 Baso % (Auto) 0.7 Neut # (Auto) 3.7 Lymph # (Auto) 2.9 [place] # (Auto) 0.7 Eos # (Auto) 0.3 Baso # (Auto) 0.1 Sodium 135 L Potassium 4.1 Chloride 109 H Carbon Dioxide 21 L Anion Gap 9.1 BUN 15 Creatinine 0.80 Estimated Creat Clear 58 Estimated GFR 70 Est GFR ( Amer) 85 Glucose 120 H Calcium 9.3 Magnesium 2.1 Total Bilirubin 0.7 AST 35 ALT 24 Alkaline Phosphatase 56 Total Protein 7.3 Albumin 4.0 Globulin 3.3 H Albumin/Globulin Ratio 1.2 DS: Diagnosis Discharge Diagnosis (1) Malignant hypertension: Status: Acute Code(s): I10 - Essential (primary) hypertension (2) PAF (paroxysmal atrial fibrillation): Status: Acute Code(s): I48.0 - Paroxysmal atrial fibrillation (3) History of pulmonary embolism: Status: Acute Code(s): Z86.711 - Personal history of pulmonary embolism (4) Anxiety: Status: Chronic Code(s): F41.9 - Anxiety disorder, unspecified (5) Depression: Status: Chronic Code(s): F32.A - Depression, unspecified Qualifiers: Active/Remission status: currently active Depression Type: major depressive disorder Major depression episode severity: mild Major depression recurrence: single episode Qualified Code(s): F32.0 - Major depressive disorder, single episode, mild Meds Home Medications and Allergies Home Medications ?Medication ?Instructions ?Recorded ?Confirmed ?Type albuterol sulfate 90 mcg/actuation 1 inh inhalation QID PRN shortness 01/28/24 02/19/24 Rx aerosol inhaler of breath or wheezing #18 grams fluticasone propionate 50 1 spray intranasal DAILY Allergy 01/28/24 02/19/24 Rx mcg/actuation nasal symptoms #16 grams spray,suspension (Flonase Allergy Relief) lidocaine 5 % topical cream 1 applic topical QID PRN 01/31/24 02/19/24 Rx Hemorrhoid pain #15 grams buspirone 5 mg tablet 5 mg PO BID 02/20/24 02/19/24 History dicyclomine 20 mg tablet 20 mg PO TIDP PRN Abdominal Pain 02/20/24 02/20/24 History fluoxetine 20 mg capsule 20 mg PO DAILY 02/20/24 02/20/24 History rivaroxaban 20 mg tablet (Xarelto) 20 mg PO DAILY 02/20/24 02/20/24 History carvedilol 6.25 mg tablet 6.25 mg PO BID 30 days #60 tabs 02/21/24 Rx irbesartan 75 mg tablet 75 mg PO DAILY 30 days #30 tabs 02/21/24 Rx New Prescriptions to Start Prescriptions: carvedilol Derek Gamez irbesartan Derek Gamez Allergies Allergy/AdvReac Type Severity Reaction Status Date / Time Penicillins (PENICILLINS) Allergy Unknown Verified 02/06/24 14:24 Sulfa (Sulfonamide Allergy Unknown Verified 02/06/24 14:24 Antibiotics) (SULFA (SULFONAMIDE ANTIBIOTICS)) Discharge Plan Disposition Patient Disposition: Home Health Service Condition: Fair Discharge Order Discharge Orders: Discharge Order (Routine); Ordered 02/21/24 Ordered By: Derek Gamez Follow up Plan Follow up with: Jones Santos APRN [Primary Care Provider] - 03/04/24 2:45 pm Danis Dean MD [Staff Physician] - 03/11/24 1:15 pm (2 weeks) Prescriptions/Medication Reconciliation: New carvedilol 6.25 mg Tablet 6.25 mg PO BID 30 Days Qty: 60 0RF irbesartan 75 mg Tablet 75 mg PO DAILY 30 Days Qty: 30 0RF Continued albuterol sulfate 90 mcg/actuation HFA aerosol inhaler 1 inh INHALATION QID PRN (Reason: shortness of breath or wheezing) Qty: 18 10RF fluticasone propionate [Flonase Allergy Relief] 50 mcg/actuation spray,suspension 1 spray intranasal DAILY Qty: 16 1RF Rx Instructions: administer into each nostril lidocaine 5 % cream 1 applic topical QID PRN (Reason: Hemorrhoid pain) Qty: 15 0RF dicyclomine 20 mg tablet 20 mg PO TIDP PRN (Reason: Abdominal Pain) Patient Comments: TAKE 1 TABLET BY MOUTH THREE TIMES DAILY NEEDED FOR ABDOMINAL PAIN Xarelto 20 mg tablet 20 mg PO DAILY Patient Comments: TAKE 1 TABLET BY MOUTH ONCE DAILY FOR BLOOD THINNER buspirone 5 mg tablet 5 mg PO BID fluoxetine 20 mg capsule 20 mg PO DAILY Rx Instructions: Take 1 capsule by mouth once daily Discontinued lisinopril 20 mg tablet 20 mg PO DAILY Qty: 30 5RF metoprolol tartrate 50 mg tablet 50 mg PO BID Patient Comments: TAKE 1 TABLET BY MOUTH TWICE DAILY Problem Reconciliation Problems Reviewed?: Yes Patient Discharge Instructions ACTIVITY: Continue current activity DIET: continue same diet Patient Instructions: DI for High Blood Pressure Print Language: [place] Providers Primary Care Provider: Jones Santos Admit Provider: Derek Gamez Attending Provider: Derek Gamez
[2024-02-21] MEDS: BUSPIRONE HCL 5 MG TABLET PO (09:08)
[2024-02-21] MEDS: IRBESARTAN 75MG TABLET 75 MG PO (09:08)
[2024-02-21] MEDS: CARVEDILOL 6.25MG TABLET 6.25 MG PO (09:08)
[2024-02-21] MEDS: FLUOXETINE 20MG CAPSULE 20 MG PO (09:08)
--- NOTE | 2024-02-21 10:58 | HMH.PTEV ---
Physical Therapy Evaluation Rehab PT IP Evaluation Start: 02/20/24 12:27 Freq: ONCE Status: Active Protocol: Document 02/21/24 10:47 JUNE (Rec: 02/21/24 10:58 JUNE [id number]) Subjective/History History History 73-year-old female with persistently uncontrolled hypertension. She presented to the ER with complaint of headache and dizziness. Found to have systolic blood pressure above 200. Was seen earlier this month with similar complaints. She reports she lives alone, no JASON the home, and she is generally independent with all mobility using RW at baseline . Subjective Subjective She reports no c/o this am, feeling much better, agrees to mobility assessment. Rehab PT IP Eval Objective Appearance Patient Behavior Appropriate Patient Orientation Person,Place,Time Difficulty following instructions none Speech Pattern Clear Ambulation Patient Able to Ambulate Yes Ambulation Observation IP General Gait Pattern Observation Shuffling Step Ambulation Distance (feet) 30 Ambulation Assistive Device Rolling Walker Ambulation Ability Independent Balance Ability to Arise Able, uses arms to help Sitting Balance Steady, safe Standing Balance Steady, wide stance Dynamic Sitting Balance Ability Good Dynamic Standing Balance Ability Fair Transfers Bed Transfer Ability Independent Chair Transfer Ability Independent Sit to Stand Bed Transfer Ability Independent Sit to Stand Chair Transfer Ability Independent Rehab PT IP prob,goals,plan Problems Date of Evaluation: 02/21/24 Discharge Plan PT Discharge Plan Pt is appropriate to return home once medically stable at this time. Recommend home health therapy after d/c home. Eval Complexity Eval Charge Codes 98994 - High Complexity PHYSICIAN CERTIFICATION: I certify the specified therapy services for Valentine Schulz are required, authorized, and reviewed every 30 days.
[2024-02-21 12:00] VITALS: BP 148/73; PULSE 95; RESP 16; TEMP 36.9; O2SAT 94
--- NOTE | 2024-02-21 12:14 | SW/DCPLANNER ---
PT recommended home health services at discharge. Patient is already established with [facility]. They will resume services once patient is home. Contacted Sharon at [facility] to let them know about DC today. STARLA Marcano
--- NOTE | 2024-02-25 11:48 | SW/DCPLANNER ---
Phoned patient x2 and each time patient isnt accepting calls. Amparo RODRIGUEZ [facility]
== END 2024-02-21 14:59 | disposition home health service (06) ==
LOC: ER 15:01 → 2ND 15:27
PROVIDERS: Internal Medicine; Physician Assistant; Admitting Provider Internal Medicine Adolescent Medicine; Emergency Provider Emergency Medicine; PCP Nurse Practitioner Family; Visit Provider Internal Medicine Adolescent Medicine
DX: I10 Essential (primary) hypertension (principal); Z87.891 Personal history of nicotine dependence; J44.9 Chronic obstructive pulmonary disease, unspecified; Z79.51 Long term (current) use of inhaled steroids; Z86.718 Personal history of other venous thrombosis and embolism; Z79.01 Long term (current) use of anticoagulants; F33.9 Major depressive disorder, recurrent, unspecified
CPT/HCPCS: 36415; 70450; 70496; 70498; 74176; 74177; 80053; 83690; 83735; 83880; 85025; 85610; 87633; 93005; 97163; 97165; 99285; G0378; J0131; J0360; J0780; Q9963; Q9967

== ENCOUNTER 2024-02-29 10:02 | Observation (INO) | payer MEDICARE, MEDICAID, SELFPAY ==
[2024-02-29] VITALS (11 sets, daily range): BP systolic 127–220; BP diastolic 66–93; PULSE 67–104; RESP 15–27; TEMP 36.7–37.1; O2SAT 91–96; BMI 62.4
--- NOTE | 2024-02-29 10:02 | ECG_ITS ---
APPROVED REPORT Exam: Resting ECG HR:72 bpm ECG Measurements Heart Rate 72 AXES AK 188 P 50 QRSd 80 QRS -17 QT 375 T 42 QTc 400 Conclusion SINUS RHYTHM POSSIBLE RIGHT VENTRICULAR CONDUCTION DELAY [RSR (QR) IN V1/V2] BORDERLINE ECG UNCONFIRMED REPORT Electronically signed by : Derek Amaro, 02/29/2024 16:02:04
--- NOTE | 2024-02-29 10:09 | PC.NURSE ---
Dr. Amaro at BS for pt eval
[2024-02-29 10:25] LABS: Chloride 104 mmol/L (98-107)
--- NOTE | 2024-02-29 10:25 | ED_ITS ---
Discharge Plan Disposition Patient Disposition: Admitted Prescriptions Prescriptions: No Action albuterol sulfate 90 mcg/actuation HFA aerosol inhaler 1 inh INHALATION QID PRN (Reason: shortness of breath or wheezing) Qty: 18 10RF fluticasone propionate 50 mcg/actuation spray,suspension See Rx Instructions .ROUTE .COMPLEX Qty: 16 0RF Dose Instruction: USE 1 SPRAY(S) IN EACH NOSTRIL ONCE DAILY FOR ALLERGY SYMPTOMS Rx Instructions: USE 1 SPRAY(S) IN EACH NOSTRIL ONCE DAILY FOR ALLERGY SYMPTOMS Xarelto 20 mg tablet 20 mg PO DAILY Patient Comments: TAKE 1 TABLET BY MOUTH ONCE DAILY FOR BLOOD THINNER buspirone 5 mg tablet 5 mg PO BID fluoxetine 20 mg capsule 20 mg PO DAILY Rx Instructions: Take 1 capsule by mouth once daily carvedilol 6.25 mg Tablet 6.25 mg PO BID 30 Days Qty: 60 0RF irbesartan 75 mg Tablet 75 mg PO DAILY 30 Days Qty: 30 0RF Referrals Follow up/Referrals: Provider,Referral, MD [Primary Care Provider] - See instructions Clinical Impressions Clinical Impression: Hypertension, Dizziness, Headache Print Language Print Language: Hong Konger Discharge ED Provider: July Amaro General Adult HPI General Chief complaint: Headache Stated complaint: Dizziness Time Seen by Provider: 02/29/24 10:05 Mode of Arrival: EMS Source of Information: Patient and EMS Limitations: Fall risk Description of Symptoms (Recalled from ER Triage Doc. by RN): 0800 Woke up this am with headache and dizziness History of Present Illness HPI narrative: Patient is a 73-year-old with poorly controlled hypertension presenting today with similar complaints to what she was recently in hospital for including headache dizziness and hypertension. She was on carvedilol and irbesartan and had her blood pressure adequately controlled recently in the hospital. She had CT scan of her head and angiography of her head and neck which did not demonstrate any abnormalities. There was a potential concern for press but she had no encephalopathy and she has not had any changes in mental status. She is also serially had a normal neurologic exam. She states that today she had recurrence of her headache and dizziness and felt as if she was going to fall but did not fall has not had any injuries. She denies any other focal neurologic complaints including vision changes etc. Related Data Home Medications ?Medication ?Instructions ?Recorded ?Confirmed buspirone 5 mg tablet 5 mg PO BID 02/20/24 02/29/24 fluoxetine 20 mg capsule 20 mg PO DAILY 02/20/24 02/29/24 rivaroxaban 20 mg tablet (Xarelto) 20 mg PO DAILY 02/20/24 02/29/24 Previous Rx's ?Medication ?Instructions ?Recorded albuterol sulfate 90 mcg/actuation 1 inh inhalation QID PRN shortness 01/28/24 aerosol inhaler of breath or wheezing #18 grams carvedilol 6.25 mg tablet 6.25 mg PO BID 30 days #60 tabs 02/21/24 irbesartan 75 mg tablet 75 mg PO DAILY 30 days #30 tabs 02/21/24 fluticasone propionate 50 See Rx Instructions .Route 02/28/24 mcg/actuation nasal .COMPLEX #16 grams spray,suspension Allergies Allergy/AdvReac Type Severity Reaction Status Date / Time Penicillins (PENICILLINS) Allergy Unknown Rash Verified 02/29/24 10:00 Sulfa (Sulfonamide Allergy Unknown Rash Verified 02/29/24 10:00 Antibiotics) (SULFA (SULFONAMIDE ANTIBIOTICS)) [facility] Disclaimer: The information contained in this section may have been updated after the patient was seen, as this information can be updated by other users. Medical History DVT (deep venous thrombosis) Obesity (BMI 30.0-34.9) Osteoarthritis Leg pain Back Pain Hypertension Anxiety Depression Irregular heart beat Hyperlipemia Surgical History H/O heart surgery H/O section Family History Other No significant family history Social History Smoking Status: Never smoker second hand exposure: No alcohol intake: never substance use type: denies use current occupational status: disabled Travel in the last 8 weeks: None household members: none housing: house current occupational exposures/hazards: No caffeine: Yes Have you lived/traveled outside US in past 30 days?: No Contact w/someone who lives/traveled outside US past 30 days?: No Exposure to someone with infectious disease in past 14 days?: No Do you have a fever (greater than 100.4 F or 38 C)?: No Have you tested positive for COVID-19: No Exposed to someone with COVID-19 in past 14 days?: No Do you have a sore throat?: No Do you have a cough?: No Do you have any weakness?: No Do you have any diarrhea?: No Are you experiencing any unusual bleeding?: No Do you have any muscle aches/pain?: No Do you have any abdominal pain?: No Are you experiencing loss of taste or smell?: No Other Medical History Have you received the Flu Vaccine for this season: No Have you received the Pneumonia Vaccine: No ROS Obtained: Yes All systems reviewed & no additional complaints except as documented Physical Exam General General appearance: alert and in no apparent distress Respiratory Respiratory exam: Present normal lung sounds bilaterally Cardiovascular Cardiovascular exam: Present regular rate Neurological Exam Neurological exam: Present alert, oriented X3, CN II-XII intact, normal gait and other (Finger-nose [id number]); Absent motor sensory deficit Medical Decision Making Medical Records Screening: Per USPSTF and CDC recommendations, given the prevalence of disease in our region, it is our hospital?s policy to screen for HIV and viral Hepatitis for all patients aged 18 and over and those with ongoing risk factors. Christian Inquiry Pt receiving controlled substance: No Vital Signs: 02/29/24 09:57 02/29/24 10:15 Temperature 98.8 F Temperature Source Oral Pulse Rate 72 Pulse Rate [Left Radial] 77 Respiratory Rate 15 16 Blood Pressure 218/89 H Blood Pressure [Right Arm] 218/89 H Blood Pressure Mean [Right Arm] 132 Blood Pressure Source [Right Arm] Automatic Cuff Blood Pressure Position [Right Arm] Supine 02 Sat by Pulse Oximetry 96 94 L Oxygen Delivery Method Room Air Room Air Lab Data Lab results reviewed: Yes I reviewed the patient's lab results. Lab Results 02/29/24 09:45: WBC 6.8, RBC 4.50, Hgb 13.7, Hct 42.2, MCV 93.8, MCH 30.4, MCHC 32.5, RDW 13.9, Plt Count 164, MPV 10.4, Neut % (Auto) 56.8, Lymph % (Auto) 31.1, Izard % (Auto) 7.8, Eos % (Auto) 3.3, Baso % (Auto) 0.7, Neut # (Auto) 3.8, Lymph # (Auto) 2.1, Izard # (Auto) 0.5, Eos # (Auto) 0.2, Baso # (Auto) 0.1, Sodium 138, Potassium 4.4, Chloride 104, Carbon Dioxide 27, Anion Gap 11.4, BUN 15, Creatinine 0.80, Estimated Creat Clear 42, Estimated GFR 70, Est GFR ( Amer) 85, Glucose 113 H, Calcium 9.7, Total Bilirubin 0.6, AST 38 H, ALT 31, Alkaline Phosphatase 58, Troponin I < 0.01, Total Protein 7.9, Albumin 4.2, Globulin 3.7 H, Albumin/Globulin Ratio 1.1, HIV Ag/Ab Combo Qual Negative 02/29/24 09:45 02/29/24 09:45 Orders (Tests/Meds): ED MEDICATIONS Discontinued Medications Generic Name Dose Route Start Last Admin Trade Name Freq PRN Reason Stop Dose Admin Acetaminophen 1,000 mg 02/29/24 10:20 02/29/24 11:34 Acetaminophen 1,000mg/100ml Vial IV 02/29/24 10:21 1,000 mg ONCE ONE Administration Diphenhydramine HCl 12.5 mg 02/29/24 10:19 02/29/24 11:34 Diphenhydramine 50mg/Ml Vial IV 02/29/24 10:20 12.5 mg ONCE ONE Administration Sodium Chloride 500 mls @ 999 mls/hr 02/29/24 10:19 02/29/24 11:34 Sod Chlor 0.9% 1000ml Bag IV 02/29/24 10:49 999 mls/hr .Q31M ONE Administration Prochlorperazine Edisylate 5 mg 02/29/24 10:19 02/29/24 11:34 Prochlorperazine 10mg/2ml Vial IV 02/29/24 10:20 5 mg ONCE ONE Administration ORDERS Category Date Time Status CBC w/Auto Diff [Complete Blood Count Auto Diff] Stat Lab 02/29/24 09:45 Completed CMP [Comprehensive Metabolic Panel] Stat Lab 02/29/24 09:45 Completed HIV Combo Stat Lab 02/29/24 09:45 Completed Hep C Ab with Reflex to RNA Stat Lab 02/29/24 10:07 Ordered Trop I [Troponin I] Stat Lab 02/29/24 09:45 Completed Troponin I Q3H Lab 02/29/24 13:30 Ordered Troponin I Q3H Lab 02/29/24 16:30 Ordered Medical Decision Narrative: 73-year-old with largely normal neurologic exam no encephalopathy presents today with refractory hypertension despite taking her medications she was discharged with recently. She had recent CT scans which I did not repeat. Patient likely needs an MRI to rule out other pathology such as press which would not necessarily be present on the CT scan. However she is not encephalopathic. But that does not have to be present in a particular condition. Also posterior fossa abnormality certainly could show up on MRI as well. Patient was given a migraine cocktail with mild improvement in her symptoms she remains hypertensive as well as continues to have a mild headache and dizziness. There is no evidence clinically of endorgan damage. 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 Therefore I believe she needs to come in for blood pressure management and to get an MRI likely and to have a better grasp on her social condition given the fact that she is concerned about falling with her lightheadedness and dizziness. Critical Care Critical Care Time Critical Care Time: No
[2024-02-29 10:26] LABS: Albumin Level 4.2 g/dl (3.5-5.0); Potassium 4.4 mmoL/L (3.5-5.1); Sodium 138 mmol/L (136-145)
[2024-02-29 10:27] LABS: Basophils # 0.1 K/mm3 (0-0.2); Basophils % 0.7 % (0.1-2.0); Eosinophils # 0.2 K/mm3 (0.0-0.4); Eosinophils % 3.3 % (0.1-12.0); Hematocrit 42.2 % (37.0-47.0); Hemoglobin 13.7 g/dL (12.2-16.2); Lymphocytes # 2.1 K/mm3 (0.7-4.5); Lymphocytes % 31.1 % (10-50); Mean Corpuscular HGB Conc 32.5 g/dL (31.8-35.4); Mean Corpuscular Hemoglobin 30.4 pg (27.0-31.2); Mean Corpuscular Volume 93.8 fl (81-99); Mean Platelet Volume 10.4 fl (7.4-10.4); Monocytes # 0.5 K/mm3 (0.1-1.0); Monocytes % 7.8 % (1.7-9.3); Neutrophils # 3.8 K/mm3 (1.8-7.8); Neutrophils % 56.8 % (37.0-80.0); Platelet Count 164 K/mm3 (142-424); Red Cell Distribution Width 13.9 % (11.5-17.5); White Blood Count 6.8 K/mm3 (4.8-10.8)
[2024-02-29 10:28] LABS: Blood Urea Nitrogen 15 mg/dl (7-17); Creatinine Clearance Estimated 42 mL/min (50-200); Estimated Glomerular Filt Rate 70 ml/min (>60); GFR (African American) 85 ML/MIN (>60)
[2024-02-29 10:29] LABS: Alanine Aminotransferase 31 U/L (12-78); Albumin/Globulin Ratio 1.1 (1.1-1.8); Alkaline Phosphatase 58 U/L (38-126); Anion Gap 11.4 mEq/L (5-15); Aspartate Amino Transferase 38 U/L (14-36); Bilirubin,Total 0.6 mg/dl (0.2-1.3); Calcium 9.7 mg/dl (8.4-10.2); Carbon Dioxide 27 mmol/L (22.0-30.0); Globulin 3.7 g/dL (1.3-3.2); Glucose 113 mg/dl (74-100); Total Protein,Serum 7.9 g/dl (6.3-8.2)
[2024-02-29 10:41] LABS: Troponin I < 0.01 ng/ml (0.00-0.034)
[2024-02-29 11:15] LABS: HIV Combo NEGATIVE (Negative)
[2024-02-29] MEDS: ACETAMINOPHEN 1,000MG/100ML VIAL 1000 MG IV (11:34)
[2024-02-29] MEDS: 0.9 % SODIUM CHLORIDE 1000ML 500 ML 999 ML IV (11:34)
[2024-02-29] MEDS: PROCHLORPERAZINE 10MG/2ML VIAL 5 MG IV (11:34)
[2024-02-29] MEDS: diphenhydrAMINE 50MG/ML VIAL 12.5 MG IV (11:34)
--- NOTE | 2024-02-29 12:26 | MR_ITS ---
FINAL REPORT TECHNIQUE: Multiplanar and multisequence imaging of the brain was obtained without contrast. CLINICAL HISTORY: HTN, headache, eval for PRES COMPARISON: CT of the head dated 02/20/2024 FINDINGS: There is global atrophy. There is no mass effect or midline shift. Small foci of periventricular and subcortical white matter are nonspecific. The ventricles are symmetric without hydrocephalus. There is subependymal nodularity of the lateral ventricles, with signal characteristics similar to tapia matter, consistent with subependymal heterotopia. The cerebellum and brainstem have an unremarkable appearance. There are no areas of restricted diffusion on diffusion weighted images to suggest acute infarct. Soft tissues are without acute abnormality. IMPRESSION: No acute intracranial abnormality. Nonspecific T2 abnormality within the periventricular and subcortical white matter. Differential considerations include changes of chronic small vessel ischemia and demyelinating disease. Subependymal nodularity along the lateral ventricles, with signal similar to tapia matter, consistent with subependymal heterotopia. Reviewed, Interpreted and Dictated by Magalie Feliz MD Transcribed by Audra Newby Authenticated and [facility]
--- NOTE | 2024-02-29 12:59 | HMH.PHAINT1 ---
Pharmacy Intervention Comments: Home medication list verified using list from previous dischargee on 02/21/24 and outpatient pharmacy
--- NOTE | 2024-02-29 13:17 | PC.NURSE ---
spoke with johanna regarding MRI, will call when she has an available time
--- NOTE | 2024-02-29 13:23 | PC.NURSE ---
arrived by stretcher from ED
[2024-02-29 13:40] LABS: Troponin I < 0.01 ng/ml (0.00-0.034)
--- NOTE | 2024-02-29 15:37 | HMH.ITSTN ---
PT FILLED OUT MRI SCREENING FORM AND STATED SHE HAS A FILTER TO FILTER OUT BLOOD CLOTS, WE DID NOT HAVE ANY INFORMATION ON FILE. PT STATED SHE HAD IT DONE AT [facility] AND THIS TECH CALLED MEDICAL RECORDS AT [facility] AND THEY SENT OVER THE ONLY INFORMATION FROM THE FILTER PLACEMENT AND IT HAD NO DOCUMATION OF THE MAKE , MODEL AND LOT NUMBER ON THE FILTER. THIS TECH CALLED THE ORDERING PROVIDER AND EXPLAINED TO HIM WHAT WAS GOING ON AND STATED THAT FOR US TO PROCEED ON WITH SCAN , CELL MANAGER TOOK MRI SCREENING FORM TO ORDERING PROVIDER AND HE SIGNED IT WELL .
--- NOTE | 2024-02-29 16:49 | P.HP_ITS ---
History of Present Illness *Admission Date: 02/29/24 *Reason for visit:: Hypertensive urgency, headaches *History of present illness: Valentine Schulz is a 73-year-old female with a medical history significant for hypertension, anxiety/depression, chronic DVT/PE with IVC filter who presents after dizziness and almost blacking out today. She was recently discharged with stable blood pressures about a week ago with carvedilol, irbesartan which patient states she has been adherent to. Denies chest pain, shortness of breath, but does endorse intermittent blurry vision, dizziness and also complains of lower abdominal pain. Blood pressures were in the 200s on arrival, currently 220/84. No signs of endorgan damage at this time. Given symptomatic hypertensive urgency and high risk of outpatient treatment failure, he is discussed with ED provider and decision was made to admit patient. [facility] Disclaimer: The information contained in this section may have been updated after the patient was seen, as this information can be updated by other users. Medical History DVT (deep venous thrombosis) Obesity (BMI 30.0-34.9) Osteoarthritis Leg pain Back Pain Hypertension Anxiety Depression Irregular heart beat Hyperlipemia Surgical History H/O heart surgery H/O section Family History Other No significant family history Social History Smoking Status: Never smoker second hand exposure: No alcohol intake: never substance use type: denies use current occupational status: disabled Travel in the last 8 weeks: None household members: none housing: house current occupational exposures/hazards: No caffeine: Yes Have you lived/traveled outside US in past 30 days?: No Contact w/someone who lives/traveled outside US past 30 days?: No Exposure to someone with infectious disease in past 14 days?: No Do you have a fever (greater than 100.4 F or 38 C)?: No Have you tested positive for COVID-19: No Exposed to someone with COVID-19 in past 14 days?: No Do you have a sore throat?: No Do you have a cough?: No Do you have any weakness?: No Do you have any diarrhea?: No Are you experiencing any unusual bleeding?: No Do you have any muscle aches/pain?: No Do you have any abdominal pain?: No Are you experiencing loss of taste or smell?: No Other Medical History Have you received the Flu Vaccine for this season: No Have you received the Pneumonia Vaccine: Yes Meds Home Medications and Allergies Home Medications ?Medication ?Instructions ?Recorded ?Confirmed ?Type albuterol sulfate 90 mcg/actuation 1 inh inhalation QID PRN shortness 01/28/24 02/29/24 Rx aerosol inhaler of breath or wheezing #18 grams buspirone 5 mg tablet 5 mg PO BID 02/20/24 02/29/24 History fluoxetine 20 mg capsule 20 mg PO DAILY 02/20/24 02/29/24 History rivaroxaban 20 mg tablet (Xarelto) 20 mg PO QPMWITHMEAL 02/20/24 02/29/24 History carvedilol 6.25 mg tablet 6.25 mg PO BID 30 days #60 tabs 02/21/24 02/29/24 Rx irbesartan 75 mg tablet 75 mg PO DAILY 30 days #30 tabs 02/21/24 02/29/24 Rx fluticasone propionate 50 1 spray intranasal DAILY 02/29/24 02/29/24 History mcg/actuation nasal spray,suspension New Prescriptions to Start Prescriptions: Allergies Allergy/AdvReac Type Severity Reaction Status Date / Time Penicillins (PENICILLINS) Allergy Unknown Rash Verified 02/29/24 10:00 Sulfa (Sulfonamide Allergy Unknown Rash Verified 02/29/24 10:00 Antibiotics) (SULFA (SULFONAMIDE ANTIBIOTICS)) Exam Data for Last 24 hours Vital signs and Labs for Last 24 Hours: Temp Pulse Resp BP Pulse Ox O2 Del Method 98.8 F 74 18 220/84 H 95 Room Air 02/29/24 13:14 02/29/24 13:14 02/29/24 13:14 02/29/24 13:14 02/29/24 12:31 02/29/24 13:14 Laboratory Results - last 24 hr 02/29/24 09:45: WBC 6.8, RBC 4.50, Hgb 13.7, Hct 42.2, MCV 93.8, MCH 30.4, MCHC 32.5, RDW 13.9, Plt Count 164, MPV 10.4, Neut % (Auto) 56.8, Lymph % (Auto) 31.1, Early % (Auto) 7.8, Eos % (Auto) 3.3, Baso % (Auto) 0.7, Neut # (Auto) 3.8, Lymph # (Auto) 2.1, Early # (Auto) 0.5, Eos # (Auto) 0.2, Baso # (Auto) 0.1, Sodium 138, Potassium 4.4, Chloride 104, Carbon Dioxide 27, Anion Gap 11.4, BUN 15, Creatinine 0.80, Estimated Creat Clear 42, Estimated GFR 70, Est GFR ( Amer) 85, Glucose 113 H, Calcium 9.7, Total Bilirubin 0.6, AST 38 H, ALT 31, Alkaline Phosphatase 58, Troponin I < 0.01, Total Protein 7.9, Albumin 4.2, Globulin 3.7 H, Albumin/Globulin Ratio 1.1, HIV Ag/Ab Combo Qual Negative 02/29/24 13:07: Troponin I < 0.01 I & O for Last 24 hours: Intake & Output 02/26/24 02/27/24 02/28/24 02/29/24 23:59 23:59 23:59 23:59 Weight 165 kg Constitutional Constitutional: no acute distress, average body habitus, chronically ill appearing and cooperative *Routine HEENT Exam Head: Present normocephalic Eye: Present EOMI and PERRL ENT: Present mucous membranes moist *Routine Neck Exam Neck: Present supple; Absent lymphadenopathy *Routine Respiratory Exam Respiratory: Present CTA bilaterally; Absent respiratory distress, rhonchi, wheezes or crackles *Routine Cardiovascular Exam Cardiovascular: Present RRR *Routine Abdominal Exam Abdominal: Present soft, normoactive bowel sounds and tenderness Comments: Mild diffuse abdominal tenderness to palpation. *Routine Rectal Exam Rectal:: deferred *Routine Genitalia Exam Genitalia:: deferred *Routine Extremities Exam Extremities: Absent cyanosis, clubbing or edema Comments: Legs tender to palpation *Routine Skin Exam Skin: Present warm; Absent rash *Routine Neurological Exam Neurological: Present alert, oriented X3 and moving all extremities; Absent altered mental status Assessment and Plan *Assessment and plan (1) Hypertension: Status: Acute Category: Medical Code(s): I10 - Essential (primary) hypertension (2) Dizziness: Status: Acute Category: Medical Code(s): R42 - Dizziness and giddiness (3) Headache: Status: Acute Category: Medical Code(s): R51.9 - Headache, unspecified Plan Valentine Schulz is a 73-year-old female with a medical history significant for hypertension, anxiety/depression, chronic DVT/PE with IVC filter who presents after dizziness and almost blacking out today. She was recently discharged with stable blood pressures about a week ago with carvedilol, irbesartan which patient states she has been adherent to. Denies chest pain, shortness of breath, but does endorse intermittent blurry vision, dizziness and also complains of lower abdominal pain. Blood pressures were in the 200s on arrival, currently 220/84. No signs of endorgan damage at this time. Given symptomatic hypertensive urgency and high risk of outpatient treatment failure, he is discussed with ED provider and decision was made to admit patient. #Hypertensive urgency ? Previously discharged with carvedilol 6.5 mg twice daily, irbesartan 75 mg daily with stable pressures about a week ago. Did not take blood pressure medications today. ? Started amlodipine 10 mg, discontinued carvedilol perhaps due to lack of efficacy. Continue irbesartan 75 mg. ? Continue titrate oral medications. Monitor signs for pathologic hypertension. ? If refractory, will benefit from renal arterial Dopplers. ? Follow MRI to rule out PRES. #Decreased urinary frequency ? Patient is endorsing decreased urinary frequency. ? Follow-up urine analysis. ? Consider CT abdomen/pelvis if UA is unremarkable. #Anxiety/depression ? Resume home buspirone, fluoxetine. #Chronic DVT, PE ? Resume home Xarelto 20 mg. DNR Xarelto
[2024-02-29 17:20] LABS: Troponin I < 0.01 ng/ml (0.00-0.034)
[2024-02-29] MEDS: RIVAROXABAN 10MG TABLET 20 MG PO (17:38)
[2024-02-29] MEDS: AMLODIPINE 10MG TABLET 10 MG PO (17:39)
[2024-02-29] MEDS: IRBESARTAN 75MG TABLET 150 MG PO (17:40)
[2024-02-29 18:06] LABS: Microscopic, Urine URINE MICROSCOPIC (MICROSCOPIC)
[2024-02-29 18:35] LABS: Appearance,Urine CLEAR (Clear); Bilirubin,Urine Negative (Negative); Blood, Urine Negative (Negative); Color,Urine YELLOW (Yellow); Glucose,Urine (UA) Negative (Negative); Ketones,Urine Negative (Negative); Leukocyte Esterase,Urine Negative (Negative); Nitrate,Urine Negative (Negative); Protein,Urine Negative (Negative); Urobilinogen,Urine 0.2 EU/dl (0.2)
[2024-02-29 19:30] LABS: Bacteria,Urine 2+ /lpf; WBC,Urine Occasional #/hpf (0-3)
[2024-02-29 19:31] LABS: Mucus,Urine 1+ /lpf
[2024-02-29] MEDS: BUSPIRONE HCL 5 MG TABLET PO (20:35)
[2024-03-01] VITALS (8 sets, daily range): BP systolic 129–181; BP diastolic 65–90; PULSE 77–100; RESP 16–24; TEMP 36.4–36.8; O2SAT 93–97; BMI 28.1
--- NOTE | 2024-03-01 05:53 | PC.NURSE ---
Alert and oriented. Assist to bedside with 1 assist, patient still gets dizziness when standing, pt is weak. Pt was placed on 2L NC through night due to patient continuously dropping to to low 80s while sleeping, when awake patient does well, but deep sleep patient will drop. Patient has not had any new complaints. Call light in reach.
[2024-03-01 06:10] LABS: HCV Ab Non Reactive (Non Reactive)
[2024-03-01 07:48] LABS: Basophils # 0.1 K/mm3 (0-0.2); Basophils % 0.7 % (0.1-2.0); Eosinophils # 0.2 K/mm3 (0.0-0.4); Eosinophils % 3.6 % (0.1-12.0); Hematocrit 39.1 % (37.0-47.0); Hemoglobin 12.7 g/dL (12.2-16.2); Lymphocytes # 2.4 K/mm3 (0.7-4.5); Lymphocytes % 36.6 % (10-50); Mean Corpuscular HGB Conc 32.5 g/dL (31.8-35.4); Mean Corpuscular Hemoglobin 30.7 pg (27.0-31.2); Mean Corpuscular Volume 94.4 fl (81-99); Mean Platelet Volume 10.1 fl (7.4-10.4); Monocytes # 0.8 K/mm3 (0.1-1.0); Monocytes % 11.2 % (1.7-9.3); Neutrophils # 3.2 K/mm3 (1.8-7.8); Neutrophils % 47.6 % (37.0-80.0); Platelet Count 157 K/mm3 (142-424); Red Blood Count 4.14 M/mm3 (4.20-5.40); Red Cell Distribution Width 13.9 % (11.5-17.5); White Blood Count 6.7 K/mm3 (4.8-10.8)
[2024-03-01 08:04] LABS: Alanine Aminotransferase 26 U/L (12-78); Albumin Level 3.7 g/dl (3.5-5.0); Albumin/Globulin Ratio 1.2 (1.1-1.8); Alkaline Phosphatase 60 U/L (38-126); Anion Gap 10.1 mEq/L (5-15); Aspartate Amino Transferase 36 U/L (14-36); Bilirubin,Total 0.5 mg/dl (0.2-1.3); Blood Urea Nitrogen 13 mg/dl (7-17); Calcium 8.9 mg/dl (8.4-10.2); Carbon Dioxide 25 mmol/L (22.0-30.0); Chloride 106 mmol/L (98-107); Creatinine Clearance Estimated 57 mL/min (50-200); Estimated Glomerular Filt Rate 70 ml/min (>60); GFR (African American) 85 ML/MIN (>60); Globulin 3.2 g/dL (1.3-3.2); Glucose 104 mg/dl (74-100); Magnesium 1.9 mg/dl (1.6-2.3); Potassium 4.1 mmoL/L (3.5-5.1); Sodium 137 mmol/L (136-145); Total Protein,Serum 6.9 g/dl (6.3-8.2)
--- NOTE | 2024-03-01 08:12 | EXP.PN ---
Subjective *Date: 03/10/24 *Time: 20:29 Exam Data for Last 24 hours Vital signs and Labs for Last 24 Hours: Temp Pulse Resp BP Pulse Ox O2 Del Method O2 Flow Rate 98.3 F 77 16 153/78 H 97 Nasal Cannula 2 03/01/24 04:00 03/01/24 04:00 03/01/24 04:00 03/01/24 04:00 03/01/24 04:00 03/01/24 07:00 03/01/24 07:00 Laboratory Results - last 24 hr 02/29/24 09:45: WBC 6.8, RBC 4.50, Hgb 13.7, Hct 42.2, MCV 93.8, MCH 30.4, MCHC 32.5, RDW 13.9, Plt Count 164, MPV 10.4, Neut % (Auto) 56.8, Lymph % (Auto) 31.1, [place] % (Auto) 7.8, Eos % (Auto) 3.3, Baso % (Auto) 0.7, Neut # (Auto) 3.8, Lymph # (Auto) 2.1, [place] # (Auto) 0.5, Eos # (Auto) 0.2, Baso # (Auto) 0.1, Sodium 138, Potassium 4.4, Chloride 104, Carbon Dioxide 27, Anion Gap 11.4, BUN 15, Creatinine 0.80, Estimated Creat Clear 42, Estimated GFR 70, Est GFR ( Amer) 85, Glucose 113 H, Calcium 9.7, Total Bilirubin 0.6, AST 38 H, ALT 31, Alkaline Phosphatase 58, Troponin I < 0.01, Total Protein 7.9, Albumin 4.2, Globulin 3.7 H, Albumin/Globulin Ratio 1.1, Hepatitis C Antibody Non reactive, HIV Ag/Ab Combo Qual Negative 02/29/24 11:29: Urine Color Yellow, Urine Appearance Clear, Urine pH 6.0, Ur Specific [place] 1.020, Urine Protein Negative, Urine Glucose (UA) Negative, Urine Ketones Negative, Urine Blood Negative, Urine Nitrate Negative, Urine Bilirubin Negative, Urine Urobilinogen 0.2, Ur Leukocyte Esterase Negative, Urine RBC 5-10, Urine WBC Occasional, Ur Squamous Epith Cells 5-10, Urine Bacteria 2+, Urine Mucus 1+ 02/29/24 13:07: Troponin I < 0.01 02/29/24 16:38: Troponin I < 0.01 03/01/24 07:02: WBC 6.7, RBC 4.14 L, Hgb 12.7, Hct 39.1, MCV 94.4, MCH 30.7, MCHC 32.5, RDW 13.9, Plt Count 157, MPV 10.1, Neut % (Auto) 47.6, Lymph % (Auto) 36.6, [place] % (Auto) 11.2 H, Eos % (Auto) 3.6, Baso % (Auto) 0.7, Neut # (Auto) 3.2, Lymph # (Auto) 2.4, [place] # (Auto) 0.8, Eos # (Auto) 0.2, Baso # (Auto) 0.1, Sodium 137, Potassium 4.1, Chloride 106, Carbon Dioxide 25, Anion Gap 10.1, BUN 13, Creatinine 0.80, Estimated Creat Clear 57, Estimated GFR 70, Est GFR ( Amer) 85, Glucose 104 H, Calcium 8.9, Magnesium 1.9, Total Bilirubin 0.5, AST 36, ALT 26, Alkaline Phosphatase 60, Total Protein 6.9, Albumin 3.7 D, Globulin 3.2, Albumin/Globulin Ratio 1.2 I & O for Last 24 hours: Intake & Output 02/27/24 02/28/24 02/29/24 03/01/24 23:59 23:59 23:59 23:59 Intake Total 250 / 430 180 / 180 Output Total 0 / 0 0 / 0 Balance 250 / 430 180 / 180 Weight 165 kg 74.843 kg Constitutional Constitutional: no acute distress *Routine HEENT Exam Head: Present normocephalic Eye: Present EOMI and PERRL ENT: Present mucous membranes moist *Routine Neck Exam Neck: Present supple; Absent lymphadenopathy *Routine Respiratory Exam Respiratory: Present CTA bilaterally *Routine Cardiovascular Exam Cardiovascular: Present RRR *Routine Abdominal Exam Abdominal: Present soft and normoactive bowel sounds; Absent tenderness *Routine Extremities Exam Extremities: Absent cyanosis, clubbing or edema *Routine Skin Exam Skin: Present warm; Absent rash *Routine Neurological Exam Neurological: Present alert and oriented X3 Assessment and Plan *Assessment and plan (1) Hypertension: Status: Acute Category: Medical Code(s): I10 - Essential (primary) hypertension (2) Dizziness: Status: Acute Category: Medical Code(s): R42 - Dizziness and giddiness (3) Headache: Status: Acute Category: Medical Code(s): R51.9 - Headache, unspecified Plan Valentine Schulz is a 73-year-old female with a medical history significant for hypertension, anxiety/depression, chronic DVT/PE with IVC filter who presents after dizziness and almost blacking out today. She was recently discharged with stable blood pressures about a week ago with carvedilol, irbesartan which patient states she has been adherent to. Denies chest pain, shortness of breath, but does endorse intermittent blurry vision, dizziness and also complains of lower abdominal pain. Blood pressures were in the 200s on arrival, currently 220/84. No signs of endorgan damage at this time. Given symptomatic hypertensive urgency and high risk of outpatient treatment failure, he is discussed with ED provider and decision was made to admit patient. #Hypertensive urgency ? Previously discharged with carvedilol 6.5 mg twice daily, irbesartan 75 mg daily with stable pressures about a week ago. Did not take blood pressure medications today. ? Continue amlodipine 10 mg, irbesartan 75 mg. BP in 160s-170s today, will start HCTZ 12.5mg. - However, also having headaches which may be contributing to headaches. Toradol as needed. ? Continue titrate oral medications. Monitor signs for pathologic hypertension. ? If refractory, will benefit from renal arterial Dopplers. ? MRI negative for PRES, with non-specific hyper intensities. #Decreased urinary frequency ? UA unremarkable. #Anxiety/depression ? Resume home buspirone, fluoxetine. #Chronic DVT, PE ? Resume home Xarelto 20 mg. DNR Xarelto
[2024-03-01] MEDS: FLUOXETINE 20MG CAPSULE 20 MG PO (08:49)
[2024-03-01] MEDS: BUSPIRONE HCL 5 MG TABLET PO (08:50)
[2024-03-01] MEDS: ENOXAPARIN 40MG/0.4ML SYRINGE 40 MG SUBCUT (08:51)
[2024-03-01] MEDS: AMLODIPINE 10MG TABLET 10 MG PO (08:51)
[2024-03-01] MEDS: FLUTICASONE PROP 50MCG NASAL SPRAY 16GM 1 SPRAY NS (08:51)
[2024-03-01] MEDS: IRBESARTAN 150MG TAB 150 MG PO (08:51)
[2024-03-01] MEDS: hydroCHLOROthiazide 12.5MG CAPSULE 12.5 MG PO (09:34)
[2024-03-01] MEDS: KETOROLAC 30MG/ML VIAL 30 MG IV (11:14)
--- NOTE | 2024-03-01 14:09 | P.DS_ITS ---
General Admission date:: 02/29/24 HPI HPI HPI: Valentine Schulz is a 73-year-old female with a medical history significant for hypertension, anxiety/depression, chronic DVT/PE with IVC filter who presents after dizziness and almost blacking out today. She was recently discharged with stable blood pressures about a week ago with carvedilol, irbesartan which patient states she has been adherent to. Denies chest pain, shortness of b reath, but does endorse intermittent blurry vision, dizziness and also complains of lower abdominal pain. Blood pressures were in the 200s on arrival, currently 220/84. No signs of endorgan damage at this time. Given symptomatic hypertensive urgency and high risk of outpatient treatment failure, he is discussed with ED provider and decision was made to admit patient. Hospital Course Hospital Course Hospital Course: Valentine Schulz is a 73-year-old female with a medical history significant for hypertension, anxiety/depression, chronic DVT/PE with IVC filter who presents after dizziness and almost blacking out today. She was recently discharged with stable blood pressures about a week ago with carvedilol, irbesartan which patient states she has been adherent to. Denies chest pain, shortness of breath, but does endorse intermittent blurry vision, dizziness and also complains of lower abdominal pain. Blood pressures were in the 200s on arrival, currently 220/84. No signs of endorgan damage at this time. Given symptomatic hypertensive urgency and high risk of outpatient treatment failure, he is discussed with ED provider and decision was made to admit patient. #Hypertensive urgency ? Previously discharged with carvedilol 6.5 mg twice daily, irbesartan 75 mg daily with stable pressures about a week ago. - However, upon further inquiry today patient admitted to not picking up or taking these medications. Educated patient on the important of BP control, and how they can contributing to her headache and malaise. Patient is understanding. ? MRI negative for PRES, with non-specific hyper intensities. 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 #Decreased urinary frequency ? UA unremarkable. #Anxiety/depression ? Resume home buspirone, fluoxetine. #Chronic DVT, PE ? Resume home Xarelto 20 mg. Exam Data for Last 24 hours Vital signs and Labs for Last 24 Hours: Temp Pulse Resp BP Pulse Ox O2 Del Method O2 Flow Rate 98.2 F 99 H 18 172/90 H 94 L Room Air 2 03/01/24 12:00 03/01/24 12:00 03/01/24 12:00 03/01/24 12:00 03/01/24 12:00 03/01/24 13:00 03/01/24 12:00 Laboratory Results - last 24 hr 02/29/24 09:45: Hepatitis C Antibody Non reactive 02/29/24 11:29: Urine Color Yellow, Urine Appearance Clear, Urine pH 6.0, Ur Specific [place] 1.020, Urine Protein Negative, Urine Glucose (UA) Negative, Urine Ketones Negative, Urine Blood Negative, Urine Nitrate Negative, Urine Bilirubin Negative, Urine Urobilinogen 0.2, Ur Leukocyte Esterase Negative, Urine RBC 5-10, Urine WBC Occasional, Ur Squamous Epith Cells 5-10, Urine Bact eria 2+, Urine Mucus 1+ 02/29/24 16:38: Troponin I < 0.01 03/01/24 07:02: WBC 6.7, RBC 4.14 L, Hgb 12.7, Hct 39.1, MCV 94.4, MCH 30.7, MCHC 32.5, RDW 13.9, Plt Count 157, MPV 10.1, Neut % (Auto) 47.6, Lymph % (Auto) 36.6, [place] % (Auto) 11.2 H, Eos % (Auto) 3.6, Baso % (Auto) 0.7, Neut # (Auto) 3.2, Lymph # (Auto) 2.4, [place] # (Auto) 0.8, Eos # (Auto) 0.2, Baso # (Auto) 0.1, Sodium 137, Potassium 4.1, Chloride 106, Carbon Dioxide 25, Anion Gap 10.1, BUN 13, Creatinine 0.80, Estimated Creat Clear 57, Estimated GFR 70, Est GFR ( Amer) 85, Glucose 104 H, Calcium 8.9, Magnesium 1.9, Total Bilirubin 0.5, AST 36, ALT 26, Alkaline Phosphatase 60, Total Protein 6.9, Albumin 3.7 D, Globulin 3.2, Albumin/Globulin Ratio 1.2 I & O for Last 24 hours: Intake & Output 02/27/24 02/28/24 02/29/24 03/01/24 23:59 23:59 23:59 23:59 Intake Total 250 / 430 536 / 536 Output Total 0 / 0 0 / 0 Balance 250 / 430 536 / 536 Weight 165 kg 74.843 kg Microbiology Reports for the Last 24 Hours: Microbiology 02/29/24 11:29 Urine,Clean Catch Urine Culture - Preliminary Constitutional Constitutional: no acute distress *Routine HEENT Exam Head: Present normocephalic Eye: Present EOMI and PERRL ENT: Present mucous membranes moist *Routine Neck Exam Neck: Present supple; Absent lymphadenopathy *Routine Respiratory Exam Respiratory: Present CTA bilaterally *Routine Cardiovascular Exam Cardiovascular: Present RRR *Routine Abdominal Exam Abdominal: Present soft and normoactive bowel sounds; Absent tenderness *Routine Extremities Exam Extremities: Absent cyanosis, clubbing or edema *Routine Skin Exam Skin: Present warm; Absent rash *Routine Neurological Exam Neurological: Present alert and oriented X3 Results Data Completed and Pending Labs on day of discharge: Labs from last 24 hours 03/01/24 02/29/24 02/29/24 07:02 16:38 11:29 WBC 6.7 RBC 4.14 L Hgb 12.7 Hct 39.1 MCV 94.4 MCH 30.7 MCHC 32.5 RDW 13.9 Plt Count 157 MPV 10.1 Neut % (Auto) 47.6 Lymph % (Auto) 36.6 [place] % (Auto) 11.2 H Eos % (Auto) 3.6 Baso % (Auto) 0.7 Neut # (Auto) 3.2 Lymph # (Auto) 2.4 [place] # (Auto) 0.8 Eos # (Auto) 0.2 Baso # (Auto) 0.1 Sodium 137 Potassium 4.1 Chloride 106 Carbon Dioxide 25 Anion Gap 10.1 BUN 13 Creatinine 0.80 Estimated Creat Clear 57 Estimated GFR 70 Est GFR ( Amer) 85 Glucose 104 H Calcium 8.9 Magnesium 1.9 Total Bilirubin 0.5 AST 36 ALT 26 Alkaline Phosphatase 60 Troponin I < 0.01 Total Protein 6.9 Albumin 3.7 D Globulin 3.2 Albumin/Globulin Ratio 1.2 Urine Color Yellow Urine Appearance Clear Urine pH 6.0 Ur Specific [place] 1.020 Urine Protein Negative Urine Glucose (UA) Negative Urine Ketones Negative Urine Blood Negative Urine Nitrate Negative Urine Bilirubin Negative Urine Urobilinogen 0.2 Ur Leukocyte Esterase Negative Urine RBC 5-10 Urine WBC Occasional Ur Squamous Epith Cells 5-10 Urine Bacteria 2+ Urine Mucus 1+ Hepatitis C Antibody 02/29/24 09:45 WBC RBC Hgb Hct MCV MCH MCHC RDW Plt Count MPV Neut % (Auto) Lymph % (Auto) [place] % (Auto) Eos % (Auto) Baso % (Auto) Neut # (Auto) Lymph # (Auto) [place] # (Auto) Eos # (Auto) Baso # (Auto) Sodium Potassium Chloride Carbon Dioxide Anion Gap BUN Creatinine Estimated Creat Clear Estimated GFR Est GFR ( Amer) Glucose Calcium Magnesium Total Bilirubin AST ALT Alkaline Phosphatase Troponin I Total Protein Albumin Globulin Albumin/Globulin Ratio Urine Color Urine Appearance Urine pH Ur Specific [place] Urine Protein Urine Glucose (UA) Urine Ketones Urine Blood Urine Nitrate Urine Bilirubin Urine Urobilinogen Ur Leukocyte Esterase Urine RBC Urine WBC Ur Squamous Epith Cells Urine Bacteria Urine Mucus Hepatitis C Antibody Non reactive Preliminary micro results at discharge 02/29/24 11:29 Urine Culture - Preliminary Urine,Clean Catch DS: Diagnosis Discharge Diagnosis (1) Hypertension: Status: Acute Code(s): I10 - Essential (primary) hypertension (2) Dizziness: Status: Acute Code(s): R42 - Dizziness and giddiness (3) Headache: Status: Acute Code(s): R51.9 - Headache, unspecified Meds Home Medications and Allergies Home Medications ?Medication ?Instructions ?Recorded ?Confirmed ?Type albuterol sulfate 90 mcg/actuation 1 inh inhalation QID PRN shortness 01/28/24 02/29/24 Rx aerosol inhaler of breath or wheezing #18 grams buspirone 5 mg tablet 5 mg PO BID 02/20/24 02/29/24 History fluoxetine 20 mg capsule 20 mg PO DAILY 02/20/24 02/29/24 History rivaroxaban 20 mg tablet (Xarelto) 20 mg PO QPMWITHMEAL 02/20/24 02/29/24 History carvedilol 6.25 mg tablet 6.25 mg PO BID 30 days #60 tabs 02/21/24 02/29/24 Rx irbesartan 75 mg tablet 75 mg PO DAILY 30 days #30 tabs 02/21/24 02/29/24 Rx fluticasone propionate 50 1 spray intranasal DAILY 02/29/24 02/29/24 History mcg/actuation nasal spray,suspension New Prescriptions to Start Prescriptions: Allergies Allergy/AdvReac Type Severity Reaction Status Date / Time Penicillins (PENICILLINS) Allergy Unknown Rash Verified 02/29/24 10:00 Sulfa (Sulfonamide Allergy Unknown Rash Verified 02/29/24 10:00 Antibiotics) (SULFA (SULFONAMIDE ANTIBIOTICS)) Discharge Plan Disposition Patient Disposition: Home, Self-Care Condition: Fair Follow up Plan Follow up with: Jones Santos APRN [Nurse Practitioner] - Enter time for follow up aWlly Oscar MD [Staff Physician] - 03/05/24 (please call for appointment) Prescriptions/Medication Reconciliation: Continued albuterol sulfate 90 mcg/actuation HFA aerosol inhaler 1 inh INHALATION QID PRN (Reason: shortness of breath or wheezing) Qty: 18 10RF Xarelto 20 mg tablet 20 mg PO QPMWITHMEAL Patient Comments: TAKE 1 TABLET BY MOUTH ONCE DAILY FOR BLOOD THINNER buspirone 5 mg tablet 5 mg PO BID fluoxetine 20 mg capsule 20 mg PO DAILY Rx Instructions: Take 1 capsule by mouth once daily carvedilol 6.25 mg Tablet 6.25 mg PO BID 30 Days Qty: 60 0RF irbesartan 75 mg Tablet 75 mg PO DAILY 30 Days Qty: 30 0RF fluticasone propionate 50 mcg/actuation spray,suspension 1 spray intranasal DAILY Rx Instructions: USE 1 SPRAY(S) IN EACH NOSTRIL ONCE DAILY FOR ALLERGY SYMPTOMS Problem Reconciliation Problems Reviewed?: Yes Patient Discharge Instructions Additional Instructions: 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 Elevated blood pressures can cause strokes, heart attacks, headaches, dizziness. Patient Instructions: Treatments for High Blood Pressure: More Than Just Taking a Pill, High Blood Pressure Print Language: Libyan Providers Primary Care Provider: Provider,Referral Admit Provider: Ronnie Schwartz Attending Provider: Ronnie Schwartz
[2024-03-01] MEDS: LABETALOL 5MG/ML 20ML MDV 10 MG IV (14:46)
== END 2024-03-01 16:44 | disposition home or self-care (01) ==
LOC: ER 12:24 → 2ND 12:47
PROVIDERS: Admitting Provider Student in an Organized Health Care Education/Training Program; Emergency Provider Student in an Organized Health Care Education/Training Program; Visit Provider Student in an Organized Health Care Education/Training Program
DX: I16.0 Hypertensive urgency (principal); I10 Essential (primary) hypertension; Z86.718 Personal history of other venous thrombosis and embolism; Z79.899 Other long term (current) drug therapy; Z79.01 Long term (current) use of anticoagulants; Z79.51 Long term (current) use of inhaled steroids
CPT/HCPCS: 36415; 70551; 80053; 81001; 83735; 84484; 85025; 86803; 87086; 87088; 87186; 87389; 93005; 99285; G0378; J0131; J0780; J1200; J1650; J1885; J1920; J7030

== ENCOUNTER 2024-03-13 08:25 | Outpatient (CLI) | payer MEDICARE, MEDICAID, SELFPAY ==
--- NOTE | 2024-03-13 08:33 | CA_ITS ---
FINAL REPORT CLINICAL HISTORY: HTN, 02/18 CT=right renal cyst. COMPARISON: None FINDINGS: DOPPLER RENAL VESSELS Intrarenal resistive indices on the right are 0.67-0.71, normal . Intrarenal resistive indices on the left are 0.73-0.79, normal . Right main renal artery systolic velocity: 163 cm/sec. Aortic-right renal artery flow velocity ratio: 1.44 COMMENT: No evidence of hemodynamically significant renal artery stenosis . Left main renal artery systolic velocity: 125 cm/sec. Aortic-left renal artery flow velocity ratio: 1.1 COMMENT: No evidence of hemodynamically significant renal artery stenosis . IMPRESSION: No evidence of hemodynamically significant renal artery stenosis CTA or gadolinium-enhanced MR may be considered as a more sensitive exam. Alternatively noncontrast MRI may be considered for assessing main renal arteries for stenosis as a more sensitive exam if the patient has renal insufficiency. Reviewed, Interpreted and Dictated by Rah Delgado MD Transcribed by Trudy Palacios Authenticated and [facility]
--- NOTE | 2024-03-13 09:06 | US_ITS ---
FINAL REPORT CLINICAL HISTORY: I10 - Essential (primary) hypertension COMPARISON: None FINDINGS: RENAL ULTRASOUND Ultrasound images of the kidneys were obtained. Limited images of the liver parenchyma demonstrates normal echogenicity. The right kidney measures 11.4 cm in length. The left kidney measures 10.6 cm in length. The kidneys are normal in size with no hydronephrosis. There is a benign cyst in the right mid kidney measuring 32 mm. IMPRESSION: Benign right renal cyst. Reviewed, Interpreted and Dictated by Rah Delgado MD Transcribed by Trudy Palacios Authenticated and [facility]
== END 2024-03-13 23:59 | disposition home or self-care (01) ==
LOC: RT 08:27
PROVIDERS: PCP Nurse Practitioner Family; Visit Provider Internal Medicine
DX: I10 Essential (primary) hypertension (principal); E78.5 Hyperlipidemia, unspecified
CPT/HCPCS: 76770; 93976

== ENCOUNTER 2024-04-17 09:34 | Emergency (ER) | payer MEDICARE, MEDICAID, SELFPAY ==
[2024-04-17 09:34] VITALS: BP 218/103; PULSE 82; RESP 17; TEMP 37.1; O2SAT 95; BMI 27.9
--- NOTE | 2024-04-17 09:36 | ECG_ITS ---
APPROVED REPORT Exam: Resting ECG HR:84 bpm ECG Measurements Heart Rate 84 AXES DC 169 P 52 QRSd 92 QRS 11 QT 362 T 69 QTc 403 Conclusion SINUS RHYTHM POSSIBLE RIGHT VENTRICULAR CONDUCTION DELAY [RSR (QR) IN V1/V2] BORDERLINE ECG UNCONFIRMED REPORT Electronically signed by : Meg Mckenzie, 04/17/2024 16:37:34
[2024-04-17 09:50] VITALS: BP 231/101; PULSE 82; RESP 15; O2SAT 93
[2024-04-17] MEDS: IRBESARTAN 75MG TABLET 75 MG PO (10:10)
[2024-04-17] MEDS: CARVEDILOL 6.25MG TABLET 6.25 MG PO (10:10)
--- NOTE | 2024-04-17 10:11 | HMH.EDGENADL ---
Discharge Plan Disposition Patient Disposition: Home, Self-Care Condition: Good Prescriptions Prescriptions: New Preparation H 0.25-14-74.9 % ointment 1 applic TX DAILY PRN (Reason: hemorrhoids) Qty: 28 0RF witch shabbir leaf (hamamelis) Pad 1 applic topical DAILY Qty: 48 0RF hydrocortisone-pramoxine 1-1 % cream 1 applic TX DAILY PRN (Reason: itching) Qty: 30 0RF docusate sodium [Colace] 100 mg capsule 100 mg PO DAILY Qty: 30 0RF No Action albuterol sulfate 90 mcg/actuation HFA aerosol inhaler 1 inh INHALATION QID PRN (Reason: shortness of breath or wheezing) Qty: 18 10RF carvedilol 6.25 mg tablet 6.25 mg PO BID 30 Days Qty: 60 3RF irbesartan 75 mg tablet 75 mg PO DAILY 30 Days Qty: 30 3RF fluoxetine 20 mg capsule 20 mg PO DAILY Qty: 90 1RF Rx Instructions: Take 1 capsule by mouth once daily Xarelto 20 mg tablet 20 mg PO QPMWITHMEAL Patient Comments: TAKE 1 TABLET BY MOUTH ONCE DAILY FOR BLOOD THINNER buspirone 5 mg tablet 5 mg PO BID fluticasone propionate 50 mcg/actuation spray,suspension 1 spray intranasal DAILY Rx Instructions: USE 1 SPRAY(S) IN EACH NOSTRIL ONCE DAILY FOR ALLERGY SYMPTOMS Referrals Follow up/Referrals: Provider,Referral, MD [Primary Care Provider] - See instructions Activity Restrictions/Add. Instructions Additional Instructions/Restrictions: You were diagnosed with external hemorrhoids. It is important that you keep your bowel movements soft by taking Colace daily. You may also want to add a capful of MiraLAX daily which can be purchased [id number]. Apply hydrocortisone cream to the hemorrhoids as well as Preparation H daily as needed. The witch shabbir pad can provide additional relief after ointments are applied. Purchase a doughnut pillow for comfort while sitting. Perform 3-4 sitz bath's per day while hemorrhoids are tender. Follow-up with your primary care provider for possible surgical consult and excision. Please return to ED if your symptoms worsen, change in location, change in severity, new symptoms develop or if you become concerned for your health. Clinical Impressions Clinical Impression: External bleeding hemorrhoids, Essential (primary) hypertension Instructions Patient Instructions: DI for Hemorrhoids Print Language Print Language: Citizen Of [place] Discharge ED Provider: Meg Mckenzie General Adult HPI General Chief complaint: GI Bleed Stated complaint: weakness Time Seen by Provider: 04/17/24 09:40 Mode of Arrival: EMS Source of Information: Patient and EMS Limitations: No Limitations Description of Symptoms (Recalled from ER Triage Doc. by RN): pt presents to ED with c/o rectal bleeding. pt reports she got up to go to the restroom and noticed blood in the toilet, bright red. pt reports she does have hemorrhoids and her rectum is painful and swollen. pt reports she has a history of high blood pressure, but did not take her blood pressure medications this morning, she states that she had not gotten around to it yet. History of Present Illness HPI narrative: Vlaentine Schulz is a 73 y/o female presenting with rectal bleeding. Patient states she went to the bathroom this morning and had bright red blood from her rectum. Patient states it was a small amount and she has painful external hemorrhoids. She has a history of hemorrhoidectomy. Patient states she intermittently has constipation. Patient noticed that her blood pressure was also high and wanted to be evaluated. Patient did not take her morning blood pressure medication prior to coming to the hospital. Patient denies blood thinner use, lightheadedness, weakness, dizziness. Patient denies dysuria, fevers, chills, abdominal pain. Related Data Home Medications ?Medication ?Instructions ?Recorded ?Confirmed buspirone 5 mg tablet 5 mg PO BID 02/20/24 04/10/24 rivaroxaban 20 mg tablet (Xarelto) 20 mg PO QPMWITHMEAL 02/20/24 04/10/24 fluticasone propionate 50 1 spray intranasal DAILY 02/29/24 04/10/24 mcg/actuation nasal spray,suspension Previous Rx's ?Medication ?Instructions ?Recorded albuterol sulfate 90 mcg/actuation 1 inh inhalation QID PRN shortness 01/28/24 aerosol inhaler of breath or wheezing #18 grams carvedilol 6.25 mg tablet 6.25 mg PO BID 30 days #60 tabs 03/18/24 irbesartan 75 mg tablet 75 mg PO DAILY 30 days #30 tabs 03/18/24 fluoxetine 20 mg capsule 20 mg PO DAILY #90 caps 04/11/24 docusate sodium 100 mg capsule 100 mg PO DAILY #30 caps 04/17/24 (Colace) hydrocortisone-pramoxine 1 %-1 % 1 applic TX DAILY PRN itching #30 04/17/24 rectal cream grams phenylephrine 0.25 %-mineral oil 1 applic TX DAILY PRN hemorrhoids 04/17/24 14 %-petrolatm 74.9 % rectal #28 grams ointment (Preparation H) witch shabbir leaf (hamamelis) 1 applic topical DAILY #48 ea 04/17/24 Allergies Allergy/AdvReac Type Severity Reaction Status Date / Time Penicillins (PENICILLINS) Allergy Unknown Rash Verified 04/10/24 13:51 Sulfa (Sulfonamide Allergy Unknown Rash Verified 04/10/24 13:51 Antibiotics) (SULFA (SULFONAMIDE ANTIBIOTICS)) [facility] Disclaimer: The information contained in this section may have been updated after the patient was seen, as this information can be updated by other users. Medical History Hemorrhoids Internal derangement of right knee Left leg pain Left knee sprain Falls Skin lesion of neck Seasonal allergic rhinitis Passage of loose stools Abdominal pain Acute blood loss anemia (ABLA) Prolonged INR Dizziness Hypertensive emergency without congestive heart failure Abdominal contusion Contusion of left leg History of DVT (deep vein thrombosis) Lower GI bleed Fall down steps Lumbar strain Cervical strain DVT (deep venous thrombosis) Obesity (BMI 30.0-34.9) Osteoarthritis Leg pain Back Pain Hypertension Anxiety Depression Irregular heart beat Hyperlipemia Surgical History H/O heart surgery H/O section Family History Other No significant family history Social History Smoking Status: Never smoker second hand exposure: No alcohol intake: never substance use type: denies use current occupational status: disabled Travel in the last 8 weeks: None household members: none housing: house current occupational exposures/hazards: No caffeine: Yes Have you lived/traveled outside US in past 30 days?: No Contact w/someone who lives/traveled outside US past 30 days?: No Exposure to someone with infectious disease in past 14 days?: No Do you have a fever (greater than 100.4 F or 38 C)?: No Have you tested positive for COVID-19: No Exposed to someone with COVID-19 in past 14 days?: No Do you have a sore throat?: No Do you have a cough?: No Do you have any weakness?: No Do you have any diarrhea?: No Are you experiencing any unusual bleeding?: No Do you have any muscle aches/pain?: No Do you have any abdominal pain?: No Are you experiencing loss of taste or smell?: No Other Medical History Have you received the Flu Vaccine for this season: No Have you received the Pneumonia Vaccine: Yes ROS Obtained: Yes All systems reviewed & no additional complaints except as documented Physical Exam General General appearance: alert and in no apparent distress Head Head exam: atraumatic, normocephalic and normal inspection Eye Eye exam: Present normal appearance, PERRL and EOMI ENT ENT exam: Present normal exam, normal oropharynx, mucous membranes moist, TM's normal bilaterally and normal external ear exam Neck Neck exam: Present normal inspection, full ROM and trachea midline; Absent meningismus or lymphadenopathy Chest Chest inspection: Present normal inspection and symmetric chest wall rise; Absent tenderness Respiratory Respiratory exam: Present normal lung sounds bilaterally; Absent respiratory distress Cardiovascular Cardiovascular exam: Present regular rate and normal rhythm; Absent JVD Abdominal Exam Abdominal exam: Present soft and normal bowel sounds; Absent distention, tenderness or guarding Rectal Exam Rectal exam: Present hemorrhoids (No active bleeding, no thrombosis) Extremities Exam Extremities exam: Present normal inspection, full ROM and normal capillary refill; Absent calf tenderness Back Exam Back exam: Present normal inspection; Absent tenderness Neurological Exam Neurological exam: Present alert and oriented X3 Psychiatric Psychiatric exam: Present normal affect and normal mood Skin Skin exam: Present warm, dry, intact and normal color Lymphatic Lymphatic Findings: no adenopathy Medical Decision Making Medical Records Medical records reviewed: Yes I reviewed the patient's medical records. Screening: Per USPSTF and CDC recommendations, given the prevalence of disease in our region, it is our hospital?s policy to screen for HIV and viral Hepatitis for all patients aged 18 and over and those with ongoing risk factors. Christian Inquiry Pt receiving controlled substance: No Christian was queried for this patient: No Vital Signs: 04/17/24 09:34 04/17/24 09:50 04/17/24 10:15 Temperature 98.8 F Temperature Source Oral Pulse Rate 82 79 Pulse Rate [Left Radial] 82 Respiratory Rate 17 15 14 Blood Pressure 231/101 H 205/94 H Blood Pressure [Right Arm] 218/103 H Blood Pressure Mean [Right Arm] 141 02 Sat by Pulse Oximetry 95 93 L 96 Oxygen Delivery Method Room Air Room Air Room Air 04/17/24 10:30 04/17/24 11:00 04/17/24 11:47 Temperature 98.8 F Temperature Source Pulse Rate 77 80 81 Pulse Rate [Left Radial] Respiratory Rate 26 H 17 18 Blood Pressure 226/93 H 191/92 H 180/77 H Blood Pressure [Right Arm] Blood Pressure Mean [Right Arm] 02 Sat by Pulse Oximetry 94 L 94 L Oxygen Delivery Method Room Air Room Air Room Air Lab Data Lab results reviewed: Yes I reviewed the patient's lab results. Lab Results 04/17/24 09:37: WBC 5.9, RBC 4.52, Hgb 13.4, Hct 41.3, MCV 91.4, MCH 29.6, MCHC 32.4, RDW 13.9, Plt Count 155, MPV 10.3, Neut % (Auto) 50.3, Lymph % (Auto) 35.8, [place] % (Auto) 9.2, Eos % (Auto) 3.4, Baso % (Auto) 1.0, Neut # (Auto) 3.0, Lymph # (Auto) 2.1, [place] # (Auto) 0.5, Eos # (Auto) 0.2, Baso # (Auto) 0.1 04/17/24 09:37 Orders (Tests/Meds): ED MEDICATIONS Discontinued Medications Generic Name Dose Route Start Last Admin Trade Name Freq PRN Reason Stop Dose Admin Carvedilol 6.25 mg 04/17/24 10:01 04/17/24 10:10 Carvedilol 6.25mg Tablet PO 04/17/24 10:02 6.25 mg ONCE ONE Administration Irbesartan 75 mg 04/17/24 10:00 04/17/24 10:10 Irbesartan 75mg Tablet PO 04/17/24 10:01 75 mg ONCE ONE Administration ORDERS Category Date Time Status CBC w/Auto Diff [Complete Blood Count Auto Diff] Stat Lab 02/20/25 09:37 Completed ECG Data Tracing #1: I reviewed this ECG and interpreted as documented below: Sinus rhythm with a rate of 84. No QTc prolongation, no significant ST elevation/depression or evidence of acute ischemia. Medical Decision Narrative: In summary, this is a 73-year-old female presenting with rectal bleeding. Differential diagnosis includes but is not limited to, external hemorrhoid, thrombosed hemorrhoids, anal fissure, internal hemorrhoid, malignancy, UGIB. Based on patient's exam and lack of thrombosed external hemorrhoids or active bleeding, patient given her home BP meds and advised that she will require symptomatic hemorrhoid treatment and likely follow-up with a surgeon for possible repeat hemorrhoidectomy. Patient also recommended to start bowel regimen to ensure her stool stays soft. Patient's hemoglobin 13.4. Patient's blood pressure decreased and patient continued to be asymptomatic from a hypertension perspective. Patient had no recurrent bleeding from the rectum while in the emergency department. Patient advised to continue taking her antihypertensive medications as prescribed as well as following up with her PCP for possible additional antihypertensive medications due to her high blood pressure despite being given these medications. Patient prescribed topical medications and witch shabbir pads and recommended to have sitz bath's as well as purchasing a donut for additional pressure offload of rectum. Patient agreement with this plan. Plan discussed with patient's family who is in agreement as well. Patient discharged in stable condition. Meg Mckenzie MD Critical Care Critical Care Time Critical Care Time: No
[2024-04-17 10:15] VITALS: BP 205/94; PULSE 79; RESP 14; O2SAT 96
--- NOTE | 2024-04-17 10:20 | PC.NURSE ---
pt ambulatory with walker for assistance to restroom
--- NOTE | 2024-04-17 10:25 | PC.NURSE ---
I ambulated the pt back to her room after using the bathroom. pt ambulated with a walker without any difficulty. I helped her get situated in the bed. no new complaints. no needs voiced. call borges in reach.
[2024-04-17 10:30] VITALS: BP 226/93; PULSE 77; RESP 26; O2SAT 94
--- NOTE | 2024-04-17 10:30 | PC.NURSE ---
RN speaking with the pts son Sherman updating him on her status.
[2024-04-17 10:41] LABS: Basophils # 0.1 K/mm3 (0-0.2); Eosinophils # 0.2 K/mm3 (0.0-0.4); Lymphocytes # 2.1 K/mm3 (0.7-4.5); Monocytes # 0.5 K/mm3 (0.1-1.0); Red Cell Distribution Width 13.9 % (11.5-17.5)
[2024-04-17 11:00] VITALS: BP 191/92; PULSE 80; RESP 17; O2SAT 94
[2024-04-17 11:20] LABS: Eosinophils % 3.4 % (0.1-12.0); Hematocrit 41.3 % (37.0-47.0); Hemoglobin 13.4 g/dL (12.2-16.2); Lymphocytes % 35.8 % (10-50); Mean Corpuscular HGB Conc 32.4 g/dL (31.8-35.4); Mean Corpuscular Hemoglobin 29.6 pg (27.0-31.2); Mean Corpuscular Volume 91.4 fl (81-99); Mean Platelet Volume 10.3 fl (7.4-10.4); Monocytes % 9.2 % (1.7-9.3); Neutrophils % 50.3 % (37.0-80.0); Platelet Count 155 K/mm3 (142-424); Red Blood Count 4.52 M/mm3 (4.20-5.40); White Blood Count 5.9 K/mm3 (4.8-10.8)
--- NOTE | 2024-04-17 11:22 | PC.NURSE ---
called dorinda Whitaker for pt ride, no answer
--- NOTE | 2024-04-17 11:36 | PC.NURSE ---
pt dorinda Sherman called back and updated on poc and reports he will be here to pick pt up
[2024-04-17 11:47] VITALS: BP 180/77; PULSE 81; RESP 18; TEMP 37.1; O2SAT 96
== END 2024-04-17 11:48 | disposition home or self-care (01) ==
PROVIDERS: Emergency Provider Student in an Organized Health Care Education/Training Program
DX: K64.4 Residual hemorrhoidal skin tags (principal); I10 Essential (primary) hypertension; K62.5 Hemorrhage of anus and rectum; R53.1 Weakness
CPT/HCPCS: 85025; 93005; 99284

== ENCOUNTER 2024-04-24 11:11 | Outpatient (CLI) | payer MEDICARE, MEDICAID, SELFPAY ==
--- NOTE | 2024-04-24 11:20 | CA_ITS ---
APPROVED REPORT EXAM: Comprehensive 2D, Doppler, and color-flow Echocardiogram Degreasing Solution Reclaimer: Ana Rosales RT(R) Ht: 5 ft 4 in Wt: 166lbs BSA: 1.81 BP: 154/85 mmHg Indications: SOB, HTN, hyperlipidemia, dizziness, hx of DVT/PE, AFIB 2D Dimensions EF AP4 53.30 % GL Strain -12.4 % M-Mode Dimensions RVDd 2.59 cm (0.9-2.6) LA Diam 2.49 cm (1.9-4.0) LVDd 3.97 cm (3.5-5.7) LVDs 2.71 cm (3.5-5.7) IVSd 1.09 cm (0.6-1.1) PWd 1.10 cm (0.6-1.1) EF (Teich) 60.30% FS 31.70% EDV (Teich) 68.80 mL ESV (Teich) 27.30 mL LV Diastology E Decel Time 150 (160-240 msec) E/A Ratio 0.7 Mitral Valve MV E Max Niraj. 50.0 (40-130 cm/s) MV A Velocity 68.0 (40-130 cm/s) E/A Ratio 0.73 MV PHT 44.0 ms Left Ventricle The left ventricle is normal size. The left ventricular systolic function is normal. The left ventricular ejection fraction is within the normal range. There is increased LV wall thickness. There is normal LV segmental wall motion. Transmitral Doppler flow pattern suggests impaired LV relaxation. LVEF is 55%. Right Ventricle Right ventricle is mildly dilated. Right ventricle is mildly hypokinetic. Atria The left atrium is mildly dilated. Right atrium is mildly dilated. There is no Doppler evidence of interatrial shunt. Aortic Valve Aortic valve is mildly thickened. There is no aortic valvular stenosis. Mild aortic regurgitation. Mitral Valve The mitral valve is normal in structure. No evidence of mitral valve stenosis. Mild mitral regurgitation. Tricuspid Valve Tricuspid valve is grossly normal in structure and function. Trace tricuspid regurgitation. There is insufficient TR jet to estimate RVSP. Pulmonic Valve The pulmonary valve is normal in structure. Trace pulmonic regurgitation. Great Vessels The aortic root is normal in size. IVC is normal in size and collapses >50% with inspiration. Pericardium There is no pericardial effusion. Other Information Study Quality: Fair Conclusion Normal LV systolic function. Mild RV dilation with mild reduction in RV function. Mild biatrial dilation. Mild AI, mild MR. Compared to prior study from 06/24/2021, there are no significant changes. Electronically signed by : Haleigh Dean MD 05/02/2024 01:10:12
[2024-04-24 12:23] LABS: INR 1.02 (0.9-1.1); Prothrombin Time 11.4 seconds (10.1-12.5)
[2024-04-25 15:11] LABS: Anti-Cardiolipin Antibody IgG <9 GPL U/mL (0-14)
[2024-04-25 19:23] LABS: Beta-2 Glycoprotein I Ab, IgG 11 (0-20); Beta-2 Glycoprotein I Ab, IgM <9 (0-32)
[2024-04-26 05:55] LABS: Anti-Thrombin III Antigen 95 % (72-124); Antithrombin Activity 109 % (75-135); Protein C Functional 127 % (73-180); Protein S Functional 119 % (63-140)
== END 2024-04-24 23:59 | disposition home or self-care (01) ==
PROVIDERS: Internal Medicine Medical Oncology; PCP Nurse Practitioner Family; Visit Provider Internal Medicine
DX: I34.0 Nonrheumatic mitral (valve) insufficiency (principal); I35.1 Nonrheumatic aortic (valve) insufficiency; I10 Essential (primary) hypertension; I82.622 Acute embolism and thrombosis of deep veins of left upper extremity; Z86.711 Personal history of pulmonary embolism; Z86.718 Personal history of other venous thrombosis and embolism
CPT/HCPCS: 36415; 81241; 85300; 85301; 85302; 85306; 85610; 86146; 86147; 93306

== ENCOUNTER 2024-05-08 14:46 | Outpatient (CLI) | payer MEDICARE, MEDICAID, SELFPAY | END 2024-05-08 23:59 | disposition home or self-care (01) | LOC: LAB 14:48 | PROVIDERS: PCP Nurse Practitioner Family; Visit Provider Internal Medicine Medical Oncology | DX: Z86.718 Personal history of other venous thrombosis and embolism (principal) | CPT/HCPCS: 36415; 81240 ==

== ENCOUNTER 2024-05-22 10:24 | Outpatient (CLI) | payer MEDICARE, MEDICAID, SELFPAY ==
--- NOTE | 2024-05-22 | CA_ITS ---
APPROVED REPORT Exam: Pharmacologic Technologist: Yolanda Bain Ht: 5 ft 4 in Wt: 165 lbs BSA: 1.80 m2 Stress Test Details Test: Lexiscan HR Resting HR: 56 bpm Max Heart Rate (APMHR): 145.671297 bpm Max HR Achieved: 77 bpm Target HR (85% APMHR): 123.260084 bpm % of APMHR: 53.10 Recovery HR: 77 bpm BP Resting BP: 212.0/69.0 mmHg Max BP: 121.0/69.0 mmHg Recovery BP: 198.0/90.0 mmHg ECG Resting ECG: NSR/ Sinus bradycardia Stress ECG Conclusion Gave 10ml Aminophylline due to vomiting. Lot [id number] Exp July 2024. Symptoms: None. Arrhythmias/Ectopy: None. ST-T Changes: <1.[address] Segment changes. Conclusion: Non-diagnostic Lexiscan stress test. Electronically signed by : Haleigh Dean MD 05/22/2024 15:40:53
--- NOTE | 2024-05-22 11:30 | NM_ITS ---
APPROVED REPORT Exam: Nuclear Stress Test Indication: a-fib..fatigue Patient Location: Outpatient Stress Tech: Yolanda [place] Tech:NITIN Valera RT(R)(N) Ht: 5 ft 4 in Wt: 160 lbs Bra Size: 38b HR: 56 bpm BP: 212/69 mmHg BSA: 1.78 m2 TID: 0.89 BMI: 27.4 History: a-fib..fatigue Procedure: Patient received 0.4 mg of intravenous Lexiscan, resting heart rate 56 bpm, resting blood pressure 212/69 mmHg, with Lexiscan maximum heart rate achieved was 76 bpm which is 85 % of the maximum predicted heart rate and blood pressure was 197/67 mmHg. With Lexiscan, patient denied any complaint of chest pain. Patient was not able to lay on her belly for prone images Cardiac Stress and Resting SPECT Images: Cardiac Stress and Resting SPECT images were obtained using technetium 99m Myoview 31.6 mCi stress and 10.85 mCi at rest. The patient was unable to lie on her abdomen. Therefore, prone stress imaging could not be performed. This may affect the diagnostic interpretation of the study findings. Resting and stress imaging in supine positions demonstrate a small sized, moderate, partially reversible perfusion defect in the distal anterior LV wall, as well as the apical LV wall. Gated imaging demonstrates global LV systolic function. LVEF is calculated at 65%. Of note the right ventricle appears dilated. Correlation with new or recent TTE is suggested. Conclusion: small sized, moderate, partially reversible perfusion defect in the distal anterior LV wall, as well as the apical LV wall. Findings are suggestive of partial reversible ischemia. Gated imaging demonstrates global LV systolic function. LVEF is calculated at 65%. Of note the right ventricle appears dilated. Correlation with new or recent TTE is suggested. Electronically signed by : Haleigh Dean MD 05/22/2024 14:59:47
[2024-05-22 11:46] LABS: Chol/HDL Ratio 5.4 (1-3.5); Cholesterol 211 mg/dl (140-200); HDL Cholesterol 39 mg/dl (40-60); Triglycerides 367 mg/dl (30-150); VLDL Cholesterol 73 mg/dL (0-40)
[2024-05-22 11:56] LABS: Direct LDL Cholesterol 76.32 mg/dL (100-129)
[2024-05-22 12:04] LABS: Hemoglobin A1C 5.8 % (4.0-6.0)
[2024-05-22] MEDS: SODIUM CHLORIDE 0.9% 10ML SYR (RAD ONLY) 10 ML IV ×2 (14:13)
[2024-05-22] MEDS: ISOTOPE MYOVIEW (PER STUDY) 1 DOSE IV (14:13)
[2024-05-22] MEDS: REGADENOSON 0.4MG/5ML SYRINGE 0.4 MG IV (14:13)
[2024-05-24 15:10] LABS: Anti-Cardio Antibody IgM 13 MPL U/mL (0-12)
== END 2024-05-22 23:59 | disposition home or self-care (01) ==
PROVIDERS: Internal Medicine Medical Oncology; PCP Nurse Practitioner Family; Visit Provider Internal Medicine
DX: R06.02 Shortness of breath (principal); R53.83 Other fatigue; R53.1 Weakness; I10 Essential (primary) hypertension; I48.0 Paroxysmal atrial fibrillation; E66.3 Overweight; E78.5 Hyperlipidemia, unspecified; Z86.718 Personal history of other venous thrombosis and embolism; D64.9 Anemia, unspecified; R73.9 Hyperglycemia, unspecified
CPT/HCPCS: 36415; 78452; 80061; 83036; 86147; 93017; 93018; A9502; J0280; J2785

== ENCOUNTER 2024-07-10 12:10 | Day surgery (SDC) | payer MEDICARE, MEDICAID, SELFPAY ==
[2024-07-08 16:52] VITALS: BMI 26.3
[2024-07-10] MEDS: LACTATED RINGERS 1000ML 1,000 ML 50 ML IV (12:38)
[2024-07-10 12:46] VITALS: BP 194/99; PULSE 71; RESP 18; TEMP 36.9; O2SAT 92
--- NOTE | 2024-07-10 12:59 | EXP.ANES.CKL ---
[facility] Disclaimer: The information contained in this section may have been updated after the patient was seen, as this information can be updated by other users. Medical History Pre-op evaluation Fatigue Weakness Hemorrhoids Internal derangement of right knee Left leg pain Left knee sprain [place] Skin lesion of neck Seasonal allergic rhinitis Passage of loose stools Abdominal pain Acute blood loss anemia (ABLA) Prolonged INR Dizziness Hypertensive emergency without congestive heart failure Abdominal contusion Contusion of left leg History of DVT (deep vein thrombosis) Lower GI bleed Fall down steps Lumbar strain Cervical strain DVT (deep venous thrombosis) Obesity (BMI 30.0-34.9) Osteoarthritis Leg pain Back Pain Hypertension Anxiety Depression Irregular heart beat Hyperlipemia Surgical History H/O heart surgery H/O section Family History Other No significant family history Social History Smoking Status: Never smoker second hand exposure: No alcohol intake: never substance use type: denies use current occupational status: disabled Travel in the last 8 weeks?: None household members: none housing: house current occupational exposures/hazards: No caffeine: Yes Have you lived/traveled outside [place] in past 30 days?: No Contact w/someone who lives/traveled outside US past 30 days?: No Exposure to someone with infectious disease in past 14 days?: No Do you have a fever (greater than 100.4 F or 38 C)?: No Have you tested positive for COVID-19?: No Exposed to someone with COVID-19 in past 14 days?: No Do you have a sore throat?: No Do you have a cough?: No Do you have any weakness?: No Do you have any diarrhea?: No Are you experiencing any unusual bleeding?: No Do you have any muscle aches/pain?: No Do you have any abdominal pain?: No Are you experiencing loss of taste or smell?: No [facility] Anesthesia Checklist Patient Identification Patient Identification: Arm Band and Family Structural Data Admitted From: Home Planned Operative Procedure/s: Colonoscopy Consent for Planned Operative Procedure(s) Verified: Yes Verified Documents: Surgical Consent and History and Physical NPO Status Verified Time NPO: 00:00 Additional verifications Patient : No Anesthesia Reactions: No Blood Transfusion Reaction: No Cephalosporin Allergy: No Previous Colonoscopy: Yes Airway Assessment Mallampati Score:: Class II Dentition: Good Dentition Neurological Assessment Level of Consciousness: Awake, Alert, Appropriate and Follows Commands Numbness or tingling in extremities: No Anesthesia Plan Anesthesia Risk discussed: Yes ASA Class: III Anesthesia Type: MAC Preoperative Comments Pre-Operative Comments: Atril fib, rx with Metoprolol. COPD. History of pulmonary embolism. Chronic hemorrhoids. Advanced age.
[2024-07-10 13:47] VITALS: O2SAT 92
--- NOTE | 2024-07-10 13:55 | P.HP_ITS ---
History of Present Illness *Admission Date: 07/10/24 *Reason for visit:: Rectal bleeding, hemorrhoidal prolapse/history of bettye omatous polyps and co *History of present illness: Mrs. Schulz is a 73-year-old female who is here for diagnostic colonoscopy. She has had hemorrhoidal bleeding and hemorrhoid prolapse. She also has a history of a neuroendocrine tumor discovered at time of colonoscopy in 2020. She also had 2 adenomatous polyps at that time.. The examination is deemed medi kristine necessary for diagnostic colonoscopy. The patient has been seen, interviewed and examined prior to the procedure by both myself and the anesthesia provider. [facility] Disclaimer: The information contained in this section may have been updated after the patient was seen, as this information can be updated by other users. Medical History Pre-op evaluation Fatigue Weakness Hemorrhoids Internal derangement of right knee Left leg pain Left knee sprain Falls Skin lesion of neck Seasonal allergic rhinitis Passage of loose stools Abdominal pain Acute blood loss anemia (ABLA) Prolonged INR Dizziness Hypertensive emergency without congestive heart failure Abdominal contusion Contusion of left leg History of DVT (deep vein thrombosis) Lower GI bleed Fall down steps Lumbar strain Cervical strain DVT (deep venous thrombosis) Obesity (BMI 30.0-34.9) Osteoarthritis Leg pain Back Pain Hypertension Anxiety Depression Irregular heart beat Hyperlipemia Surgical History H/O heart surgery H/O section Family History Other No significant family history Social History Smoking Status: Never smoker second hand exposure: No alcohol intake: never substance use type: denies use current occupational status: disabled Travel in the last 8 weeks?: None household members: none housing: house current occupational exposures/hazards: No caffeine: Yes Have you lived/traveled outside US in past 30 days?: No Contact w/someone who lives/traveled outside US past 30 days?: No Exposure to someone with infectious disease in past 14 days?: No Do you have a fever (greater than 100.4 F or 38 C)?: No Have you tested positive for COVID-19?: No Exposed to someone with COVID-19 in past 14 days?: No Do you have a sore throat?: No Do you have a cough?: No Do you have any weakness?: No Do you have any diarrhea?: No Are you experiencing any unusual bleeding?: No Do you have any muscle aches/pain?: No Do you have any abdominal pain?: No Are you experiencing loss of taste or smell?: No Other Medical History Have you received the Flu Vaccine for this season: No Have you received the Pneumonia Vaccine: Yes Meds Home Medications and Allergies Home Medications ?Medication ?Instructions ?Recorded ?Confirmed ?Type albuterol sulfate 90 mcg/actuation 1 inh inhalation QID PRN shortness 01/28/24 07/10/24 Rx aerosol inhaler of breath or wheezing #18 grams buspirone 5 mg tablet 5 mg PO BID 02/20/24 07/10/24 History rivaroxaban 20 mg tablet (Xarelto) 20 mg PO QPMWITHMEAL 02/20/24 07/10/24 Hi story fluticasone propionate 50 1 spray intranasal DAILY 02/29/24 07/10/24 History mcg/actuation nasal spray,suspension fluoxetine 20 mg capsule 20 mg PO DAILY #90 caps 04/11/24 07/10/24 Rx docusate sodium 100 mg capsule 100 mg PO DAILY #30 caps 04/17/24 07/10/24 Rx (Colace) hydrocortisone-pramoxine 1 %-1 % 1 applic ME DAILY PRN itching #30 04/17/24 07/10/24 Rx rectal cream grams phenylephrine 0.25 %-mineral oil 1 applic ME DAILY PRN hemorrhoids 04/17/24 07/10/24 Rx 14 %-petrolatm 74.9 % rectal #28 grams ointment (Preparation H) witch shabbir leaf (hamamelis) 1 applic topical DAILY #48 ea 04/17/24 07/10/24 Rx metoprolol tartrate 50 mg tablet 50 mg PO BID #180 tabs 05/08/24 07/10/24 Rx lisinopril 20 mg tablet 20 mg PO DAILY #90 tabs 05/22/24 07/10/24 Rx sodium,potassium,mag sulfates 17.5 See Rx Instructions PO .COMPLEX 06/26/24 07/10/24 Rx gram-3.13 gram-1.6 gram oral soln #354 mL (Suprep Bowel Prep Kit) New Prescriptions to Start Prescriptions: Allergies Allergy/AdvReac Type Severity Reaction Status Date / Time Penicillins (PENICILLINS) Allergy Unknown Rash Verified 05/22/24 14:35 Sulfa (Sulfonamide Allergy Unknown Rash Verified 05/22/24 14:35 Antibiotics) (SULFA (SULFONAMIDE ANTIBIOTICS)) Exam Data for Last 24 hours Vital signs and Labs for Last 24 Hours: Temp Pulse Resp BP Pulse Ox O2 Del Method 98.4 F 71 18 194/99 H 92 L Room Air 07/10/24 12:46 07/10/24 12:46 07/10/24 12:46 07/10/24 12:46 07/10/24 12:46 07/10/24 12:46 I & O for Last 24 hours: Intake & Output 07/07/24 07/08/24 07/09/24 07/10/24 23:59 23:59 23:59 23:59 Weight 163 lb *Routine HEENT Exam Head: Present normocephalic Eye: Present EOMI and PERRL ENT: Present mucous membranes moist *Routine Neck Exam Neck: Present supple *Routine Respiratory Exam Respiratory: Present CTA bilaterally *Routine Cardiovascular Exam Cardiovascular: Present RRR *Routine Abdominal Exam Abdominal: Present soft and normoactive bowel sounds; Absent tenderness *Routine Rectal Exam Rectal:: deferred *Routine Genitalia Exam Genitalia:: deferred *Routine Extremities Exam Extremities: Absent cyanosis, clubbing or edema *Routine Skin Exam Skin: Present warm; Absent rash *Routine Neurological Exam Neurological: Present alert and oriented X3 Assessment and Plan *Assessment and plan (1) Bleeding internal hemorrhoids: Status: Acute Category: Medical Code(s): K64.8 - Other hemorrhoids (2) Prolapsed internal hemorrhoids: Status: Acute Category: Medical Code(s): K64.8 - Other hemorrhoids (3) History of well differentiated neuroendocrine tumor of colon: Status: Acute Category: Medical Code(s): Z85.038 - Personal history of other malignant neoplasm of large intestine (4) Personal history of adenomatous and serrated colon polyps: Status: Acute Category: Medical Code(s): Z86.0101 - Personal history of adenomatous and serrated colon polyps Plan A/P: 1. Bleeding internal hemorrhoids and prolapsing hemorrhoids with prior history of colonic neuroendocrine tumor (small and benign and completely removed) and adenomatous polyps is the preprocedural diagnosis. The patient will be anesthetized/sedated using MAC sedation. The patient has been seen and examined. Cardiac and lung assessment prior to the examination is stable. Proceed with planned diagnostic colonoscopy.
--- NOTE | 2024-07-10 14:20 | P.PCN_ITS ---
[facility] Procedure Note Date: 07/10/24 Time: 14:20 Procedure Note:: Colonoscopy Procedure Report: Colonoscopy with cold snare polypectomy, biopsy ablation, Endo Clip placement, submucosal injection of spot ink tattoo and hemorrhoid band ligation Endoscopist: Leon Al II, MD Referring physician: GAYATRI Polanco Date of Procedure: July 10, 2024 Equipment: Olympus 190 variable stiffness pediatric colonoscope Sedation: MAC sedation Indication: Mrs. 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 She had 2 additional adenomatous polyps removed. The patient now reports intermittent rectal bleeding with more pronounced bleeding at times from hemorrhoids and some hemorrhoid prolapse. She is using Preparation H. She is on Xarelto. Colonoscopy is performed for further evaluation. Procedure: Prior to the procedure, a history and physical exam was performed, and patient's medications and allergies were reviewed. The risks, benefits and alternatives of the sedation and procedure were discussed with the patient. All questions were answered and informed consent was obtained. The patient was brought to the procedure room. Patient identification and proposed procedure were verified by the physician and the nurse. The patient was placed in a left lateral decubitus position and the scope was passed under direct vision. Throughout the procedure, the patient's blood pressure, pulse, and oxygen saturations were monitored continuously. The colonoscopy was accomplished without difficulty. The patient tolerated the procedure well. Findings: On digital rectal examination there was normal rectal tone. There were external hemorrhoidal tags and some hemorrhoid prolapse. The colonoscope was introduced through the anal canal to the rectum and advanced to the cecum. The ileocecal valve and appendiceal orifice were identified. The scope was advanced a short distance into the ileum which appeared grossly normal. The scope was then withdrawn into the colon. The cecum was normal. There was a diminutive 3 mm polyp in the ascending colon removed via cold snare polypectomy. The remainder of the transverse, descending colon were normal. Within the distal sigmoid at 16 cm from the anal verge was a sessile 9-10 mm polyp with some surface irregularity with mild depression centrally making this more suspicious. Cold snare polypectomy was performed but there was thicker tissue and the surface of this was completely removed. The hot biopsy forceps was used to grasp mucosal/submucosal tissue and this was coagulated and biopsies were obtained to rule out NET versus advanced adenoma. An Endo Clip was placed over the polypectomy site. 10 mL of [place]aly ink was injected submucosally (using injector needle) 2 cm distal for identification tattoo. Within the rectum, there was white fibrotic scar from prior removal of the NET of the rectum. Upon retroflexion within the rectum there were grade 2-3 internal hemorrhoids. 3 columns of hemorrhoids were banded using 3 bands with excellent ligation effect. The preparation was fair throughout with [place] Preparation Score of 7 out of 9. The cecal time was 20 minutes. Impression: 1. Lower sigmoid 9 to 10 mm polyp (16 cm from anal verge) with some surface depression?rule out advanced adenoma/adenocarcinoma or NET 2. Diminutive ascending polyp 3. Grade 2-3 internal hemorrhoids status post band ligation x 3 Plan: I will follow-up the biopsies/polyp histology. I am concerned about the sigmoid polyp with some central depression which is often a sign of more advanced pathology and possibly dysplasia or early adenocarcinoma. I will discuss the findings with the patient and family.
[2024-07-10 14:35] VITALS: BP 129/62; PULSE 63; RESP 16; TEMP 36.5; O2SAT 91
[2024-07-10 14:45] VITALS: BP 155/71; PULSE 62; RESP 16; O2SAT 94
[2024-07-10 14:55] VITALS: BP 168/76; PULSE 64; RESP 16; O2SAT 94
[2024-07-10] MEDS: HYDROCODONE/APAP 5/325 MG TABLET 1 TAB PO (15:02)
[2024-07-10 15:05] VITALS: BP 190/84; PULSE 64; RESP 18; O2SAT 95
== END 2024-07-10 15:19 | disposition home or self-care (01) ==
PROVIDERS: PCP Nurse Practitioner Family; Visit Provider Internal Medicine Gastroenterology
PROC: 0DJD8ZZ Inspection of Lower Intestinal Tract, Via Natural or Artificial Opening Endoscopic (ICD-10-PCS; CPT 45378; principal; 2024-07-10 14:00)
DX: C7A.8 Other malignant neuroendocrine tumors (principal); D12.2 Benign neoplasm of ascending colon; K64.1 Second degree hemorrhoids; K64.4 Residual hemorrhoidal skin tags; K62.5 Hemorrhage of anus and rectum; I10 Essential (primary) hypertension; Z85.038 Personal history of other malignant neoplasm of large intestine; Z86.0101 Personal history of adenomatous and serrated colon polyps; Z86.718 Personal history of other venous thrombosis and embolism; Z79.899 Other long term (current) drug therapy; Z79.01 Long term (current) use of anticoagulants; Z88.0 Allergy status to penicillin; Z88.2 Allergy status to sulfonamides
CPT/HCPCS: 45384; 45385; 45398; 88305; 88341; 88342; 88360; C1889; J7120

== ENCOUNTER 2024-10-16 15:03 | Outpatient (CLI) | payer MEDICARE, MEDICAID, SELFPAY ==
--- OUTSIDE RECORDS SUMMARY | 2024-10-16 15:06 | XMS_ITS | Clinical Summary ---
Author Organization [facility] Address [address] [place] [id number] Phone Care Team Providers Care Cross Roller Name Role Phone Provider, Not In Epic Primary Care Provider Unav ailable Allergies Active Allergy Reactions Criticality Noted Date Comments Penicillins 10/06/2011 Sulfa (Sulfonamide Antibiotics) 09/26 Medications diltiazem (TIAZAC) 360 mg SR capsule Take 360 mg by mouth daily. Active Aspirin 81 mg Take 81 mg by mouth daily. Active FLUOXETINE HCL (PROZAC ORAL) Take by mouth. Unknown dose Active lisinopril (PRINIVIL;ZESTR IL) 40 mg tablet Take 40 mg by mouth daily. Active gemfibrozil (LOPID) 600 mg tablet Take 600 mg by mouth 2 times daily (before meals). Active warfarin (COUMADIN) 4 mg tablet Take 4 mg by mouth daily. Active Surgical History Surgery Date Site/Laterality Comments VENA CAVA FILTER PLACEMENT Medical History Medical History Date Comments Hypertension High cholesterol Depression Pulmonary embolism (HCC) Social History Tobacco Use Types Packs/Day Years Used Date Smoking Tobacco: Never Smokeless Tobacco: Never Alcohol Use Standard Drinks/Week Comments No 0 (1 standard drink = 0.6 oz pur e alcohol) Comments No Sex and Gender Information Value Date Recorded Sex Assigned at Not on file Legal Sex Female 7:33 PM EDT Gender Identity Not on file Sexual Orientation Not on file Obstetrics History Last Filed Vital Signs Vital Sign Reading Time Taken Comments Blood Pressure 132/50 09/21/2016 8:42 PM EDT Pulse 61 09/21/2016 8:42 PM EDT Temperature 36.6 C (97.9 F) 09/21/2016 8:42 PM EDT Respiratory Rate 20 09/21/2016 8:42 PM EDT Oxygen Saturation 92% 09/21/2016 8:42 PM EDT Inhaled Oxygen Concentration - - Weight 77.1 kg (170 lb) 09/21/2016 8:42 PM EDT Height 162.6 cm (5' 4 ) 09/21/2016 8:42 PM EDT Body Mass Index 29.18 09/21/2016 8:42 PM EDT Plan of Treatment Health Maintenance Due Date Last Done Comments Wellness Exam Medicare 07/20/1953 Hepatitis C Screening 1966 DTaP/TDaP/Td (1 - Tdap) 07/20/1967 Pneumococcal Vaccine 50+ (1 of 1 - PCV) 1998 Zoster (1 of 2) 1998 Bone Density Screening 2013 RSV or 60+ (1 - 1-d ose 75+ series) 07/20/2023 COVID-19 Vaccine (1 - 2023-2 5 season) 2023 Influenza Vaccine (#1) 2024 Hepatitis B Vaccine Aged Out No longe r eligible based on patient's age to complete this topic Meningococcal B Vaccine Aged Out No l onger eligible based on patient's age to complete [place] [address] [place] [address] [facility] [id number] [facility] MEDICARE PART B Care Teams Cross Roller Relationship Specialty Start Date End Date Provider, Not In Epic PCP - General 10/06/11
[2024-10-16 15:35] LABS: Hematocrit 42.3 % (37.0-47.0); Hemoglobin 13.7 g/dL (12.2-16.2); Immature Granulocytes % 0.2 %; Mean Corpuscular HGB Conc 32.4 g/dL (31.8-35.4); Mean Corpuscular Hemoglobin 30.0 pg (27.0-31.2); Mean Corpuscular Volume 92.6 fl (81-99); Nucleated Red Blood Cells % 0 %; Platelet Count 154 K/mm3 (142-424); Red Blood Count 4.57 M/mm3 (4.20-5.40); Red Cell Distribution Width-SD 46.9 fL; White Blood Count 8.4 K/mm3 (4.8-10.8)
== END 2024-10-16 23:59 | disposition home or self-care (01) ==
LOC: LAB 15:04
PROVIDERS: PCP Nurse Practitioner Family; Visit Provider Internal Medicine
DX: I10 Essential (primary) hypertension (principal)
CPT/HCPCS: 36415; 85025

== ENCOUNTER 2024-12-07 12:50 | Observation (INO) | payer MEDICARE, MEDICAID, SELFPAY ==
[2024-12-07 12:51] VITALS: BP 221/94; PULSE 74; RESP 18; TEMP 36.8; O2SAT 95; BMI 29.9
[2024-12-07 13:00] VITALS: BP 172/83; PULSE 67; O2SAT 96
--- OUTSIDE RECORDS SUMMARY | 2024-12-07 13:03 | XMS_ITS | Clinical Summary ---
Author Organization [facility] Address [address] [place] [phone] Phone Care Team Providers Care Motorsports Technician Name Role Phone Provider, Not In Epic [...] on file Sexual Orientation Not on file Last Filed Vital Signs Vital Sign Reading [...] 1-d ose 75+ series) 07/20/2023 COVID-19 Vaccine ( - 2023-2 5 season) 2024 Influenza Vaccine (#1) 2024 Hepatitis B Vaccine Aged Out No longe r eligible based on patient's age to complete this topic Meningococcal B Vaccine Aged Out No l onger eligible based on patient's age to complete [place] [address] [place] [address] [facility] [id number] [facility] MEDICARE PART B Care Teams Motorsports Technician Relationship Specialty Start Date End Date Provider, Not In [facility] PCP - General 10/06/11
--- NOTE | 2024-12-07 13:07 | CT_ITS ---
PROCEDURE INFORMATION: Exam: CT Lumbar Spine Without Contrast Exam date and time: 12/07/2024 1:21 PM Age: 74 years old Clinical indication: Other: New onset sciatica, severe TECHNIQUE: Imaging protocol: Computed tomography of the lumbar spine without contrast. Radiation optimization: All CT scans at this facility use at least one of these dose optimization techniques: automated exposure control; mA and/or kV adjustment per patient size (includes targeted exams where dose is matched to clinical indication); or iterative reconstruction. COMPARISON: CT LUMBAR SPINE WO CON 06/10/2019 1:26 PM FINDINGS: Bones/joints: Mild anterolisthesis of L3 over L4, stable. T11-T12: Mild spinal canal stenosis at T11-T12. L1-L2: No significant disc bulge or herniation. No severe spinal canal stenosis. No significant neural foraminal narrowing. L2-L3: Moderate spinal canal stenosis at L2-L3. L3-L4: Disc herniation with severe spinal canal stenosis at L3-L4. L4-L5: Disc herniation with moderate spinal canal stenosis at L4-L5. L5-S1: No significant disc bulge or herniation. No severe spinal canal stenosis. No significant neural foraminal narrowing. Lungs: Moderate patchy opacities in both lungs likely represent atelectasis or infection. Liver: Hypodensities less than 1 cm in the liver are too small to accurately characterize. Gallbladder and biliary ducts: Moderately dilated CBD measuring 1.3 cm is partially visualized and may be due to cholecystectomy. Kidneys and ureters: Nonobstructing stone measuring 6 mm is seen in the lower pole of right kidney. Right renal cyst is partially visualized. Stomach and bowel: Moderate diverticulosis affects the sigmoid colon. Intraperitoneal space: No evidence of free air in the abdomen. Vasculature: Focal aneurysm measuring 2.8 cm in the infrarenal abdominal aorta. Mild atherosclerotic calcifications affect the aorta and its branches. IVC filter at the level of L3. Soft tissues: Unremarkable. IMPRESSION: 1. No acute findings. 2. Mild anterolisthesis of L3 over L4, stable. 3. Moderate spinal canal stenosis at L2-L3. 4. Disc herniation with severe spinal canal stenosis at L3-L4. 5. Disc herniation with moderate spinal canal stenosis at L4-L5. 6. Moderately dilated CBD measuring 1.3 cm is partially visualized and may be due to cholecystectomy. Correlate with lab values. 7. Nonobstructing stone measuring 6 mm is seen in the lower pole of right kidney. 8. Focal aneurysm measuring 2.8 cm in the infrarenal abdominal aorta. COMMENTS: Consistent with the [employer]'s Incidental Findings Committee white paper (J Am Marci Radiol 2018): Any incidental renal lesion less than 1 cm or classified as too small to characterize, or any incidental cystic renal lesion characterized as simple-appearing, is likely benign. No follow-up imaging is recommended for these lesions per consensus recommendations based on imaging criteria.
--- NOTE | 2024-12-07 13:09 | ED_ITS ---
Discharge Plan Disposition Patient Disposition: Admitted Prescriptions Prescriptions: No Action metoprolol tartrate 50 mg tablet 50 mg PO BID Qty: 180 3RF lisinopril 20 mg tablet 20 mg PO DAILY Qty: 90 3RF Rx Instructions: May take an additional 20mg dose if SBP >150. hydrochlorothiazide 25 mg tablet 25 mg PO DAILY Qty: 30 2RF albuterol sulfate 90 mcg/actuation HFA aerosol inhaler 1 inh INHALATION QID PRN (Reason: shortness of breath or wheezing) Qty: 18 10RF fluoxetine 20 mg capsule See Rx Instructions .ROUTE .COMPLEX Qty: 90 2RF Dose Instruction: Take 1 capsule by mouth once daily Rx Instructions: Take 1 capsule by mouth once daily Xarelto 20 mg tablet 20 mg PO QPMWITHMEAL Patient Comments: TAKE 1 TABLET BY MOUTH ONCE DAILY FOR BLOOD THINNER buspirone 5 mg tablet 5 mg PO BID fluticasone propionate 50 mcg/actuation spray,suspension 1 spray intranasal DAILY Rx Instructions: USE 1 SPRAY(S) IN EACH NOSTRIL ONCE DAILY FOR ALLERGY SYMPTOMS Preparation H 0.25-14-74.9 % ointment 1 applic NM DAILY PRN (Reason: hemorrhoids) Qty: 28 0RF hydrocortisone-pramoxine 1-1 % cream 1 applic NM DAILY PRN (Reason: itching) Qty: 30 0RF docusate sodium [Colace] 100 mg capsule 100 mg PO DAILY Qty: 30 0RF Referrals Follow up/Referrals: Provider,Referral, MD [Referring, Medical] - See instructions Clinical Impressions Clinical Impression: Sciatica of left side, Spinal stenosis, Declining functional status Print Language Print Language: Luxembourgish Discharge ED Provider: Luiza Sears Adult HPI General Chief complaint: PAIN Stated complaint: left leg pain Time Seen by Provider: 12/07/24 13:00 Mode of Arrival: EMS Source of Information: Patient and EMS Description of Symptoms (Recalled from ER Triage Doc. by RN): Pt presents by EMS from home for evaluation of Left hip pain that radiates down her leg x 1 day. Pt rates pain as a 8/10. Pt has a hx of blood clots, and was started on a new bp med sunday due to her blood pressure being elevated. BP 196/94 for ems History of Present Illness HPI narrative: This is a 74-year-old female with history of hypertension, CAD, aortic atherosclerosis, internal hemorrhoids, anxiety, depression, and diverticulosis who presents emergency department with acute onsets low back pain with radiation into the left leg. She states this pain awoke her from sleep suddenly last night. She describes a burning stabbing pain that radiates from her low back into her left hip, past her left knee, and into her left foot. No recent trauma, falls, or injury to the low back. She states she was previously diagnosed with sciatica. She denies any previous lumbar spine imaging. She denies any lower extremity weakness, numbness, saddle anesthesia, incontinence, or difficulty with bowel movements. Denies any associated fever, headache, chest pain, abdominal pain, vomiting, or diarrhea. No prior spinal surgeries. Related Data Home Medications ?Medication ?Instructions ?Recorded ?Confirmed buspirone 5 mg tablet 5 mg PO BID 02/20/24 5 rivaroxaban 20 mg tablet (Xarelto) 20 mg PO QPMWITHMEA L 02/20/24 12/04/24 fluticasone propionate 50 1 spray intranasal DAILY 05/2012/04/24 mcg/actuation nasal spray,suspension Previous Rx's ?Medication ?Instructions ?Recorded albuterol sulfate 90 mcg/actuation 1 inh inhalation QI D PRN shortness 01/28/24 aerosol inhaler of breath or wheezing #18 gr ams docusate sodium 100 mg capsule 100 mg PO DAILY #30 cap s 04/17/24 (Colace) hydrocortisone-pramoxine 1 %-1 % 1 applic NM DAILY PRN itching #30 04/17/24 rectal cream grams phenylephrine 0.25 %-mineral oil 1 applic NM DAILY PRN hemorrhoids 04/17/24 14 %-petrolatm 74.9 % rectal #28 grams ointment (Preparation H) metoprolol tartrate 50 mg tablet 50 mg PO BID #180 tab s 05/08/24 lisinopril 20 mg tablet 20 mg PO DAILY #90 tabs 04/27 09/19 fluoxetine 20 mg capsule See Rx Instructions .Route 0 10/17/24 .COMPLEX #90 caps hydrochlorothiazide 25 mg tablet 25 mg PO DAILY #30 ta bs 12/04/24 Allergies Allergy/AdvReac Type Severity Reaction Status Date / Time Penicillins (PENICILLINS) Allergy Unknown Rash Verified 12/04/24 13:35 Sulfa (Sulfonamide Allergy Unknown Rash Verified 12/04/24 13:35 Antibiotics) (SULFA (SULFONAMIDE ANTIBIOTICS)) [facility] Disclaimer: The information contained in this section may have been updated after the patient was seen, as this information can be updated by other users. Medical History Pre-op evaluation Fatigue Weakness Hemorrhoids Internal derangement of right knee Left leg pain Left knee sprain Falls Skin lesion of neck Seasonal allergic rhinitis Passage of loose stools Abdominal pain Acute blood loss anemia (ABLA) Prolonged INR Dizziness Hypertensive emergency without congestive heart failure Abdominal contusion Contusion of left leg History of DVT (deep vein thrombosis) Lower GI bleed Fall down steps Lumbar strain Cervical strain DVT (deep venous thrombosis) Obesity (BMI 30.0-34.9) Osteoarthritis Leg pain Back Pain Hypertension Anxiety Depression Irregular heart beat Hyperlipemia Surgical History H/O heart surgery H/O section Family History Other No significant family history Social History Smoking Status: Never smoker second hand exposure: No alcohol intake: never substance use type: denies use current occupational status: disabled Travel in the last 8 weeks?: None household members: none housing: house current occupational exposures/hazards: No caffeine: Yes Have you lived/traveled outside US in past 30 days?: No Contact w/someone who lives/traveled outside US past 30 days?: No Exposure to someone with infectious disease in past 14 days?: No Do you have a fever (greater than 100.4 F or 38 C)?: No Have you tested positive for COVID-19?: No Exposed to someone with COVID-19 in past 14 days?: No Do you have a sore throat?: No Do you have a cough?: No Do you have any weakness?: No Do you have any diarrhea?: No Are you experiencing any unusual bleeding?: No Do you have any muscle aches/pain?: No Do you have any abdominal pain?: No Are you experiencing loss of taste or smell?: No Other Medical History Have you received the Flu Vaccine for this season: No Have you received the Pneumonia Vaccine: Yes ROS Obtained: Yes All systems reviewed & no additional complaints except as documented Physical Exam General General appearance: alert and in no apparent distress Head Head exam: atraumatic Eye Eye exam: Present normal appearance, PERRL and EOMI ENT ENT exam: Present mucous membranes moist Neck Neck exam: Present normal inspection and full ROM; Absent tenderness Chest Chest inspection: Present symmetric chest wall rise; Absent tenderness Respiratory Respiratory exam: Absent respiratory distress, wheezes or accessory muscle use Cardiovascular Cardiovascular exam: Present regular rate and normal rhythm Abdominal Exam Abdominal exam: Present soft; Absent tenderness or guarding Extremities Exam Extremities exam: Present full ROM; Absent tenderness Back Exam Back exam: Present paraspinal tenderness; Absent vertebral tenderness Neurological Exam Neurological exam: Present alert, oriented X3 and other (Sensation and strength intact to the lower extremities) Psychiatric Psychiatric exam: Present normal affect Skin Skin exam: Present warm and dry Medical Decision Making Medical Records Medical records reviewed: Yes I reviewed the patient's medical records. Screening: Per USPSTF and CDC recommendations, given the prevalence of disease in our region, it is our hospital?s policy to screen for HIV and viral Hepatitis for all patients aged 18 and over and those with ongoing risk factors. Christian Inquiry Pt receiving controlled substance: No Christian was queried for this patient: No Vital Signs: 12/07/24 12:51 12/07/24 13:00 12/07/24 14:00 Temperature 98.3 F Temperature Source Oral Pulse Rate 67 64 Pulse Rate [Right] 74 Respiratory Rate 18 Blood Pressure 172/83 H 182/83 H Blood Pressure [Right Arm] 221/94 H Blood Pressure Mean [Right Arm] 136 Blood Pressure Source [Right Arm] Automatic Cuff Blood Pressure Position [Right Arm] Sitting 02 Sat by Pulse Oximetry 95 96 96 Oxygen Delivery Method Room Air Room Air Room Air Lab Data Lab results reviewed: Yes I reviewed the patient's lab results. Lab Results 12/07/24 13:35: WBC 8.0, RBC 4.71, Hgb 14.3, Hct 43.1, MCV 91.5, MCH 30.4, MCHC 33.2, RDW 13.5, Plt Count 171, MPV 10.0, Neut % (Auto) 49.4, Lymph % (Auto) 36.7, [place] % (Auto) 10.0 H, Eos % (Auto) 2.9, Baso % (Auto) 0.6, Neut # (Auto) 4.0, Lymph # (Auto) 2.9, [place] # (Auto) 0.8, Eos # (Auto) 0.2, Baso # (Auto) 0.1, Sodium 138, Potassium 3.9, Chloride 100, Carbon Dioxide 26, Anion Gap 15.9 H, BUN 13, Creatinine 0.90, Estimated Creat Clear 62, Estimated GFR 61, Est GFR ( Amer) 74, Glucose 117 H, Calcium 9.2, Total Bilirubin 1.1, AST 29, ALT 20, Alkaline Phosphatase 70, Total Protein 7.9, Albumin 4.3, Globulin 3.6 H, Albumin/Globulin Ratio 1.2 12/07/24 14:31: Urine Color Yellow, Urine Appearance Clear, Urine pH 6.0, Ur Specific [place] 1.010, Urine Protein Negative, Urine Glucose (UA) Negative, Urine Ketones Negative, Urine Blood Negative, Urine Nitrate Negative, Urine Bilirubin Negative, Urine Urobilinogen 0.2, Ur Leukocyte Esterase 1+ A, Urine RBC None, Urine WBC 10-20, Ur Squamous Epith Cells 5-10, Urine Bacteria 2+ 12/07/24 13:35 12/07/24 13:35 Orders (Tests/Meds): ED MEDICATIONS Discontinued Medications Generic Name Dose Route Start Last Admin Trade Name Hermelinda PRN Reason Stop Dose Admin Acetaminophen 1,000 mg 12/07/24 13:08 12/07/24 13:26 Acetaminophen 500mg Tab PO 12/07/24 13:09 1,000 mg ONCE ONE Administration Dexamethasone 8 mg 12/07/24 13:08 12/07/24 13:25 Dexamethasone 4mg Tablet PO 12/07/24 13:09 8 mg ONCE ONE Administration Ketorolac Tromethamine 15 mg 12/07/24 13:08 12/07/24 13:29 Ketorolac 15mg/Ml Vial IM 12/07/24 13:09 Not Given ONCE ONE Ketorolac Tromethamine 15 mg 12/07/24 13:28 12/07/24 13:31 Ketorolac 15mg/Ml Vial IV 12/07/24 13:29 15 mg ONCE ONE Administration Methocarbamol 500 mg 12/07/24 15:01 12/07/24 15:15 Methocarbamol 500mg Tablet PO 12/07/24 15:02 500 mg ONCE ONE Administration ORDERS Category Date Time Status CT lumbar spine wo con Stat Cat Scan 12/07/24 13:07 Completed CBC w/Auto Diff [Complete Blood Count Auto Diff] Stat Lab 12/07/24 13:35 Completed CMP [Comprehensive Metabolic Panel] Stat Lab 12/07/24 13:35 Completed UA [Urinalysis and Microscopic] Stat Lab 12/07/24 14:31 Completed Urine Culture Stat Micro 12/07/24 14:31 Received Medical Decision Narrative: This is a 74-year-old female with reported history of sciatica presenting the emergency department with low back pain radiating to the left lower extremity. Differential diagnosis includes but is not limited to sciatica, lumbar radiculopathy, spinal stenosis, muscular spasm, occult compression fracture. On my initial assessment, the patient is hemodynamically stable in no acute distress. She is significantly hypertensive, however states she is in 9 out of 10 pain. She has a nonfocal neurologic exam with the lower extremities?strength and sensation is intact. No red flag symptoms of back pain including incontinence, weakness, or saddle anesthesia. Considering the severity of her pain and lack of previous lumbar imaging, we will proceed with CT lumbar spine in addition to basic lab work and urinalysis. CBC shows no leukocytosis or anemia. Platelet count is in normal limits. CMP shows no severe electrolyte abnormality, no EMMANUELLE, and LFTs within normal limits. UDS shows 1+ leukocyte esterase, 10-20 WBCs, however does show 5-10 squamous epithelial cells. Patient denies any flank pain, fever, vomiting, or dysuria. At this point in time, I elected to not treat as a UTI considering lack of symptoms. CT lumbar spine shows multilevel disc herniations with spinal stenosis. She does have a stable focal infrarenal abdominal aortic aneurysm and extensive aortic calcification. No occult bony fracture. Incidentally, she does have a nonobstructing right-sided renal stone and moderately dilated CBD measuring 1.3 cm, however she is status post cholecystectomy. Ultimately, on reassessment, after Tylenol, Toradol, and Decadron, patient has had no improvement in symptoms. She is unsteady on her feet, requiring a 2 assist to walk to the bathroom. She has intact strength of the lower extremities without any sensory deficits. I discussed laboratory and imaging results with the patient and the patient's son. We had an extensive discussion about her functional ability at home. She states she feels unsafe with respect to being able to care for herself. She is concerned about falling and being unable call 911. She has had home health in the past, however can only get it for 3 months due to insurance reasons. Ultimately, we decided to admit her to the hospital for scheduled pain medication and PT/OT assessment for potential placement. Dr. Schwartz will accept patient for case management evaluation. Diagnosis is left-sided sciatica with functional decline. Critical Care Critical Care Time Critical Care Time: No
[2024-12-07] MEDS: DEXAMETHASONE 4MG TABLET 8 MG PO (13:25)
[2024-12-07] MEDS: ACETAMINOPHEN 500MG TAB 1000 MG PO (13:26)
[2024-12-07] MEDS: KETOROLAC 15MG/ML VIAL 15 MG IV (13:31)
[2024-12-07 13:43] LABS: Hematocrit 43.1 % (37.0-47.0); Hemoglobin 14.3 g/dL (12.2-16.2); Immature Granulocytes % 0.4 %; Mean Corpuscular HGB Conc 33.2 g/dL (31.8-35.4); Mean Corpuscular Hemoglobin 30.4 pg (27.0-31.2); Mean Corpuscular Volume 91.5 fl (81-99); Nucleated Red Blood Cells % 0 %; Platelet Count 171 K/mm3 (142-424); Red Blood Count 4.71 M/mm3 (4.20-5.40); Red Cell Distribution Width-SD 45.8 fL; White Blood Count 8.0 K/mm3 (4.8-10.8)
[2024-12-07 14:00] VITALS: BP 182/83; PULSE 64; O2SAT 96
[2024-12-07 14:12] LABS: Alanine Aminotransferase 20 U/L (12-78); Albumin Level 4.3 g/dl (3.5-5.0); Albumin/Globulin Ratio 1.2 (1.1-1.8); Alkaline Phosphatase 70 U/L (38-126); Anion Gap 15.9 mEq/L (5-15); Aspartate Amino Transferase 29 U/L (14-36); Bilirubin,Total 1.1 mg/dl (0.2-1.3); Blood Urea Nitrogen 13 mg/dl (7-17); Calcium 9.2 mg/dl (8.4-10.2); Carbon Dioxide 26 mmol/L (22.0-30.0); Chloride 100 mmol/L (98-107); Creatinine Clearance Estimated 62 mL/min (50-200); Creatinine,Serum 0.90 mg/dl (0.52-1.04); Estimated Glomerular Filt Rate 61 ml/min (>60); GFR (African American) 74 ML/MIN (>60); Globulin 3.6 g/dL (1.3-3.2); Glucose 117 mg/dl (74-100); Potassium 3.9 mmoL/L (3.5-5.1); Sodium 138 mmol/L (136-145); Total Protein,Serum 7.9 g/dl (6.3-8.2)
--- NOTE | 2024-12-07 14:16 | PC.NURSE ---
Pt still unable to provide urine sample at this time. Declines straight cath
[2024-12-07 14:34] LABS: Microscopic, Urine URINE MICROSCOPIC (MICROSCOPIC)
[2024-12-07 14:37] LABS: Bilirubin,Urine Negative (Negative); Color,Urine YELLOW (Yellow); Glucose,Urine (UA) Negative (Negative); Ketones,Urine Negative (Negative); Leukocyte Esterase,Urine 1+ (Negative); PH,Urine 6.0 (5.0-8.5); Protein,Urine Negative (Negative); Specific Gravity, Urine 1.010 (1.005-1.030); Urobilinogen,Urine 0.2 EU/dl (0.2)
[2024-12-07 14:56] LABS: Bacteria,Urine 2+ /lpf
[2024-12-07] MEDS: METHOCARBAMOL 500MG TABLET 500 MG PO (15:15)
--- NOTE | 2024-12-07 15:21 | PC.NURSE ---
Provider to bedside to speak with son and patient
--- NOTE | 2024-12-07 15:42 | PC.NURSE ---
[employer] field supervisor notified of patient admission, pending bed assignment
--- NOTE | 2024-12-07 16:35 | EXP.HP ---
History of Present Illness *Admission Date: 12/07/24 *Reason for visit:: Low back pain *History of present illness: Valentine Schulz is a 74-year-old female with a medical history significant for lower extremity DVT/pulmonary emboli, hypertension, anxiety/depression presents with acute onset low back pain with left-sided radiculopathy. Patient states she woke this morning with acute onset left-sided low back pain with shooting pains down her left leg. She states she had some mild low back pain yesterday but not this bad. Denies significant manual labor, straining, heavy lifting, bending over the past few days. She cannot think of a precipitating event. Also denies red flag symptoms including urinary retention/incontinence, bowel incontinence, saddle anesthesia. Denies fever/chills, chest pain, shortness of breath. She also notes that she has not had a bowel movement over the past 3 days which is not common for her. Workup in the ED significant for UA grossly abnormal, and CT lumbar spine revealing multiple lumbar disc herniations with moderate to severe spinal stenosis from L3-L5 among other findings. She was given dexamethasone 8 mg, acetaminophen, Toradol, methocarbamol without significant improvement in symptoms. She was unable to ambulate in the ED. Given these findings, ED provider discussed case with me and I decided patient for intractable acute low back pain. [facility] Disclaimer: The information contained in this section may have been updated after the patient was seen, as this information can be updated by other users. Medical History Pre-op evaluation Fatigue Weakness Hemorrhoids Internal derangement of right knee Left leg pain Left knee sprain Falls Skin lesion of neck Seasonal allergic rhinitis Passage of loose stools Abdominal pain Acute blood loss anemia (ABLA) Prolonged INR Dizziness Hypertensive emergency without congestive heart failure Abdominal contusion Contusion of left leg History of DVT (deep vein thrombosis) Lower GI bleed Fall down steps Lumbar strain Cervical strain DVT (deep venous thrombosis) Obesity (BMI 30.0-34.9) Osteoarthritis Leg pain Back Pain Hypertension Anxiety Depression Irregular heart beat Hyperlipemia Surgical History H/O heart surgery H/O section Family History Other No significant family history Social History Smoking Status: Never smoker second hand exposure: No alcohol intake: never substance use type: denies use current occupational status: disabled Travel in the last 8 weeks?: None household members: none housing: house current occupational exposures/hazards: No caffeine: Yes Have you lived/traveled outside US in past 30 days?: No Contact w/someone who lives/traveled outside US past 30 days?: No Exposure to someone with infectious disease in past 14 days?: No Do you have a fever (greater than 100.4 F or 38 C)?: No Have you tested positive for COVID-19?: No Exposed to someone with COVID-19 in past 14 days?: No Do you have a sore throat?: No Do you have a cough?: No Do you have any weakness?: No Do you have any diarrhea?: No Are you experiencing any unusual bleeding?: No Do you have any muscle aches/pain?: No Do you have any abdominal pain?: No Are you experiencing loss of taste or smell?: No Other Medical History Have you received the Flu Vaccine for this season: No Have you received the Pneumonia Vaccine: Yes Meds Home Medications and Allergies Home Medications ?Medication ?Instructions ?Recorded ?Confirmed ?Type albuterol sulfate 90 mcg/actuation 1 inh inhalation QID PRN shortness 01/28/24 12/07/24 Rx aerosol inhaler of breath or wheezing #18 grams buspirone 5 mg tablet 5 mg PO BID 02/20/24 12/07/24 History rivaroxaban 20 mg tablet (Xarelto) 20 mg PO QPMWITHMEAL 02/20/24 12/07/24 History fluticasone propionate 50 1 spray intranasal DAILY 02/29/24 12/07/24 History mcg/actuation nasal spray,suspension docusate sodium 100 mg capsule 100 mg PO DAILY #30 caps 04/17/24 12/07/24 Rx (Colace) phenylephrine 0.25 %-mineral oil 1 applic [place] DAILY PRN hemorrhoids 04/17/24 12/07/24 Rx 14 %-petrolatm 74.9 % rectal #28 grams ointment (Preparation H) metoprolol tartrate 50 mg tablet 50 mg PO BID #180 tabs 05/08/24 12/07/24 Rx lisinopril 20 mg tablet 20 mg PO DAILY #90 tabs 05/22/24 12/07/24 Rx hydrochlorothiazide 25 mg tablet 25 mg PO DAILY #30 tabs 12/04/24 12/07/24 Rx fluoxetine 20 mg capsule 20 mg PO DAILY 12/07/24 12/07/24 History New Prescriptions to Start Prescriptions: Allergies Allergy/AdvReac Type Severity Reaction Status Date / Time Penicillins (PENICILLINS) Allergy Unknown Rash Verified 12/04/24 13:35 Sulfa (Sulfonamide Allergy Unknown Rash Verified 12/04/24 13:35 Antibiotics) (SULFA (SULFONAMIDE ANTIBIOTICS)) Exam Data for Last 24 hours Vital signs and Labs for Last 24 Hours: Temp Pulse Resp BP Pulse Ox O2 Del Method 98.3 F 64 18 182/83 H 96 Room Air 12/07/24 12:51 12/07/24 14:00 12/07/24 12:51 12/07/24 14:00 12/07/24 14:00 12/07/24 14:00 Laboratory Results - last 24 hr 12/07/24 13:35: WBC 8.0, RBC 4.71, Hgb 14.3, Hct 43.1, MCV 91.5, MCH 30.4, MCHC 33.2, RDW 13.5, Plt Count 171, MPV 10.0, Neut % (Auto) 49.4, Lymph % (Auto) 36.7, [place] % (Auto) 10.0 H, Eos % (Auto) 2.9, Baso % (Auto) 0.6, Neut # (Auto) 4.0, Lymph # (Auto) 2.9, [place] # (Auto) 0.8, Eos # (Auto) 0.2, Baso # (Auto) 0.1, Sodium 138, Potassium 3.9, Chloride 100, Carbon Dioxide 26, Anion Gap 15.9 H, BUN 13, Creatinine 0.90, Estimated Creat Clear 62, Estimated GFR 61, Est GFR ( Amer) 74, Glucose 117 H, Calcium 9.2, Total Bilirubin 1.1, AST 29, ALT 20, Alkaline Phosphatase 70, Total Protein 7.9, Albumin 4.3, Globulin 3.6 H, Albumin/Globulin Ratio 1.2 12/07/24 14:31: Urine Color Yellow, Urine Appearance Clear, Urine pH 6.0, Ur Specific [place] 1.010, Urine Protein Negative, Urine Glucose (UA) Negative, Urine Ketones Negative, Urine Blood Negative, Urine Nitrate Negative, Urine Bilirubin Negative, Urine Urobilinogen 0.2, Ur Leukocyte Esterase 1+ A, Urine RBC None, Urine WBC 10-20, Ur Squamous Epith Cells 5-10, Urine Bacteria 2+ I & O for Last 24 hours: Intake & Output 12/04/24 12/05/24 12/06/24 12/07/24 23:59 23:59 23:59 23:59 Weight 81.647 kg Constitutional Constitutional: no acute distress and chronically ill appearing *Routine HEENT Exam Head: Present normocephalic Eye: Present EOMI and PERRL ENT: Present mucous membranes moist *Routine Neck Exam Neck: Present supple; Absent lymphadenopathy *Routine Respiratory Exam Respiratory: Present CTA bilaterally *Routine Cardiovascular Exam Cardiovascular: Present RRR *Routine Abdominal Exam Abdominal: Present soft, normoactive bowel sounds and tenderness *Routine Rectal Exam Rectal:: deferred *Routine Genitalia Exam Genitalia:: deferred *Routine Extremities Exam Extremities: Absent cyanosis, clubbing or edema *Routine Skin Exam Skin: Present warm; Absent rash *Routine Neurological Exam Neurological: Present alert and oriented X3 Assessment and Plan *Assessment and plan (1) Spinal stenosis: Status: Acute Qualifiers: Spinal region: lumbar Category: Medical Code(s): M48.00 - Spinal stenosis, site unspecified (2) Sciatica of left side: Status: Acute Category: Medical Code(s): M54.32 - Sciatica, left side Plan Valentine Schulz is a 74-year-old female with a medical history significant for lower extremity DVT/pulmonary emboli, hypertension, anxiety/depression presents with acute onset low back pain with left-sided radiculopathy. Patient states she woke this morning with acute onset left-sided low back pain with shooting pains down her left leg. She states she had some mild low back pain yesterday but not this bad. Denies significant manual labor, straining, heavy lifting, bending over the past few days. She cannot think of a precipitating event. Also denies red flag symptoms including urinary retention/incontinence, bowel incontinence, saddle anesthesia. Denies fever/chills, chest pain, shortness of breath. She also notes that she has not had a bowel movement over the past 3 days which is not common for her. Workup in the ED significant for UA grossly abnormal, and CT lumbar spine revealing multiple lumbar disc herniations with moderate to severe spinal stenosis from L3-L5 among other findings. She was given dexamethasone 8 mg, acetaminophen, Toradol, methocarbamol without significant improvement in symptoms. She was unable to ambulate in the ED. Given these findings, ED provider discussed case with me and I decided patient for intractable acute low back pain. #Acute low back pain #Left-sided radiculopathy/sciatica #Multiple lumbar disc herniations #Moderate to severe lumbar spinal stenosis ? Presents with intractable low back pain with left-sided radiculopathy, found to have multiple lumbar disc herniations with moderate to severe spinal stenosis. No red flag symptoms, no suspicion for cauda equina syndrome. ? Continue to have pain and unable to ambulate in the ED. ? Constipation, UTI likely contributing to low back pain. See separate problems. ? Multimodal pain management with Tylenol, Toradol, [place], morphine. ? Counseled that physical therapy and NSAIDs are mainstay treatment for acute low back pain especially with disc herniations. Will try to minimize opioids as able. ? PT/OT consulted, pending further recommendations. #Constipation ? Patient states she has not had a bowel movement in 3 days, feels like she has to go but unable to. ? After my evaluation, it was reported patient had a large bowel movement. Follow-up symptomatic response. ? Started MiraLAX 17 g daily. #Suspected UTI ? Presented with low back pain, suprapubic pain. UA grossly abnormal, urine culture pending. ? History of MDR Klebsiella pneumonia. Started IV cefepime 2 g every 8 hours. ? Follow-up urine culture. #Nephrolithiasis ? CT showed nonobstructing 6 mm renal stone in the lower pole of the right kidney. ? Consider tamsulosin if still symptomatic tomorrow. #Focal aneurysm ? 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 ? Referred to PCP/cardiology for further monitoring and management. Will need strict BP management. #History of DVTs, pulmonary emboli ? Continue home Xarelto. #Hypertension ? Continue home medications once reconciled. #Anxiety/depression ? Continue home medications once reconciled. Full code DVT prophylaxis: Home Xarelto
--- NOTE | 2024-12-07 16:43 | PC.NURSE ---
report called to Isabelle Harris RN
[2024-12-07 17:03] VITALS: BP 176/84; PULSE 78; RESP 18; TEMP 36.8; O2SAT 98
--- NOTE | 2024-12-07 17:06 | PC.NURSE ---
arrived by stretcher from ED
[2024-12-07] MEDS: CEFEPIME HCL 2 GM in 0.9 % SODIUM CHLORIDE 100 ML IV (17:27)
[2024-12-07 17:40] VITALS: BP 164/68; PULSE 79; RESP 17; TEMP 36.8; O2SAT 95
[2024-12-07 17:41] VITALS: BMI 27.6
[2024-12-07 20:00] VITALS: BP 157/77; PULSE 82; RESP 18; TEMP 36.7; O2SAT 94
[2024-12-07] MEDS: METOPROLOL TARTRATE 50MG TABLET 50 MG PO (21:05)
[2024-12-07] MEDS: HYDROCODONE/APAP 5/325 MG TABLET 1 TAB PO (21:18)
[2024-12-08] MEDS: CEFEPIME HCL 2 GM in 0.9 % SODIUM CHLORIDE 100 ML IV (00:10)
[2024-12-08] MEDS: BUSPIRONE HCL 10 MG TABLET 5 MG PO (00:17)
[2024-12-08] MEDS: MELATONIN 5MG TABLET 5 MG PO ×2 (00:17→21:27)
--- NOTE | 2024-12-08 03:45 | PC.NURSE ---
Addendum entered by Lachelle Causey RN 12/08/24 05:35: Patient is complaining of a headache and nausea this morning. Administering Tylenol per MAR. Upon offer to treat her nausea with Zofran, the patient verbally refused, stating that she cannot take Zofran, has taken it before, and it makes [her] even more sick. July MITCHELL was paged due to the patient's refusal of Zofran and request to take something else for her nausea complaint. A new order for intravenous Phenergan was obtained, administering per MAR as well. Original Note: Patient is pleasantly alert and oriented x4. Very conversational. An order for melatonin was obtained from July MITCHELL this shift, for the patient requested to have a sleep aid around midnight due to difficulty falling asleep. Buspirone was restarted and given as well. Since approximately 01:30, the patient was observed to be resting in bed with eyes closed, respirations even and unlabored on room air, and no apparent distress. During wakeful period, she has had complaints of left hip pain that would radiate down the lower extremity. No reports of back pain, however. [place] was administered once per MAR for pain relief. Patient also complained of mild abdominal soreness upon palpation of her abdomen; abdomen is soft and puffy. Patient has been tolerating a regular diet well without nausea/vomiting or increased abdominal pain. No additional bowel movements occurred during this shift (stated that large bowel movement occurred during the previous shift). Scheduled medications administered per MAR. She ambulates in her room/to the bathroom with standby assistance + use of a walker as tolerated. Self-turns in bed. Auscultation of heart, lungs, and bowels within normal findings. At this time, the patient remains resting in bed without any further complaints. No acute changes noted thus far. Call light within reach.
[2024-12-08 04:00] VITALS: BP 117/54; PULSE 71; RESP 16; TEMP 36.6; O2SAT 95; BMI 27.1
[2024-12-08] MEDS: ACETAMINOPHEN 325MG TAB 650 MG PO (05:45)
[2024-12-08] MEDS: PROMETHAZINE HCL 25MG/ML 1ML VIAL 12.5 MG IV (05:48)
[2024-12-08] MEDS: SODIUM CHLORIDE 0.9% 25ML BAG 25 ML IV (05:48)
[2024-12-08 05:50] VITALS: BP 149/75; PULSE 62; RESP 20; O2SAT 94
[2024-12-08 06:48] LABS: Hematocrit 42.4 % (37.0-47.0); Hemoglobin 13.8 g/dL (12.2-16.2); Immature Granulocytes % 0.6 %; Mean Corpuscular HGB Conc 32.5 g/dL (31.8-35.4); Mean Corpuscular Hemoglobin 29.9 pg (27.0-31.2); Mean Corpuscular Volume 91.8 fl (81-99); Nucleated Red Blood Cells % 0 %; Platelet Count 165 K/mm3 (142-424); Red Blood Count 4.62 M/mm3 (4.20-5.40); Red Cell Distribution Width-SD 47.1 fL; White Blood Count 11.6 K/mm3 (4.8-10.8)
[2024-12-08 07:25] LABS: Albumin Level 3.9 g/dl (3.5-5.0); Chloride 99 mmol/L (98-107); Potassium 3.9 mmoL/L (3.5-5.1); Sodium 135 mmol/L (136-145)
[2024-12-08 07:28] LABS: Alanine Aminotransferase 21 U/L (12-78); Albumin/Globulin Ratio 1.0 (1.1-1.8); Alkaline Phosphatase 56 U/L (38-126); Anion Gap 15.9 mEq/L (5-15); Aspartate Amino Transferase 30 U/L (14-36); Bilirubin,Total 0.7 mg/dl (0.2-1.3); Blood Urea Nitrogen 22 mg/dl (7-17); Calcium 8.6 mg/dl (8.4-10.2); Carbon Dioxide 24 mmol/L (22.0-30.0); Creatinine Clearance Estimated 55 mL/min (50-200); Creatinine,Serum 1.00 mg/dl (0.52-1.04); Estimated Glomerular Filt Rate 54 ml/min (>60); GFR (African American) 65 ML/MIN (>60); Globulin 3.8 g/dL (1.3-3.2); Glucose 129 mg/dl (74-100); Total Protein,Serum 7.7 g/dl (6.3-8.2)
[2024-12-08 07:47] VITALS: BP 152/69; PULSE 75; RESP 16; TEMP 36.6; O2SAT 94
--- NOTE | 2024-12-08 09:34 | HMH.PTEV ---
Physical Therapy Evaluation Rehab PT IP Evaluation Start: 12/07/24 17:29 Freq: ONCE Status: Active Protocol: Document 12/08/24 09:15 IRAIS (Rec: 12/08/24 09:34 IRAIS [id number]) Subjective/History History History Per H&P: Valentine Schulz is a 74-year-old female with a medical history significant for lower extremity DVT/ pulmonary emboli, hypertension, anxiety/depression presents with acute onset low back pain with left-sided radiculopathy. Patient states she woke this morning with acute onset left-sided low back pain with shooting pains down her left leg. She states she had some mild low back pain yesterday but not this bad. Denies significant manual labor, straining, heavy lifting, bending over the past few days. She cannot think of a precipitating event. Also denies red flag symptoms including urinary retention/incontinence, bowel incontinence, saddle anesthesia. Denies fever/chills, chest pain, shortness of breath. She also notes that she has not had a bowel movement over the past 3 days which is not common for her. Workup in the ED significant for UA grossly abnormal, and CT lumbar spine revealing multiple lumbar disc herniations with moderate to severe spinal stenosis from L3-L5 among other findings. She was given dexamethasone 8 mg, acetaminophen, Toradol, methocarbamol without significant improvement in symptoms. She was unable to ambulate in the ED. Given these findings, ED provider discussed case with me and I decided patient for intractable acute low back pain. Subjective Subjective Pt reports she lives alone in a home with 0 JASON. Pt normally IND with all mobility using a RW. Pt recently reports difficulty with ambulation d/t LLE pain. Pt no longer drives. Pt denies any falls in the past 30 days. [facility] How much help from another person do you currently need... Turning from your None back to your side while in a flat bed without using bedrails? Moving from lying on None back to sitting on the side of a flat bed without using bedrails? Moving to and from a None bed to a chair ( including a wheelchair)? Standing up from a None chair using your arms? (e.g., wheelchair, bedside chair) Walking in hospital None room? Climbing 3-5 steps A little with a railing? Mobility Score [address] [facility] Mobility 7 Walk 25 feet or more Mobility Calculator Rehab PT IP Eval Objective Appearance Patient Behavior Appropriate,Cooperative Patient Orientation Person,Place Difficulty following none instructions Speech Pattern Clear Ambulation Patient Able to Yes Ambulate Ambulation Observation IP General Gait Antalgic Gait Pattern Observation Ambulation Distance 30 (feet) Ambulation Assistive Rolling Walker Device Ambulation Ability Supervision/Stand by Balance Ability to Arise Able, uses arms to help Sitting Balance Steady, safe Standing Balance Steady, wide stance Dynamic Sitting Good Balance Ability Dynamic Standing Good Balance Ability Transfers Bed Transfer Ability Independent Sit to Stand Bed Independent Transfer Ability Rehab PT IP prob,goals,plan Problems Date of Evaluation: 12/08/24 Rehab Potential Rehab Potential Innapropriate for Skilled Therapy Discharge Plan PT Discharge Plan Pt presents at her baseline in functional mobility and would not benefit from skilled IP PT at this time. PT recommending HH to address general strength and endurance. Eval Complexity Eval Charge Codes 40974 - Moderate Complexity PHYSICIAN CERTIFICATION: I certify the specified therapy services for Valentine Schulz are required, authorized, and reviewed every 30 days.
[2024-12-08] MEDS: LISINOPRIL 20MG TABLET 20 MG PO (09:44)
[2024-12-08] MEDS: METOPROLOL TARTRATE 50MG TABLET 50 MG PO ×2 (09:44→21:27)
--- NOTE | 2024-12-08 09:58 | HMH.OTEV ---
OT Evaluation Rehab OT IP Evaluation Start: 12/07/24 17:29 Freq: ONCE Status: Active Protocol: [facility]24 09[facility] (Rec: 12/08/24 09:58 [facility] [id number]) Rehab OT IP Assessment Subjective History Per H&P: Valentine Schulz is a 74-year-old female with a medical history significant for lower extremity DVT/ pulmonary emboli, hypertension, anxiety/depression presents with acute onset low back pain with left-sided radiculopathy. Patient states she woke this morning with acute onset left-sided low back pain with shooting pains down her left leg. She states she had some mild low back pain yesterday but not this bad. Denies significant manual labor, straining, heavy lifting, bending over the past few days. She cannot think of a precipitating event. Also denies red flag symptoms including urinary retention/incontinence, bowel incontinence, saddle anesthesia. Denies fever/chills, chest pain, shortness of breath. She also notes that she has not had a bowel movement over the past 3 days which is not common for her. Workup in the ED significant for UA grossly abnormal, and CT lumbar spine revealing multiple lumbar disc herniations with moderate to severe spinal stenosis from L3-L5 among other findings. She was given dexamethasone 8 mg, acetaminophen, Toradol, methocarbamol without significant improvement in symptoms. She was unable to ambulate in the ED. Given these findings, ED provider discussed case with me and I decided patient for intractable acute low back pain. Subjective Pt reports she lives alone in a home with 0 JASON. Pt normally IND with all functional transfers using a RW. Pt claims she is normally independent with all ADLs. Pt's niece or son assist with IADLs and doctors appointments. Pt no longer drives. Pt denies any falls in the past 30 days. Objective Patient Orientation Person,Place,Birthday Right Upper WFL Extremity Gross ROM Left Upper Extremity WFL Gross ROM Bed Mobility bed mobility-scooting,bed mobility - supine/sit Assist Level Supervision/Stand by Transfer Training Sit/Stand Transfer Assist Level Supervision/Stand by Lower Body Dressing Standby Assistance Ability Performing Toilet Standby Assistance Hygiene Ability Overall Commode/ Standby Assistance Toilet Transfer Ability Commode/Toilet Sit to/from Ambulatory Transfer Technique Rehab OT IP prob,goals,plan Problems Date of Evaluation: 12/08/24 Rehab Potential Rehab Potential Innapropriate for Skilled Therapy Discharge Plan OT Discharge Plan Pt appears to be at her baseline with functional transfers and ADL independence. Pt can return home once she is medically stable per physician. Therapist does recommend HH OT evaluation for home safety upon returning home. Eval Complexity Eval Charge Codes 24012 - Moderate Complexity PHYSICIAN CERTIFICATION: I certify the specified therapy services for Valentine Schulz are required, authorized, and reviewed every 30 days.
[2024-12-08] MEDS: BUSPIRONE HCL 5 MG TABLET PO ×2 (13:02→21:27)
[2024-12-08] MEDS: HEMORRHOIDAL OINT 30GM RC (13:04)
--- NOTE | 2024-12-08 13:54 | SW/DCPLANNER ---
Addendum entered by Marisela Birmingham 12/08/24 15:29: patient was accepted by [facility]. Amparo Harley Original Note: Spoke with patient regarding home health services once she is medically stable and ready for discharge. Patient stated that she is interested in home health. Patient stated that she has no preference in what agency i send her information to. I faxed patient's information to [facility] and will update once i hear back if they can accept patient or not. Amparo Harley
[2024-12-08 16:00] VITALS: BP 148/69; PULSE 78; RESP 16; TEMP 36.6; O2SAT 93
[2024-12-08] MEDS: KETOROLAC 30MG/ML VIAL 30 MG IV ×2 (16:57→21:40)
--- NOTE | 2024-12-08 17:06 | PC.NURSE ---
Pt A&O x4. Currently resting in bed. Has c/o discomfort to her back and down her leg. She has also c/o dizziness. Pt admin toradol for pain. VS currently stable. Call light within reach. Safety measures in place.
--- NOTE | 2024-12-08 18:38 | P.PN_ITS ---
Subjective *Date: 12/08/24 *Time: 18:38 Interval history: Still complaining of feeling weak today. Stable on room air. No nausea or vomiting. Had bowel movement. Transitioning to oral antibiotics. Labs relatively stable today. Anticipate discharge tomorrow after discussion with patient Medical Exam Vital signs and Labs for Last 24 Hours: Vital Signs Temp Pulse Pulse Resp BP Pulse Ox O2 Del Method 12/08/24 17:00 Room Air 12/08/24 16:00 97.9 F 78 16 148/69 H 93 L Room Air 12/08/24 15:00 Room Air 12/08/24 13:00 Room Air 12/08/24 11:00 Room Air 12/08/24 09:00 Room Air 12/08/24 08:00 Room Air 12/08/24 07:47 97.9 F 75 16 152/69 H 94 L Room Air 12/08/24 06:35 Room Air 12/08/24 05:50 62 20 149/75 H 94 L Room Air 12/08/24 05:00 Room Air 12/08/24 04:00 98 F 71 16 117/54 L 95 Room Air 12/08/24 03:00 Room Air 12/08/24 01:00 Room Air 12/07/24 23:00 Room Air 12/07/24 21:00 Room Air 12/07/24 20:00 Room Air 12/07/24 20:00 98.0 F 82 18 157/77 H 94 L Room Air 12/07/24 19:00 Room Air Intake and Output 12/08/24 12/08/24 12/08/24 07:59 15:59 23:59 Intake Total 454 / 1594 780 / 1594 360 / 1594 Output Total 500 / 500 0 / 500 Balance 454 / 1094 280 / 1094 360 / 1094 Intake: Intake, Oral Amount 354 / 1494 780 / 1494 360 / 1494 Intake, Total IV Amount 100 / 100 Cefepime HCl 2 gm In 0.9 % 100 / 100 Sodium Chloride 100 ml @ 200 mls/hr IV Q8H [facility] Rx#:[id number] Output: Output, Urine Amount 500 / 500 0 / 500 Other: Number of Unmeasured Voids 0 0 Weight 72.178 kg Patient Weight 12/08/24 23:59 Weight 72.178 kg Laboratory Results - last 24 hr 12/08/24 05:48: WBC 11.6 H D, RBC 4.62, Hgb 13.8, Hct 42.4, MCV 91.8, MCH 29.9, MCHC 32.5, RDW 13.8, Plt Count 165, MPV 10.3, Neut % (Auto) 78.0, Lymph % (Auto) 17.6, [place] % (Auto) 3.7, Eos % (Auto) 0.0 L, Baso % (Auto) 0.1, Neut # (Auto) 9.1 H, Lymph # (Auto) 2.0, [place] # (Auto) 0.4, Eos # (Auto) 0.0, Baso # (Auto) 0.0, Sodium 135 L, Potassium 3.9, Chloride 99, Carbon Dioxide 24, Anion Gap 15.9 H, BUN 22 H D, Creatinine 1.00, Estimated Creat Clear 55, Estimated GFR 54 L, Est GFR ( Amer) 65, Glucose 129 H, Calcium 8.6, Total Bilirubin 0.7, AST 30, ALT 21, Alkaline Phosphatase 56, Total Protein 7.7, Albumin 3.9, Globulin 3.8 H, Albumin/Globulin Ratio 1.0 L I & O for Labs for Last 24 Hours: Intake & Output 12/05/24 12/06/24 12/07/24 12/08/24 23:59 23:59 23:59 23:59 Intake Total 100 / 454 1594 / 1594 Output Total 0 / 0 500 / 500 Balance 100 / 454 1094 / 1094 Weight 73.119 kg 72.178 kg Constitutional: Present no acute distress, average body habitus, chronically ill appearing and cooperative Head: Present atraumatic and normocephalic ENT: Present normal exam Respiratory: Present normal respiratory effort; Absent respiratory distress, rhonchi, stridor, wheezes or crackles Cardiac: Present Reg Rate and Rhythm GI: Present soft, tenderness (Minimal, nonfocal) and normal bowel sounds; Absent distention Extremities: Present normal inspection and full ROM Skin: Present intact; Absent erythema Neuro: Present Cranial Nerve 2-12 Intact, Grossly Intact, alert, awake, oriented x 3 and moves all extremities Assessment and Plan *Assessment and plan (1) Urinary tract infection: Status: Acute Category: Medical Code(s): N39.0 - Urinary tract infection, site not specified (2) Spinal stenosis: Status: Acute Qualifiers: Spinal region: lumbar Category: Medical Code(s): M48.00 - Spinal stenosis, site unspecified (3) Sciatica of left side: Status: Acute Category: Medical Code(s): M54.32 - Sciatica, left side (4) Declining functional status: Status: Acute Category: Medical Code(s): R53.81 - Other malaise (5) Depression: Status: Chronic Qualifiers: Depression Type: major depressive disorder Major depression recurrence: single episode Active/Remission status: currently active Major depression episode severity: mild Qualified Code(s): F32.0 - Major depressive disorder, single episode, mild Category: Medical Code(s): F32.A - Depression, unspecified (6) Hypertension: Status: Acute Category: Medical Code(s): I10 - Essential (primary) hypertension Nely Schulz is a 74-year-old female with a medical history significant for lower extremity DVT/pulmonary emboli, hypertension, anxiety/depression presents with acute onset low back pain with left-sided radiculopathy. Patient states she woke this morning with acute onset left-sided low back pain with shooting pains down her left leg. She states she had some mild low back pain yesterday but not this bad. Denies significant manual labor, straining, heavy lifting, bending over the past few days. She cannot think of a precipitating event. Also denies red flag symptoms including urinary retention/incontinence, bowel incontinence, saddle anesthesia. Denies fever/chills, chest pain, shortness of breath. She also notes that she has not had a bowel movement over the past 3 days which is not common for her. Workup in the ED significant for UA grossly abnormal, and CT lumbar spine revealing multiple lumbar disc herniations with moderate to severe spinal stenosis from L3-L5 among other findings. She was given dexamethasone 8 mg, acetaminophen, Toradol, methocarbamol without significant improvement in symptoms. She was unable to ambulate in the ED. Given these findings, ED provider discussed case with me and I decided patient for intractable acute low back pain. Also treating for UTI. Had good bowel movement overnight. Anticipate discharge in the. Problems addressed as follows: #Acute low back pain #Left-sided radiculopathy/sciatica #Multiple lumbar disc herniations #Moderate to severe lumbar spinal stenosis ? Presents with intractable low back pain with left-sided radiculopathy, found to have multiple lumbar disc herniations with moderate to severe spinal stenosis. No red flag symptoms, no suspicion for cauda equina syndrome. ? Continue to have pain and unable to ambulate in the ED. ? Constipation, UTI likely contributing to low back pain. See separate problems. ? Multimodal pain management with Tylenol, Toradol, [place], morphine. ? Counseled that physical therapy and NSAIDs are mainstay treatment for acute low back pain especially with disc herniations. Will try to minimize opioids as able. ? PT/OT consulted, recommend home with home health. - White count stable 11.6, hemoglobin 13.8. Kidney function stable with BUN 22, creatinine 1.0. Repeat CBC, CMP, magnesium ordered for the morning #Constipation ? Had a large bowel movement overnight. Feeling somewhat better today. Continue MiraLAX 17 g daily and docusate sodium 100 mg once daily. #Suspected UTI ? Presented with low back pain, suprapubic pain. UA grossly abnormal, urine culture pending. ? History of MDR Klebsiella pneumonia. Discontinue cefepime. Initiate lev ofloxacin 750 mg daily for 5 days based on previous cultures and sensitivity. #Nephrolithiasis ? CT showed nonobstructing 6 mm renal stone in the lower pole of the right ki dney. ? Consider tamsulosin if still symptomatic tomorrow. #Focal aneurysm ? 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 ? Referred to PCP/cardiology for further monitoring and management. Will need strict BP management. #History of DVTs, pulmonary emboli: Continue home Xarelto 20mg day #Hypertension: Continue metoprolol tartrate 50 mg twice daily, lisinopril 20 mg daily, HCTZ 25 mg daily #Anxiety/depression: Continue BuSpar 5 mg twice daily and Prozac 20 mg daily. Full code DVT prophylaxis: Home Xarelto
[2024-12-08 20:00] VITALS: BP 153/72; PULSE 78; RESP 18; TEMP 36.7; O2SAT 94
[2024-12-09] MEDS: HYDROCODONE/APAP 5/325 MG TABLET 1 TAB PO (01:40)
--- NOTE | 2024-12-09 03:58 | PC.NURSE ---
Pt AOx4. Has had some pain this shift that has been treated with prn pain meds per APR. Currently resting in bed with eyes closed. Respirations even and unlabored. Bed low, locked, and call light is in reach.
[2024-12-09 04:00] VITALS: BP 189/81; PULSE 64; RESP 16; TEMP 36.8; O2SAT 90; BMI 28.3
[2024-12-09 07:01] LABS: Hematocrit 36.4 % (37.0-47.0); Immature Granulocytes % 0.4 %; Mean Corpuscular HGB Conc 32.7 g/dL (31.8-35.4); Mean Corpuscular Hemoglobin 30.1 pg (27.0-31.2); Mean Corpuscular Volume 92.2 fl (81-99); Nucleated Red Blood Cells % 0 %; Platelet Count 150 K/mm3 (142-424); Red Blood Count 3.95 M/mm3 (4.20-5.40); Red Cell Distribution Width-SD 47.1 fL; White Blood Count 11.2 K/mm3 (4.8-10.8)
[2024-12-09 07:04] LABS: Albumin Level 3.3 g/dl (3.5-5.0); Chloride 100 mmol/L (98-107); Potassium 3.8 mmoL/L (3.5-5.1); Sodium 134 mmol/L (136-145)
[2024-12-09 07:07] LABS: Alanine Aminotransferase 16 U/L (12-78); Albumin/Globulin Ratio 1.0 (1.1-1.8); Alkaline Phosphatase 49 U/L (38-126); Anion Gap 12.8 mEq/L (5-15); Aspartate Amino Transferase 21 U/L (14-36); Bilirubin,Total 0.4 mg/dl (0.2-1.3); Blood Urea Nitrogen 25 mg/dl (7-17); Calcium 8.1 mg/dl (8.4-10.2); Carbon Dioxide 25 mmol/L (22.0-30.0); Creatinine Clearance Estimated 57 mL/min (50-200); Creatinine,Serum 1.00 mg/dl (0.52-1.04); Estimated Glomerular Filt Rate 54 ml/min (>60); GFR (African American) 65 ML/MIN (>60); Globulin 3.3 g/dL (1.3-3.2); Glucose 106 mg/dl (74-100); Magnesium 1.9 mg/dl (1.6-2.3); Total Protein,Serum 6.6 g/dl (6.3-8.2)
[2024-12-09 07:49] LABS: Hemoglobin 11.9 g/dL (12.2-16.2)
--- NOTE | 2024-12-09 07:56 | EXP.DC.SUM ---
General Admission date:: 12/07/24 Discharge date: 12/09/24 HPI HPI HPI: Valentine Schulz is a 74-year-old female with a medical history significant for lower extremity DVT/pulmonary emboli, hypertension, anxiety/depression presents with acute onset low back pain with left-sided radiculopathy. Patient states she woke this morning with acute onset left-sided low back pain with shooting pains down her left leg. She states she had some mild low back pain yesterday but not this bad. Denies significant manual labor, straining, heavy lifting, bending over the past few days. She cannot think of a precipitating event. Also denies red flag symptoms including urinary retention/incontinence, bowel incontinence, saddle anesthesia. Denies fever/chills, chest pain, shortness of breath. She also notes that she has not had a bowel movement over the past 3 days which is not common for her. Workup in the ED significant for UA grossly abnormal, and CT lumbar spine revealing multiple lumbar disc herniations with moderate to severe spinal stenosis from L3-L5 among other findings. She was given dexamethasone 8 mg, acetaminophen, Toradol, methocarbamol without significant improvement in symptoms. She was unable to ambulate in the ED. Given these findings, ED provider discussed case with me and I decided patient for intractable acute low back pain. Hospital Course Hospital Course Hospital Course: Valentine Schulz is a 74-year-old female with a medical history significant for lower extremity DVT/pulmonary emboli, hypertension, anxiety/depression presents with acute onset low back pain with left-sided radiculopathy. Patient states she woke this morning with acute onset left-sided low back pain with shooting pains down her left leg. She states she had some mild low back pain yesterday but not this bad. Denies significant manual labor, straining, heavy lifting, bending over the past few days. She cannot think of a precipitating event. Also denies red flag symptoms including urinary retention/incontinence, bowel incontinence, saddle anesthesia. Denies fever/chills, chest pain, shortness of breath. She also notes that she has not had a bowel movement over the past 3 days which is not common for her. Workup in the ED significant for UA grossly abnormal, and CT lumbar spine revealing multiple lumbar disc herniations with moderate to severe spinal stenosis from L3-L5 among other findings. She was given dexamethasone 8 mg, acetaminophen, Toradol, methocarbamol without significant improvement in symptoms. She was unable to ambulate in the ED. Given these findings, ED provider discussed case with me and I decided patient for intractable acute low back pain. Back pain showed improvement. Urine concerning for possible UTI but this was ruled out during admission. Had bowel movement prior to discharge home. Stable discharge home to continue medical management for chronic conditions. Problems addressed as follows: #Acute low back pain #Left-sided radiculopathy/sciatica #Multiple lumbar disc herniations #Moderate to severe lumbar spinal stenosis ? Presents with intractable low back pain with left-sided radiculopathy, found to have multiple lumbar disc herniations with moderate to severe spinal stenosis. No red flag symptoms, no suspicion for cauda equina syndrome. Continue to have pain and unable to ambulate in the ED. admitted for pain control, treatment of constipation. Showed improvement with multimodal pain control. PT and OT were consulted, recommended home with home health. Counseled that physical therapy and NSAIDs are mainstay treatment for acute low back pain especially with disc herniations. Will try to minimize opioids as able. Doing better on oral regimen prior to discharge home. Able to ambulate. #Constipation ? Constipation noted on imaging. Had large bowel movement overnight. [place] better. Continue MiraLAX and docusate senna for bowel regimen daily. #Suspected UTI, ruled out ? Presented with low back pain, suprapubic pain. UA grossly abnormal, urine culture returned negative after discharge however given her history of MDR Klebsiella pneumonia UTIs, was initiated on Levaquin. Treated for 5 days based on previous culture and sensitivity. #Nephrolithiasis ? CT showed nonobstructing 6 mm renal stone in the lower pole of the right kidney. Asymptomatic. No acute intervention needed. #Focal aneurysm ? 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 This is less than 3 cm, no clear recommendation on imaging interval. Would likely benefit from repeat ultrasound or CT of abdomen in the next 3 to 5 years to monitor for change in size and potential need for more frequent imaging at that time. Continue to address blood pressure control to decrease progression risk. #History of DVTs, pulmonary emboli: Continue home Xarelto 20mg day #Hypertension: Continue metoprolol tartrate 50 mg twice daily, lisinopril 20 mg daily, HCTZ 25 mg daily. Consider addition of amlodipine as an outpatient at follow-up. #Anxiety/depression: Continue BuSpar 5 mg twice daily and Prozac 20 mg daily. Total time spent on discharge 32 minutes in counseling, documentation, chart review, and direct care with patient. Exam Data for Last 24 hours Vital signs and Labs for Last 24 Hours: Temp Pulse Resp BP Pulse Ox O2 Del Method 98.3 F 64 16 189/81 H 90 L Room Air 12/09/24 04:00 12/09/24 04:00 12/09/24 04:00 12/09/24 04:00 12/09/24 04:00 12/09/24 07:52 Laboratory Results - last 24 hr 12/09/24 05:28: WBC 11.2 H, RBC 3.95 L, Hgb 11.9 L D, Hct 36.4 L, MCV 92.2, MCH 30.1, MCHC 32.7, RDW 13.7, Plt Count 150, MPV 10.1, Neut % (Auto) 67.0, Lymph % (Auto) 22.6, [place] % (Auto) 8.8, Eos % (Auto) 0.9, Baso % (Auto) 0.3, Neut # (Auto) 7.5, Lymph # (Auto) 2.5, [place] # (Auto) 1.0, Eos # (Auto) 0.1, Baso # (Auto) 0.0, Sodium 134 L, Potassium 3.8, Chloride 100, Carbon Dioxide 25, Anion Gap 12.8, BUN 25 H, Creatinine 1.00, Estimated Creat Clear 57, Estimated GFR 54 L, Est GFR ( Amer) 65, Glucose 106 H, Calcium 8.1 L, Magnesium 1.9, Total Bilirubin 0.4, AST 21 D, ALT 16, Alkaline Phosphatase 49, Total Protein 6.6, Albumin 3.3 L D, Globulin 3.3 H, Albumin/Globulin Ratio 1.0 L I & O for Last 24 hours: Intake & Output 12/06/24 12/07/24 12/08/24 12/09/24 23:59 23:59 23:59 23:59 Intake Total 100 / 454 1594 / 1594 Output Total 0 / 0 500 / 500 Balance 100 / 454 1094 / 1094 Weight 73.119 kg 72.178 kg 75.296 kg Constitutional Constitutional: no acute distress, chronically ill appearing and cooperative *Routine HEENT Exam Head: Present normocephalic Eye: Present EOMI and PERRL ENT: Present mucous membranes moist *Routine Neck Exam Neck: Present supple; Absent lymphadenopathy *Routine Respiratory Exam Respiratory: Present CTA bilaterally *Routine Cardiovascular Exam Cardiovascular: Present RRR *Routine Abdominal Exam Abdominal: Present soft and normoactive bowel sounds; Absent tenderness *Routine Extremities Exam Extremities: Absent cyanosis, clubbing or edema *Routine Skin Exam Skin: Present warm; Absent rash *Routine Neurological Exam Neurological: Present alert and oriented X3 Results Data Completed and Pending Labs on day of discharge: Labs from last 24 hours 12/09/24 05:28 WBC 11.2 H RBC 3.95 L Hgb 11.9 L D Hct 36.4 L MCV 92.2 MCH 30.1 MCHC 32.7 RDW 13.7 Plt Count 150 MPV 10.1 Neut % (Auto) 67.0 Lymph % (Auto) 22.6 [place] % (Auto) 8.8 Eos % (Auto) 0.9 Baso % (Auto) 0.3 Neut # (Auto) 7.5 Lymph # (Auto) 2.5 [place] # (Auto) 1.0 Eos # (Auto) 0.1 Baso # (Auto) 0.0 Sodium 134 L Potassium 3.8 Chloride 100 Carbon Dioxide 25 Anion Gap 12.8 BUN 25 H Creatinine 1.00 Estimated Creat Clear 57 Estimated GFR 54 L Est GFR ( Amer) 65 Glucose 106 H Calcium 8.1 L Magnesium 1.9 Total Bilirubin 0.4 AST 21 D ALT 16 Alkaline Phosphatase 49 Total Protein 6.6 Albumin 3.3 L D Globulin 3.3 H Albumin/Globulin Ratio 1.0 L DS: Diagnosis Discharge Diagnosis (1) Urinary tract infection: Status: Acute Code(s): N39.0 - Urinary tract infection, site not specified (2) Spinal stenosis: Status: Acute Code(s): M48.00 - Spinal stenosis, site unspecified Qualifiers: Spinal region: lumbar (3) Sciatica of left side: Status: Acute Code(s): M54.32 - Sciatica, left side (4) Declining functional status: Status: Acute Code(s): R53.81 - Other malaise (5) Depression: Status: Chronic Code(s): F32.A - Depression, unspecified Qualifiers: Active/Remission status: currently active Depression Type: major depressive disorder Major depression episode severity: mild Major depression recurrence: single episode Qualified Code(s): F32.0 - Major depressive disorder, single episode, mild (6) Hypertension: Status: Acute Code(s): I10 - Essential (primary) hypertension Meds Home Medications and Allergies Home Medications ?Medication ?Instructions ?Recorded ?Confirmed ?Type albuterol sulfate 90 mcg/actuation 1 inh inhalation QID PRN shortness 01/28/24 12/07/24 Rx aerosol inhaler of breath or wheezing #18 grams buspirone 5 mg tablet 5 mg PO BID 02/20/24 12/07/24 History rivaroxaban 20 mg tablet (Xarelto) 20 mg PO QPMWITHMEAL 02/20/24 12/07/24 History fluticasone propionate 50 1 spray intranasal DAILY 02/29/24 12/07/24 History mcg/actuation nasal spray,suspension docusate sodium 100 mg capsule 100 mg PO DAILY #30 caps 04/17/24 12/07/24 Rx (Colace) phenylephrine 0.25 %-mineral oil 1 applic IA DAILY PRN hemorrhoids 04/17/24 12/07/24 Rx 14 %-petrolatm 74.9 % rectal #28 grams ointment (Preparation H) metoprolol tartrate 50 mg tablet 50 mg PO BID #180 tabs 05/08/24 12/07/24 Rx lisinopril 20 mg tablet 20 mg PO DAILY #90 tabs 05/22/24 12/07/24 Rx hydrochlorothiazide 25 mg tablet 25 mg PO DAILY #30 tabs 12/04/24 12/07/24 Rx fluoxetine 20 mg capsule 20 mg PO DAILY 12/07/24 12/07/24 History levofloxacin 750 mg tablet 750 mg PO 1100 4 days #4 tabs 12/09/24 Rx polyethylene glycol 3350 17 gram 17 g PO DAILY 30 days #30 ea 12/09/24 Rx oral powder packet (HealthyLax) tramadol 50 mg tablet 50 mg PO Q8H PRN pain #14 tabs 12/09/24 Rx New Prescriptions to Start Prescriptions: levofloxacin Derek Gamez polyethylene glycol 3350 [HealthyLax] Derek Gamez tramadol Derek Gamez Allergies Allergy/AdvReac Type Severity Reaction Status Date / Time Penicillins (PENICILLINS) Allergy Unknown Rash Verified 12/04/24 13:35 Sulfa (Sulfonamide Allergy Unknown Rash Verified 12/04/24 13:35 Antibiotics) (SULFA (SULFONAMIDE ANTIBIOTICS)) Discharge Plan Disposition Patient Disposition: Home Health Service Condition: Fair Discharge Order Discharge Orders: Discharge Order (Routine); Ordered 12/09/24 Ordered By: Derek Gamez Follow up Plan Follow up with: Umm Carson APRN [Primary Care Provider, Medical] - 12/16/24 9:45 am Prescriptions/Medication Reconciliation: New polyethylene glycol 3350 [HealthyLax] 17 gram Powder In Packet 17 g PO DAILY 30 Days Qty: 30 0RF levofloxacin 750 mg Tablet 750 mg PO 1100 4 Days Qty: 4 0RF tramadol 50 mg tablet 50 mg PO Q8H PRN (Reason: pain) Qty: 14 0RF Continued metoprolol tartrate 50 mg tablet 50 mg PO BID Qty: 180 3RF lisinopril 20 mg tablet 20 mg PO DAILY Qty: 90 3RF Rx Instructions: May take an additional 20mg dose if SBP >150. hydrochlorothiazide 25 mg tablet 25 mg PO DAILY Qty: 30 2RF albuterol sulfate 90 mcg/actuation HFA aerosol inhaler 1 inh INHALATION QID PRN (Reason: shortness of breath or wheezing) Qty: 18 10RF Xarelto 20 mg tablet 20 mg PO QPMWITHMEAL Patient Comments: TAKE 1 TABLET BY MOUTH ONCE DAILY FOR BLOOD THINNER buspirone 5 mg tablet 5 mg PO BID fluticasone propionate 50 mcg/actuation spray,suspension 1 spray intranasal DAILY Rx Instructions: USE 1 SPRAY(S) IN EACH NOSTRIL ONCE DAILY FOR ALLERGY SYMPTOMS Preparation H 0.25-14-74.9 % ointment 1 applic IA DAILY PRN (Reason: hemorrhoids) Qty: 28 0RF docusate sodium [Colace] 100 mg capsule 100 mg PO DAILY Qty: 30 0RF fluoxetine 20 mg capsule 20 mg PO DAILY Rx Instructions: Take 1 capsule by mouth once daily Problem Reconciliation Problems Reviewed?: Yes Patient Discharge Instructions ACTIVITY: Continue current activity DIET: continue same diet Patient Instructions: Managing Chronic Low Back Pain, Fatigue (Alternative Therapy), Low Back Pain, DI for Sciatica, DI for Fatigue Print Language: Urdu Providers Primary Care Provider: Umm Carson Admit Provider: Ronnie Schwartz Attending Provider: Ronnie Schwartz
[2024-12-09] MEDS: LISINOPRIL 20MG TABLET 20 MG PO (07:59)
[2024-12-09] MEDS: BUSPIRONE HCL 5 MG TABLET PO (07:59)
[2024-12-09] MEDS: METOPROLOL TARTRATE 50MG TABLET 50 MG PO (07:59)
[2024-12-09] MEDS: DOCUSATE SODIUM 100 MG CAPSULE PO (07:59)
[2024-12-09] MEDS: AMLODIPINE 5MG TABLET 5 MG PO (08:54)
[2024-12-09 08:55] VITALS: BP 154/96; PULSE 73; RESP 20
[2024-12-09 09:28] VITALS: BP 177/72; PULSE 72; RESP 18; TEMP 36.6; O2SAT 96
--- NOTE | 2024-12-11 10:55 | SW/DCPLANNER ---
Phoned patient x2. Left patient messages and call back number each time. Randall Harley
== END 2024-12-09 10:31 | disposition home health service (06) ==
LOC: ER 15:47 → 2ND 15:58
PROVIDERS: Internal Medicine Adolescent Medicine; Admitting Provider Student in an Organized Health Care Education/Training Program; Emergency Provider Student in an Organized Health Care Education/Training Program; PCP Nurse Practitioner Family; Visit Provider Student in an Organized Health Care Education/Training Program
DX: M51.16 Intervertebral disc disorders with radiculopathy, lumbar region (principal); N39.0 Urinary tract infection, site not specified; R53.81 Other malaise; F32.0 Major depressive disorder, single episode, mild; I10 Essential (primary) hypertension; K59.00 Constipation, unspecified; N20.0 Calculus of kidney; F41.9 Anxiety disorder, unspecified; I71.43 Infrarenal abdominal aortic aneurysm, without rupture; Z86.718 Personal history of other venous thrombosis and embolism; Z79.01 Long term (current) use of anticoagulants; Z86.711 Personal history of pulmonary embolism; Z88.0 Allergy status to penicillin; Z88.2 Allergy status to sulfonamides; Z79.899 Other long term (current) drug therapy; M48.00 Spinal stenosis, site unspecified
CPT/HCPCS: 36415; 72131; 80053; 81001; 83735; 85025; 87086; 97162; 97166; 99283; G0378; J0692; J1885; J2550; J8540

== ENCOUNTER 2024-12-25 09:36 | Emergency (ER) | payer MEDICARE, MEDICAID, SELFPAY ==
[2024-12-25] VITALS (10 sets, daily range): BP systolic 134–175; BP diastolic 65–81; PULSE 63–73; RESP 18; TEMP 36.8–36.9; O2SAT 94–98; BMI 27.4
--- NOTE | 2024-12-25 09:43 | CT_ITS ---
FINAL REPORT TECHNIQUE: Pre-and postcontrast images of the abdomen were performed by computed tomography. Extensive 3-D reconstruction images were performed. A CTA was performed. This study was performed with techniques to keep radiation doses as low as reasonably achievable (ALARA). Individualized dose reduction techniques using automated exposure control or adjustment of mA and/or kV according to the patient's size were employed. CLINICAL HISTORY: Hx internal hemorrhoid, polyps. rectal bleeding COMPARISON: None FINDINGS: ABDOMEN AND PELVIS: There is chronic scarring in the lung bases. Precontrast images demonstrate a right renal nonobstructing stone. There is a 3.1 cm benign-appearing cyst present in the right kidney. A nonobstructing right renal stone is present as well. No adrenal masses are identified. There are multiple small hypoechoic benign-appearing cysts in the liver. The gallbladder is surgically absent. The common bile duct is enlarged in the head of the pancreas measuring 18 mm in size, which may be secondary to postcholecystectomy change. No gallstones are identified. The spleen, adrenals and pancreas are unremarkable. CTA: The abdominal aorta is enlarged, with a 3.4 x 3.2 cm infrarenal abdominal aortic aneurysm. There is dense calcification at the origin of the celiac axis, with mild stenosis less than 50%. 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 There is no significant stenosis, although dense calcification is present in the aortoiliac vessels. Dense calcifications are present involving the origins of the renal arteries. There is no evidence of extravasation of contrast identified. Note is made of an IVC filter. IMPRESSION: 1. Infrarenal abdominal aortic 0.4 x 3.2 cm in size. 2. This at the origins of the superior mesenteric artery and celiac artery, approximately 50% involving the celiac artery origin and 70% involving the proximal superior mesenteric artery. 3. No extravasation is identified. Reviewed, Interpreted and Dictated by Landen Chun MD Transcribed by Audra Newby Authenticated and [facility]
--- NOTE | 2024-12-25 09:46 | HMH.EDGENADL ---
Discharge Plan Disposition Patient Disposition: Home, Self-Care Prescriptions Prescriptions: New hydrocortisone acetate [Anusol-HC] 25 mg suppository 25 mg LA Q12H 14 Days Qty: 24 0RF methocarbamol 500 mg tablet 500 mg PO HS PRN (Reason: muscle pain) Qty: 30 0RF No Action metoprolol tartrate 50 mg tablet 50 mg PO BID Qty: 180 3RF lisinopril 20 mg tablet 20 mg PO DAILY Qty: 90 3RF Rx Instructions: May take an additional 20mg dose if SBP >150. hydrochlorothiazide 25 mg tablet 25 mg PO DAILY Qty: 30 2RF albuterol sulfate 90 mcg/actuation HFA aerosol inhaler 1 inh INHALATION QID PRN (Reason: shortness of breath or wheezing) Qty: 18 10RF Xarelto 20 mg tablet 20 mg PO QPMWITHMEAL Patient Comments: TAKE 1 TABLET BY MOUTH ONCE DAILY FOR BLOOD THINNER buspirone 5 mg tablet 5 mg PO BID fluticasone propionate 50 mcg/actuation spray,suspension 1 spray intranasal DAILY Rx Instructions: USE 1 SPRAY(S) IN EACH NOSTRIL ONCE DAILY FOR ALLERGY SYMPTOMS Preparation H 0.25-14-74.9 % ointment 1 applic LA DAILY PRN (Reason: hemorrhoids) Qty: 28 0RF docusate sodium [Colace] 100 mg capsule 100 mg PO DAILY Qty: 30 0RF fluoxetine 20 mg capsule 20 mg PO DAILY Rx Instructions: Take 1 capsule by mouth once daily polyethylene glycol 3350 [HealthyLax] 17 gram Powder In Packet 17 g PO DAILY 30 Days Qty: 30 0RF levofloxacin 750 mg Tablet 750 mg PO 1100 4 Days Qty: 4 0RF tramadol 50 mg tablet 50 mg PO Q8H PRN (Reason: pain) Qty: 14 0RF Referrals Follow up/Referrals: Leon Al II, MD [Staff Physician, Gastroenterology] - See instructions Activity Restrictions/Add. Instructions Additional Instructions/Restrictions: I am referring you to Dr. Al with gastroenterology. Call their office to schedule follow-up appointment. Your bleeding is likely from internal hemorrhoids. I am prescribing Anusol, a suppository to help with your hemorrhoids. Take this twice daily as prescribed. Avoid taking NSAIDs such as ibuprofen, indomethacin or naproxen or other NSAIDs. I encourage you to eat a high-fiber diet and take Metamucil or other fiber supplements. You can take the prescribed Robaxin at night right before bed when you are not getting up anymore for your sciatica pain. The muscle relaxer can make you sleepy and lightheaded and to avoid falls, only take this before bed. If you develop any new or worsening symptoms, such as worsening abdominal pain, nausea, vomiting, worsening bleeding, dizziness, passing out episodes, or if you become concerned for your health for any reason, return to the emergency department for evaluation. I do encourage you to follow-up with your primary care doctor as you do have some narrowed blood vessels in your abdomen and may need referral to a vascular surgeon in the future Clinical Impressions Clinical Impression: Acute GI bleeding, Superior mesenteric artery stenosis, Celiac artery stenosis Instructions Patient Instructions: DI for Hemorrhoids Print Language Print Language: Persian Discharge ED Provider: Mateusz Preston General Adult HPI General Chief complaint: Weakness Stated complaint: dizziness, weakness, blood in stool Time Seen by Provider: 12/25/24 09:40 Mode of Arrival: EMS Source of Information: Patient Limitations: No Limitations History of Present Illness HPI narrative: Valentine Schulz is a 74y female with a history of hyperlipidemia, hypertension, obesity, DVT on Xarelto, lower GI bleed, internal hemorrhoids status post banding who presents to the emergency department via EMS for complaints of rectal bleeding and possible sciatic nerve pain. Patient states that she was recently admitted to the hospital for pain down her left hip to her distal left lower extremity and was told that she has sciatic nerve pain. She states that the pain has persisted since then. She has been taking medication at home but does not remember what it is. The pain has persisted. She still ambulating with a walker. She denies any numbness, weakness. She denies any perianal or genital numbness or tingling. She denies any urinary incontinence or retention. She also notes that she has a history of GI bleeding and over the last 3 days has had bright red blood in her bowel movements and occasionally the bowel movements will be very dark. She reports worsening abdominal pain over this time period as well. She had a colonoscopy performed in June but does not know the results. Related Data Home Medications ?Medication ?Instructions ?Recorded ?Confirmed buspirone 5 mg tablet 5 mg PO BID 02/20/24 12/07/24 rivaroxaban 20 mg tablet (Xarelto) 20 mg PO QPMWITHMEAL 02/20/24 12/07/24 fluticasone propionate 50 1 spray intranasal DAILY 02/29/24 12/07/24 mcg/actuation nasal spray,suspension fluoxetine 20 mg capsule 20 mg PO DAILY 12/07/24 12/07/24 Previous Rx's ?Medication ?Instructions ?Recorded albuterol sulfate 90 mcg/actuation 1 inh inhalation QID PRN shortness 01/28/24 aerosol inhaler of breath or wheezing #18 grams docusate sodium 100 mg capsule 100 mg PO DAILY #30 caps 04/17/24 (Colace) phenylephrine 0.25 %-mineral oil 1 applic LA DAILY PRN hemorrhoids 04/17/24 14 %-petrolatm 74.9 % rectal #28 grams ointment (Preparation H) metoprolol tartrate 50 mg tablet 50 mg PO BID #180 tabs 05/08/24 lisinopril 20 mg tablet 20 mg PO DAILY #90 tabs 05/22/24 hydrochlorothiazide 25 mg tablet 25 mg PO DAILY #30 tabs 12/04/24 levofloxacin 750 mg tablet 750 mg PO 1100 4 days #4 tabs 12/09/24 polyethylene glycol 3350 17 gram 17 g PO DAILY 30 days #30 ea 12/09/24 oral powder packet (HealthyLax) tramadol 50 mg tablet 50 mg PO Q8H PRN pain #14 tabs 12/09/24 hydrocortisone acetate 25 mg 25 mg LA Q12H 2 weeks #24 ea 12/25/24 rectal suppository (Anusol-HC) methocarbamol 500 mg tablet 500 mg PO HS PRN muscle pain #30 12/25/24 tabs Allergies Allergy/AdvReac Type Severity Reaction Status Date / Time Penicillins (PENICILLINS) Allergy Unknown Rash Verified 12/04/24 13:35 Sulfa (Sulfonamide Allergy Unknown Rash Verified 12/04/24 13:35 Antibiotics) (SULFA (SULFONAMIDE ANTIBIOTICS)) [facility] Disclaimer: The information contained in this section may have been updated after the patient was seen, as this information can be updated by other users. Medical History Pre-op evaluation Fatigue Weakness Hemorrhoids Internal derangement of right knee Left leg pain Left knee sprain Falls Skin lesion of neck Seasonal allergic rhinitis Passage of loose stools Abdominal pain Acute blood loss anemia (ABLA) Prolonged INR Dizziness Hypertensive emergency without congestive heart failure Abdominal contusion Contusion of left leg History of DVT (deep vein thrombosis) Lower GI bleed Fall down steps Lumbar strain Cervical strain DVT (deep venous thrombosis) Obesity (BMI 30.0-34.9) Osteoarthritis Leg pain Back Pain Hypertension Anxiety Depression Irregular heart beat Hyperlipemia Surgical History H/O heart surgery H/O section Family History Other No significant family history Social History Smoking Status: Never smoker second hand exposure: No alcohol intake: never substance use type: denies use current occupational status: disabled Travel in the last 8 weeks?: None household members: none housing: house current occupational exposures/hazards: No caffeine: Yes Have you lived/traveled outside [place] in past 30 days?: No Contact w/someone who lives/traveled outside US past 30 days?: No Exposure to someone with infectious disease in past 14 days?: No Do you have a fever (greater than 100.4 F or 38 C)?: No Have you tested positive for COVID-19?: No Exposed to someone with COVID-19 in past 14 days?: No Do you have a sore throat?: No Do you have a cough?: No Do you have any weakness?: Yes Do you have any diarrhea?: No Are you experiencing any unusual bleeding?: Yes Do you have any muscle aches/pain?: No Do you have any abdominal pain?: No Are you experiencing loss of taste or smell?: No Other Medical History Have you received the Flu Vaccine for this season: No Have you received the Pneumonia Vaccine: No ROS Obtained: Yes Systems reviewed as appropriate & no additional complaints except as documented Physical Exam General General appearance: alert and in no apparent distress Head Head exam: atraumatic Eye Eye exam: Present normal appearance ENT ENT exam: Present normal external ear exam Neck Neck exam: Present full ROM Chest Chest inspection: Present symmetric chest wall rise Respiratory Respiratory exam: Present normal lung sounds bilaterally; Absent respiratory distress, wheezes or stridor Cardiovascular Cardiovascular exam: Present regular rate and normal rhythm Abdominal Exam Abdominal exam: Present soft and tenderness (Generalized but more focal in the suprapubic and left lower quadrant); Absent guarding or rigidity Rectal Exam comment: Bright red blood staining underwear. External, nonthrombosed external hemorrhoids at the 3:00 and 2:00 positions. Bright red blood on digital rectal exam Extremities Exam Extremities exam: Present normal inspection Back Exam Back exam: Present normal inspection and straight leg raise (L); Absent straight leg raise (R) Neurological Exam Neurological exam: Present alert and oriented X3 Psychiatric Psychiatric exam: Present normal affect Skin Skin exam: Present warm and dry Medical Decision Making Medical Records Screening: Per USPSTF and CDC recommendations, given the prevalence of disease in our region, it is our hospital?s policy to screen for HIV and viral Hepatitis for all patients aged 18 and over and those with ongoing risk factors. Christian Inquiry Pt receiving controlled substance: No Vital Signs: 12/25/24 09:39 12/25/24 09:49 12/25/24 10:01 Temperature 98.3 F Temperature Source Oral Pulse Rate 73 Pulse Rate [Left Brachial] 65 Respiratory Rate 18 Blood Pressure 138/73 175/72 H Blood Pressure [Left Arm] 138/73 Blood Pressure Mean 106 Blood Pressure Mean [Left Arm] 94 Blood Pressure Source [Left Arm] Automatic Cuff Blood Pressure Position [Left Arm] Sitting 02 Sat by Pulse Oximetry 94 L 95 Oxygen Delivery Method Room Air Room Air 12/25/24 10:30 12/25/24 11:01 12/25/24 11:31 Temperature Temperature Source Pulse Rate 66 66 Pulse Rate [Left Brachial] Respiratory Rate Blood Pressure 146/69 H 171/73 H 134/81 Blood Pressure [Left Arm] Blood Pressure Mean 116 Blood Pressure Mean [Left Arm] Blood Pressure Source [Left Arm] Blood Pressure Position [Left Arm] 02 Sat by Pulse Oximetry 96 95 Oxygen Delivery Method Room Air Room Air 12/25/24 12:00 12/25/24 12:30 12/25/24 13:00 Temperature Temperature Source Pulse Rate 65 68 63 Pulse Rate [Left Brachial] Respiratory Rate 18 18 Blood Pressure 156/65 H 154/71 H 158/66 H Blood Pressure [Left Arm] Blood Pressure Mean 98 96 Blood Pressure Mean [Left Arm] Blood Pressure Source [Left Arm] Blood Pressure Position [Left Arm] 02 Sat by Pulse Oximetry 98 96 96 Oxygen Delivery Method 12/25/24 13:24 Temperature 98.4 F Temperature Source Pulse Rate 63 Pulse Rate [Left Brachial] Respiratory Rate 18 Blood Pressure 158/66 H Blood Pressure [Left Arm] Blood Pressure Mean Blood Pressure Mean [Left Arm] Blood Pressure Source [Left Arm] Blood Pressure Position [Left Arm] 02 Sat by Pulse Oximetry Oxygen Delivery Method Room Air Lab Data Lab Results 12/25/24 09:50: WBC 8.7, RBC 4.64, Hgb 13.8, Hct 43.0, MCV 92.7, MCH 29.7, MCHC 32.1, RDW 14.2, Plt Count 154, MPV 10.0, Neut % (Auto) 55.3, Lymph % (Auto) 32.5, [place] % (Auto) 7.8, Eos % (Auto) 2.8, Baso % (Auto) 0.7, Neut # (Auto) 4.8, Lymph # (Auto) 2.8, Forest # (Auto) 0.7, Eos # (Auto) 0.2, Baso # (Auto) 0.1, PT 16.1 H, INR 1.49 H, APTT 34.5 H, Sodium 133 L, Potassium 4.2, Chloride 102, Carbon Dioxide 25, Anion Gap 10.2, BUN 26 H, Creatinine 1.00, Estimated Creat Clear 55, Estimated GFR 54 L, Est GFR ( Amer) 65, Glucose 118 H, Calcium 9.4, Total Bilirubin 1.0, AST 30, ALT 20, Alkaline Phosphatase 62, Troponin I < 0.01, Total Protein 8.0, Albumin 3.3 L, Globulin 4.7 H, Albumin/Globulin Ratio 0.7 L, Lipase 288 12/25/24 10:00: Stool Occult Blood Positive A 12/25/24 10:05: Lactate 1.2 12/25/24 11:44: Urine Color Yellow, Urine Appearance Clear, Urine pH 5.5, Ur Specific [place] 1.015, Urine Protein Negative, Urine Glucose (UA) Negative, Urine Ketones Negative, Urine Blood Trace-i, Urine Nitrate Negative, Urine Bilirubin Negative, Urine Urobilinogen 0.2, Ur Leukocyte Esterase Negative, Urine RBC None, Urine WBC Occasional, Ur Squamous Epith Cells Occasional, Urine Bacteria None 12/25/24 09:50 12/25/24 09:50 Orders (Tests/Meds): ED MEDICATIONS Discontinued Medications Generic Name Dose Route Start Last Admin Trade Name Hermelinda PRN Reason Stop Dose Admin Iopamidol 80 ml 12/25/24 10:42 12/25/24 10:43 Iopamidol-370 (76%);100ml Bottle IV 12/25/24 10:43 80 ml ONCE ONE Administration Methocarbamol 500 mg 12/25/24 13:35 12/25/24 13:40 Methocarbamol 500mg Tablet PO 12/25/24 13:36 500 mg ONCE ONE Administration Sodium Chloride 50 ml 12/25/24 10:42 12/25/24 10:43 0.9 % Sodium Chloride 50 Ml Vial IV 12/25/24 10:43 50 ml ONCE ONE Administration Sodium Chloride 10 ml 12/25/24 10:42 12/25/24 10:43 Sodium Chloride 0.9% 10ml Syr (Rad Only) IV 12/25/24 10:43 10 ml ONCE ONE Administration ORDERS Category Date Time Status CT angio abd/pel - GI Bleed Stat Cat Scan 12/25/24 09:43 Completed CBC w/Auto Diff [Complete Blood Count Auto Diff] Stat Lab 12/25/24 09:50 Completed CMP [Comprehensive Metabolic Panel] Stat Lab 12/25/24 09:50 Completed Lactic Acid Stat Lab 12/25/24 10:05 Completed Lipase Stat Lab 12/25/24 09:50 Completed Occult Blood,Stool Stat Lab 12/25/24 10:00 Completed PT INR [Prothrombin Time INR] Stat Lab 12/25/24 09:50 Completed PTT [Activated Partial Thrombo Time] Stat Lab 12/25/24 09:50 Completed Troponin I Stat Lab 12/25/24 09:50 Completed UA [Urinalysis and Microscopic] Stat Lab 12/25/24 11:44 Completed ECG Data Tracing #1: I reviewed this ECG and interpreted as documented below: Normal sinus rhythm. No ST elevation or depression. QTc normal at 396 Medical Decision Narrative: Valentine Schulz is a 74y female with a history of hyperlipidemia, hypertension, obesity, DVT on Xarelto, lower GI bleed, internal hemorrhoids status post banding who presents to the emergency department via EMS for complaints of rectal bleeding and possible sciatic nerve pain. Patient states that she was recently admitted to the hospital for pain down her left hip to her distal left lower extremity and was told that she has sciatic nerve pain. She states that the pain has persisted since then. She has been taking medication at home but does not remember what it is. The pain has persisted. She still ambulating with a walker. She denies any numbness, weakness. She denies any perianal or genital numbness or tingling. She denies any urinary incontinence or retention. She also notes that she has a history of GI bleeding and over the last 3 days has had bright red blood in her bowel movements and occasionally the bowel movements will be very dark. She reports worsening abdominal pain over this time period as well. She had a colonoscopy performed in June but does not know the results. She also reports some dizziness recently. On arrival, patient is hemodynamically stable and in no distress. Physical exam, stated above, revealed an overall well-appearing female who is sitting upright in bed. She has diffuse abdominal tenderness more focally in the suprapubic and left lower quadrant. She has a positive straight leg raise on the left but not on the right. 5 out of 5 strength in bilateral lower extremities. Sensation grossly intact to bilateral lower extremities. Pulses are intact. Cardiopulmonary exam is unremarkable. Digital rectal exam with tile roofer showed bright red blood in underwear and on digital rectal exam. She has 2 nonthrombosed external hemorrhoids at the 3:00 and 2:00 positions. Chart review shows the patient had a colonoscopy in June of this year with ascending colon polyp and a sigmoid colon polyp that were sent for biopsies. The ascending colonic polyp is negative for high-grade dysplasia and shows adenomatous polyp (tubular adenoma). Sigmoid colonic polyp shows well-differentiated neuroendocrine tumor, grade 1, 0.4 cm in greatest measure dimension. Margin status cannot be evaluated on current specimen. I have very low concern for cauda equina syndrome this patient has no red flag symptoms and her leg pain is most consistent with peripheral radiculopathy, likely sciatic nerve involvement. Differential diagnosis includes, but is not limited to: Bleeding internal hemorrhoid, metastatic disease, sciatic nerve pain, electrolyte derangement, anemia, UTI, ACS, among others. The most morbid conditions were considered and workup was based on these. Workup in the emergency department included: Troponin, UA, PT/INR, PTT, lipase, lactic acid, CMP, CBC with differential, fecal occult blood, CT angio abdomen pelvis GI protocol, EKG Fecal occult testing is positive Lab work shows no leukocytosis, no anemia with hemoglobin of 13.8, hematocrit of 43, platelets normal at 154. Patient's INR is 1.49 consistent with warfarin use and appears therapeutic. Mild hyponatremia at 133 but electrolytes otherwise unremarkable nonactionable. No EMMANUELLE. Lactate normal at 1.2. Liver enzymes within normal limits. Troponin less than 0.01. Lipase normal at 288. Urinalysis pending at this time. CT imaging was interpreted by me personally. She has a stable infrarenal abdominal aortic aneurysm measuring 0.4 x 3.2 cm in size. There is stenosis of the celiac artery measuring 50% and 70% stenosis of the superior mesenteric artery. No extravasation is identified. See radiology report for details. Due to patient's rectal bleeding with stable hemoglobin in the setting of known neuroendocrine tumor on recent colonoscopy, I do feel that she will need close outpatient follow-up with gastroenterology and likely repeat scope. Will attempt to reach out to Dr. Al with gastroenterology for further recommendations. 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 He states that she was sent to ED from [facility] in [place] back in September of this year and had a repeat scope at that time and was told that the lesion in her colon was noncancerous and gave her a clean bill of health . She did not have any hemorrhoids at that time. Son is concerned that her hemorrhoids may have returned. Patients urine without evidence of infection. I did discuss patient's case with Dr. Al who agree that patient symptomatology is most consistent with internal hemorrhoids. He recommended Anusol cream, avoiding NSAIDs and high-fiber diet. Will arrange outpatient follow-up for possible repeat colonoscopy. On reassessment, patient remained in stable condition. Will administer 500 mg of Robaxin for sciatic nerve pain. She has tramadol at home and states that this helps. Encouraged her to take this. She has tried gabapentin as well and stated that it helped but it made her dizzy and does not want to take it any longer. I encouraged her to follow with her primary care doctor regarding her sciatic nerve pain treatment further. Will prescribe Robaxin for her to go home with as well. She has lidocaine patches as well. I discussed incidental findings of the celiac artery and superior mesenteric artery stenosis that will require follow-up. Strict return precautions were given. All questions were answered. She demonstrated understanding and was in agreement this plan. She was then discharged from the emergency department in stable condition. Critical Care Critical Care Time Critical Care Time: No
--- NOTE | 2024-12-25 09:54 | ECG_ITS ---
APPROVED REPORT Exam: Resting ECG HR:64 bpm ECG Measurements Heart Rate 64 AXES WY 179 P 67 QRSd 92 QRS 3 QT 386 T 65 QTc 396 Conclusion SINUS RHYTHM POSSIBLE RIGHT VENTRICULAR CONDUCTION DELAY [RSR (QR) IN V1/V2] BORDERLINE ECG UNCONFIRMED REPORT NSR. No ST elevation or depression. Electronically signed by : NICOLASA BOSS, 12/25/2024 14:37:58
[2024-12-25 10:04] LABS: Occult Blood,Stool Positive (Negative)
[2024-12-25 10:06] LABS: Hematocrit 43.0 % (37.0-47.0); Hemoglobin 13.8 g/dL (12.2-16.2); Immature Granulocytes % 0.9 %; Mean Corpuscular HGB Conc 32.1 g/dL (31.8-35.4); Mean Corpuscular Hemoglobin 29.7 pg (27.0-31.2); Mean Corpuscular Volume 92.7 fl (81-99); Nucleated Red Blood Cells % 0 %; Platelet Count 154 K/mm3 (142-424); Red Blood Count 4.64 M/mm3 (4.20-5.40); Red Cell Distribution Width-SD 48.2 fL; White Blood Count 8.7 K/mm3 (4.8-10.8)
--- OUTSIDE RECORDS SUMMARY | 2024-12-25 10:15 | XMS_ITS | Clinical Summary ---
Author Organization [facility] Address [address] [place] [phone] Phone Care Team Providers Care Electrical Fitter Name Role Phone Provider, Not In Epic [...] 75+ series) 07/20/2023 COVID-19 Vaccine ( - 2024-2 6 season) 2024 Influenza Vaccine (#1) 2024 Hepatitis B Vaccine Aged Out No longe r eligible based on patient's age to complete this topic Meningococcal B Vaccine Aged Out No l onger eligible based on patient's age to complete [place] [address] [facility] [id number] [facility] MEDICARE PART B Care Teams Electrical Fitter Relationship Specialty Start Date End Date Provider, Not In [facility] PCP - General 10/06/11
[2024-12-25 10:19] LABS: Activated Partial Thrombo Time 34.5 seconds (22.8-30.6); INR 1.49 (0.9-1.1); Prothrombin Time 16.1 seconds (10.1-12.5)
[2024-12-25 10:24] LABS: Alanine Aminotransferase 20 U/L (12-78); Albumin Level 3.3 g/dl (3.5-5.0); Albumin/Globulin Ratio 0.7 (1.1-1.8); Alkaline Phosphatase 62 U/L (38-126); Anion Gap 10.2 mEq/L (5-15); Aspartate Amino Transferase 30 U/L (14-36); Bilirubin,Total 1.0 mg/dl (0.2-1.3); Blood Urea Nitrogen 26 mg/dl (7-17); Calcium 9.4 mg/dl (8.4-10.2); Carbon Dioxide 25 mmol/L (22.0-30.0); Chloride 102 mmol/L (98-107); Creatinine Clearance Estimated 55 mL/min (50-200); Creatinine,Serum 1.00 mg/dl (0.52-1.04); Estimated Glomerular Filt Rate 54 ml/min (>60); GFR (African American) 65 ML/MIN (>60); Globulin 4.7 g/dL (1.3-3.2); Glucose 118 mg/dl (74-100); Lipase 288 U/L (23-300); Potassium 4.2 mmoL/L (3.5-5.1); Sodium 133 mmol/L (136-145); Total Protein,Serum 8.0 g/dl (6.3-8.2)
[2024-12-25 10:40] LABS: Troponin I < 0.01 ng/ml (0.00-0.034)
[2024-12-25] MEDS: SODIUM CHLORIDE 0.9% 10ML SYR (RAD ONLY) 10 ML IV (10:43)
[2024-12-25] MEDS: 0.9 % SODIUM CHLORIDE 50 ML VIAL IV (10:43)
[2024-12-25] MEDS: IOPAMIDOL-370 (76%);100ML BOTTLE 80 ML IV (10:43)
--- NOTE | 2024-12-25 10:54 | PC.NURSE ---
asked patient if she felt she could urinate and she stated not at this time. educated on need for a urine. call light within reach
[2024-12-25 11:48] LABS: Microscopic, Urine URINE MICROSCOPIC (MICROSCOPIC)
[2024-12-25 12:30] LABS: Bilirubin,Urine Negative (Negative); Color,Urine YELLOW (Yellow); Glucose,Urine (UA) Negative (Negative); Ketones,Urine Negative (Negative); Leukocyte Esterase,Urine Negative (Negative); PH,Urine 5.5 (5.0-8.5); Protein,Urine Negative (Negative); Specific Gravity, Urine 1.015 (1.005-1.030); Urobilinogen,Urine 0.2 EU/dl (0.2)
[2024-12-25 12:36] LABS: Squamous Epithelial Cell,Urine Occasional #/hpf (0-5); WBC,Urine Occasional #/hpf (0-3)
[2024-12-25] MEDS: METHOCARBAMOL 500MG TABLET 500 MG PO (13:40)
== END 2024-12-25 13:46 | disposition home or self-care (01) ==
PROVIDERS: Emergency Provider Student in an Organized Health Care Education/Training Program; PCP Nurse Practitioner Family
DX: K92.2 Gastrointestinal hemorrhage, unspecified (principal); R10.84 Generalized abdominal pain; I77.4 Celiac artery compression syndrome; K55.1 Chronic vascular disorders of intestine; M54.32 Sciatica, left side; Z86.718 Personal history of other venous thrombosis and embolism; Z79.01 Long term (current) use of anticoagulants
CPT/HCPCS: 74174; 80053; 81001; 82272; 83605; 83690; 84484; 85025; 85610; 85730; 93005; 99285; G0328; Q9967